=== PATIENT | male | born 1950 | race Caucasian/White ===

== ENCOUNTER 2022-12-16 19:25 | Inpatient (IN) ==
[2022-12-16] MEDS ORDERED: MoRPHine SULFATE 4 MG/ML 1 ML CARP\\VIAL IV PRN (19:39)
[2022-12-16] MEDS ORDERED: ONDANSETRON INJ 2 MG/ML 2 ML VIAL IV STA (19:39)
[2022-12-16] MEDS ORDERED: SODIUM CHLORIDE 0.9% 250 ML IV ONE (19:39)
--- NOTE | 2022-12-16 19:39 | ED Triage Note ---
Date of Service December 16, 2022 History of Present Illness This patient was briefly evaluated while in triage. An abbreviated physical exam was performed. This patient is a 72-year-old Male who presents to the ED for evaluation of abdominal pain rated 8/10 around umbilicus. Started this morning. No n/v. No f ever. Physical Exam Limited Triage Exam: VITALS: Vitals are noted on the nurse's note and reviewed by myself. Vital signs stable. GENERAL: Well-developed, well-nourished, white male, who is in no acute distress and resting comfortably. Patient is cooperative with the examination. HEART: Regular rate and rhythm without murmurs gallops or rubs. LUNGS: Clear to auscultation bilaterally without wheezes, rales or rhonchi. No retractions or accessory muscle use. NEURO: Patient was alert and oriented to person place and time. CN II through XII grossly intact. Initial orders for labs and / or imaging were placed and patient was placed in the waiting area until a bed is available. Please see further documentation for the full ED course. MDM / Impression Impression Impression: Umbilical hernia, incarcerated, Partial obstruction of small intestine
--- NOTE | 2022-12-16 20:38 | Emergency Department Note ---
History of Present Illness General Chief complaint: Abdominal Pain Stated complaint: ABDOMINAL PAIN Time Seen by Provider: 12/16/22 20:20 History of Present Illness Maximum Pain Intensity: 8 72-year-old male presents emergency department an onset of abdominal pain that started this morning after he had a bowel movement. Patient has a history of an umbilical hernia. He states that there is pain around the umbilicus and that his hernia is sticking out more. Patient denies any nausea vomiting diarrhea. Patient's had appendectomy before and inguinal hernia repair. There are no othe r mitigating or alleviating factors. Home Medications Medication Instructions Recorded Confirmed Type allopurinol 300 mg tablet 300 mg PO DAILY 12/16/22 12/16/22 History amiodarone 200 mg tablet 200 mg PO QAM 12/16/22 12/16/22 History amoxicillin 500 mg capsule 2,000 mg PO DIRECTED PRN 1 HR 12/16/22 12/16/22 History PRIOR TO DENTAL APPT. aspirin 81 mg tablet,delayed 81 mg PO DAILY 12/16/22 12/16/22 History release atorvastatin 40 mg tablet 40 mg PO DAILY 12/16/22 12/16/22 History cholecalciferol (vitamin D3) 50 50 mcg PO DAILY 12/16/22 12/16/22 History mcg (2,000 unit) capsule (Vitamin D3) furosemide 20 mg tablet 20 mg PO DAILY 12/16/22 12/16/22 History lisinopril 2.5 mg tablet 2.5 mg PO QAM 12/16/22 12/16/22 History loratadine 10 mg tablet (Claritin) 10 mg PO DAILY 12/16/22 12/16/22 History metoprolol tartrate 25 mg tablet 12.5 mg PO BID 12/16/22 12/16/22 History terazosin 1 mg capsule 2 mg PO HS 12/16/22 12/16/22 History warfarin 5 mg tablet See Rx Instructions .Route .COMPLEX 12/16/22 12/16/22 History Allergies Allergy/AdvReac Type Severity Reaction Status Date / Time nut - unspecified Allergy Intermediate SORES IN Verified 12/16/22 21:33 MOUTH Past Med/Surg History Medical History Aortic dissection CRF (chronic renal failure) Surgical History Heart valve replaced Social History Smoking Status: Never smoker Feels Safe at Home: Yes Immunizations: Past surgical history includes inguinal hernia repair, multiple thoracic surgeries, appendectomy Review of Systems A total of 10 systems reviewed and were otherwise negative Gastrointestinal: + abdominal pain Physical Exam Vital Signs Vital Signs - 24 hr 12/16/22 19:38 12/16/22 20:22 12/16/22 20:21 Temperature 36.6 C Temperature Source Temporal Artery Scan Pulse Rate 60 61 Pulse Rate [Finger] 58 L Pulse Rhythm Regular Pulse Strength Normal Respiratory Rate 22 16 Respiratory Effort / Characteristics Non-Labored Spontaneous Non-Labored Respiratory Depth Normal Normal Respiratory Pattern Regular Blood Pressure 103/54 L Blood Pressure [Left Arm] 126/58 L Blood Pressure Mean 70 Blood Pressure Mean [Left Arm] 80 Blood Pressure Position Sitting Pulse Oximetry 90 99 Oxygen Delivery Method Room Air Room Air Sepsis Recent Fever Within 48 Hours No Sepsis New/Unexplained Change in Mental Status N/A Sepsis Action Taken by Nursing No Action Required GENERAL: Patient is awake alert in no acute distress patient is resting comfortably and showing no signs of anxiety EYES: The conjunctivae are clear. The pupils are round and reactive. EARS, NOSE, MOUTH AND THROAT: The nose is without any evidence of any deformity. Mucous membranes are moist. Tongue is midline. NECK: The neck is nontender and supple. RESPIRATORY: Normal respiratory effort is noted there is no evidence of wheezing rhonchi or rales CARDIOVASCULAR: Regular rate and rhythm noted there no murmurs rubs or gallops normal S1 normal S2. GASTROINTESTINAL: The abdomen is soft. Abdomen is tender at the umbilicus with a mass present that is nonreducible PELVIS: The Pelvis is stable. No tenderness to palpation is noted. BACK: No midline tenderness or or step-off noted range of motion in flexion extension as well as rotation no signs of muscle spasm noted MUSCULOSKELETAL/EXTREMITIES: There is no evidence of gross deformity full range of motion is noted in the hips and shoulders. SKIN: There is no obvious evidence of any rash. There are no petechiae, pallor or cyanosis noted. NEUROLOGIC: Patient is awake alert and oriented x3 strength is symmetric Course Reevaluation(s) Reevaluation #1: Patient was complaining of umbilical abdominal pain. Patient was given IV fentanyl. Time: 22:28 Consultations Consultation #1: Case was discussed with Mumtaz the physician laboratory assistant for surgery for consultation Time: :28 Consultation #2: Spoke with [facility] for admission Time: 22:30 Administered Medications Discontinued Medications Fentanyl Citrate (Fentanyl Citrate Pf 100 Mcg/2 Ml Vial) 50 mcg IV NOW STA Stop: 12/16/22 20:53 Last Admin: 12/16/22 21:19 Dose: 50 mcg Documented By: FRANCK Sodium Chloride (Nss) 250 mls @ 999 mls/hr IV .Q16M ONE Stop: 12/16/22 19:54 Last Infusion: 12/16/22 20:50 Dose: 0 mls/hr Documented By: Admin: 12/16/22 20:31 Dose: 999 mls/hr Documented By: FRANCK Morphine Sulfate (Morphine Sulfate 4 Mg/Ml 1 Ml Carp\Vial) 4 mg IV Q30M PRN PRN Reason: Pain Stop: 12/30/22 19:38 Last Admin: 12/16/22 20:31 Dose: 4 mg Documented By: FRANCK Ondansetron HCl (Ondansetron Inj 2 Mg/Ml 2 Ml Vial) 4 mg IV NOW STA Stop: 12/16/22 19:40 Last Admin: 12/16/22 23:18 Dose: Not Given Documented By: FRANCK Medical Decision Making Medical Records Attestation: I reviewed the patient's medical records. Home Medications Current Medication List: was personally reviewed by Laboratory Data Attestation: I reviewed the patient's lab results. Lab work interpreted by me elevated creatinine 12/16/22 20:12 12/16/22 20:12 Lab Results 12/16/22 12/16/22 12/16/22 Range/Units 20:12 20:12 20:12 WBC 7.62 (4.8-10.8) K/ul RBC 3.66 L (4.70-6.10) M/uL Hgb 11.0 L (14.0-18.0) g/dl POC Hgb (14.0-18.0) g/dl Hct 32.9 L (42.0-52.0) % POC Hct (42-52) % MCV 89.9 (80.0-100.0) fL MCH 30.1 (25.0-34.0) pg MCHC 33.4 (32.0-36.0) g/dL RDW Std Deviation 64.8 H (36.4-46.3) fL RDW Coeff of Penelope 19.9 H (11.5-14.5) % Plt Count 122 L (130-400) K/uL Immature Gran % (Auto) 1.3 % Neut % (Auto) 73.8 % Lymph % (Auto) 12.3 % [place] % (Auto) 10.6 % Eos % (Auto) 1.7 % Baso % (Auto) 0.3 % Neut # (Auto) 5.62 (1.40-6.50) K/uL Lymph # (Auto) 0.94 L (1.2-3.4) K/uL [place] # (Auto) 0.81 H (0.11-0.59) K/uL Eos # (Auto) 0.13 (0-0.50) K/uL Baso # (Auto) 0.02 (0-0.2) K/uL Immature Gran # (Auto) 0.10 (0.01-0.20) K/uL Anisocytosis Present Ovalocytes 1+ PT 18.1 H (9.0-12.0) Seconds INR 1.7 H (0.9-1.1) APTT 32.8 H (21.0-31.0) Seconds PTT Ratio 1.2 POC Sodium (135-144) mmol/L Sodium 142 (136-145) mmol/L POC Potassium (3.3-5.0) mmol/L Potassium 4.1 (3.5-5.1) mmol/L POC Chloride (101-112) mmol/L Chloride 107 (98-107) mmol/L Carbon Dioxide 25 (21-32) mmol/L POC Total CO2 (24-31) mmol/L Anion Gap 10 (3-11) POC Anion Gap (16-25) mmol/L POC BUN (7-18) mg/dl BUN 81 H (6-23) mg/dl Creatinine 2.33 H (0.6-1.4) mg/dl POC Creatinine (0.6-1.3) mg/dl Est Cr Clr Drug Dosing 33.8 ml/min Est GFR ( Amer) 31.2 ml/min Est GFR (Non-Af Amer) 26.9 ml/min BUN/Creatinine Ratio 34.8 H (10-20) Glucose 90 (70-99(Fasting)) mg/dl POC Glucose (other) (70-99) mg/dl Lactate (0.4-2.0) mmol/L Calcium 8.5 L (8.6-10.3) mg/dl POC Ioniz Calcium Codey (1.12-1.32) mmol/l Magnesium 2.2 (1.7-2.4) mg/dl Total Bilirubin 1.9 H (0.2-1.0) mg/dl AST 36 (13-39) U/L ALT 33 (7-52) U/L Alkaline Phosphatase 110 H (34-104) U/L Troponin I High Sens 21.3 H (0-20) pg/ml Total Protein 6.3 (6.0-8.3) gm/dl Albumin 3.7 (3.4-5.0) gm/dl Globulin 2.6 (2.5-4.0) gm/dl Albumin/Globulin Ratio 1.4 (0.9-2) Lipase 14 (11-82) U/L Urine Color Urine Appearance (Clear) Urine pH (4.5-7.5) Ur Specific [place] (1.000-1.030) Urine Protein (Negative) Urine Glucose (UA) (Negative) Urine Ketones (Negative) Urine Blood (Negative) Urine Nitrite (Negative) Urine Bilirubin (Negative) Urine Urobilinogen (Negative) Ur Leukocyte Esterase (Negative) SARS-CoV-2, RNA, NAAT (NEGATIVE) 12/16/22 12/16/22 12/16/22 Range/Units 20:12 20:12 20:37 WBC (4.8-10.8) K/ul RBC (4.70-6.10) M/uL Hgb (14.0-18.0) g/dl POC Hgb 12.2 L (14.0-18.0) g/dl Hct (42.0-52.0) % POC Hct 36 L (42-52) % MCV (80.0-100.0) fL MCH (25.0-34.0) pg MCHC (32.0-36.0) g/dL RDW Std Deviation (36.4-46.3) fL RDW Coeff of Penelope (11.5-14.5) % Plt Count (130-400) K/uL Immature Gran % (Auto) % Neut % (Auto) % Lymph % (Auto) % [place] % (Auto) % Eos % (Auto) % Baso % (Auto) % Neut # (Auto) (1.40-6.50) K/uL Lymph # (Auto) (1.2-3.4) K/uL [place] # (Auto) (0.11-0.59) K/uL Eos # (Auto) (0-0.50) K/uL Baso # (Auto) (0-0.2) K/uL Immature Gran # (Auto) (0.01-0.20) K/uL Anisocytosis Ovalocytes PT (9.0-12.0) Seconds INR (0.9-1.1) APTT (21.0-31.0) Seconds PTT Ratio POC Sodium 141 (135-144) mmol/L Sodium (136-145) mmol/L POC Potassium 4.0 (3.3-5.0) mmol/L Potassium (3.5-5.1) mmol/L POC Chloride 106 (101-112) mmol/L Chloride (98-107) mmol/L Carbon Dioxide (21-32) mmol/L POC Total CO2 22 L (24-31) mmol/L Anion Gap (3-11) POC Anion Gap 18.0 (16-25) mmol/L POC BUN 71 H (7-18) mg/dl BUN (6-23) mg/dl Creatinine (0.6-1.4) mg/dl POC Creatinine 2.6 H (0.6-1.3) mg/dl Est Cr Clr Drug Dosing ml/min Est GFR ( Amer) ml/min Est GFR (Non-Af Amer) ml/min BUN/Creatinine Ratio (10-20) Glucose (70-99(Fasting)) mg/dl POC Glucose (other) 88 (70-99) mg/dl Lactate (0.4-2.0) mmol/L Calcium (8.6-10.3) mg/dl POC Ioniz Calcium Codey 1.09 L (1.12-1.32) mmol/l Magnesium (1.7-2.4) mg/dl Total Bilirubin (0.2-1.0) mg/dl AST (13-39) U/L ALT (7-52) U/L Alkaline Phosphatase (34-104) U/L Troponin I High Sens (0-20) pg/ml Total Protein (6.0-8.3) gm/dl Albumin (3.4-5.0) gm/dl Globulin (2.5-4.0) gm/dl Albumin/Globulin Ratio (0.9-2) Lipase (11-82) U/L Urine Color Yellow Urine Appearance Clear (Clear) Urine pH 5.5 (4.5-7.5) Ur Specific [place] 1.012 (1.000-1.030) Urine Protein Negative (Negative) Urine Glucose (UA) Negative (Negative) Urine Ketones Negative (Negative) Urine Blood Negative (Negative) Urine Nitrite Negative (Negative) Urine Bilirubin Negative (Negative) Urine Urobilinogen Negative (Negative) Ur Leukocyte Esterase Negative (Negative) SARS-CoV-2, RNA, NAAT NEGATIVE (NEGATIVE) 12/16/22 Range/Units 23:22 WBC (4.8-10.8) K/ul RBC (4.70-6.10) M/uL Hgb (14.0-18.0) g/dl POC Hgb (14.0-18.0) g/dl Hct (42.0-52.0) % POC Hct (42-52) % MCV (80.0-100.0) fL MCH (25.0-34.0) pg MCHC (32.0-36.0) g/dL RDW Std Deviation (36.4-46.3) fL RDW Coeff of Penelope (11.5-14.5) % Plt Count (130-400) K/uL Immature Gran % (Auto) % Neut % (Auto) % Lymph % (Auto) % [place] % (Auto) % Eos % (Auto) % Baso % (Auto) % Neut # (Auto) (1.40-6.50) K/uL Lymph # (Auto) (1.2-3.4) K/uL [place] # (Auto) (0.11-0.59) K/uL Eos # (Auto) (0-0.50) K/uL Baso # (Auto) (0-0.2) K/uL Immature Gran # (Auto) (0.01-0.20) K/uL Anisocytosis Ovalocytes PT (9.0-12.0) Seconds INR (0.9-1.1) APTT (21.0-31.0) Seconds PTT Ratio POC Sodium (135-144) mmol/L Sodium (136-145) mmol/L POC Potassium (3.3-5.0) mmol/L Potassium (3.5-5.1) mmol/L POC Chloride (101-112) mmol/L Chloride (98-107) mmol/L Carbon Dioxide (21-32) mmol/L POC Total CO2 (24-31) mmol/L Anion Gap (3-11) POC Anion Gap (16-25) mmol/L POC BUN (7-18) mg/dl BUN (6-23) mg/dl Creatinine (0.6-1.4) mg/dl POC Creatinine (0.6-1.3) mg/dl Est Cr Clr Drug Dosing ml/min Est GFR ( Amer) ml/min Est GFR (Non-Af Amer) ml/min BUN/Creatinine Ratio (10-20) Glucose (70-99(Fasting)) mg/dl POC Glucose (other) (70-99) mg/dl Lactate 0.9 (0.4-2.0) mmol/L Calcium (8.6-10.3) mg/dl POC Ioniz Calcium Codey (1.12-1.32) mmol/l Magnesium (1.7-2.4) mg/dl Total Bilirubin (0.2-1.0) mg/dl AST (13-39) U/L ALT (7-52) U/L Alkaline Phosphatase (34-104) U/L Troponin I High Sens (0-20) pg/ml Total Protein (6.0-8.3) gm/dl Albumin (3.4-5.0) gm/dl Globulin (2.5-4.0) gm/dl Albumin/Globulin Ratio (0.9-2) Lipase (11-82) U/L Urine Color Urine Appearance (Clear) Urine pH (4.5-7.5) Ur Specific [place] (1.000-1.030) Urine Protein (Negative) Urine Glucose (UA) (Negative) Urine Ketones (Negative) Urine Blood (Negative) Urine Nitrite (Negative) Urine Bilirubin (Negative) Urine Urobilinogen (Negative) Ur Leukocyte Esterase (Negative) SARS-CoV-2, RNA, NAAT (NEGATIVE) Imaging Data Attestation: I personally reviewed and interpreted this imaging study as follows: My Impression: CT abdomen pelvis questionable bowel obstruction as interpreted by me Chest x-ray interpreted by me cardiomegaly, pleural effusion Radiologist's Impression: Abdomen/Pelvis CT 12/16/22 20:44 Exam(s): CT ABDOMEN + PELVIS Without Contrast EXAM: CT Abdomen and Pelvis Without Intravenous Contrast CLINICAL HISTORY: Reason for exam: Abd pain. TECHNIQUE: Axial computed tomography images of the abdomen and pelvis without intravenous contrast. CTDI is 27.34 mGy and DLP is 1388.62 mGy-cm. Automated exposure control was utilized for the study. A dose lowering technique was utilized adhering to the principles of ALARA. COMPARISON: No relevant prior studies available. FINDINGS: Lung bases: Unremarkable. No mass. No consolidation. Pleural space: Small RIGHT pleural effusion. Heart: Cardiomegaly. Prosthetic aortic valve. ABDOMEN: Liver: Mild hepatic cirrhotic morphology. Mild perihepatic and perisplenic ascites. Gallbladder and bile ducts: Unremarkable. No calcified stones. No ductal dilation. Pancreas: Unremarkable. No ductal dilation. Spleen: Unremarkable. No splenomegaly. Adrenals: Unremarkable. No mass. Kidneys and ureters: Unremarkable. No hydronephrosis or nephrolithiasis. Stomach and bowel: Ventral abdominal wall hernia, which contains a loop of small bowel. Mildly prominent small bowel entering this hernia measuring up to 2.6 cm, concerning for partial bowel obstruction. Diverticulosis, without acute diverticulitis. No free air. PELVIS: Appendix: No findings to suggest acute appendicitis. Bladder: Unremarkable. No stones. Reproductive: Unremarkable as visualized. ABDOMEN and PELVIS: Intraperitoneal space: See above. Bones/joints: Sternotomy wires. Degenerative changes of the spine. LEFT hip arthroplasty. No acute fracture. No dislocation. Soft tissues: See above. Vasculature: Atherosclerotic changes of the aorta. No abdominal aortic aneurysm. Lymph nodes: Unremarkable. No enlarged lymph nodes. IMPRESSION: 1. Ventral abdominal wall hernia, which contains a loop of small bowel. Mildly prominent small bowel entering this hernia measuring up to 2.6 cm, concerning for partial bowel obstruction. 2. No hydronephrosis or nephrolithiasis. 3. Small RIGHT pleural effusion. 4. Mild hepatic cirrhotic morphology. Mild perihepatic and perisplenic ascites. 5. Diverticulosis, without acute diverticulitis. No free air. Electronically signed by: Gerhard Forman MD 12/16/22 22:10 PM ECG Data Attestation: I personally reviewed and interpreted this ECG as follows: Additional Comments: Interpreted by me wide-complex rate of 59 left axis deviation right bundle branch block poor R wave progression the precordium no obvious ST segment elevation or depression MDM Narrative Medical decision making differential diagnosis includes bowel obstruction, incarcerated umbilical hernia, strangulated umbilical hernia, metabolic derangement, dehydration, electrolyte abnormality, colitis, diverticulitis Plan is to check labs, CT, give IV pain medicine Labs were protocoled by the triage physician laboratory assistant prior to my arrival to the patient External medical records were reviewed by me Independent history was provided to me by the patient's at bedside Impression & Plan Umbilical hernia, incarcerated, Partial obstruction of small intestine Discharge Plan Visit Data Chief Complaint: Abdominal Pain Stated Complaint: ABDOMINAL PAIN ED Provider: Shaquille Fernandez Discharge Problem: Umbilical hernia, incarcerated, Partial obstruction of small intestine Patient Disposition: Admitted As Inpatient Forms Stand Alone Forms: My [facility] Prescriptions Prescriptions: No Action amoxicillin 500 mg Capsule 2,000 mg PO DIRECTED PRN (Reason: 1 HR PRIOR TO DENTAL APPT.) atorvastatin 40 mg tablet 40 mg PO DAILY amiodarone 200 mg tablet 200 mg PO QAM terazosin 1 mg Capsule 2 mg PO HS aspirin 81 mg Tablet,Delayed Release (Dr/Ec) 81 mg PO DAILY warfarin 5 mg Tablet See Rx Instructions .ROUTE .COMPLEX Rx Instructions: TAKES 2.5 MG ON TUES, THURS, & SAT., THEN 5 MG ON SUN, MON, WED, & FRI. allopurinol 300 mg Tablet 300 mg PO DAILY furosemide 20 mg tablet 20 mg PO DAILY lisinopril 2.5 mg tablet 2.5 mg PO QAM loratadine [Claritin] 10 mg Tablet 10 mg PO DAILY metoprolol tartrate 25 mg tablet 12.5 mg PO BID cholecalciferol (vitamin D3) [Vitamin D3] 50 mcg (2,000 unit) Capsule 50 mcg PO DAILY Referrals Referrals: Veronica Coe MD [Primary Care Provider] -
[2022-12-16 20:46] LABS: Appearance Urine Clear (Clear); Bilirubin Urine Negative (Negative); Blood Urine Negative (Negative); Color Urine Yellow; Glucose Urine UA Negative (Negative); Ketones Urine Negative (Negative); Leukocyte Esterase Urine Negative (Negative); Nitrite Urine Negative (Negative); Protein Urine Negative (Negative); Specific Gravity Urine 1.012 (1.000-1.030); Urobilinogen Urine Negative (Negative); pH Urine 5.5 (4.5-7.5)
[2022-12-16 20:51] LABS: iSTAT Creatinine 2.6 mg/dl (0.6-1.3); iSTAT Hemoglobin 12.2 g/dl (14.0-18.0); iSTAT Ionized Calcium 1.09 mmol/l (1.12-1.32)
[2022-12-16] MEDS ORDERED: fentaNYL citrate PF 100 MCG/2 ML VIAL IV STA (20:52)
[2022-12-16 21:02] LABS: Albumin Globulin Ratio 1.4 (0.9-2); Albumin Level 3.7 gm/dl (3.4-5.0); BUN Creatinine Ratio 34.8 (10-20); Bilirubin,Total 1.9 mg/dl (0.2-1.0); Calcium 8.5 mg/dl (8.6-10.3); Creatinine Clr Calc Pharmacy 33.8 ml/min; Est GFR (African American) 31.2 ml/min; Est GFR (Non-African American) 26.9 ml/min; Globulin 2.6 gm/dl (2.5-4.0); Potassium 4.1 mmol/L (3.5-5.1); Total Protein 6.3 gm/dl (6.0-8.3)
[2022-12-16 21:09] LABS: Troponin I High Sensitivity 21.3 pg/ml (0-20)
[2022-12-16 21:12] LABS: INR 1.7 (0.9-1.1); Partial Thromboplastin Ratio 1.2; Partial Thromboplastin Time 32.8 Seconds (21.0-31.0); Prothrombin Time 18.1 Seconds (9.0-12.0)
[2022-12-16 22:10] LABS: Hematocrit (blood only) 32.9 % (42.0-52.0); Mean Corpuscular Hemoglobin 30.1 pg (25.0-34.0); Mean Corpuscular Hgb Conc 33.4 g/dL (32.0-36.0); Mean Corpuscular Volume 89.9 fL (80.0-100.0); Platelet Count 122 K/uL (130-400); RDW Coefficient of Variation 19.9 % (11.5-14.5); RDW Standard Deviation 64.8 fL (36.4-46.3); Red Blood Count 3.66 M/uL (4.70-6.10); White Blood Count 7.62 K/ul (4.8-10.8)
--- NOTE | 2022-12-16 22:11 | CT Scan Report ---
Exam(s): CT ABDOMEN + PELVIS Without Contrast EXAM: CT Abdomen and Pelvis Without Intravenous Contrast CLINICAL HISTORY: Reason for exam: Abd pain. TECHNIQUE: Axial computed tomography images of the abdomen and pelvis without intravenous contrast. CTDI is 27.34 mGy and DLP is 1388.62 mGy-cm. Automated exposure control was utilized for the study. A dose lowering technique was utilized adhering to the principles of ALARA. COMPARISON: No relevant prior studies available. FINDINGS: Lung bases: Unremarkable. No mass. No consolidation. Pleural space: Small RIGHT pleural effusion. Heart: Cardiomegaly. Prosthetic aortic valve. ABDOMEN: Liver: Mild hepatic cirrhotic morphology. Mild perihepatic and perisplenic ascites. Gallbladder and bile ducts: Unremarkable. No calcified stones. No ductal dilation. Pancreas: Unremarkable. No ductal dilation. Spleen: Unremarkable. No splenomegaly. Adrenals: Unremarkable. No mass. Kidneys and ureters: Unremarkable. No hydronephrosis or nephrolithiasis. Stomach and bowel: Ventral abdominal wall hernia, which contains a loop of small bowel. Mildly prominent small bowel entering this hernia measuring up to 2.6 cm, concerning for partial bowel obstruction. Diverticulosis, without acute diverticulitis. No free air. PELVIS: Appendix: No findings to suggest acute appendicitis. Bladder: Unremarkable. No stones. Reproductive: Unremarkable as visualized. ABDOMEN and PELVIS: Intraperitoneal space: See above. Bones/joints: Sternotomy wires. Degenerative changes of the spine. LEFT hip arthroplasty. No acute fracture. No dislocation. Soft tissues: See above. Vasculature: Atherosclerotic changes of the aorta. No abdominal aortic aneurysm. Lymph nodes: Unremarkable. No enlarged lymph nodes. IMPRESSION: 1. Ventral abdominal wall hernia, which contains a loop of small bowel. Mildly prominent small bowel entering this hernia measuring up to 2.6 cm, concerning for partial bowel obstruction. 2. No hydronephrosis or nephrolithiasis. 3. Small RIGHT pleural effusion. 4. Mild hepatic cirrhotic morphology. Mild perihepatic and perisplenic ascites. 5. Diverticulosis, without acute diverticulitis. No free air. Electronically signed by: Gerhard Forman MD 12/16/22 22:10 PM
[2022-12-16 22:29] LABS: Anisocytosis Present; Basophils # (auto) 0.02 K/uL (0-0.2); Basophils % (auto) 0.3 %; Eosinophils # (auto) 0.13 K/uL (0-0.50); Eosinophils % (auto) 1.7 %; Immature Granulocytes % (auto) 1.3 %; Lymphocytes # (auto) 0.94 K/uL (1.2-3.4); Lymphocytes % (auto) 12.3 %; Monocytes # (auto) 0.81 K/uL (0.11-0.59); Monocytes % (auto) 10.6 %; Neutrophils # (auto) 5.62 K/uL (1.40-6.50); Neutrophils % (auto) 73.8 %; Ovalocytes 1+
--- NOTE | 2022-12-16 23:18 | Surgery Consultation ---
Date of Consultation December 16, 2022 Assessment & Plan (1) Umbilical hernia, incarcerated: (2) Partial obstruction of small intestine: I discussed the case with the treating emergency room physician and patient is being admitted on the hospitalist service due to the patient's underlying medical comorbidities. We recommend proceeding as follows: Provide analgesics Provide antiemetics Implement n.p.o. status. As the patient has not had any nausea or vomiting and only demonstrates a partial obstruction on CT scan I do not feel an NG tube required at this time Provide IV fluid for hydration but do so cautiously due to the patient's underlying history of CHF Follow serial labs Patient will likely require repair of his umbilical hernia at some point, however the patient does not appear to be an extremis as he is not writhing around in bed and pain and is not inconsolable. He is noted to have a normal white blood cell count, normal blood pressure, and he is not tachycardic or febrile. In addition, the patient is noted to have a lactic acid level of 0.9 which is within the normal range. It would be preferable to have the patient medically optimized prior to undergoing any surgical intervention. Concerning medical optimization we recommend the following: Hold the patient's Coumadin. He does note that his most recent dose was on 12/16/2022 which was today. The patient will require bridging for anticoagulation as he has a mechanical heart valve. It would be preferable to utilize a heparin drip as this will provide the easiest route for temporary cessation of anticoagulation in the perioperative period. Hold the patient's aspirin if clinically feasible. The patient's congestive heart failure does not appear to be well compensated. (He admits to worsening dyspnea on exertion, orthopnea, and has significant lower extremity edema) He has also had a thoracentesis earlier this month---12 days ago. It appears as though some of his pleural fluid has already reaccumulated and it may be beneficial to have a thoracentesis prior to undergoing any surgical intervention for his hernia. I have ordered a BNP to further assess the patient's congestive heart failure Would be preferable have the patient's congestive heart failure better optimized prior to undergoing surgical intervention. I discussed the above plan concerning future surgery as well as optimization of patient's underlying medical conditions with the hospitalist service Additional recommendations to be forthcoming based on his clinical course as unfolds and recommendations from any consultants that will assist with optimization of the patient's CHF. If the patient develops a worsening clinical course concerning his hernia please notify surgical service immediately and appropriate actions will be undertaken History of Present Illness Reason for Consultation: Abdominal pain History of Present Illness This is a 72-year-old male who presented to the emergency department secondary to abdominal pain. Patient says that he was in his usual state of health without any abdominal pain this morning. The patient said that he had a normal bowel movement but then shortly thereafter he developed some abdominal pain near his umbilicus. He said the pain does not radiate. He does not note any palliative factors other than medicines administered in the emergency departmen t. He notes that the pain is worse with palpation of the area as well as with sitting up. With his current presentation he has not had any nausea or vomiting. He denies any fevers, shakes, or chills. Since his bowel movement earlier this morning he has not had any additional bowel movements and is not passing any flatus. The patient notes that as far as oral intake today he is only had some water in his regular regimen of medications but has not had any solid food. Patient does report that he has had multiple abdominal surgerieshe has had a left inguinal herniorrhaphy, appendectomy, robotic prostatectomy. It is also noteworthy to mention that the patient carries a significant cardiovascular history. 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 Since that time and into adulthood the patient has had an aortic dissection which required replacement of his a sending aortic. He subsequently had an additional heart surgery where he had replacement's of his aortic valve with a [employer] mechanical aortic valve. 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 Secondary to patient's mechanical heart valve he does take Coumadin and he did take his dose today. Patient notes that he has a history of congestive heart failure. He did have a thoracentesis on December 04 of this year for 1700 cc of pleural fluid. He notes that he did have some relief of his CHF symptoms but these seem to be getting worse over the past several days. He does admit to dyspnea on exertion that appears to be getting somewhat worse. He notes he has to sleep in a recliner secondary to orthopnea. The patient feels as though he is gaining weight but cannot specify how much as he does not weigh himself daily he also notes lower extremity edema that appears to be getting worse. He denies any chest pain. Upon further discussion of patient's cardiovascular history his was able to tell me that his most recent echocardiogram was in 2021 within the [facility] system and at this time he was noted to have an ejection fraction of 52%. Since arrival to the hospital the patient has had labs and imaging which independent reviewed. A CBC revealed white blood cell count was within the normal range. His platelet count was 122,000. Hemoglobin and hematocrit were 11.0 and 32.9. Coagulation studies revealed an INR of 1.7. Chemistry profile showed sodium and potassium are both within the normal range. Patient's BUN and creatinine were 81 and 2.3. (Review of patient's records show that he did have a creatinine in our system in September of this year which was 1.9) a urinalysis was not indicative of infection. A chest x-ray showed the patient had bilateral pleural effusions with the right being greater than left and increased pulmonary vascular congestion. A CT scan of the abdomen pelvis was performed this did not demonstrate any intraperitoneal free air. Patient was noted to have a ventral abdominal wall hernia which contained a loop of small bowel. There is concern the patient had a partial small bowel obstruction on this study. On this study the patient was also noted to have a pleural effusion on the right side. A COVID test was performed and was noted to be negative. At the time of my interview the patient was resting comfortably in bed. He was not in any distress at the time of my exam. Allergies Allergy/AdvReac Type Severity Reaction Status Date / Time nut - unspecified Allergy Intermediate SORES IN Verified 12/16/22 21:33 MOUTH Home Medications Medication Instructions Recorded Confirmed Type allopurinol 300 mg tablet 300 mg PO DAILY 12/16/22 12/16/22 History amiodarone 200 mg tablet 200 mg PO QAM 12/16/22 12/16/22 History amoxicillin 500 mg capsule 2,000 mg PO DIRECTED PRN 1 HR 12/16/22 12/16/22 History PRIOR TO DENTAL APPT. aspirin 81 mg tablet,delayed 81 mg PO DAILY 12/16/22 12/16/22 History release atorvastatin 40 mg tablet 40 mg PO DAILY 12/16/22 12/16/22 History cholecalciferol (vitamin D3) 50 50 mcg PO DAILY 12/16/22 12/16/22 History mcg (2,000 unit) capsule (Vitamin D3) furosemide 20 mg tablet 20 mg PO DAILY 12/16/22 12/16/22 History lisinopril 2.5 mg tablet 2.5 mg PO QAM 12/16/22 12/16/22 History loratadine 10 mg tablet (Claritin) 10 mg PO DAILY 12/16/22 12/16/22 History metoprolol tartrate 25 mg tablet 12.5 mg PO BID 12/16/22 12/16/22 History terazosin 1 mg capsule 2 mg PO HS 12/16/22 12/16/22 History warfarin 5 mg tablet See Rx Instructions .Route .COMPLEX 12/16/22 12/16/22 History Patient History Medical History (Updated 12/17/22 @ 09:13 by BENEDICTO Reyes) Aortic dissection CRF (chronic renal failure) Surgical History (Updated 12/17/22 @ 09:04 by BENEDICTO Reyes) Heart valve replaced Social History Smoking Status: Never smoker Smoking End Date: 2 yrs ago; Do You Dip or Chew Tobacco: No; Tobacco Cessation Education Requested by Patient: No Hx Alcohol Use: No Hx Substance Use: No Preferred Language: Uzbek Communication Ability: Effective Barmaid Required: No Beliefs That Will Affect Care: None Current Living Situation: Spouse Other Information That Helps Us Care for You: No Feels Safe at Home: Yes Safety Concerns: Feels Safe At This Time Assistive Devices: Cane, Glasses and Walker Review of Systems Constitutional: no fever Eyes: + corrective lenses Ear, Nose, Mouth, Throat: no ear pain and no hearing loss Respiratory: + dyspnea on exertion Cardiovascular: + dyspnea on exertion, + orthopnea and + edema; no chest pain Gastrointestinal: as per Subjective / HPI Genitourinary: no dysuria Musculoskeletal: no back pain Integumentary: no rash Neurologic: no localized weakness Physical Exam Constitutional: WD/WN, vitals as above Eyes: Wears glasses ENMT: Ears: no hearing impairment and no external ear abnormality Mouth: no oropharynx abnormality Neck: trachea midline Respiratory: Patient is not using accessory muscles to aid in respiration. Patient was noted to have decreased breath sounds at the bases with the right being greater than the left. No wheezing noted. Cardiovascular: Rate/Rhythm: regular rate and regular rhythm Vessels: dorsalis pedis pulses present and radial pulses present 3-4+ lower extremity edema noted bilaterally Gastrointestinal (Abdomen): Abdomen is rotund and is soft and nonrigid. Bowel sounds are present. The patient did have pain with palpation over his umbilicus. A mass/hernia could be felt in the periumbilical region which was nonreducible. This area was painful to palpation but he did not have any rebound tenderness or guarding. There is no erythema overlying the hernia Musculoskeletal: No calf tenderness. Skin: no rashes Neurologic: moves all extremities Psychiatric: A+Ox3, euthymic affect Results & Data Vital Signs (Past 12 Hours) Vital Signs Temp Pulse Pulse Resp BP BP Pulse Ox 12/16/22 20:21 61 12/16/22 20:22 58 L 16 126/58 L 99 12/16/22 19:38 36.6 C 60 22 103/54 L 90 O2 Del Method 12/16/22 20:21 12/16/22 20:22 Room Air 12/16/22 19:38 Room Air PG Care Time/CCT Total # of Minutes Spent Total Time Spent with Patient: Total time spent is greater than 50% in coordination of care (as documented) at patient's floor/unit and/or counseling patient: Coding Level of Care Code 49699 INT INP/OBS CARE 3/75MIN Diagnoses Umbilical hernia, incarcerated K42.0 Partial obstruction of small intestine K56.600
[2022-12-16 23:29] LABS: Magnesium 2.2 mg/dl (1.7-2.4)
[2022-12-17] MEDS ORDERED: FUROSEMIDE 40 MG/4 ML VIAL IV STA (00:08)
[2022-12-17] MEDS ORDERED: ALBUMIN 25% 25 GM/100 ML VIAL IV ONE ×2 (00:08→08:00)
--- NOTE | 2022-12-17 02:13 | History & Physical Report ---
Date of Service December 17, 2022 Assessment & Plan (1) CHF (congestive heart failure): Plan: Subacute symptoms History diastolic dysfunction Partial SBO PAF/mechanical AVR on Coumadin, INR subtherapeutic valvular heart disease (mild MR/moderate TR) hx congenital heart disease (chronic stenosis/ASD status post surgery) hypertension, BP on the lower side hyperlipidemia, on statin Rx thoracic aortic dissection status post surgery CRI, creatinine close to baseline Acute on chronic anemia, slight decrease from baseline hemoglobin, FOBT done at the ER negative prostate cancer status post surgery Incidental finding of cirrhosis on CT, new diagnosis past alcohol abuse PCU Lasix dosed for renal function Strict I/Os,, daily weights, CHF education, fluid restriction Update TTE, Cardiology consult Re: Decompensated heart failure May benefit from Nephrology consultation given kidney dysfunction. General surgery consult Re: Partial SBO (Patient already seen by provider at the ER.) N.p.o., bowel rest, NGT insertion if with emesis Hold Coumadin for now given potential need for intervention, IV heparin interim Follow H&H, transfuse PRBC if hemoglobin less than 8 and or for symptomatic anemia with history of PVD Outpatient GI consult for cirrhosis work-up DVT prophylaxis. IV heparin DNR as per discussion with patient Patient requesting updates from providers. Sindi Desriee Yoni, contact #[phone]. Text document was generated using [employer] voice recognition software. It may contain grammatical or spelling errors. Kindly contact undersigned for clarification of any documentation item in question. History of Present Illness Chief Complaint: Abdominal pain Primary Care Provider: Veronica Coe MD History obtained from patient and records. Medical history significant for chronic diastolic heart failure (EF 50 to 55%, TTE 2021), PAF/mechanical AVR on Coumadin, valvular heart disease mild MR/moderate TR), congenital heart disease (pulmonic stenosis/ASD status post surgery), hypertension, hyperlipidemia, thoracic aortic dissection status post surgery, CRI (baseline creatinine 2s), chronic anemia (baseline hemoglobin 12), prostate cancer status post surgery, mood disorder, past alcohol abuse. Patient with worsening shortness of breath symptoms especially on exertion over the last few months. Chronic cough symptoms productive of clear sputum. Outpatient chest x-ray 6 weeks ago showed moderate right pleural effusion. Minimal improvement despite IR guided right thoracentesis at [facility] with drainage of 1 750 mL of clear venessa fluid 3 weeks ago. Patient noted periumbilical pain after bowel movement yesterday morning. Dark stools which he attributed to blueberry consumption. No chest pain. Usual shortness of breath. Patient brought to ER by for evaluation. 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 aspirin 81 mg tablet,delayed 81 mg PO DAILY 12/16/22 12/16/22 History release atorvastatin 40 mg tablet 40 mg PO DAILY 12/16/22 12/16/22 History cholecalciferol (vitamin D3) 50 50 mcg PO DAILY 12/16/22 12/16/22 History mcg (2,000 unit) capsule (Vitamin D3) furosemide 20 mg tablet 20 mg PO DAILY 12/16/22 12/16/22 History lisinopril 2.5 mg tablet 2.5 mg PO QAM 12/16/22 12/16/22 History loratadine 10 mg tablet (Claritin) 10 mg PO DAILY 12/16/22 12/16/22 History metoprolol tartrate 25 mg tablet 12.5 mg PO BID 12/16/22 12/16/22 History terazosin 1 mg capsule 2 mg PO HS 12/16/22 12/16/22 History warfarin 5 mg tablet See Rx Instructions .Route .COMPLEX 12/16/22 12/16/22 History Past Med/Surg History Medical History (Updated 12/17/22 @ 10:11 by Zaida Spears RN) Abdominal aortic aneurysm Repaired Actinic keratosis Aortic dissection Arthritis right hip, right wrist CHF (congestive heart failure) CRF (chronic renal failure) stage 3 Dyslipidemia Gout History of atrial fibrillation HTN (hypertension) Osteoarthritis right hip RBBB Restless leg syndrome Surgical History (Updated 12/17/22 @ 10:07 by Zaida Spears RN) Heart valve replaced History of appendectomy History of hip replacement left hip History of prostatectomy History of wisdom tooth extraction Social History Smoking Status: Never smoker Smoking End Date: 2 yrs ago; Do You Dip or Chew Tobacco: No; Tobacco Cessation Education Requested by Patient: No Hx Alcohol Use: No Hx Substance Use: No Preferred Language: Romanian Communication Ability: Effective Casting Sorter Required: No Beliefs That Will Affect Care: None Current Living Situation: Spouse Other Information That Helps Us Care for You: No Feels Safe at Home: Yes Safety Concerns: Feels Safe At This Time Assistive Devices: Cane, Glasses and Walker Review of Systems Review of Systems: As per HPI, all other systems reviewed and negative Physical Exam Physical Exam: GENERAL: uncomfortable, obese, tremulous, no respiratory distress SKIN: Pallor, warm HEENT: Pale palpebral conjunctivae, no ptosis, dry buccal mucosa NECK : Supple, short neck, no tenderness CHEST : Decreased breath sounds, no tenderness HEART :RRR, mechanical murmur ABDOMEN: distention, central abdominal tenderness RECTAL : Intact sphincter, dark brown stool (FOBT negative) EXTREMITIES : Bilateral LE swelling, no LE tenderness, no other conspicuous deformities noted NEUROLOGIC : Coherent, no facial asymmetry, tremulous, gait and stance not assessed Results & Data Results & Data Vital Signs (Past 12 Hours) Vital Signs Temp Pulse Pulse Resp BP BP Pulse Ox 12/17/22 02:00 103 H 19 95 12/17/22 02:00 139/65 12/17/22 01:30 110 H 22 93 12/17/22 01:30 128/68 12/17/22 01:00 78 22 94 12/17/22 01:00 141/66 H 12/17/22 00:31 79 19 92 12/17/22 00:31 115/81 12/17/22 00:22 67 12/17/22 00:30 77 23 92 12/17/22 00:00 65 21 94 12/17/22 00:00 123/60 12/16/22 23:30 66 24 95 12/16/22 23:30 127/58 L 12/16/22 23:00 65 21 95 12/16/22 23:00 126/61 12/16/22 22:30 64 24 93 12/16/22 22:30 116/54 L 12/16/22 22:00 60 20 97 12/16/22 22:00 109/55 L 12/16/22 21:30 59 L 16 95 12/16/22 21:30 115/53 L 12/16/22 21:00 61 24 97 12/16/22 21:00 119/56 L 12/16/22 20:30 57 L 23 94 12/16/22 20:30 118/54 L 12/16/22 20:21 61 22 12/16/22 20:21 61 12/16/22 20:22 58 L 16 126/58 L 99 12/16/22 19:38 36.6 C 60 22 103/54 L 90 O2 Del Method O2 Flow Rate 12/17/22 02:00 12/17/22 02:00 12/17/22 01:30 12/17/22 01:30 12/17/22 01:00 12/17/22 01:00 12/17/22 00:31 12/17/22 00:31 12/17/22 00:22 12/17/22 00:30 Nasal Cannula 2 12/17/22 00:00 12/17/22 00:00 12/16/22 23:30 12/16/22 23:30 12/16/22 23:00 12/16/22 23:00 12/16/22 22:30 12/16/22 22:30 12/16/22 22:00 12/16/22 22:00 12/16/22 21:30 12/16/22 21:30 12/16/22 21:00 12/16/22 21:00 12/16/22 20:30 12/16/22 20:30 12/16/22 20:21 12/16/22 20:21 12/16/22 20:22 Room Air 12/16/22 19:38 Room Air Laboratory Results Laboratory Results WBC 7.62 K/ul (4.8-10.8) 12/16/22 20:12 RBC 3.66 M/uL (4.70-6.10) L 12/16/22 20:12 Hgb 11.0 g/dl (14.0-18.0) L 12/16/22 20:12 POC Hgb 12.2 g/dl (14.0-18.0) L 12/16/22 20:37 Hct 32.9 % (42.0-52.0) L 12/16/22 20:12 POC Hct 36 % (42-52) L 12/16/22 20:37 MCV 89.9 fL (80.0-100.0) 12/16/22 20:12 MCH 30.1 pg (25.0-34.0) 12/16/22 20:12 MCHC 33.4 g/dL (32.0-36.0) 12/16/22 20:12 RDW Std Deviation 64.8 fL (36.4-46.3) H 12/16/22 20:12 RDW Coeff of Penelope 19.9 % (11.5-14.5) H 12/16/22 20:12 Plt Count 122 K/uL (130-400) L 12/16/22 20:12 Immature Gran % (Auto) 1.3 % 12/16/22 20:12 Neut % (Auto) 73.8 % 12/16/22 20:12 Lymph % (Auto) 12.3 % 12/16/22 20:12 [place]et % (Auto) 10.6 % 12/16/22 20:12 Eos % (Auto) 1.7 % 12/16/22 20:12 Baso % (Auto) 0.3 % 12/16/22 20:12 Neut # (Auto) 5.62 K/uL (1.40-6.50) 12/16/22 20:12 Lymph # (Auto) 0.94 K/uL (1.2-3.4) L 12/16/22 20:12 [place]et # (Auto) 0.81 K/uL (0.11-0.59) H 12/16/22 20:12 Eos # (Auto) 0.13 K/uL (0-0.50) 12/16/22 20:12 Baso # (Auto) 0.02 K/uL (0-0.2) 12/16/22 20:12 Immature Gran # (Auto) 0.10 K/uL (0.01-0.20) 12/16/22 20:12 Anisocytosis Present 12/16/22 20:12 Ovalocytes 1+ 12/16/22 20:12 PT 18.1 Seconds (9.0-12.0) H 12/16/22 20:12 INR 1.7 (0.9-1.1) H 12/16/22 20:12 APTT 32.8 Seconds (21.0-31.0) H 12/16/22 20:12 PTT Ratio 1.2 12/16/22 20:12 POC Sodium 141 mmol/L (135-144) 12/16/22 20:37 Sodium 142 mmol/L (136-145) 12/16/22 20:12 POC Potassium 4.0 mmol/L (3.3-5.0) 12/16/22 20:37 Potassium 4.1 mmol/L (3.5-5.1) 12/16/22 20:12 POC Chloride 106 mmol/L (101-112) 12/16/22 20:37 Chloride 107 mmol/L (98-107) 12/16/22 20:12 Carbon Dioxide 25 mmol/L (21-32) 12/16/22 20:12 POC Total CO2 22 mmol/L (24-31) L 12/16/22 20:37 Anion Gap 10 (3-11) 12/16/22 20:12 POC Anion Gap 18.0 mmol/L (16-25) 12/16/22 20:37 POC BUN 71 mg/dl (7-18) H 12/16/22 20:37 BUN 81 mg/dl (6-23) H 12/16/22 20:12 Creatinine 2.33 mg/dl (0.6-1.4) H 12/16/22 20:12 POC Creatinine 2.6 mg/dl (0.6-1.3) H 12/16/22 20:37 Est Cr Clr Drug Dosing 33.8 ml/min 12/16/22 20:12 Est GFR ( Amer) 31.2 ml/min 12/16/22 20:12 Est GFR (Non-Af Amer) 26.9 ml/min 12/16/22 20:12 BUN/Creatinine Ratio 34.8 (10-20) H 12/16/22 20:12 Glucose 90 mg/dl (70-99(Fasting)) 12/16/22 20:12 POC Glucose (other) 88 mg/dl (70-99) 12/16/22 20:37 Lactate 0.9 mmol/L (0.4-2.0) 12/16/22 23:22 Calcium 8.5 mg/dl (8.6-10.3) L 12/16/22 20:12 POC Ioniz Calcium Codey 1.09 mmol/l (1.12-1.32) L 12/16/22 20:37 Magnesium 2.2 mg/dl (1.7-2.4) 12/16/22 20:12 Total Bilirubin 1.9 mg/dl (0.2-1.0) H 12/16/22 20:12 AST 36 U/L (13-39) 12/16/22 20:12 ALT 33 U/L (7-52) 12/16/22 20:12 Alkaline Phosphatase 110 U/L (34-104) H 12/16/22 20:12 Troponin I High Sens 21.3 pg/ml (0-20) H 12/16/22 20:12 B-Natriuretic Peptide 704 pg/ml (0-100) H 12/16/22 23:22 Total Protein 6.3 gm/dl (6.0-8.3) 12/16/22 20:12 Albumin 3.7 gm/dl (3.4-5.0) 12/16/22 20:12 Globulin 2.6 gm/dl (2.5-4.0) 12/16/22 20:12 Albumin/Globulin Ratio 1.4 (0.9-2) 12/16/22 20:12 Lipase 14 U/L (11-82) 12/16/22 20:12 TSH 4.479 uIu/ml (0.300-4.500) 12/16/22 20:13 Urine Color Yellow 12/16/22 20:12 Urine Appearance Clear (Clear) 12/16/22 20:12 Urine pH 5.5 (4.5-7.5) 12/16/22 20:12 Ur Specific [place] 1.012 (1.000-1.030) 12/16/22 20:12 Urine Protein Negative (Negative) 12/16/22 20:12 Urine Glucose (UA) Negative (Negative) 12/16/22 20:12 Urine Ketones Negative (Negative) 12/16/22 20:12 Urine Blood Negative (Negative) 12/16/22 20:12 Urine Nitrite Negative (Negative) 12/16/22 20:12 Urine Bilirubin Negative (Negative) 12/16/22 20:12 Urine Urobilinogen Negative (Negative) 12/16/22 20:12 Ur Leukocyte Esterase Negative (Negative) 12/16/22 20:12 SARS-CoV-2, RNA, NAAT NEGATIVE (NEGATIVE) 12/16/22 20:12 Impressions Abdomen/Pelvis CT 12/16/22 20:44 Exam(s): CT ABDOMEN + PELVIS Without Contrast EXAM: CT Abdomen and Pelvis Without Intravenous Contrast CLINICAL HISTORY: Reason for exam: Abd pain. TECHNIQUE: Axial computed tomography images of the abdomen and pelvis without intravenous contrast. CTDI is 27.34 mGy and DLP is 1388.62 mGy-cm. Automated exposure control was utilized for the study. A dose lowering technique was utilized adhering to the principles of ALARA. COMPARISON: No relevant prior studies available. FINDINGS: Lung bases: Unremarkable. No mass. No consolidation. Pleural space: Small RIGHT pleural effusion. Heart: Cardiomegaly. Prosthetic aortic valve. ABDOMEN: Liver: Mild hepatic cirrhotic morphology. Mild perihepatic and perisplenic ascites. Gallbladder and bile ducts: Unremarkable. No calcified stones. No ductal dilation. Pancreas: Unremarkable. No ductal dilation. Spleen: Unremarkable. No splenomegaly. Adrenals: Unremarkable. No mass. Kidneys and ureters: Unremarkable. No hydronephrosis or nephrolithiasis. Stomach and bowel: Ventral abdominal wall hernia, which contains a loop of small bowel. Mildly prominent small bowel entering this hernia measuring up to 2.6 cm, concerning for partial bowel obstruction. Diverticulosis, without acute diverticulitis. No free air. PELVIS: Appendix: No findings to suggest acute appendicitis. Bladder: Unremarkable. No stones. Reproductive: Unremarkable as visualized. ABDOMEN and PELVIS: Intraperitoneal space: See above. Bones/joints: Sternotomy wires. Degenerative changes of the spine. LEFT hip arthroplasty. No acute fracture. No dislocation. Soft tissues: See above. Vasculature: Atherosclerotic changes of the aorta. No abdominal aortic aneurysm. Lymph nodes: Unremarkable. No enlarged lymph nodes. IMPRESSION: 1. Ventral abdominal wall hernia, which contains a loop of small bowel. Mildly prominent small bowel entering this hernia measuring up to 2.6 cm, concerning for partial bowel obstruction. 2. No hydronephrosis or nephrolithiasis. 3. Small RIGHT pleural effusion. 4. Mild hepatic cirrhotic morphology. Mild perihepatic and perisplenic ascites. 5. Diverticulosis, without acute diverticulitis. No free air. Electronically signed by: Gerhard Forman MD 12/16/22 22:10 PM Diagnostic Findings Chest x-ray as per my interpretation congestion, cardiomegaly EKG as per my interpretation : Rate 55, wide QRS rhythm, LAD, LAFB, RBBB, inferior infarct
[2022-12-17] MEDS ORDERED: METOPROLOL TARTRATE 25 MG TAB PO STA (02:16)
[2022-12-17] MEDS ORDERED: Heparin IV Adult Wt-Based Low-Dose *NO* Bolus Protocol IV SCH (02:16)
[2022-12-17] MEDS ORDERED: ACETAMINOPHEN 325 MG TAB PO PRN (02:16)
[2022-12-17] MEDS ORDERED: ACETAMINOPHEN 1,000 MG/100 ML VIAL IV PRN (02:16)
[2022-12-17] MEDS ORDERED: traMADol HCL 50 MG TABLET PO PRN (02:16)
[2022-12-17] MEDS ORDERED: PROMETHAZINE HCL 6.25 MG in SODIUM CHLORIDE 0.9% 50 ML IV PRN (02:19)
[2022-12-17] MEDS ORDERED: LORazepam 2 MG/1 ML VIAL IV PRN (02:19)
[2022-12-17] MEDS ORDERED: ACETAMINOPHEN 1,000 MG/100 ML VIAL IV STA (02:20)
[2022-12-17] MEDS ORDERED: HYDROmorphone INJ 0.5 MG/0.5 ML SYR IV PRN (03:02)
[2022-12-17] MEDS ORDERED: HEPARIN SODIUM/DEXTROSE 25,000 UNITS/500 ML BAG IV SCH (03:30)
[2022-12-17] MEDS ORDERED: PROMETHAZINE HCL 12.5 MG in SODIUM CHLORIDE 0.9% 50 ML IV PRN (04:40)
--- NOTE | 2022-12-17 05:25 | Communication Note ---
Date of Service: December 17, 2022 Patient was revisited at bedside at approximate 5:00 AM. Since this provider's most recent visit patient has had an episode of emesis of green bilious mate cisco. The nurse attending to the patient notified the medical service at approximately 4:30 PM. An NG tube was ordered by the medical service and was placed by nursing staff. In addition the patient is noted to have episodes of fever with a maximum temperature of 38.5. Upon visiting the patient he continues to note pain in his periumbilical region. He does not offer any other additional complaints other than the pain and the previously noted nausea. Patient's most recent vital signs were at approximately 4:30 AM which revealed a blood pressure of 105/51 and a pulse of 80. His respirations are 22 and nonlabored. His temperature at this time is 38.0. Pulse ox is 93% on 3 L. On physical exam the patient's abdomen is rotund. Patient still has tenderness to palpation in the periumbilical region. A mass/hernia is still able to be palpated and is quite tender to palpation. No overlying skin changes are noted. Due to the above noted changes which were not present at the time of my initial exam, we will proceed as follows: Continue NG tube Continue n.p.o. status We will repeat a lactic acid level (of note the patient's initial lactic acid level was nonelevated at 0.9 at time of admission) We will check a.m. labs at this time We will check a KUB I discussed the above with my attending physician, Dr. Solis. We will await the results of the above labs/x-ray with further recommendations to follow based on these results. Addendum: KUB was performed that did not show any free intraperitoneal air. Patient does have an NG tube in place that appears to terminate in the stomach. CBC reveals white blood cell count is now elevated at 14.8. Hemoglobin and hematocrit are 10.2 and 12.2 and platelet count is 108,000. Lactic acid level remains normal at 1.1.Coagulation studies this morning reveal INR is 1.8. Chemistry profiles morning show sodium and potassium remain within normal range. BUN and creatinine are 83 and 2.5.
[2022-12-17] MEDS: ERTAPENEM SODIUM 1,000 MG in SYRINGE 0 ML IV SCH (05:51)
[2022-12-17 06:06] LABS: Basophils # (auto) 0.03 K/uL (0-0.2); Basophils % (auto) 0.2 %; Eosinophils # (auto) 0.01 K/uL (0-0.50); Eosinophils % (auto) 0.1 %; Hematocrit (blood only) 30.3 % (42.0-52.0); Hemoglobin 10.2 g/dl (14.0-18.0); Immature Granulocytes # (auto) 0.08 K/uL (0.01-0.20); Immature Granulocytes % (auto) 0.5 %; Lymphocytes # (auto) 0.36 K/uL (1.2-3.4); Lymphocytes % (auto) 2.4 %; Mean Corpuscular Hgb Conc 33.7 g/dL (32.0-36.0); Mean Corpuscular Volume 89.1 fL (80.0-100.0); Mean Platelet Volume 12.2 fL (9.4-12.4); Monocytes # (auto) 1.28 K/uL (0.11-0.59); Monocytes % (auto) 8.6 %; Neutrophils # (auto) 13.12 K/uL (1.40-6.50); Neutrophils % (auto) 88.2 %; Platelet Count 108 K/uL (130-400); RDW Coefficient of Variation 19.7 % (11.5-14.5); RDW Standard Deviation 63.8 fL (36.4-46.3); White Blood Count 14.88 K/ul (4.8-10.8)
[2022-12-17 06:17] LABS: BUN Creatinine Ratio 32.7 (10-20); Calcium 8.3 mg/dl (8.6-10.3); Creatinine Clr Calc Pharmacy 30.2 ml/min; Est GFR (African American) 28.1 ml/min; Est GFR (Non-African American) 24.3 ml/min; Potassium 3.6 mmol/L (3.5-5.1)
[2022-12-17 06:24] LABS: INR 1.8 (0.9-1.1); Prothrombin Time 19.4 Seconds (9.0-12.0)
--- NOTE | 2022-12-17 06:44 | XRay Report ---
KUB HISTORY: ng tube placement COMPARISON: KUB 12/17/2022. FINDINGS: Nasogastric tube terminates in the stomach. Small bilateral pleural effusions and right bas ilar densities persist. The heart remains enlarged. There are poststernotomy changes and a cardiac va lve prosthesis again noted. Mildly dilated gas-filled loops of small bowel are again seen within the upper abdomen. This is concerning for a small bowel obstruction. No renal calculi. No ureteral calcu li. No pneumoperitoneum or pneumatosis. IMPRESSION: 1. Nasogastric tube terminates in the stomach. 2. Mildly dilated gas-filled loops of small bowel are seen within the upper abdomen concerning for a small bowel obstruction. ACT 112: Negative or not required by law. Electronically signed by: Neftaly Urrutia M.D. 12/17/2022 6:43 AM
--- NOTE | 2022-12-17 06:46 | XRay Report ---
KUB HISTORY: NGT placement COMPARISON: Abdomen and pelvis CT 12/16/2022. FINDINGS: Nasogastric tube is difficult to visualize. The tip appears to be located at the gastric ca rdia. This should be advanced by approximately 5 to 10 cm. Small bilateral pleural effusions and righ t basilar densities persist. There are poststernotomy changes and a cardiac valve prosthesis. No john al calculi. No ureteral calculi. No pneumoperitoneum or pneumatosis. IMPRESSION: Nasogastric tube is difficult to visualize. The tip appears to be located at the posterior cardia/pro ximal stomach. This should be advanced by proximal approximately 5 to 10 cm with repeat KUB. ACT 112: Negative or not required by law. Electronically signed by: Neftaly Urrutia M.D. 12/17/2022 6:44 AM
--- NOTE | 2022-12-17 07:12 | XRay Report ---
XR chest 1V portable HISTORY: Shortness of breath. renal failure COMPARISON: Chest 04/28/2014. FINDINGS: No pneumothorax. There are low lung volumes. The heart is enlarged. Bibasilar linear densit ies favor subsegmental atelectasis. A pneumonia could also have a similar appearance. Small right ple ural effusion. There is mild interstitial pulmonary edema. There are poststernotomy changes and an ao rtic valve prosthesis. There are old, healed bilateral rib fractures. Surgical clips noted within the right infraclavicular region IMPRESSION: 1. Mild pulmonary edema, cardiomegaly, and a small right pleural effusion. 2. Bibasilar densities are nonspecific but favor atelectasis. A pneumonia could also have a similar a ppearance. ACT 112: Negative or not required by law. Electronically signed by: Neftaly Urrutia M.D. 12/17/2022 7:10 AM
[2022-12-17] MEDS ORDERED: FUROSEMIDE 40 MG/4 ML VIAL IV ONE (08:00)
--- NOTE | 2022-12-17 08:13 | Cardiology Consultation ---
Date of Consultation December 17, 2022 Assessment & Plan (1) Umbilical hernia, incarcerated: (2) S/P AVR (aortic valve replacement): (3) Congenital heart disease: (4) CRF (chronic renal failure): (5) Preop cardiovascular exam: Plan IMRESSION: Medically complex 72 year old male with hx of congenital heart disease s/p pulmonic repair as well as severe s/p mechanical AVR and ascending aortic repair. Echo this admission stable with findings associated with prior heart/valvular disease. Patient currently compensated, but acutely ill. Hypotensive on presentation, chronic finding. PLAN: Patient classified as high risk for emergent surgery for his incarcerated umbilical hernia given underlying cardiac comorbidities- however given severity of hernia okay to proceed. Will plan on reversing Coumadin with vit K per primary service. Bridge with heparin post-op when stable. Recommend ICU care post-op. Patient will require volume status management post op. Renal function decline with current scr 2.5- patient follows with nephrology as an outpatient. Monitor closely. Case discussed with Dr. Terry, will follow. Supervising Physician Co-Signing Physician Notes Patient was seen and personally examined. As above patient cardiac and medically complex. Cardiac history as outlined notable for prior childhood surgeries with repair of ASD and pulmonary stenosis. More recent aortic valve replacement and aortic root repair with mechanical aortic valve prosthesis. Chronically compensated congestive heart failure/moderate only severe renal insufficiency, chronic right pleural effusion Patient presents now critically ill with incarcerated umbilical hernia, possible sepsis As above patient at elevated risk for surgery but with emergent need Would proceed as planned. Patient will likely require volume support for pressure and renal function Recommend ICU postoperatively Call with question we will follow History of Present Illness Reason for Consultation: CHF Requesting Physician: Gissel marcum Attending Physician: Zenon Brand MD History of Present Illness 72-year-old male who initially presented to the [facility] emergency department due to abdominal pain found to have an incarcerated umbilical hernia. He is planning on having surgery this morning. Patient carries a complex cardiac history including a history of acute aortic dissection in 11/2009 as well as severe aortic stenosis and aortic regurgitation status post mechanical AVR and conduit repair of ascending aorta in November 2013. Also has a notable history for paroxysmal atrial fibrillation on amiodarone. Patient is currently anticoagulated with Coumadin. In October patient was seen by his PCP and nephrology with worsening shortness of breath. Diuretics were titrated per recommendations of nephrology. Chest x-ray revealed pleural effusions not resolved by diuresis. Underwent thoracentesis on 11/27. Shortness of breath initially improved, however, has gradually worsened again. Upon entrance into the room patient resting in bed. Feels "so-so". Main concern is pain in his abdomen. Notes nausea. No fever or chills. No chest pain, but having dyspnea with movement. Does not weight daily. Notes ongoing lower extremity edema for several months. Mild orthopnea, uses 2 pillows chronically. No PND. No palpitations. Echo 12/17: Low normal LVEF of 50 to 55%. Moderate concentric LVH. Septal motion consistent with conduction abnormality. Left and right atrium dilated. RV moderately dilated with moderately reduced systolic function. [place] bileaflet aortic mechanical prosthesis with normal gradients. Trace MR, no mitral stenosis. Mild to moderate TR no pulmonary hypertension. Tele: SR with IVCD 60-90s Past medical history: Severe aortic stenosis, status post mechanical aortic valve replacement with a conduit repair of ascending aorta, 12/30/[address] Ha Postop course complicated by severe sternal wound infection. Hx of acute aortic dissection s/p repair 11/2009 Pt had TATA post 2010 dissection >> no acute dialysis but had severe renal failure after procedure. S/p multiple pediatric open heart surgeries w/ valve repair for congenital pulmonary stenosis s/p repair 1957 and ASD repair 1964 Paroxysmal atrial fibrillation, on amiodarone and anticoagulated with Coumadin Hypertension Hyperlipidemia CKD History of tobacco use Allergies Allergy/AdvReac Type Severity Reaction Status Date / Time nut - unspecified Allergy Intermediate SORES IN Verified 12/16/22 21:33 MOUTH Home Medications Medication Instructions Recorded Confirmed Type allopurinol 300 mg tablet 300 mg PO DAILY 12/16/22 12/16/22 History amiodarone 200 mg tablet 200 mg PO QAM 12/16/22 12/16/22 History amoxicillin 500 mg capsule 2,000 mg PO DIRECTED PRN 1 HR 12/16/22 12/16/22 History PRIOR TO DENTAL APPT. aspirin 81 mg tablet,delayed 81 mg PO DAILY 12/16/22 12/16/22 History release atorvastatin 40 mg tablet 40 mg PO DAILY 12/16/22 12/16/22 History cholecalciferol (vitamin D3) 50 50 mcg PO DAILY 12/16/22 12/16/22 History mcg (2,000 unit) capsule (Vitamin D3) furosemide 20 mg tablet 20 mg PO DAILY 12/16/22 12/16/22 History lisinopril 2.5 mg tablet 2.5 mg PO QAM 12/16/22 12/16/22 History loratadine 10 mg tablet (Claritin) 10 mg PO DAILY 12/16/22 12/16/22 History metoprolol tartrate 25 mg tablet 12.5 mg PO BID 12/16/22 12/16/22 History terazosin 1 mg capsule 2 mg PO HS 12/16/22 12/16/22 History warfarin 5 mg tablet See Rx Instructions .Route .COMPLEX 12/16/22 12/16/22 History Patient History Medical History Abdominal aortic aneurysm Repaired Actinic keratosis Aortic dissection Arthritis right hip, right wrist CHF (congestive heart failure) CRF (chronic renal failure) stage 3 Dyslipidemia Gout History of atrial fibrillation HTN (hypertension) Osteoarthritis right hip RBBB Restless leg syndrome Surgical History Heart valve replaced History of appendectomy History of hip replacement left hip History of prostatectomy History of wisdom tooth extraction Social History Smoking Status: Never smoker Smoking End Date: 2 yrs ago; Do You Dip or Chew Tobacco: No; Tobacco Cessation Education Requested by Patient: No Hx Alcohol Use: No Hx Substance Use: No Preferred Language: Welsh Communication Ability: Effective Tent Worker Required: No Beliefs That Will Affect Care: None Current Living Situation: Spouse Other Information That Helps Us Care for You: No Feels Safe at Home: Yes Safety Concerns: Feels Safe At This Time Assistive Devices: Cane, Glasses and Walker Review of Systems Review of Systems: All systems reviewed & are unremarkable except as noted in HPI & below Physical Exam Constitutional: + ill appearing; no acute distress Neck: normal visual inspection and trachea midline Respiratory: + cough; no respiratory distress and no labored breathing Auscultation: + rales; no rhonchi and no wheezes Cardiovascular: Rate/Rhythm: regular rate and regular rhythm Heart Sounds: normal S1 and normal S2 (Wood mechanical valve closure ) Extremities: + edema (+4 BLLE pitting edema to thighs) Skin: no rashes, warm and dry Psychiatric: A+Ox3, euthymic affect Results & Data Vital Signs (Past 12 Hours) Vital Signs Temp Pulse Pulse Resp BP BP BP 12/17/22 07:28 37.1 C 60 18 84/37 L 12/17/22 05:58 37.5 C 12/17/22 03:14 88 12/17/22 04:35 12/17/22 04:29 38 C H 12/17/22 03:30 37.6 C H 110 H 24 123/63 12/17/22 03:54 38.5 C H 80 22 105/51 L 12/17/22 02:00 103 H 19 12/17/22 02:00 139/65 12/17/22 01:30 110 H 22 12/17/22 01:30 128/68 12/17/22 01:00 78 22 12/17/22 01:00 141/66 H 12/17/22 00:31 79 19 12/17/22 00:31 115/81 12/17/22 00:22 67 12/17/22 00:30 77 23 12/17/22 00:00 65 21 12/17/22 00:00 123/60 12/16/22 23:30 66 24 12/16/22 23:30 127/58 L 12/16/22 23:00 65 21 12/16/22 23:00 126/61 12/16/22 22:30 64 24 12/16/22 22:30 116/54 L 12/16/22 22:00 60 20 12/16/22 22:00 109/55 L 12/16/22 21:30 59 L 16 12/16/22 21:30 115/53 L 12/16/22 21:00 61 24 12/16/22 21:00 119/56 L 12/16/22 20:30 57 L 23 12/16/22 20:30 118/54 L 12/16/22 20:21 61 22 12/16/22 20:21 61 12/16/22 20:22 58 L 16 126/58 L Pulse Ox O2 Del Method O2 Flow Rate 12/17/22 07:28 97 Nasal Cannula 3 12/17/22 05:58 12/17/22 03:14 12/17/22 04:35 Nasal Cannula 3 12/17/22 04:29 12/17/22 03:30 92 Nasal Cannula 2 12/17/22 03:54 93 Nasal Cannula 3 12/17/22 02:00 95 12/17/22 02:00 12/17/22 01:30 93 12/17/22 01:30 12/17/22 01:00 94 12/17/22 01:00 12/17/22 00:31 92 12/17/22 00:31 12/17/22 00:22 12/17/22 00:30 92 Nasal Cannula 2 12/17/22 00:00 94 12/17/22 00:00 12/16/22 23:30 95 12/16/22 23:30 12/16/22 23:00 95 12/16/22 23:00 12/16/22 22:30 93 12/16/22 22:30 12/16/22 22:00 97 12/16/22 22:00 12/16/22 21:30 95 12/16/22 21:30 12/16/22 21:00 97 12/16/22 21:00 12/16/22 20:30 94 12/16/22 20:30 12/16/22 20:21 12/16/22 20:21 12/16/22 20:22 99 Room Air Laboratory Results Cardiac Enzymes 12/16/22 12/16/22 12/17/22 Range/Units 20:12 23:22 05:23 AST 36 (13-39) U/L Troponin I High Sens 21.3 H 62.0 H* D (0-20) pg/ml B-Natriuretic Peptide 704 H (0-100) pg/ml Coagulation 12/16/22 12/16/22 12/17/22 Range/Units 20:12 23:22 05:23 PT 18.1 H 19.4 H (9.0-12.0) Seconds APTT 32.8 H (21.0-31.0) Seconds B-Natriuretic Peptide 704 H (0-100) pg/ml CBC 12/16/22 12/17/22 Range/Units 20:12 05:23 WBC 7.62 14.88 H (4.8-10.8) K/ul RBC 3.66 L 3.40 L (4.70-6.10) M/uL Hgb 11.0 L 10.2 L (14.0-18.0) g/dl Hct 32.9 L 30.3 L (42.0-52.0) % Plt Count 122 L 108 L (130-400) K/uL Neut # (Auto) 5.62 13.12 H (1.40-6.50) K/uL Lymph # (Auto) 0.94 L 0.36 L (1.2-3.4) K/uL Keith # (Auto) 0.81 H 1.28 H (0.11-0.59) K/uL Eos # (Auto) 0.13 0.01 (0-0.50) K/uL Baso # (Auto) 0.02 0.03 (0-0.2) K/uL Comprehensive Metabolic Panel 12/16/22 12/17/22 Range/Units 20:12 05:23 Sodium 142 142 (136-145) mmol/L Potassium 4.1 3.6 (3.5-5.1) mmol/L Chloride 107 109 H (98-107) mmol/L Carbon Dioxide 25 22 (21-32) mmol/L BUN 81 H 83 H (6-23) mg/dl Creatinine 2.33 H 2.54 H (0.6-1.4) mg/dl Glucose 90 88 (70-99(Fasting)) mg/dl Calcium 8.5 L 8.3 L (8.6-10.3) mg/dl AST 36 (13-39) U/L ALT 33 (7-52) U/L Alkaline Phosphatase 110 H (34-104) U/L Total Protein 6.3 (6.0-8.3) gm/dl Albumin 3.7 (3.4-5.0) gm/dl Intake and Output 12/16/22 12/17/22 12/17/22 22:59 06:59 14:59 Intake Total 250 / 500.25 250.25 / 500.25 96.333 / 96.333 Output Total 825 / 825 Balance 250 / -324.75 -574.75 / -324.75 96.333 / 96.333 Intake: IV 250 / 500.25 250.25 / 500.25 96.333 / 96.333 Acetaminophen 1,000 mg In 100 100 / 100 ml @ 400 mls/hr IV NOW STA Rx#: [id number] Albumin 25% 25 gm In 100 ml @ 100 / 100 50 mls/hr IV ONE ONE Rx#: [id number] Heparin Sodium/Dextrose 25,000 96.333 / 96.333 units In 500 ml @ 1,000 UNITS/ HR 20 mls/hr IV .Q24H KAJAL Rx#: [id number] Promethazine HCl 6.25 mg In 50.25 / 50.25 Sodium Chloride 0.9% 50 ml @ 201 mls/hr IV Q6H PRN Rx#: [id number] Sodium Chloride 0.9% 250 ml @ 250 / 250 999 mls/hr IV .Q16M ONE Rx#: [id number] Output: Urine Amount (Catheter) 775 / 775 External 775 / 775 Gastric Drainage 50 / 50 Left Nare Nasogastric 50 / 50 Other: Other Intake Source NPO # Emeses 1 Weight 102.2 kg 100.2 kg Weight Measurement Method Chair Scale Built in [facility] (4) CRF (chronic renal failure) Chronic kidney disease stage: unspecified stage Qualified Code(s): N18.9 - Chronic kidney disease, unspecified
[2022-12-17] MEDS ORDERED: SODIUM CHLORIDE 0.9% 1000ML 250 ML IV ONE (08:41)
[2022-12-17] MEDS ORDERED: METOPROLOL TARTRATE 25 MG TAB PO SCH (09:00)
[2022-12-17] MEDS ORDERED: LORATADINE 10 MG TAB PO SCH (09:00)
[2022-12-17] MEDS ORDERED: ATORVASTATIN 40 MG TAB PO SCH (09:00)
[2022-12-17] MEDS ORDERED: PHYTONADIONE 5 MG in DEXTROSE 5% 50 ML IV ONE (09:00)
[2022-12-17] MEDS ORDERED: PROTHROMBIN COMP CONC- KCENTRA 1,500 UNITS in SYRINGE 0 ML IV SCH (09:15)
--- NOTE | 2022-12-17 09:22 | Surgery Progress Note ---
Date of Service December 17, 2022 Assessment & Plan (1) Umbilical hernia, incarcerated: Plan: I am slightly concerned. He is mildly hypotensive and is grossly tender. Also his white blood cell count has increased. I do believe it is more urgent and should be repaired sooner than later. We will discuss with medicine regarding reversing his warfarin. We will plan OR for laparoscopic reduction of the incarcerated hernia with repair with mesh. He is at considerable risk considering his comorbidities but I do not believe we have a lot of options at this point in time as it is too painful to reduce manually. We discussed bleeding infection injury to another organ DVT PE CO CVA etc. I have answered all of his questions and he agrees. We will plan for laparoscopic repair of incarcerated ventral hernia later this morning. Admission and Anticipated Discharge Date Admission Date: December 17, 2022 Subjective Patient seen. Continues to have abdominal pain near his umbilicus. It has improved with pain medication. Physical Exam Physical Exam: Alert. Reasonably comfortable Abdomen is soft. There is an obvious hernia near his umbilicus that is exquisitely tender. There is a small amount of erythema and slightly warm to touch Results & Data Vital Signs (Past 12 Hours) Vital Signs Temp Pulse Pulse Resp BP BP BP 12/17/22 09:05 36.8 C 63 16 88/37 L 12/17/22 08:57 90/41 L 12/17/22 08:40 80/42 L 12/17/22 07:28 37.1 C 60 18 84/37 L 12/17/22 05:58 37.5 C 12/17/22 03:14 88 12/17/22 04:35 12/17/22 04:29 38 C H 12/17/22 03:30 37.6 C H 110 H 24 123/63 12/17/22 03:54 38.5 C H 80 22 105/51 L 12/17/22 02:00 103 H 19 12/17/22 02:00 139/65 12/17/22 01:30 110 H 22 12/17/22 01:30 128/68 12/17/22 01:00 78 22 12/17/22 01:00 141/66 H 12/17/22 00:31 79 19 12/17/22 00:31 115/81 12/17/22 00:22 67 12/17/22 00:30 77 23 12/17/22 00:00 65 21 12/17/22 00:00 123/60 12/16/22 23:30 66 24 12/16/22 23:30 127/58 L 12/16/22 23:00 65 21 12/16/22 23:00 126/61 12/16/22 22:30 64 24 12/16/22 22:30 116/54 L 12/16/22 22:00 60 20 12/16/22 22:00 109/55 L 12/16/22 21:30 59 L 16 12/16/22 21:30 115/53 L Pulse Ox O2 Del Method O2 Flow Rate 12/17/22 09:05 96 Nasal Cannula 3 12/17/22 08:57 12/17/22 08:40 12/17/22 07:28 97 Nasal Cannula 3 12/17/22 05:58 12/17/22 03:14 12/17/22 04:35 Nasal Cannula 3 12/17/22 04:29 12/17/22 03:30 92 Nasal Cannula 2 12/17/22 03:54 93 Nasal Cannula 3 12/17/22 02:00 95 12/17/22 02:00 12/17/22 01:30 93 12/17/22 01:30 12/17/22 01:00 94 12/17/22 01:00 12/17/22 00:31 92 12/17/22 00:31 12/17/22 00:22 12/17/22 00:30 92 Nasal Cannula 2 12/17/22 00:00 94 12/17/22 00:00 12/16/22 23:30 95 12/16/22 23:30 12/16/22 23:00 95 12/16/22 23:00 12/16/22 22:30 93 12/16/22 22:30 12/16/22 22:00 97 12/16/22 22:00 12/16/22 21:30 95 12/16/22 21:30 PG Care Time/CCT Total # of Minutes Spent Total Time Spent with Patient: Total time spent is greater than 50% in coordination of care (as documented) at patient's floor/unit and/or counseling patient: Coding Level of Care Code 43136 SUB INP/OBS CARE 2/35MIN Diagnoses Umbilical hernia, incarcerated K42.0
--- NOTE | 2022-12-17 10:42 | Anesthesiology Consultation ---
Date of Service December 17, 2022 Assessment & Plan (1) Encounter for pre-operative examination: History Surgery Operation Date: 12/17/22 07:50 Proposed Procedures p Laparoscopic Abdominal Hernia Repair - Juan Solis DO Height/Weight Height: 5 ft 8 in Weight: 100.2 kg Allergies Allergy/AdvReac Type Severity Reaction Status Date / Time nut - unspecified Allergy Intermediate SORES IN Verified 12/16/22 21:33 MOUTH Medications Home Medications Medication Instructions Recorded Confirmed Last Taken allopurinol 300 mg tablet 300 mg PO DAILY 12/16/22 12/16/22 12/16/22 amiodarone 200 mg tablet 200 mg PO QAM 12/16/22 12/16/22 12/16/22 amoxicillin 500 mg capsule 2,000 mg PO DIRECTED PRN 1 HR 12/16/22 12/16/22 Unknown PRIOR TO DENTAL APPT. aspirin 81 mg tablet,delayed 81 mg PO DAILY 12/16/22 12/16/22 12/16/22 release atorvastatin 40 mg tablet 40 mg PO DAILY 12/16/22 12/16/22 12/16/22 cholecalciferol (vitamin D3) 50 50 mcg PO DAILY 12/16/22 12/16/22 12/16/22 mcg (2,000 unit) capsule (Vitamin D3) furosemide 20 mg tablet 20 mg PO DAILY 12/16/22 12/16/22 12/16/22 lisinopril 2.5 mg tablet 2.5 mg PO QAM 12/16/22 12/16/22 12/16/22 loratadine 10 mg tablet (Claritin) 10 mg PO DAILY 12/16/22 12/16/22 12/16/22 metoprolol tartrate 25 mg tablet 12.5 mg PO BID 12/16/22 12/16/22 12/16/22 terazosin 1 mg capsule 2 mg PO HS 12/16/22 12/16/22 12/16/22 warfarin 5 mg tablet See Rx Instructions .Route .COMPLEX 12/16/22 12/16/22 12/16/22 Active Medications Generic Name Dose Route Start Last Admin Trade Name Freq PRN Reason Stop Dose Admin Hydromorphone HCl 0.25 mg 12/17/22 03:02 12/17/22 05:52 Hydromorphone Inj 0.5 Mg/0.5 Ml Syr IV 12/31/22 03:01 0.25 mg Q6H PRN Administration Pain Heparin Sodium/Dextrose 25,000 units in 500 mls @ 0 mls/hr 12/17/22 03:30 12/17/22 08:53 Heparin Sodium/Dextrose IV 01/16/23 03:29 0 units/hr .Q0M KAJAL 0 mls/hr Titration Protocol 0 UNITS/HR Ertapenem 1,000 mg/ Syringe 10 mls @ 2 mls/min 12/17/22 05:30 12/17/22 05:51 IV 12/27/22 05:14 2 mls/min Q24H KAJAL Administration NPO Date Last Intake of Fluids: 12/17/22 Time Last Intake of Fluids: 03:00 Date Last Intake of Solids: 12/15/22 Past Medical History Medical History Abdominal aortic aneurysm Repaired Actinic keratosis Aortic dissection Arthritis right hip, right wrist CHF (congestive heart failure) CRF (chronic renal failure) stage 3 Dyslipidemia Gout History of atrial fibrillation HTN (hypertension) Osteoarthritis right hip RBBB Restless leg syndrome Past Surgical History Surgical History Heart valve replaced History of appendectomy History of hip replacement left hip History of prostatectomy History of wisdom tooth extraction Social History Smoking Status: Never smoker tobacco type: smokeless tobacco Do You Dip or Chew Tobacco: No Smoking End Date: 2 yrs ago Hx Alcohol Use: No Hx Substance Use: No Physical Exam Vital Signs Last Vital Signs Temp 37.0 C 12/17/22 09:51 Pulse 66 12/17/22 09:51 Resp 20 12/17/22 09:51 BP 88/41 L 12/17/22 09:51 Pulse Ox 95 12/17/22 09:51 O2 Del Method Nasal Cannula 12/17/22 09:51 O2 Flow Rate 3 12/17/22 09:51 Testing Laboratory Results 12/17/22 05:23 12/17/22 05:23 PT 19.4 Seconds (9.0-12.0) H 12/17/22 05:23 INR 1.8 (0.9-1.1) H 12/17/22 05:23 APTT 32.8 Seconds (21.0-31.0) H 12/16/22 20:12 Urine Color Yellow 12/16/22 20:12 Urine Appearance Clear (Clear) 12/16/22 20:12 Urine pH 5.5 (4.5-7.5) 12/16/22 20:12 Ur Specific Hosmer 1.012 (1.000-1.030) 12/16/22 20:12 Urine Protein Negative (Negative) 12/16/22 20:12 Urine Glucose (UA) Negative (Negative) 12/16/22 20:12 Urine Ketones Negative (Negative) 12/16/22 20:12 Urine Nitrite Negative (Negative) 12/16/22 20:12 Ur Leukocyte Esterase Negative (Negative) 12/16/22 20:12 Electrocardiogram Date: 12/16/22 Wide QRS rhythm Left axis deviation Right bundle branch block Inferior infarct , age undetermined Anterolateral infarct , age undetermined Abnormal ECG When compared with ECG of 22-OCT-2021 15:12, Wide QRS rhythm has replaced Sinus rhythm Chest X-Ray Date: 12/16/22 IMPRESSION: 1. Mild pulmonary edema, cardiomegaly, and a small right pleural effusion. 2. Bibasilar densities are nonspecific but favor atelectasis. A pneumonia could also have a similar appearance.
[2022-12-17 11:08] LABS: Partial Thromboplastin Ratio 1.4; Partial Thromboplastin Time 38.3 Seconds (21.0-31.0)
[2022-12-17] MEDS ORDERED: BUPIVACAINE/EPINEPHRINE 0.5% MPF 1:200,000 30 ML VIAL ONE (11:42)
[2022-12-17] MEDS ORDERED: fentaNYL citrate PF 100 MCG/2 ML VIAL ONE ×3 (11:45→14:40)
[2022-12-17] MEDS ORDERED: ROCURONIUM BROMIDE 10 MG/ML 5 ML VIAL IV ONE (11:45)
[2022-12-17] MEDS ORDERED: MIDAZOLAM HCL 1 MG/ML 2ML VIAL ONE (12:11)
[2022-12-17] MEDS ORDERED: KETAMINE 50 MG/5 ML SYRINGE ONE (12:11)
--- NOTE | 2022-12-17 12:11 | Hospitalist Progress Note ---
Date of Service December 17, 2022 Assessment & Plan (1) CHF (congestive heart failure): Plan: 1.) Sepsis, not POA Sepsis, POA Clinical Indicators: Presented with abd pain, found to have an incarcerated umbilical hernia/PSBO. Initial WBC 7.62, rising to 14.88. Initially afebrile but temp up to 38.5, tachycardic with HR 103-110, becoming hypotensive 88/41 Treatment: tele monitoring, surgical consult, O2 support, IV ertapenem, blood cultures, going to OR Risk Factor(s): incarcerated umbilical hernia/partial SBO 2.) Acute on chronic diastolic CHF The medical record reflects the following clinical evidence: Clinical Indicators: CXR with mild pulmonary edema and small R pleural effusion. BNP 704, dyspneic with movement, ongoing LE edema, rales noted Treatment: cardiology consult for decompensated heart failure, tele monitoring, IV lasix, I/O, daily wts, TTE, Risk Factor(s): age, chronic diastolic chf, CKD stage III, 3.) Acute kidney failure PCU Lasix dosed for renal function Strict I/Os,, daily weights, CHF education, fluid restriction Update TTE, Cardiology consult Re: Decompensated heart failure May benefit from Nephrology consultation given kidney dysfunction. General surgery consult Re: Partial SBO (Patient already seen by provider at the ER.) N.p.o., bowel rest, NGT insertion if with emesis Hold Coumadin for now given potential need for intervention, IV heparin interim Follow H&H, transfuse PRBC if hemoglobin less than 8 and or for symptomatic anemia with history of PVD Outpatient GI consult for cirrhosis work-up DVT prophylaxis. IV heparin DNR as per discussion with patient Patient requesting updates from providers. Desiree Yoni, contact #[phone]. Text document was generated using [employer] voice recognition software. It may contain grammatical or spelling errors. Kindly contact undersigned for clarification of any documentation item in question. (2) Umbilical hernia, incarcerated: Plan: INCARCERATED UMBILICAL HERNIA Contacted by general surgery service Plan to take to the OR at around 10 AM Discussed with cardiology service and Dr. Garcia INR 1.8, on Coumadin for mechanical aortic valve We will give vitamin K 5 mg IV, and Kcentra Postoperatively will need to be bridged with heparin drip Recommend transfer to ICU after surgery given multiple medical issues including below ACUTE ON CHRONIC DIASTOLIC CHF Patient's blood pressure systolic 80s-from narcotics? IV NSS 250 cc bolus given in light of emergent surgery Cardiology service consulted for further management POSSIBLE SEPSIS Secondary to incarcerated hernia? Possible pneumonia? Lactic acid 1.1 Follow-up blood cultures Continue ertapenem ACUTE KIDNEY INJURY Baseline creatinine 1.9 Currently 2.5 Kidneys and ureter are unremarkable CT abdomen and pelvis Possibly secondary to sepsis Management of sepsis per above Cardiology on board for diuretic management INCIDENTAL FINDING OF CIRRHOSIS ON CT, NEW DIAGNOSIS Will need outpatient GI follow-up Other chronic medical problems: hypertension hyperlipidemia, on statin Rx thoracic aortic dissection status post surgery chronic anemia prostate cancer status post surgery Disposition Pending clinical course plan of care discussed with patient in detail all questions answered He is understanding, agreeable, comfortable with the plan of care Admission and Anticipated Discharge Date Admission Date: December 17, 2022 Subjective Follow-up for incarcerated hernia, etc. Seen resting in bed, sitting up, not in distress, comfortable On 2 L of oxygen via nasal cannula, NG tube also in place States he is still having discomfort over the hernia site No active nausea or vomiting Has some mild shortness of breath, but no chest pain Has been having productive cough at home, some chills No other new symptom Review of Systems Review of Systems: all noted and negative except for above Physical Exam Physical Exam: General- oriented x 3, not in distress, speaks in sentences with no effort or accessory muscle use Head- atraumatic Eyes- PERRL, EOMI, anicteric ENT- oropharynx clear NG tube in place Neck- supple, no JVD, no adenopathy, no thyromegaly; carotids +2/2, no bruits appreciated Lungs-positive faint crackles at the bases No wheezing Heart- normal rate, regular rhythm; no murmur, no gallop, no rub appreciated Abdomen- normal bowel sounds, nondistended, soft, positive mild tenderness, Extremities-mild lower extremity edema, no calf tenderness; peripheral pulses intact Neuro- alert, oriented x 3; CN 2-12 grossly intact; no gross focal neurologic deficits Skin- warm & dry Results & Data Results & Data Vital Signs (Past 12 Hours) Vital Signs Temp Pulse Pulse Resp BP BP BP 12/17/22 09:51 37.0 C 66 20 88/41 L 12/17/22 07:35 60 12/17/22 07:35 12/17/22 09:20 36.8 C 61 18 84/40 L 12/17/22 09:05 36.8 C 63 16 88/37 L 12/17/22 08:57 90/41 L 12/17/22 08:40 80/42 L 12/17/22 07:28 37.1 C 60 18 84/37 L 12/17/22 05:58 37.5 C 12/17/22 03:14 88 12/17/22 04:35 12/17/22 04:29 38 C H 12/17/22 03:30 37.6 C H 110 H 24 123/63 12/17/22 03:54 38.5 C H 80 22 105/51 L 12/17/22 02:00 103 H 19 12/17/22 02:00 139/65 12/17/22 01:30 110 H 22 12/17/22 01:30 128/68 12/17/22 01:00 78 22 12/17/22 01:00 141/66 H 12/17/22 00:31 79 19 12/17/22 00:31 115/81 12/17/22 00:22 67 12/17/22 00:30 77 23 Pulse Ox O2 Del Method O2 Flow Rate 12/17/22 09:51 95 Nasal Cannula 3 12/17/22 07:35 12/17/22 07:35 Nasal Cannula 3 12/17/22 09:20 95 Nasal Cannula 3 12/17/22 09:05 96 Nasal Cannula 3 12/17/22 08:57 12/17/22 08:40 12/17/22 07:28 97 Nasal Cannula 3 12/17/22 05:58 12/17/22 03:14 12/17/22 04:35 Nasal Cannula 3 12/17/22 04:29 12/17/22 03:30 92 Nasal Cannula 2 12/17/22 03:54 93 Nasal Cannula 3 12/17/22 02:00 95 12/17/22 02:00 12/17/22 01:30 93 12/17/22 01:30 12/17/22 01:00 94 12/17/22 01:00 12/17/22 00:31 92 12/17/22 00:31 12/17/22 00:22 12/17/22 00:30 92 Nasal Cannula 2 all noted and reviewed including below
[2022-12-17] MEDS ORDERED: VASOPRESSIN 20 UNIT/ML VIAL ONE (12:29)
[2022-12-17] MEDS ORDERED: SODIUM CHLORIDE 0.9% PF INJ 10 ML VIAL ONE (12:30)
[2022-12-17] MEDS ORDERED: ePHEDrine sulfate 50 MG/ML SYR ONE (12:44)
[2022-12-17] MEDS ORDERED: LIDOCAINE 2% 2 ML VIAL/AMP(20MG/ML) INFIL ONE (12:44)
[2022-12-17] MEDS ORDERED: PHENYLEPHRINE HCL 10 MG/ML VIAL ONE (12:44)
[2022-12-17] MEDS ORDERED: PROPOFOL IV EMULSION 10 MG/ML 20 ML VIAL IV ONE (12:44)
[2022-12-17] MEDS ORDERED: ePHEDrine sulfate 50 MG/ML AMP ONE (12:44)
--- NOTE | 2022-12-17 12:44 | Procedure Note ---
Procedure Note Date of Service December 17, 2022 Note called to the OR to assist with catheter placement before umbilical hernia repair. Prior prostatectomy Nursing had attempted a 16 and 12 [place] catheter prior to my arrival Initially probed with 1 of these catheters and felt resistance to the bladder neck. I did attempt an 18 [place] coud catheter but I could feel resistance again at the bladder neck. I suspect he has a bladder neck contracture. In turn, I passed a 5 [place] open-ended catheter into the bladder and placed a wire. I then dilated from 16 [place] to 20 [place] utilizing S-curve Klaudia style dilators. I then placed a 16 [place] turtle mountain tip catheter over the wire with return of clear urine. He was stable and without complicationsokay to move forward with the remaining surgical procedure. Coding
[2022-12-17] MEDS ORDERED: SUCCINYLCHOLINE CHLORIDE 20 MG/ML 10 ML VIAL IV ONE (12:45)
[2022-12-17] MEDS: AMIODARONE 200 MG TAB PO SCH (13:48)
[2022-12-17] MEDS: allopurinoL 300 MG TAB PO SCH (13:48)
[2022-12-17] MEDS: ASPIRIN 81 MG ECTAB PO SCH (13:49)
[2022-12-17] MEDS ORDERED: ONDANSETRON INJ 2 MG/ML 2 ML VIAL ONE (13:53)
[2022-12-17] MEDS ORDERED: SUGAMMADEX SODIUM 200 MG/2 ML VIAL IV ONE (13:58)
--- NOTE | 2022-12-17 13:58 | Hospitalist Progress Note ---
Date of Service December 17, 2022 Assessment & Plan (1) Umbilical hernia, incarcerated: Plan: INCARCERATED UMBILICAL HERNIA Contacted by general surgery service Plan to take to the OR at around 10 AM Discussed with cardiology service and Dr. Garcia INR 1.8, on Coumadin for mechanical aortic valve We will give vitamin K 5 mg IV, and Kcentra Postoperatively will need to be bridged with heparin drip Recommend transfer to ICU after surgery given multiple medical issues including below ACUTE ON CHRONIC DIASTOLIC CHF Patient's blood pressure systolic 80s-from narcotics? IV NSS 250 cc bolus given in light of emergent surgery Cardiology service consulted for further management POSSIBLE SEPSIS not POA Secondary to incarcerated hernia? Possible pneumonia? Lactic acid 1.1 Follow-up blood cultures Continue ertapenem ACUTE KIDNEY INJURY Baseline creatinine 1.9 Currently 2.5 Kidneys and ureter are unremarkable CT abdomen and pelvis Possibly secondary to sepsis Management of sepsis per above Cardiology on board for diuretic management INCIDENTAL FINDING OF CIRRHOSIS ON CT, NEW DIAGNOSIS Will need outpatient GI follow-up Other chronic medical problems: hypertension hyperlipidemia, on statin Rx thoracic aortic dissection status post surgery chronic anemia prostate cancer status post surgery Disposition Pending clinical course plan of care discussed with patient in detail all questions answered He is understanding, agreeable, comfortable with the plan of care Admission and Anticipated Discharge Date Admission Date: December 17, 2022 Subjective Follow-up for incarcerated hernia, etc. Seen resting in bed, sitting up, not in distress, comfortable On 2 L of oxygen via nasal cannula, NG tube also in place States he is still having discomfort over the hernia site No active nausea or vomiting Has some mild shortness of breath, but no chest pain Has been having productive cough at home, some chills No other new symptom Review of Systems Review of Systems: all noted and negative except for above Physical Exam Physical Exam: General- oriented x 3, not in distress, speaks in sentences with no effort or accessory muscle use Head- atraumatic Eyes- PERRL, EOMI, anicteric ENT- oropharynx clear NG tube in place Neck- supple, no JVD, no adenopathy, no thyromegaly; carotids +2/2, no bruits appreciated Lungs-positive faint crackles at the bases No wheezing Heart- normal rate, regular rhythm; no murmur, no gallop, no rub appreciated Abdomen- normal bowel sounds, nondistended, soft, positive mild tenderness, Extremities-mild lower extremity edema, no calf tenderness; peripheral pulses intact Neuro- alert, oriented x 3; CN 2-12 grossly intact; no gross focal neurologic deficits Skin- warm & dry Results & Data Results & Data Vital Signs (Past 12 Hours) Vital Signs Temp Pulse Pulse Resp BP BP BP 12/17/22 09:51 37.0 C 66 20 88/41 L 12/17/22 07:35 60 12/17/22 07:35 12/17/22 09:20 36.8 C 61 18 84/40 L 12/17/22 09:05 36.8 C 63 16 88/37 L 12/17/22 08:57 90/41 L 12/17/22 08:40 80/42 L 12/17/22 07:28 37.1 C 60 18 84/37 L 12/17/22 05:58 37.5 C 12/17/22 03:14 88 12/17/22 04:35 12/17/22 04:29 38 C H 12/17/22 03:30 37.6 C H 110 H 24 123/63 12/17/22 03:54 38.5 C H 80 22 105/51 L 12/17/22 02:00 103 H 19 12/17/22 02:00 139/65 Pulse Ox O2 Del Method O2 Flow Rate 12/17/22 09:51 95 Nasal Cannula 3 12/17/22 07:35 12/17/22 07:35 Nasal Cannula 3 12/17/22 09:20 95 Nasal Cannula 3 12/17/22 09:05 96 Nasal Cannula 3 12/17/22 08:57 12/17/22 08:40 12/17/22 07:28 97 Nasal Cannula 3 12/17/22 05:58 12/17/22 03:14 12/17/22 04:35 Nasal Cannula 3 12/17/22 04:29 12/17/22 03:30 92 Nasal Cannula 2 12/17/22 03:54 93 Nasal Cannula 3 12/17/22 02:00 95 12/17/22 02:00
--- NOTE | 2022-12-17 14:28 | Operative Report ---
PG Post Operative Report Pre & Post Diagnosis Operation Date: 12/17/22 07:50 Pre-Op Diagnosis: Incarcerated Abdominal Hernia Post-Op Diagnosis: Incarcerated Abdominal Hernia;small bowel ischemia I identified the patient and participated in the time-out.: Yes Procedure Operation Date: 12/17/22 07:50 Actual Procedures p Laparoscopy converted to open partial small bowel resection, repair of ventral hernia(Not Applicable) - Juan Solis DO Surgeon Juan Solis DO Doll Surgeon salud Lim Estimated Blood Loss 50 Findings Consistent with Post-Op Diagnosis Specimens portion of small bowel Description of Procedure After informed consent was obtained the patient was taken to the operating room and placed in supine position. After successful intubation a nasogastric tube was placed by anesthesia. Nursing had difficulty placing a Maldonado catheter and therefore Dr. Hernandez from urology was gracious enough to come into the room. Please see his report on dilating and placing a catheter for us. Once this was performed the abdomen was shaved and sterilely prepped and draped in usual fashion. I began with a left upper quadrant incision with an 11 blade scalpel. This was carried down through the soft tissue using cautery. Anterior fascia was opened using cautery and 2 number 0 Vicryl stay sutures were placed. Blunt finger penetration was used to enter the peritoneum. A 12 mm Cobb trocar was placed and the abdomen was insufflated to 15 mmHg. The laparoscope was inserted and the abdomen examined 360 degrees. There was a periumbilical ventral hernia measuring approximately 3 cm. There was small bowel incarcerated within it. A left mid abdominal 5 mm trocar and a left lower quadrant 5 mm trocar were placed under direct vision. Using traction from inside the abdomen as well as pressure from outside the abdomen we were able to reduce the small bowel revealing the hernia. About a 4 inch segment of small bowel did appear to be ischemic. It was unclear to me if it was infarcted. We watched for several minutes and I was still not convinced that it was going to re-perfuse. I therefore converted to an open procedure. I made a curvilinear infraumbilical incision with a 15 blade scalpel and carried this down through the soft tissue using cautery. I excised the hernia sac in 360 degrees. I slightly extended the hernia defect so that I could deliver the small bowel externally. I was concerned that a small portion of the bowel may be infarcted. With his comorbidities I did not want to risk definitive infarction down the road. I therefore transected small bowel using a ELIZABETH brown cartridge stapler distal as well as proximal to the ischemic region. A harmonic scalpel was used to take down the mesentery. A 60 mm brown cartridge stapler was used to create a [id number] small bowel anastomosis. The common enterotomy was also closed using a brown cartridge stapler. Once this was accomplished there were several punctate regions near the anastomosis that also appeared ischemic and I was unhappy with it. I therefore redid the anastomosis. I transected small bowel distal to the anastomosis using staplers and again using the harmonic scalpel to take down the mesentery. I recreated the [id number]-[id number] anastomosis using 2 firings of a ELIZABETH 60 mm brown cartridge. The common enterotomy was then closed hand sewn technique using 3-0 Monocryl for serosal/ mucosal layers and 3-0 silk in Lembert fashion for serosal layer. 3-0 silk was also used to place a crotch stitch. 2-0 Vicryl was used to close the mesenteric defect. This anastomosis was patent and viable with no evidence of ischemia. It was reduced back into the abdominal cavity. The fascia/hernia defect was closed using #1 Ethibond in simple erupted fashion. I did not want to risk mesh infection and therefore did not use mesh. The wound was thoroughly irrigated. The umbilical stalk was reapproximated using an 0 Vicryl. Skin was closed over 1/4 inch [place] using skin ingrid. We then reinsufflated the abdomen I evaluated the abdomen 360 degrees. The anastomosis looked good with no ischemia and there was no Intra-Op abdominal bleeding. The trocars were all removed and the abdomen desufflated. The fascia of the camera port was closed using 0 Vicryl in [id number] fashion. The trocar sites w ere closed using skin ingrid. Silver dressing gauze and tape were used as dressings. The patient was awakened extubated and transferred to the intensive care unit in guarded condition. My physician scheduling assistant was present for the entire case was instrumental in running the camera providing exposure assisting with the anastomosis hernia repair and wound closure. I attest to the content of the Intraoperative Record and any orders documented therein. Any exceptions are noted below.
--- NOTE | 2022-12-17 15:11 | Electrocardiogram Report ---
Test Reason : Blood Pressure : / mmHG Vent. Rate : 059 BPM Atrial Rate : 000 BPM P-R Int : 000 ms QRS Dur : 132 ms QT Int : 572 ms P-R-T Axes : 000 -63 085 degrees QTc Int : 566 ms Idioventricular rhythm Left axis deviation Right bundle branch block Inferior infarct , age undetermined Anterolateral infarct , age undetermined Abnormal ECG When compared with ECG of 22-OCT-2021 15:12, Sinus rhythm no longer present Confirmed by Antony Jacobs ([id number]) on 12/17/2022 3:10:31 PM Referred By: REFERRED SELF Confirmed By:Antony Jacobs
--- NOTE | 2022-12-17 15:16 | Anesthesiology Progress Note ---
Date of Service December 17, 2022 Anesthesia Post Procedure Vital Signs Vital Signs: Temp Pulse Pulse Pulse Resp BP BP 12/17/22 15:00 63 21 12/17/22 14:50 61 20 12/17/22 14:40 63 24 12/17/22 14:30 61 25 H 12/17/22 14:21 36.5 C 62 20 12/17/22 09:51 37.0 C 66 20 88/41 L 12/17/22 07:35 60 12/17/22 07:35 12/17/22 09:20 36.8 C 61 18 84/40 L 12/17/22 09:05 36.8 C 63 16 88/37 L 12/17/22 08:57 90/41 L 12/17/22 08:40 80/42 L 12/17/22 07:28 37.1 C 60 18 12/17/22 05:58 37.5 C 12/17/22 03:14 88 12/17/22 04:35 12/17/22 04:29 38 C H 12/17/22 03:30 37.6 C H 110 H 24 12/17/22 03:54 38.5 C H 80 22 12/17/22 02:00 103 H 19 12/17/22 02:00 139/65 12/17/22 01:30 110 H 22 12/17/22 01:30 128/68 12/17/22 01:00 78 22 12/17/22 01:00 141/66 H 12/17/22 00:31 79 19 12/17/22 00:31 115/81 12/17/22 00:22 67 12/17/22 00:30 77 23 12/17/22 00:00 65 21 12/17/22 00:00 123/60 12/16/22 23:30 66 24 12/16/22 23:30 127/58 L 12/16/22 23:00 65 21 12/16/22 23:00 126/61 12/16/22 22:30 64 24 12/16/22 22:30 116/54 L 12/16/22 22:00 60 20 12/16/22 22:00 109/55 L 12/16/22 21:30 59 L 16 12/16/22 21:30 115/53 L 07/17/23 21:00 61 24 12/16/22 21:00 119/56 L 12/16/22 20:30 57 L 23 12/16/22 20:30 118/54 L 12/16/22 20:21 61 22 12/16/22 20:21 61 12/16/22 20:22 58 L 16 126/58 L 12/16/22 19:38 36.6 C 60 22 103/54 L BP BP Pulse Ox O2 Del Method O2 Flow Rate 12/17/22 15:00 92/40 L 104/46 L 95 Oxymask 7 12/17/22 14:50 95/40 L 97/48 L 95 Oxymask 7 12/17/22 14:40 102/43 L 110/53 L 96 Oxymask 9 12/17/22 14:30 111/62 94 Oxymask 9 12/17/22 14:21 121/57 L 94 Oxymask 9 12/17/22 09:51 95 Nasal Cannula 3 12/17/22 07:35 12/17/22 07:35 Nasal Cannula 3 12/17/22 09:20 95 Nasal Cannula 3 12/17/22 09:05 96 Nasal Cannula 3 12/17/22 08:57 12/17/22 08:40 12/17/22 07:28 84/37 L 97 Nasal Cannula 3 12/17/22 05:58 12/17/22 03:14 12/17/22 04:35 Nasal Cannula 3 12/17/22 04:29 12/17/22 03:30 123/63 92 Nasal Cannula 2 12/17/22 03:54 105/51 L 93 Nasal Cannula 3 12/17/22 02:00 95 12/17/22 02:00 12/17/22 01:30 93 12/17/22 01:30 12/17/22 01:00 94 12/17/22 01:00 12/17/22 00:31 92 12/17/22 00:31 12/17/22 00:22 12/17/22 00:30 92 Nasal Cannula 2 12/17/22 00:00 94 12/17/22 00:00 12/16/22 23:30 95 12/16/22 23:30 12/16/22 23:00 95 12/16/22 23:00 12/16/22 22:30 93 12/16/22 22:30 12/16/22 22:00 97 12/16/22 22:00 12/16/22 21:30 95 12/16/22 21:30 12/16/22 21:00 97 12/16/22 21:00 12/16/22 20:30 94 12/16/22 20:30 12/16/22 20:21 12/16/22 20:21 12/16/22 20:22 99 Room Air 12/16/22 19:38 90 Room Air Pain Intensity Medial Abdomen: Pain Intensity: 4 Transfer of Care Handoff Completed per policy Notes Mental Status: alert / awake / arousable and participated in evaluation Patient Amnestic to Procedure: Yes Nausea / Vomiting: adequately controlled Pain: adequately controlled Airway Patency, RR, SpO2: stable & adequate BP & HR: stable & adequate Hydration State: stable & adequate Anesthetic Complications: no major complications apparent and Pt Satisfied with anesthetic care Notes: The patient is doing well in recovery. He is awake and appropriate. All vital signs are stable. I gave a full report to Dr. Little who will be taking care of the patient once he is transferred to the ICU.
[2022-12-17] MEDS ORDERED: fentaNYL citrate PF 100 MCG/2 ML VIAL IV ONE (15:22)
[2022-12-17] MEDS ORDERED: MoRPHine SULFATE 4 MG/ML 1 ML CARP\\VIAL IV PRN (15:45)
[2022-12-17] MEDS ORDERED: MoRPHine SULFATE 2 MG/ML CARP IV PRN (15:45)
[2022-12-17] MEDS ORDERED: STAT IV Infusion **Titration per Protocol STA (16:02)
--- NOTE | 2022-12-17 16:17 | Critical Care Consultation ---
Date of Consultation December 17, 2022 Assessment & Plan (1) Acute on chronic renal failure: (2) CHF (congestive heart failure): (3) Partial obstruction of small intestine: (4) Anemia: Plan Impression: 72-year-old male with multiple medical comorbidities including chronic kidney disease, potential cirrhosis, valvular heart disease, diastolic heart failure, now with ischemic bowel status postresection. His anticoagulation has been reversed but kidney function appears to be deter iorating and the patient has low blood pressure. He is reverse his DNR for the time being but is not interested in aggressive resuscitation. Recommendations: 1. Neurologic: We will continue to follow with the patient's neurological status. Pain control per primary service. Would be judicious using narcotics given his low blood pressure and kidney function. 2. Cardiovascular: Hypotension. Preoperative echocardiogram reviewed with diastolic dysfunction and RV dilatation. Gradients across the valve appeared normal. He appears volume overloaded with lower extremity edema and pulmonary vascular congestion on chest x-ray so we will avoid additional crystalloid at this point in time. We will try vasopressors to maintain systolic blood pressure around 100 and follow kidney function closely. Hopefully we can get by with his 18-gauge peripheral IV but if he requires escalating pressor doses, will likely need central access placed. This was discussed with the patient and with his . We will recheck lactate. We will also check random cortisol. Cardiology following patient at this point in time. Did have significant increase in his troponin prior to surgery. On amiodarone but this is p.o. so we will hold off on p.o. medications for now 3. Pulmonary: Chest x-ray demonstrates pulmonary edema with recurrence of the pleural effusion. Continue supplemental oxygen. Repeat chest x-ray in a.m.. 4. GI: Status post partial resection of small bowel. Continue NG tube. Management per general surgery. IV PPI. N.p.o. for now. Cirrhotic changes identified on imaging potentially consistent with patient's prior history of alcohol abuse. He does not appear decompensated currently and would continue to follow closely. 5. Renal: Acute on chronic renal insufficiency. Low threshold for involvement of nephrology in the patient's case. He appears volume overloaded but is also hypotensive so we will hold off on diuretics or additional fluids at this point in time. Acid-base status appears acceptable and electrolytes are acceptable. His BUN is significantly elevated. If he progresses to dialysis, unclear whether he would want this intervention. Given the difficulty in placing the patient's Maldonado catheter, will keep it in place for now. 6. Heme-onc: The patient's anticoagulation has been reversed for his heart valve. Discussed with surgery. We will observe him overnight and plan on restarting heparin in the a.m. without a bolus. He can transition to Coumadin once he is stable. He does demonstrate anemia of unclear etiology. We will follow for now. No indication for transfusion. The patient's platelet counts are decreasing potentially consistent with sepsis versus a consumptive process. No indication for transfusion currently but will need to follow closely. 7. Endocrine: Glycemic control per protocol. Check random cortisol. 8. ID: Patient has been initiated on broad-spectrum antibiotics prior to surgery (day #1 ertapenem). These will be continued. Duration and choice of antibiotics will be deferred to the general surgery service. Patient is critically ill at this point time. A total of 57 minutes of critical care time was spent in evaluation management coordination of care for this patient. Patient's overall prognosis is guarded at this point in time. He is expressed a desire to not pursue aggressive interventions including CPR or mechanical ventilation if needed. These were reversed for the surgical procedure. Hopefully he will respond appropriately to the above interventions but certainly he is at risk for clinical decline. History of Present Illness Attending Physician: Zenon Brand MD History of Present Illness Asked by general surgeons to assist in evaluation management this patient postoperatively after resection of incarcerated small bowel with ischemic component. History is obtained from discussion with the patient's at bedside as well as review the electronic medical record and discussion with the anesthesia team. Patient is a 72-year-old male with a complicated past medical history. He has a history of congenital heart disease status postrepair of pulmonic stenosis and ASD. He is also undergone aortic valve replacement and currently has a [facility] [employer] aortic valve and is chronically anticoagulated on Coumadin. He has a history of diastolic heart failure as well as chronic kidney disease and a prior history of alcohol abuse. The patient initially presented to the emergency room complaining of shortness of breath. He had undergone IR guided thoracentesis with [facility] in the past. He had some periumbilical pain and was admitted to the hospital. He is followed by the surgical service and recommended NG tube placement. Initial lactate was unremarkable. Repeat evaluation by the surgeon today showed that the patient's exam was worrisome. White count was increasing and the patient developed softer blood pressure. He was taken to the OR today for exploratory laparotomy with excision of ischemic bowel. According to the anesthesia services he required intermittent pushes of ephedrine during the case. An arterial line was placed. He was extubated and initially was doing okay but given the complicated cardiac history was felt appropriate to monitor in the ICU. On arrival to the ICU the patient has low blood pressure in the 80/20 range. His is present at the bedside who is a nurse. She reports that his blood pressures run routinely low in the 100/60 range. He is followed through [facility] cardiology. He is appropriately tender in his abdomen but not having any chest pain or palpitations. He is sleepy from the anesthesia but appears to be mentating clearly and following commands. He is making some urine but his creatinine had been increasing. He had been chronically anticoagulated but was reversed with Kcentra and vitamin K. His INR is currently normal. There was some difficulty placing his Maldonado catheter in the OR and urology was required to assist. Allergies Allergy/AdvReac Type Severity Reaction Status Date / Time nut - unspecified Allergy Intermediate SORES IN Verified 12/16/22 21:33 MOUTH Home Medications Medication Instructions Recorded Confirmed Type allopurinol 300 mg tablet 300 mg PO DAILY 12/16/22 12/16/22 History amiodarone 200 mg tablet 200 mg PO QAM 12/16/22 12/16/22 History amoxicillin 500 mg capsule 2,000 mg PO DIRECTED PRN 1 HR 12/16/22 12/16/22 History PRIOR TO DENTAL APPT. aspirin 81 mg tablet,delayed 81 mg PO DAILY 12/16/22 12/16/22 History release atorvastatin 40 mg tablet 40 mg PO DAILY 12/16/22 12/16/22 History cholecalciferol (vitamin D3) 50 50 mcg PO DAILY 12/16/22 12/16/22 History mcg (2,000 unit) capsule (Vitamin D3) furosemide 20 mg tablet 20 mg PO DAILY 12/16/22 12/16/22 History lisinopril 2.5 mg tablet 2.5 mg PO QAM 12/16/22 12/16/22 History loratadine 10 mg tablet (Claritin) 10 mg PO DAILY 12/16/22 12/16/22 History metoprolol tartrate 25 mg tablet 12.5 mg PO BID 12/16/22 12/16/22 History terazosin 1 mg capsule 2 mg PO HS 12/16/22 12/16/22 History warfarin 5 mg tablet See Rx Instructions .Route .COMPLEX 12/16/22 12/16/22 History Patient History Medical History (Updated 12/17/22 @ 16:11 by Gabriel Little MD) Abdominal aortic aneurysm Repaired Actinic keratosis Aortic dissection Arthritis right hip, right wrist CHF (congestive heart failure) CRF (chronic renal failure) stage 3 Dyslipidemia Gout History of atrial fibrillation HTN (hypertension) Osteoarthritis right hip RBBB Restless leg syndrome Surgical History (Updated 12/17/22 @ 14:48 by Yoli Barnes RN) Heart valve replaced History of appendectomy History of colon resection (12/17/22) Laparoscopy converted to open partial small bowel resection, repair of ventral hernia(Not Applicable) - Juan Solis, History of hip replacement left hip History of prostatectomy History of wisdom tooth extraction Social History Smoking Status: Never smoker Smoking End Date: 2 yrs ago; Do You Dip or Chew Tobacco: No; Tobacco Cessation Education Requested by Patient: No Hx Alcohol Use: No Hx Substance Use: No Preferred Language: Panamanian Communication Ability: Effective Pharmacy Director Required: No Beliefs That Will Affect Care: None Current Living Situation: Spouse Other Information That Helps Us Care for You: No Feels Safe at Home: Yes Safety Concerns: Feels Safe At This Time Assistive Devices: Cane, Glasses and Walker Review of Systems Review of Systems: Please refer to the hospitalist notes. Review of systems limited at this point in time for me as the patient is emerging from general anesthesia and somewhat somnolent. Physical Exam Constitutional: Sleepy but arousable Neck: trachea midline, no thyromegaly Respiratory: normal respiratory effort, lungs clear to auscultation Cardiovascular: Rate/Rhythm: regular rate and regular rhythm Heart Sounds: normal S1, normal S2, + click and + murmur Extremities: + edema Gastrointestinal (Abdomen): Inspection/Auscultation: abdomen normal to inspection Diminished bowel sounds. Incision clean dry and intact Musculoskeletal: Extremities: extremities normal to inspection Skin: no rashes, warm and dry Neurologic: Nonfocal exam Lymphatic: no cervical lymphadenopathy Results & Data Results & Data Vital Signs (Past 12 Hours) Vital Signs Temp Pulse Pulse Pulse Resp BP BP 12/17/22 15:00 63 21 92/40 L 12/17/22 14:50 61 20 95/40 L 12/17/22 14:40 63 24 102/43 L 12/17/22 14:30 61 25 H 12/17/22 14:21 36.5 C 62 20 12/17/22 09:51 37.0 C 66 20 88/41 L 12/17/22 07:35 60 12/17/22 07:35 12/17/22 09:20 36.8 C 61 18 84/40 L 12/17/22 09:05 36.8 C 63 16 88/37 L 12/17/22 08:57 90/41 L 12/17/22 08:40 80/42 L 12/17/22 07:28 37.1 C 60 18 12/17/22 05:58 37.5 C 12/17/22 04:35 12/17/22 04:29 38 C H BP Pulse Ox O2 Del Method O2 Flow Rate 12/17/22 15:00 104/46 L 95 Oxymask 7 12/17/22 14:50 97/48 L 95 Oxymask 7 12/17/22 14:40 110/53 L 96 Oxymask 9 12/17/22 14:30 111/62 94 Oxymask 9 12/17/22 14:21 121/57 L 94 Oxymask 9 12/17/22 09:51 95 Nasal Cannula 3 12/17/22 07:35 12/17/22 07:35 Nasal Cannula 3 12/17/22 09:20 95 Nasal Cannula 3 12/17/22 09:05 96 Nasal Cannula 3 12/17/22 08:57 12/17/22 08:40 12/17/22 07:28 84/37 L 97 Nasal Cannula 3 12/17/22 05:58 12/17/22 04:35 Nasal Cannula 3 12/17/22 04:29 Critical Care Results & Data Vital Signs (Past 12 Hours) Vital Signs Temp Pulse Pulse Pulse Resp BP BP 12/17/22 15:00 63 21 92/40 L 12/17/22 14:50 61 20 95/40 L 12/17/22 14:40 63 24 102/43 L 12/17/22 14:30 61 25 H 12/17/22 14:21 36.5 C 62 20 12/17/22 09:51 37.0 C 66 20 88/41 L 12/17/22 07:35 60 12/17/22 07:35 12/17/22 09:20 36.8 C 61 18 84/40 L 12/17/22 09:05 36.8 C 63 16 88/37 L 12/17/22 08:57 90/41 L 12/17/22 08:40 80/42 L 12/17/22 07:28 37.1 C 60 18 12/17/22 05:58 37.5 C 12/17/22 04:35 12/17/22 04:29 38 C H BP Pulse Ox O2 Del Method O2 Flow Rate 12/17/22 15:00 104/46 L 95 Oxymask 7 12/17/22 14:50 97/48 L 95 Oxymask 7 12/17/22 14:40 110/53 L 96 Oxymask 9 12/17/22 14:30 111/62 94 Oxymask 9 12/17/22 14:21 121/57 L 94 Oxymask 9 12/17/22 09:51 95 Nasal Cannula 3 12/17/22 07:35 12/17/22 07:35 Nasal Cannula 3 12/17/22 09:20 95 Nasal Cannula 3 12/17/22 09:05 96 Nasal Cannula 3 12/17/22 08:57 12/17/22 08:40 12/17/22 07:28 84/37 L 97 Nasal Cannula 3 12/17/22 05:58 12/17/22 04:35 Nasal Cannula 3 12/17/22 04:29 Lab & Micro Results (Past 24 Hours) RBC 3.40 M/uL (4.70-6.10) L 12/17/22 WBC 14.88 K/ul (4.8-10.8) H 12/17/22 Hgb 10.2 g/dl (14.0-18.0) L 12/17/22 Hct 30.3 % (42.0-52.0) L 12/17/22 MCV 89.1 fL (80.0-100.0) 12/17/22 MCH 30.0 pg (25.0-34.0) 12/17/22 MCHC 33.7 g/dL (32.0-36.0) 12/17/22 RDW Standard Deviation 63.8 fL (36.4-46.3) H 12/17/22 RDW Coefficient of Variation 19.7 % (11.5-14.5) H 12/17/22 Plt Count 108 K/uL (130-400) L 12/17/22 MPV 12.2 fL (9.4-12.4) 12/17/22 Neutrophils (%) (Auto) 88.2 % 12/17/22 Lymphocytes (%) (Auto) 2.4 % 12/17/22 Monocytes # (Auto) 1.28 K/uL (0.11-0.59) H 12/17/22 Eosinophils # (Auto) 0.01 K/uL (0-0.50) 12/17/22 Immature Granulocyte % (Auto) 0.5 % 12/17/22 Neutrophils # (Auto) 13.12 K/uL (1.40-6.50) H 12/17/22 Lymphocytes # (Auto) 0.36 K/uL (1.2-3.4) L 12/17/22 Monocytes # (Auto) 1.28 K/uL (0.11-0.59) H 12/17/22 Eosinophils # (Auto) 0.01 K/uL (0-0.50) 12/17/22 Basophils # (Auto) 0.03 K/uL (0-0.2) 12/17/22 Immature Granulocyte # (Auto) 0.08 K/uL (0.01-0.20) 3 Anisocytosis Present 12/16/22 Ovalocytes 1+ 12/16/22 Na 142 mmol/L (136-145) 12/17/22 K 3.6 mmol/L (3.5-5.1) 12/17/22 Cl 109 mmol/L (98-107) H 12/17/22 CO2 22 mmol/L (21-32) 12/17/22 Anion Gap 11 (3-11) 12/17/22 BUN 83 mg/dl (6-23) H 12/17/22 Creatinine 2.54 mg/dl (0.6-1.4) H 12/17/22 Estimated GFR ( Amer) 28.1 ml/min 12/17/22 Estimated GFR (Non-Af Amer) 24.3 ml/min 12/17/22 BUN/Creatinine Ratio 32.7 (10-20) H 12/17/22 Glu 88 mg/dl (70-99(Fasting)) 12/17/22 Ca 8.3 mg/dl (8.6-10.3) L 12/17/22 Total Bilirubin 1.9 mg/dl (0.2-1.0) H 12/16/22 AST 36 U/L (13-39) 12/16/22 ALT 33 U/L (7-52) 12/16/22 Alkaline Phosphatase 110 U/L (34-104) H 12/16/22 TP 6.3 gm/dl (6.0-8.3) 12/16/22 Albumin 3.7 gm/dl (3.4-5.0) 12/16/22 Globulin 2.6 gm/dl (2.5-4.0) 12/16/22 Albumin/Globulin Ratio 1.4 (0.9-2) 12/16/22 Mg 2.2 mg/dl (1.7-2.4) 12/16/22 20:12 Calcium Level 8.3 mg/dl (8.6-10.3) L 12/17/22 05:23 Prothromb Time International Ratio 1.8 (0.9-1.1) H 12/17/22 05 :23 Diagnostic Findings (Past 24 Hours) Abdomen/Pelvis CT 12/16/22 20:44 Exam(s): CT ABDOMEN + PELVIS Without Contrast EXAM: CT Abdomen and Pelvis Without Intravenous Contrast CLINICAL HISTORY: Reason for exam: Abd pain. TECHNIQUE: Axial computed tomography images of the abdomen and pelvis without intravenous contrast. CTDI is 27.34 mGy and DLP is 1388.62 mGy-cm. Automated exposure control was utilized for the study. A dose lowering technique was utilized adhering to the principles of ALARA. COMPARISON: No relevant prior studies available. FINDINGS: Lung bases: Unremarkable. No mass. No consolidation. Pleural space: Small RIGHT pleural effusion. Heart: Cardiomegaly. Prosthetic aortic valve. ABDOMEN: Liver: Mild hepatic cirrhotic morphology. Mild perihepatic and perisplenic ascites. Gallbladder and bile ducts: Unremarkable. No calcified stones. No ductal dilation. Pancreas: Unremarkable. No ductal dilation. Spleen: Unremarkable. No splenomegaly. Adrenals: Unremarkable. No mass. Kidneys and ureters: Unremarkable. No hydronephrosis or nephrolithiasis. Stomach and bowel: Ventral abdominal wall hernia, which contains a loop of small bowel. Mildly prominent small bowel entering this hernia measuring up to 2.6 cm, concerning for partial bowel obstruction. Diverticulosis, without acute diverticulitis. No free air. PELVIS: Appendix: No findings to suggest acute appendicitis. Bladder: Unremarkable. No stones. Reproductive: Unremarkable as visualized. ABDOMEN and PELVIS: Intraperitoneal space: See above. Bones/joints: Sternotomy wires. Degenerative changes of the spine. LEFT hip arthroplasty. No acute fracture. No dislocation. Soft tissues: See above. Vasculature: Atherosclerotic changes of the aorta. No abdominal aortic aneurysm. Lymph nodes: Unremarkable. No enlarged lymph nodes. IMPRESSION: 1. Ventral abdominal wall hernia, which contains a loop of small bowel. Mildly prominent small bowel entering this hernia measuring up to 2.6 cm, concerning for partial bowel obstruction. 2. No hydronephrosis or nephrolithiasis. 3. Small RIGHT pleural effusion. 4. Mild hepatic cirrhotic morphology. Mild perihepatic and perisplenic ascites. 5. Diverticulosis, without acute diverticulitis. No free air. Electronically signed by: Gerhard Forman MD 12/16/22 22:10 PM Chest X-Ray 12/16/22 22:33 XR chest 1V portable HISTORY: Shortness of breath. renal failure COMPARISON: Chest 04/28/2014. FINDINGS: No pneumothorax. There are low lung volumes. The heart is enlarged. Bibasilar linear densities favor subsegmental atelectasis. A pneumonia could also have a similar appearance. Small right pleural effusion. There is mild interstitial pulmonary edema. There are poststernotomy changes and an aortic valve prosthesis. There are old, healed bilateral rib fractures. Surgical clips noted within the right infraclavicular region IMPRESSION: 1. Mild pulmonary edema, cardiomegaly, and a small right pleural effusion. 2. Bibasilar densities are nonspecific but favor atelectasis. A pneumonia could also have a similar appearance. ACT 112: Negative or not required by law. Electronically signed by: Neftaly Urrutia M.D. 12/17/2022 7:10 AM KUB X-Ray 12/17/22 05:12 KUB HISTORY: NGT placement COMPARISON: Abdomen and pelvis CT 12/16/2022. FINDINGS: Nasogastric tube is difficult to visualize. The tip appears to be located at the gastric cardia. This should be advanced by approximately 5 to 10 cm. Small bilateral pleural effusions and right basilar densities persist. There are poststernotomy changes and a cardiac valve prosthesis. No renal calculi. No ureteral calculi. No pneumoperitoneum or pneumatosis. IMPRESSION: Nasogastric tube is difficult to visualize. The tip appears to be located at the posterior cardia/proximal stomach. This should be advanced by proximal approximately 5 to 10 cm with repeat KUB. ACT 112: Negative or not required by law. Electronically signed by: Neftaly Urrutia M.D. 12/17/2022 6:44 AM KUB X-Ray 12/17/22 05:49 KUB HISTORY: ng tube placement COMPARISON: KUB 12/17/2022. FINDINGS: Nasogastric tube terminates in the stomach. Small bilateral pleural effusions and right basilar densities persist. The heart remains enlarged. There are poststernotomy changes and a cardiac valve prosthesis again noted. Mildly dilated gas-filled loops of small bowel are again seen within the upper abdomen. This is concerning for a small bowel obstruction. No renal calculi. No ureteral calculi. No pneumoperitoneum or pneumatosis. IMPRESSION: 1. Nasogastric tube terminates in the stomach. 2. Mildly dilated gas-filled loops of small bowel are seen within the upper abdomen concerning for a small bowel obstruction. ACT 112: Negative or not required by law. Electronically signed by: Neftaly Urrutia M.D. 12/17/2022 6:43 AM I & O Totals 24 Hours 12/16/22 12/17/22 12/18/22 06:59 06:59 06:59 Intake Total 500.25 / 500.25 1296.833 / 1296.833 Output Total 825 / 825 103 / 103 Balance -324.75 / -324.75 1193.833 / 1193.833 Cumulative 12/16/22 19:25 thru 12/17/22 15:57 Intake Total 1797.083 Output Total 928 Balance 869.083 RT Ventilator Mngmt (Last Documented) Ventilator Ordered Settings Respiratory Rate 21 12/17/22 15:00 Ventilator - PT Measurements Respiratory Rate 21 Coding Level of Care Code 14415 CRITICAL CARE 1ST 30-74M Diagnoses Acute on chronic renal failure N17.9; N18.9 CHF (congestive heart failure) I50.9 Partial obstruction of small intestine K56.600 Anemia D64.9
[2022-12-17] MEDS: ACETAMINOPHEN 1,000 MG/100 ML VIAL IV SCH ×2 (16:28→23:15)
[2022-12-17 16:45] LABS: Hematocrit (blood only) 30.9 % (42.0-52.0); Mean Corpuscular Hemoglobin 29.5 pg (25.0-34.0); Mean Corpuscular Hgb Conc 32.4 g/dL (32.0-36.0); Mean Corpuscular Volume 91.2 fL (80.0-100.0); Mean Platelet Volume 11.5 fL (9.4-12.4); Platelet Count 106 K/uL (130-400); RDW Standard Deviation 66.3 fL (36.4-46.3); Red Blood Count 3.39 M/uL (4.70-6.10)
[2022-12-17] MEDS: NOREPINEPHRINE/D5W 4 MG/250 ML PLCT IV SCH ×2 (16:45→23:15)
[2022-12-17 17:08] LABS: Basophils # (auto) 0.02 K/uL (0-0.2); Basophils % (auto) 0.2 %; Immature Granulocytes # (auto) 0.04 K/uL (0.01-0.20); Immature Granulocytes % (auto) 0.4 %; Lymphocytes # (auto) 0.43 K/uL (1.2-3.4); Lymphocytes % (auto) 4.4 %; Monocytes # (auto) 0.61 K/uL (0.11-0.59); Monocytes % (auto) 6.3 %; Neutrophils % (auto) 88.7 %
[2022-12-17] MEDS: TERAZOSIN HCL 1 MG CAP PO SCH (18:50)
[2022-12-17] MEDS: HYDROCORTISONE SOD 50 MG in SYRINGE 0 ML IV SCH (19:58)
[2022-12-17 21:00] LABS: Albumin Globulin Ratio 1.4 (0.9-2); Albumin Level 3.3 gm/dl (3.4-5.0); BUN Creatinine Ratio 28.4 (10-20); Bilirubin,Total 2.6 mg/dl (0.2-1.0); Calcium 7.9 mg/dl (8.6-10.3); Creatinine Clr Calc Pharmacy 24.5 ml/min; Est GFR (African American) 21.8 ml/min; Est GFR (Non-African American) 18.8 ml/min; Globulin 2.3 gm/dl (2.5-4.0); Potassium 4.2 mmol/L (3.5-5.1); Total Protein 5.6 gm/dl (6.0-8.3)
[2022-12-17 21:08] LABS: Troponin I High Sensitivity 96.3 pg/ml (0-20)
[2022-12-18] MEDS: HYDROCORTISONE SOD 50 MG in SYRINGE 0 ML IV SCH ×3 (04:32→19:57)
[2022-12-18] MEDS: ERTAPENEM SODIUM 1,000 MG in SYRINGE 0 ML IV SCH (04:32)
[2022-12-18] MEDS: NOREPINEPHRINE/D5W 4 MG/250 ML PLCT IV SCH (06:23)
[2022-12-18 07:02] LABS: Hematocrit (blood only) 31.9 % (42.0-52.0); Hemoglobin 10.5 g/dl (14.0-18.0); Mean Corpuscular Hemoglobin 29.9 pg (25.0-34.0); Mean Corpuscular Hgb Conc 32.9 g/dL (32.0-36.0); Mean Corpuscular Volume 90.9 fL (80.0-100.0); Mean Platelet Volume 11.4 fL (9.4-12.4); Platelet Count 110 K/uL (130-400); RDW Coefficient of Variation 20.3 % (11.5-14.5); Red Blood Count 3.51 M/uL (4.70-6.10)
--- NOTE | 2022-12-18 07:18 | Cardiology Progress Note ---
Date of Service December 18, 2022 Assessment & Plan (1) Umbilical hernia, incarcerated: (2) S/P AVR (aortic valve replacement): (3) Congenital heart disease: (4) CRF (chronic renal failure): (5) Preop cardiovascular exam: Plan IMPRESSION: Medically complex 72 year old male with hx of congenital heart disease s/p pulmonic valve and ASD repair as well as severe s/p mechanical AVR and ascending aortic repair. Found to have an incarcerated umbilical hernia status post open partial small bowel resection and repair of ventral hernia, 12/17/[address] Solis Echo this admission stable with findings associated with prior heart/valvular disease. Hypotensive on presentation, chronic finding. PLAN: Requiring ongoing pressor support to maintain blood pressures. Agree with restarting of heparin due to mechanical AVR. Heart rates controlled in the 60-70s on tele. No PAF seen. Continue amiodarone as ordered. Recommend ongoing supportive measures. Use of IV diuretics limited due to hypotension and renal dysfunction. Case discussed with Dr. Terry, will follow. Admission and Anticipated Discharge Date Admission Date: December 17, 2022 Supervising Physician Co-Signing Physician Notes Patient seen and examined in afternoon, chart and telemetry reviewed. Awake answering questions, reading newspaper without focal complaint. Now off pressors with blood pressure greater than [address], pain control Exam: Heart rate 70 blood pressure 110/50 normal mechanical valve sounds Lungs diminished breath sounds at the bases right greater than left Abdomen distended, quiet Impression: 72-year-old with very complex cardiac history who underwent emergent surgery for incarcerated umbilical hernia requiring small bowel resection. Currently with improving hemodynamics though renal function lagging No acute cardiac or respiratory distress Anticoagulation resumed for mechanical valve prosthesis with IV heparin until warfarin able to be restarted Ultimately would resume amiodarone and metoprolol when able to take p.o. We will continue to follow Subjective Medically complex 72-year-old male with history of congenital heart disease status post repair of ASD and pulmonary stenosis as well as severe aortic stenosis status post mechanical AVR and ascending aortic repair. Patient presented to [facility] emergency department critically ill with incarcerated umbilical hernia and possible sepsis. Coumadin was reversed with Kcentra and vitamin K. He underwent laparoscopic open small bowel resection and repair of ventral hernia with Dr. Solis, yesterday, 12/18/2022. Patient was transferred to ICU post surgery blood pressures were hypotensive. Fluids were avoided due to volume status and patient was placed on pressor support with Levophed. Heparin was restarted. Echo 12/17: Low normal LVEF of 50 to 55%. Moderate concentric LVH. Septal motion consistent with conduction abnormality. Left and right atrium dilated. RV moderately dilated with moderately reduced systolic function. [place] bileaflet aortic mechanical prosthesis with normal gradients. Trace MR, no mitral stenosis. Mild to moderate TR no pulmonary hypertension. Lab work: WBC of 12.6, hemoglobin of 10.5, platelet of 110-overall stable. BMP with ongoing renal dysfunction, scr 3.25 this am. High-sensitivity troponins peaked at 110. (21.3>>62.0>>110.3>>96.3) Upon entrance into the room patient resting in bed. Notes ongoing dyspnea with minimal exertion- rolling from side to side in bed as well as some mild ort hopnea. Requiring supplemental O2 therapy. No chest pain or palpitations. Noting some abdominal discomfort. Ongoing lower extremity edema. Review of Systems Review of Systems: All systems reviewed & are unremarkable except as noted in HPI & below Physical Exam Constitutional: + ill appearing; no acute distress Neck: normal visual inspection and trachea midline Respiratory: + cough; no respiratory distress and no labored breathing Auscultation: + diminished lung sounds and + rales; no rhonchi and no wheezes Cardiovascular: Rate/Rhythm: regular rate and regular rhythm Heart Sounds: normal S1 and normal S2 ([place] mechanical valve closure ) Extremities: + edema (+3-4 BLLE pitting edema to knees) Gastrointestinal (Abdomen): Inspection/Auscultation: abdomen not distended Percussion/Palpation: + abdomen tender Skin: no rashes, warm and dry Neurologic: PERRL, EOMI, accommodation nl, no face palsy, no dysarthria Psychiatric: A+Ox3, euthymic affect Results & Data Vital Signs (Past 12 Hours) Vital Signs Temp Pulse Resp BP Pulse Ox O2 Del Method O2 Flow Rate 12/18/22 06:00 73 23 97 12/18/22 06:00 110/56 L 12/18/22 05:30 70 25 H 95 12/18/22 05:00 98 H 28 H 12/18/22 05:00 111/52 L 12/18/22 04:30 98 H 22 96 12/18/22 04:00 96 H 23 96 12/18/22 04:00 104/48 L 12/18/22 03:30 69 33 H 96 12/18/22 03:00 67 22 12/18/22 03:00 95/37 L 12/18/22 02:30 74 27 H 97 12/18/22 02:00 71 24 95 12/18/22 02:00 102/50 L 12/18/22 01:30 70 24 95 12/18/22 01:00 70 23 95 12/18/22 01:00 104/48 L 12/18/22 00:30 71 24 95 12/18/22 00:00 71 27 H 96 12/18/22 00:00 114/46 L 12/18/22 00:00 70 12/17/22 23:30 71 21 97 12/17/22 23:00 68 23 96 12/17/22 23:00 104/48 L 12/17/22 22:30 68 20 96 12/17/22 22:00 69 23 95 12/17/22 22:00 99/42 L 12/17/22 21:30 68 24 96 12/17/22 21:00 66 23 95 Nasal Cannula 3 12/17/22 21:00 103/45 L 12/17/22 20:30 67 22 98 12/17/22 20:50 Nasal Cannula 3 12/17/22 20:01 68 27 H 94 12/17/22 20:01 101/73 12/17/22 20:00 67 22 96 12/17/22 19:45 106/51 L 12/17/22 19:45 67 22 94 12/17/22 19:30 66 18 95 12/17/22 19:30 96/43 L 12/17/22 19:29 100/42 L 12/17/22 19:29 66 13 94 12/17/22 19:15 95/39 L 12/17/22 19:15 66 7 L 94 12/17/22 20:05 36.8 C Laboratory Results Cardiac Enzymes 12/17/22 12/17/22 12/18/22 Range/Units 09:38 19:56 06:49 AST 71 H 98 H (13-39) U/L Troponin I High Sens 110.3 H* D 96.3 H* D (0-20) pg/ml Coagulation 12/17/22 Range/Units 09:38 APTT 38.3 H (21.0-31.0) Seconds CBC 12/17/22 12/18/22 Range/Units 16:33 06:49 WBC 9.70 12.60 H (4.8-10.8) K/ul RBC 3.39 L 3.51 L (4.70-6.10) M/uL Hgb 10.0 L 10.5 L (14.0-18.0) g/dl Hct 30.9 L 31.9 L (42.0-52.0) % Plt Count 106 L 110 L (130-400) K/uL Neut # (Auto) 8.60 H 11.01 H (1.40-6.50) K/uL Lymph # (Auto) 0.43 L 0.39 L (1.2-3.4) K/uL Gordon # (Auto) 0.61 H 1.10 H (0.11-0.59) K/uL Eos # (Auto) 0.00 0.00 (0-0.50) K/uL Baso # (Auto) 0.02 0.03 (0-0.2) K/uL Comprehensive Metabolic Panel 12/17/22 12/18/22 Range/Units 19:56 06:49 Sodium 142 141 (136-145) mmol/L Potassium 4.2 4.5 (3.5-5.1) mmol/L Chloride 109 H 108 H (98-107) mmol/L Carbon Dioxide 22 23 (21-32) mmol/L BUN 89 H 90 H (6-23) mg/dl Creatinine 3.13 H D 3.25 H (0.6-1.4) mg/dl Glucose 118 H 149 H (70-99(Fasting)) mg/dl Calcium 7.9 L 8.1 L (8.6-10.3) mg/dl AST 71 H 98 H (13-39) U/L ALT 58 H 89 H (7-52) U/L Alkaline Phosphatase 75 67 (34-104) U/L Total Protein 5.6 L 5.8 L (6.0-8.3) gm/dl Albumin 3.3 L 3.2 L (3.4-5.0) gm/dl Intake and Output 12/17/22 12/18/22 12/18/22 22:59 06:59 14:59 Intake Total 265.002 / 1921.301 459.466 / 1921.301 124.753 / 124.753 Output Total 141 / 483 290 / 483 Balance 124.002 / 1438.301 169.466 / 1438.301 124.753 / 124.753 Intake: IV 165.002 / 1021.301 459.466 / 1021.301 124.753 / 124.753 Acetaminophen 1,000 mg In 100 100 / 200 100 / 200 100 / 100 ml @ 400 mls/hr IV Q8H [facility] Rx#: [id number] Norepinephrine/D5w 4 mg In 250 65.002 / 424.468 359.466 / 424.468 24.753 / 24.753 ml @ 0.07 MCG/KG/MIN 26.303 mls /hr IV .Q9H31M [facility] Rx#:[id number] IV Perioperative 100 / 900 Oral 0 / 0 Output: Urine Amount (Catheter) 140 / 416 275 / 416 Maldonado/Indwelling 140 / 416 275 / 416 Gastric Drainage 15 / 15 Left Nare Nasogastric 15 / 15 Drain Output 1 / 2 Abdomen Kee #1 Other: Weight 102.5 kg Weight Measurement Method Built in [facility] (4) CRF (chronic renal failure) Chronic kidney disease stage: unspecified stage Qualified Code(s): N18.9 - Chronic kidney disease, unspecified
[2022-12-18 07:19] LABS: Albumin Globulin Ratio 1.2 (0.9-2); Albumin Level 3.2 gm/dl (3.4-5.0); BUN Creatinine Ratio 27.7 (10-20); Bilirubin,Total 2.2 mg/dl (0.2-1.0); Calcium 8.1 mg/dl (8.6-10.3); Creatinine Clr Calc Pharmacy 23.8 ml/min; Est GFR (African American) 20.9 ml/min; Globulin 2.6 gm/dl (2.5-4.0); Magnesium 1.9 mg/dl (1.7-2.4); Phosphorus 5.6 mg/dl (2.5-4.9); Potassium 4.5 mmol/L (3.5-5.1); Total Protein 5.8 gm/dl (6.0-8.3)
[2022-12-18] MEDS: ACETAMINOPHEN 1,000 MG/100 ML VIAL IV SCH ×2 (07:44→15:11)
[2022-12-18 07:50] LABS: Basophils # (auto) 0.03 K/uL (0-0.2); Basophils % (auto) 0.2 %; Echinocytes 1+; Immature Granulocytes # (auto) 0.07 K/uL (0.01-0.20); Immature Granulocytes % (auto) 0.6 %; Lymphocytes # (auto) 0.39 K/uL (1.2-3.4); Lymphocytes % (auto) 3.1 %; Monocytes % (auto) 8.7 %; Neutrophils # (auto) 11.01 K/uL (1.40-6.50); Neutrophils % (auto) 87.4 %; Polychromasia 1+; Tear Drop Cells 1+
--- NOTE | 2022-12-18 08:10 | Critical Care Progress Note ---
Date of Service December 18, 2022 Assessment & Plan (1) Acute on chronic renal failure: (2) CHF (congestive heart failure): (3) Partial obstruction of small intestine: (4) Anemia: Plan Impression: 72-year-old male with multiple medical comorbidities including chronic kidney disease, potential cirrhosis, valvular heart disease, diastolic heart failure, now with ischemic bowel status postresection. His anticoagulation has been reversed but kidney function appears to be deteriorating and the patient has low blood pressure. He is reverse his DNR for the time being but is not interested in aggressive resuscitation. 24-hour events: Patient underwent resection of ischemic area of small bowel due to incarcerated hernia. He has been maintained on a low-dose of vasopressor agents overnight. He is more awake and alert today. His urine output remains appropriate however he has had an increase in serum creatinine and BUN is markedly elevated as well. He was started on stress dose steroids for relative adrenal insufficiency. Recommendations: 1. Neurologic: Pain control appears adequate currently. He is awake alert and conversant. 2. Cardiovascular: Multifactorial hypotension. Still requiring low-dose n orepinephrine. Preoperative echocardiogram reviewed with diastolic dysfunction and RV dilatation. Gradients across the valve appeared normal. He appears volume overloaded with lower extremity edema and pulmonary vascular congestion on chest x-ray so we will avoid additional crystalloid at this point in time. Continue p.o. amiodarone. We will try and have PICC service to place a line for long-term access. Cannot add Florinef given inability to take p.o. or midodrine due to ileus currently. Restart heparin without a bolus given his [place]ardo's valve. Additional recommendations per cardiology 3. Pulmonary: Chest x-ray demonstrates pulmonary edema with recurrence of the pleural effusion. Continue supplemental oxygen. Will need diuresis at some point but hemodynamics preclude diuretics currently. Would not pursue thoracentesis currently. 4. GI: Status post partial resection of small bowel. Continue NG tube. Management per general surgery. IV PPI. N.p.o. for now. Cirrhotic changes identified on imaging potentially consistent with patient's prior history of alcohol abuse. He does not appear decompensated currently and would continue to follow closely. 5. Renal: Acute on chronic renal insufficiency. Serum creatinine slightly worse today and BUN remains elevated. Nephrology consultation. Otherwise electrolytes and acid-base status appear to be acceptable. The patient is hypervolemic. Given the difficulty in placing the patient's Maldonado catheter, will keep it in place for now. 6. Heme-onc: Restarting heparin without a bolus. He does demonstrate anemia of unclear etiology. We will follow for now. No indication for transfusion. The patient's platelet counts are decreasing potentially consistent with sepsis versus a consumptive process. No indication for transfusion currently but will need to follow closely. 7. Endocrine: Glycemic control per protocol. Random cortisol low and the patient was initiated on replacement hydrocortisone. Ideally would place on Florinef as well however n.p.o. status precludes use of this medication. Plan on weaning steroids once hemodynamics resolved. 8. ID: Patient has been initiated on broad-spectrum antibiotics prior to surgery (day #2/5 ertapenem). Discussed with surgery. Anticipate 5-day course due to potential bacterial translocation with ischemic bowel. Disposition: Keep in ICU for now Patient is critically ill at this point time. A total of 45 minutes of critical care time was spent in evaluation management coordination of care for this patient. Patient's overall prognosis is guarded at this point in time. He is expressed a desire to not pursue aggressive interventions including CPR or mechanical ventilation if needed. Confirmed DNR/DNI status with the patient at bedside. Admission and Anticipated Discharge Date Admission Date: December 17, 2022 Subjective Patient seen and examined. EMR reviewed. Patient continues to experience some mild tenderness in his abdomen. He is not passing any gas. He denies any nausea. No chest pain or palpitations. His b reathing is okay. He remains on a low-dose of pressors Review of Systems Review of Systems: All systems reviewed & are unremarkable except as noted in Subjective Physical Exam Neck: trachea midline, no thyromegaly Respiratory: normal respiratory effort, lungs clear to auscultation Cardiovascular: Rate/Rhythm: regular rate and regular rhythm Heart Sounds: normal S1, normal S2, + click and + murmur Extremities: + edema Gastrointestinal (Abdomen): Inspection/Auscultation: abdomen normal to inspection Musculoskeletal: Extremities: extremities normal to inspection Skin: no rashes, warm and dry Lymphatic: no cervical lymphadenopathy Results & Data Results & Data Vital Signs (Past 12 Hours) Vital Signs Pulse Resp BP Pulse Ox O2 Del Method O2 Flow Rate 12/18/22 07:00 69 23 110/50 L 12/18/22 06:00 73 23 97 12/18/22 06:00 110/56 L 12/18/22 05:30 70 25 H 95 12/18/22 05:00 98 H 28 H 12/18/22 05:00 111/52 L 12/18/22 04:30 98 H 22 96 12/18/22 04:00 96 H 23 96 12/18/22 04:00 104/48 L 12/18/22 03:30 69 33 H 96 12/18/22 03:00 67 22 12/18/22 03:00 95/37 L 12/18/22 02:30 74 27 H 97 12/18/22 02:00 71 24 95 12/18/22 02:00 102/50 L 12/18/22 01:30 70 24 95 12/18/22 01:00 70 23 95 12/18/22 01:00 104/48 L 12/18/22 00:30 71 24 95 12/18/22 00:00 71 27 H 96 12/18/22 00:00 114/46 L 12/18/22 00:00 70 12/17/22 23:30 71 21 97 12/17/22 23:00 68 23 96 12/17/22 23:00 104/48 L 12/17/22 22:30 68 20 96 12/17/22 22:00 69 23 95 12/17/22 22:00 99/42 L 12/17/22 21:30 68 24 96 12/17/22 21:00 66 23 95 Nasal Cannula 3 12/17/22 21:00 103/45 L 12/17/22 20:30 67 22 98 12/17/22 20:50 Nasal Cannula 3 Critical Care Results & Data Vital Signs (Past 12 Hours) Vital Signs Pulse Resp BP Pulse Ox O2 Del Method O2 Flow Rate 12/18/22 07:00 69 23 110/50 L 12/18/22 06:00 73 23 97 12/18/22 06:00 110/56 L 12/18/22 05:30 70 25 H 95 12/18/22 05:00 98 H 28 H 12/18/22 05:00 111/52 L 12/18/22 04:30 98 H 22 96 12/18/22 04:00 96 H 23 96 12/18/22 04:00 104/48 L 12/18/22 03:30 69 33 H 96 12/18/22 03:00 67 22 12/18/22 03:00 95/37 L 12/18/22 02:30 74 27 H 97 12/18/22 02:00 71 24 95 12/18/22 02:00 102/50 L 12/18/22 01:30 70 24 95 12/18/22 01:00 70 23 95 12/18/22 01:00 104/48 L 12/18/22 00:30 71 24 95 12/18/22 00:00 71 27 H 96 12/18/22 00:00 114/46 L 12/18/22 00:00 70 12/17/22 23:30 71 21 97 12/17/22 23:00 68 23 96 12/17/22 23:00 104/48 L 12/17/22 22:30 68 20 96 12/17/22 22:00 69 23 95 12/17/22 22:00 99/42 L 12/17/22 21:30 68 24 96 12/17/22 21:00 66 23 95 Nasal Cannula 3 12/17/22 21:00 103/45 L 12/17/22 20:30 67 22 98 12/17/22 20:50 Nasal Cannula 3 Lab & Micro Results (Past 24 Hours) RBC 3.51 M/uL (4.70-6.10) L 12/18/22 WBC 12.60 K/ul (4.8-10.8) H 12/18/22 Hgb 10.5 g/dl (14.0-18.0) L 12/18/22 Hct 31.9 % (42.0-52.0) L 12/18/22 MCV 90.9 fL (80.0-100.0) 12/18/22 MCH 29.9 pg (25.0-34.0) 12/18/22 MCHC 32.9 g/dL (32.0-36.0) 12/18/22 RDW Standard Deviation 67.0 fL (36.4-46.3) H 12/18/22 RDW Coefficient of Variation 20.3 % (11.5-14.5) H 12/18/22 Plt Count 110 K/uL (130-400) L 12/18/22 MPV 11.4 fL (9.4-12.4) 12/18/22 Neutrophils (%) (Auto) 87.4 % 12/18/22 Lymphocytes (%) (Auto) 3.1 % 12/18/22 Monocytes # (Auto) 1.10 K/uL (0.11-0.59) H 12/18/22 Eosinophils # (Auto) 0.00 K/uL (0-0.50) 12/18/22 Immature Granulocyte % (Auto) 0.6 % 12/18/22 Neutrophils # (Auto) 11.01 K/uL (1.40-6.50) H 12/18/22 Lymphocytes # (Auto) 0.39 K/uL (1.2-3.4) L 12/18/22 Monocytes # (Auto) 1.10 K/uL (0.11-0.59) H 12/18/22 Eosinophils # (Auto) 0.00 K/uL (0-0.50) 12/18/22 Basophils # (Auto) 0.03 K/uL (0-0.2) 12/18/22 Immature Granulocyte # (Auto) 0.07 K/uL (0.01-0.20) 3 Polychromasia 1+ 12/18/22 Echinocytes 1+ 12/18/22 Tear Drop Cells 1+ 12/18/22 Na 141 mmol/L (136-145) 12/18/22 K 4.5 mmol/L (3.5-5.1) 12/18/22 Cl 108 mmol/L (98-107) H 12/18/22 CO2 23 mmol/L (21-32) 12/18/22 Anion Gap 10 (3-11) 12/18/22 BUN 90 mg/dl (6-23) H 12/18/22 Creatinine 3.25 mg/dl (0.6-1.4) H 12/18/22 Estimated GFR ( Amer) 20.9 ml/min 12/18/22 Estimated GFR (Non-Af Amer) 18.0 ml/min 12/18/22 BUN/Creatinine Ratio 27.7 (10-20) H 12/18/22 Glu 149 mg/dl (70-99(Fasting)) H 12/18/22 Ca 8.1 mg/dl (8.6-10.3) L 12/18/22 Phosphorus Level 5.6 mg/dl (2.5-4.9) H 12/18/22 Total Bilirubin 2.2 mg/dl (0.2-1.0) H 12/18/22 AST 98 U/L (13-39) H 12/18/22 ALT 89 U/L (7-52) H 12/18/22 Alkaline Phosphatase 67 U/L (34-104) 12/18/22 TP 5.8 gm/dl (6.0-8.3) L 12/18/22 Albumin 3.2 gm/dl (3.4-5.0) L 12/18/22 Globulin 2.6 gm/dl (2.5-4.0) 12/18/22 Albumin/Globulin Ratio 1.2 (0.9-2) 12/18/22 Mg 1.9 mg/dl (1.7-2.4) 12/18/22 06:49 Calcium Level 8.1 mg/dl (8.6-10.3) L 12/18/22 06:49 Microbiology 12/17/22 05:33 Aerobic Blood Culture - Preliminary Blood No growth in Aerobic bottle after 24 hours. Anaerobic Blood Culture - Preliminary No growth in Anaerobic bottle after 24 hours. 12/17/22 05:23 Aerobic Blood Culture - Preliminary Blood No growth in Aerobic bottle after 24 hours. Anaerobic Blood Culture - Preliminary No growth in Anaerobic bottle after 24 hours. I & O Totals 24 Hours 12/17/22 12/18/22 12/19/22 06:59 06:59 06:59 Intake Total 500.25 / 500.25 1921.301 / 1921.301 124.753 / 124.753 Output Total 825 / 825 483 / 483 Balance -324.75 / -324.75 1438.301 / 1438.301 124.753 / 124.753 Cumulative 12/16/22 19:25 thru 12/18/22 08:02 Intake Total 2546.304 Output Total 1308 Balance 1238.304 RT Ventilator Mngmt (Last Documented) Ventilator Ordered Settings Respiratory Rate 23 12/18/22 07:00 Ventilator - PT Measurements Respiratory Rate 23 Coding Level of Care Code 69065 CRITICAL CARE 1ST 30-74M Diagnoses Acute on chronic renal failure N17.9; N18.9 CHF (congestive heart failure) I50.9 Partial obstruction of small intestine K56.600 Anemia D64.9
[2022-12-18] MEDS: AMIODARONE 200 MG TAB PO SCH (08:19)
[2022-12-18] MEDS: allopurinoL 300 MG TAB PO SCH (08:19)
--- NOTE | 2022-12-18 08:29 | Surgery Progress Note ---
Date of Service December 18, 2022 Assessment & Plan (1) History of colon resection: Plan: Postoperative day #1 Doing better than I would have expected Very high risk for ileus keep NG tube for now and keep n.p.o. Okay to restart heparin Discussed his care with Dr. Little Admission and Anticipated Discharge Date Admission Date: December 17, 2022 Subjective Patient seen. Doing better than I would have expected. Pain is manageable. Minimal out of his NG tube. He is on a small amount of Cade-Synephrine but his pressures are good. He has good urine output. His H/H has not dropped. Physical Exam Physical Exam: Alert and oriented no acute distress Abdomen with expected tenderness. Dressings clean and dry Results & Data Vital Signs (Past 12 Hours) Vital Signs Pulse Resp BP Pulse Ox O2 Del Method O2 Flow Rate 12/18/22 07:00 69 23 110/50 L 12/18/22 06:00 73 23 97 12/18/22 06:00 110/56 L 12/18/22 05:30 70 25 H 95 12/18/22 05:00 98 H 28 H 12/18/22 05:00 111/52 L 12/18/22 04:30 98 H 22 96 12/18/22 04:00 96 H 23 96 12/18/22 04:00 104/48 L 12/18/22 03:30 69 33 H 96 12/18/22 03:00 67 22 12/18/22 03:00 95/37 L 12/18/22 02:30 74 27 H 97 12/18/22 02:00 71 24 95 12/18/22 02:00 102/50 L 12/18/22 01:30 70 24 95 12/18/22 01:00 70 23 95 12/18/22 01:00 104/48 L 12/18/22 00:30 71 24 95 12/18/22 00:00 71 27 H 96 12/18/22 00:00 114/46 L 12/18/22 00:00 70 12/17/22 23:30 71 21 97 12/17/22 23:00 68 23 96 12/17/22 23:00 104/48 L 12/17/22 22:30 68 20 96 12/17/22 22:00 69 23 95 12/17/22 22:00 99/42 L 12/17/22 21:30 68 24 96 12/17/22 21:00 66 23 95 Nasal Cannula 3 12/17/22 21:00 103/45 L 12/17/22 20:30 67 22 98 12/17/22 20:50 Nasal Cannula 3 PG Care Time/CCT Total # of Minutes Spent Total Time Spent with Patient: Total time spent is greater than 50% in coordination of care (as documented) at patient's floor/unit and/or counseling patient: Coding Level of Care Code 84584 Post Operative Follow-Up Diagnoses History of colon resection Z90.49
[2022-12-18] MEDS ORDERED: STAT IV STA (08:34)
[2022-12-18] MEDS ORDERED: Heparin IV Adult Wt-Based Standard *NO* Bolus Protocol IV STA (08:35)
[2022-12-18] MEDS ORDERED: CALCIUM GLUCONATE 10% 2,000 MG in DEXTROSE 5% 50 ML IV ONE (08:45)
[2022-12-18] MEDS: HEPARIN SODIUM/DEXTROSE 25,000 UNITS/500 ML BAG IV SCH (09:04)
--- NOTE | 2022-12-18 10:46 | XRay Report ---
SINGLE VIEW CHEST CLINICAL HISTORY: Pleural effusion. FINDINGS: An AP, portable, upright chest radiograph is compared to study dated 12/16/2022 and correlat ed with chest CT dated 12/12/2009. The examination is degraded by portable technique and patient rotat ion. An enteric tube is in placed. This projects below the diaphragm over the stomach. The patient i s status post midline sternotomy and cardiac valve surgery. Heart is enlarged noting atherosclerotic calcification of the thoracic aorta. There is pulmonary vascular congestion and evidence of interstit ial edema. There are layering pleural effusions with bibasilar consolidation, right larger than left. No pneumothorax is seen. The skeletal structures are osteopenic. There are chronic/healed bilateral rib fractures. Surgical clips project over the right upper chest. IMPRESSION: 1. An enteric tube is new from previous. 2. Cardiomegaly with evidence of congestive failure and pulmonary edema. This has worsened as compare d to 12/16/2022. 3. Right larger than left pleural effusions with dependent consolidation. ACT 112: Negative or not required by law. Electronically signed by: Jacobo Muniz M.D. 12/18/2022 10:45 AM
--- NOTE | 2022-12-18 10:56 | Nephrology Consultation ---
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 baseline creatinine 1.8; already w/ TATA on arrival w/ presenting creatinine 2.3 and worsened to peak at 3.3 this am. new dx of early liver cirrhosis. admission UA bland. mild hyperchloremia noted but chemistries overall acceptable. -favor ischemic ATN -may continue to worsen before it improves but no indication to discuss dialysis at this time (code status noted) (2) Volume overload: w/ lower extremity edema, pulmonary vascular congestion and edema, hypoxia, recurrent pleural effusions; hx of diastolic HF on low dose lasix as OP (20 mg daily per H&P). 1.6L + on the admission to date. no meds to concentrate currently; he remains NPO -continue strict I/O >asked RN to contact me 1600 >> if still off of pressors depending on VS and other clinical trends may consider low dose lasix History of Present Illness Reason for Consultation: TATA on CKD Requesting Physician: Dr Little Attending Physician: Franco Ward MD History of Present Illness 72 y/o M whom I'm asked to see for TATA on nonproteinuric CKD3B after being admitted here yesterday for incarcerated umbilical hernia s/p emergent/open partial small bowel resection and hernia repair yesterday afternoon. PMH multiple pediatric open heart surgeries w/ valve repair for congenital pulmonary stenosis s/p repair 1957 and ASD repair 1964.Pt with hx ofacute aortic dissection s/p repair 2009, also h/o aortic stenosis and rgg s/p mechanical aortic valve 2013 w/ postop course complicated by severe sternal wound infection, a fib on coumadin/amiodarone, HTN, HL, gout and OA, prostate CA s/p surgery.Also w/ past EtOH abuse. Had 11/24/17 L hip replacement. CKD from past NSAID abuse, cardiorenal syndrome, HTN. Hx of labile renal function w/ CKD 4 nearing CKD 5 spring 2021 then recovery/improvement w/o clear cause and some worsening again spring 2022. at baseline his pulmonary functional status is poor and worsened recently. at August 2022 clinic visit w/ me he c/o chronic/worsening cough, worsening exertional dyspnea (newly more out of breath walking 25 yards flat; has to rest w/ one flight of steps) >> CXR w/ moderate R pleural effusion which proved refractory to diuretics. he had a 1.8 L thoracentesis 11/27 w/ benign cytology and negative fluid culture (no other studies done). he is to establish w/ [facility] in early January. Baseline creatinine 1.8 for past year. He was 2.5 however on 11/06 as OP after diuretic intensification. He presented w/ creatinine 2.3, which bumped to 3.1 postoperatively and 3.3 today. He made 420 mL urine yesterday, 200 so far by midday today. 800 mL UOP on day of admission. NGT output since surgery is minimal. He is in ICU on levophed , though it had been off for about 90 minutes when I saw him this afternoon. On day 2 of 5 planned days ertapenem and also on stress dosed steroids. Cardiology, gen surg, critical care all following. Urology had to be called for difficult marlow placement (pt w/ hx of ODEN). He tells me his breathing is ok; not terribly short or uncomfortable. c/o sore throat and discomfort w/ NG. not passing gas yet. no abd pain. had significant edema BLE to hips prior to admission per adn pt >> no c/o worsening edema. no f/c/rash. Allergies Allergy/AdvReac Type Severity Reaction Status Date / Time nut - unspecified Allergy Intermediate SORES IN Verified 12/16/22 21:33 MOUTH Home Medications Medication Instructions Recorded Confirmed Type allopurinol 300 mg tablet 300 mg PO DAILY 12/16/22 12/16/22 History amiodarone 200 mg tablet 200 mg PO QAM 12/16/22 12/16/22 History amoxicillin 500 mg capsule 2,000 mg PO DIRECTED PRN 1 HR 12/16/22 12/16/22 History PRIOR TO DENTAL APPT. aspirin 81 mg tablet,delayed 81 mg PO DAILY 12/16/22 12/16/22 History release atorvastatin 40 mg tablet 40 mg PO DAILY 12/16/22 12/16/22 History cholecalciferol (vitamin D3) 50 50 mcg PO DAILY 12/16/22 12/16/22 History mcg (2,000 unit) capsule (Vitamin D3) furosemide 20 mg tablet 20 mg PO DAILY 12/16/22 12/16/22 History lisinopril 2.5 mg tablet 2.5 mg PO QAM 12/16/22 12/16/22 History loratadine 10 mg tablet (Claritin) 10 mg PO DAILY 12/16/22 12/16/22 History metoprolol tartrate 25 mg tablet 12.5 mg PO BID 12/16/22 12/16/22 History terazosin 1 mg capsule 2 mg PO HS 12/16/22 12/16/22 History warfarin 5 mg tablet See Rx Instructions .Route .COMPLEX 12/16/22 12/16/22 History Patient History Medical History (Updated 12/18/22 @ 14:08 by Alice Muñoz MD, PhD) Abdominal aortic aneurysm Repaired Actinic keratosis Aortic dissection Arthritis right hip, right wrist CHF (congestive heart failure) CRF (chronic renal failure) stage 3 Dyslipidemia Gout History of atrial fibrillation HTN (hypertension) Osteoarthritis right hip Pleural effusion s/p 1.8 L 11/27/2022 thoracentesis RBBB Restless leg syndrome Surgical History (Updated 12/18/22 @ 08:28 by Juan Solis DO) Heart valve replaced History of appendectomy History of colon resection (12/17/22) Laparoscopy converted to open partial small bowel resection, repair of ventr al hernia(Not Applicable) - Juan Solis DO History of hip replacement left hip History of prostatectomy History of wisdom tooth extraction Social History Smoking Status: Never smoker Smoking End Date: 2 yrs ago; Do You Dip or Chew Tobacco: No; Tobacco Cessation Education Requested by Patient: No Hx Alcohol Use: No Hx Substance Use: No Preferred Language: Romansh Communication Ability: Effective Instructor Looping Required: No Beliefs That Will Affect Care: None Current Living Situation: Spouse Other Information That Helps Us Care for You: No Feels Safe at Home: Yes Safety Concerns: Feels Safe At This Time Assistive Devices: Cane and Walker Review of Systems Review of Systems: All systems reviewed & are unremarkable except as noted in HPI & below Physical Exam Constitutional: well developed and well nourished Eyes: EOM intact bilaterally ENMT: Ears: no external ear abnormality Nose: no external nose abnormality Mouth: + dry oral mucous membranes Neck: no nuchal rigidity Respiratory: normal respiratory effort Auscultation: + diminished lung sounds Cardiovascular: Rate/Rhythm: regular rate and regular rhythm Heart Sounds: + click Extremities: + edema (3+ BL pedal; trace dependent) Gastrointestinal (Abdomen): Inspection/Auscultation: + abdomen distended and + hypoactive bowel sounds Percussion/Palpation: + abdomen tender and abdomen soft Musculoskeletal: Extremities: strength 5/5 throughout Skin: no rashes, warm and dry Neurologic: lopez, fluent speech, no tremor Psychiatric: Orientation: alert and oriented x 3 Genitourinary: marlow w/ ample clear urine Results & Data Vital Signs (Past 12 Hours) Vital Signs Temp Pulse Resp BP Pulse Ox O2 Del Method O2 Flow Rate 12/18/22 10:00 71 24 12/18/22 09:00 70 20 104/46 L 12/18/22 08:15 110/48 L 12/18/22 08:00 69 24 93 12/18/22 10:06 Nasal Cannula 3 12/18/22 08:00 37.1 C 12/18/22 07:00 69 23 110/50 L 12/18/22 06:00 73 23 97 12/18/22 06:00 110/56 L 12/18/22 05:30 70 25 H 95 12/18/22 05:00 98 H 28 H 12/18/22 05:00 111/52 L 12/18/22 04:30 98 H 22 96 12/18/22 04:00 96 H 23 96 12/18/22 04:00 104/48 L 12/18/22 03:30 69 33 H 96 12/18/22 03:00 67 22 12/18/22 03:00 95/37 L 12/18/22 02:30 74 27 H 97 12/18/22 02:00 71 24 95 12/18/22 02:00 102/50 L 12/18/22 01:30 70 24 95 12/18/22 01:00 70 23 95 12/18/22 01:00 104/48 L 12/18/22 00:30 71 24 95 12/18/22 00:00 71 27 H 96 12/18/22 00:00 114/46 L 12/18/22 00:00 70 12/17/22 23:30 71 21 97 12/17/22 23:00 68 23 96 12/17/22 23:00 104/48 L Laboratory Results 12/18/22 06:49 12/18/22 06:49 admission UA reviewed Diagnostic Findings CT a/p non con 1. Ventral abdominal wall hernia, which contains a loop of small bowel. Mildly prominent small bowel entering this hernia measuring up to 2.6 cm, concerning for partial bowel obstruction. 2. No hydronephrosis or nephrolithiasis. 3. Small RIGHT pleural effusion. 4. Mild hepatic cirrhotic morphology. Mild perihepatic and perisplenic ascites. 5. Diverticulosis, without acute diverticulitis. No free air. cxr FINDINGS: A nasogastric tube terminates in the stomach. 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 The heart remains enlarged. There are poststernotomy changes and a cardiac valve prosthesis. No pneumothorax. Bilateral pleural effusions and pulmonary edema persist. Right greater than left airspace opacities are also unchanged. IMPRESSION: 1. Satisfactory support line placement. 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 2. Cardiomegaly, bilateral pleural effusions, pulmonary edema, and bibasilar airspace opacities persist.
--- NOTE | 2022-12-18 11:31 | XRay Report ---
XR chest 1V portable HISTORY: Check PICC line placement COMPARISON: Chest 12/18/2022. Chest CTA 12/12/2009. FINDINGS: A nasogastric tube terminates in the stomach. 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 The heart remains enlarged. There are poststernotomy lucas nges and a cardiac valve prosthesis. No pneumothorax. Bilateral pleural effusions and pulmonary edema persist. Right greater than left airspace opacities are also unchanged. IMPRESSION: 1. Satisfactory support line placement. The left PICC terminates distally in the left side of the pat ient's known duplicated SVC. 2. Cardiomegaly, bilateral pleural effusions, pulmonary edema, and bibasilar airspace opacities persi st. ACT 112: Negative or not required by law. Electronically signed by: Neftaly Urrutia M.D. 12/18/2022 11:29 AM
[2022-12-18] MEDS: PANTOprazole 40 MG in SYRINGE 0 ML IV SCH (13:05)
--- NOTE | 2022-12-18 13:34 | XRay Report ---
XR chest 1V portable CLINICAL HISTORY: Check PICC line placement after PICC repositioned COMPARISON STUDY: Chest CT December 12, 2009. Chest radiograph performed earlier today. FINDINGS: The left PICC is within the known left SVC with tip likely within the coronary sinus. There is no pneumothorax. Moderate right and small left pleural effusions with bibasilar opacities are aga in noted as well as pulmonary edema. Cardiomegaly, median sternotomy wires and prosthetic aortic valv e are noted. Tip of nasogastric tube is at least within the proximal stomach. IMPRESSION: 1. Left PICC within the known left SVC with tip likely within the coronary sinus. 2. Pulmonary edema with moderate right and small left pleural effusions with associated bibasilar opa cities. ACT 112: Negative or not required by law. Electronically signed by: Patel Daniel M.D. 12/18/2022 1:32 PM
--- NOTE | 2022-12-18 14:25 | XRay Report ---
XR chest 1V portable CLINICAL HISTORY: Final PICC adjustment COMPARISON STUDY: Chest radiograph December 18, 2022 at 12:55 PM. FINDINGS: The tip of the nasogastric tube is within the body of the stomach. Left PICC is in place. T he tip projects over the distal left SVC. Bilateral pleural effusions, right larger than left and ass ociated bibasilar opacities are again noted. There is pulmonary edema. Median sternotomy wires and pr osthetic aortic valve are present. IMPRESSION: 1. Satisfactory support line placement. Left PICC tip is within the distal left SVC. 2. Bilateral pleural effusions and associated bibasilar opacities. Persistent pulmonary edema. ACT 112: Negative or not required by law. Electronically signed by: Patel Daniel M.D. 12/18/2022 2:23 PM
[2022-12-18 15:55] LABS: Partial Thromboplastin Ratio 2.4
[2022-12-18 16:05] LABS: Partial Thromboplastin Time 68.6 Seconds (21.0-31.0)
--- NOTE | 2022-12-18 16:25 | Hospitalist Progress Note ---
Date of Service December 18, 2022 Assessment & Plan (1) Umbilical hernia, incarcerated: Plan: INCARCERATED UMBILICAL HERNIA Status post Laparoscopy converted to open partial small bowel resection, repair of ventral hernia on 12/17 NG tube placed due to high risks of ileus Restarted on heparin drip ACUTE ON CHRONIC DIASTOLIC CHF Mechanical valve on warfarin status post vitamin K Chest x-ray personally reviewed; consistent with pulmonary edema Unable to provide diuretics due to low blood pressure Discussed with cardiology; started on heparin drip To be started on warfarin when able to take oral Septic shock Secondary to incarcerated hernia Continue vasopressor support as needed Continue on ertapenem On hydrocortisone ACUTE KIDNEY INJURY on CKD Creatinine increased to 3.25 Urine output of 720 mL Continue hemodynamic support Nephrology on board INCIDENTAL FINDING OF CIRRHOSIS ON CT, NEW DIAGNOSIS Will need outpatient GI follow-up Other chronic medical problems: hypertension hyperlipidemia, on statin Rx thoracic aortic dissection status post surgery chronic anemia prostate cancer status post surgery Disposition ICU. PT OT when able Discussed with and daughter at bedside. Time spent evaluating patient, direct bedside care, chart review, placing orders, interpretation of diagnostic studies, discussion with consultants, patient, and family members, as well as other required patient management activities is 60 minutes Please note the above document was generated using voice recognition software. It may contain grammatical, syntax or spelling errors. Any formal questions or concerns about the content, text or information contained within the body of this dictation should be directly addressed to the provider for clarification Admission and Anticipated Discharge Date Admission Date: December 17, 2022 Subjective Patient seen and examined at bedside. He is alert oriented to time place and person. Reports shortness of breath. NG tube in place. He is off norepinephrine. Review of Systems Review of Systems: All systems reviewed & are unremarkable except as noted in Subjective Physical Exam Physical Exam: Constitutional: Alert, oriented x3. NG tube in place. Respiratory: Bilateral crackles present. Cardiovascular: RRR, mechanical valve sound present Chest: normal inspection of chest Abdomen: Dressing clean dry and intact. Musculoskeletal: no cyanosis or clubbing, extremities motor strength 5/5 Skin: no rashes, warm and dry normal turgor Neurologic: PERRL, EOMI, accommodation nl, no face palsy, no dysarthria CN's II- XI intact bilaterally and moves all extremities Psychiatric: A+Ox3, euthymic affect Results & Data Results & Data Vital Signs (Past 12 Hours) Vital Signs Temp Pulse Resp BP Pulse Ox O2 Del Method O2 Flow Rate 12/18/22 15:00 72 21 121/50 L 95 Nasal Cannula 12/18/22 14:00 70 24 110/44 L 96 Nasal Cannula 3 12/18/22 13:00 72 19 107/48 L 94 Nasal Cannula 3 12/18/22 12:00 36.9 C 12/18/22 12:15 106/50 L 12/18/22 12:00 107/46 L 12/18/22 11:45 71 28 H 120/45 L 97 12/18/22 11:33 73 25 H 101/43 L 94 12/18/22 11:00 73 23 95 Nasal Cannula 3 12/18/22 10:00 71 24 12/18/22 09:00 70 20 104/46 L 12/18/22 08:15 110/48 L 12/18/22 08:00 69 24 93 12/18/22 10:06 Nasal Cannula 3 12/18/22 08:00 37.1 C 12/18/22 07:00 69 23 110/50 L 12/18/22 06:00 73 23 97 12/18/22 06:00 110/56 L 12/18/22 05:30 70 25 H 95 12/18/22 05:00 98 H 28 H 12/18/22 05:00 111/52 L 12/18/22 04:30 98 H 22 96 Laboratory Results Laboratory Results WBC 12.60 K/ul (4.8-10.8) H 12/18/22 06:49 RBC 3.51 M/uL (4.70-6.10) L 12/18/22 06:49 Hgb 10.5 g/dl (14.0-18.0) L 12/18/22 06:49 POC Hgb 12.2 g/dl (14.0-18.0) L 12/16/22 20:37 Hct 31.9 % (42.0-52.0) L 12/18/22 06:49 POC Hct 36 % (42-52) L 12/16/22 20:37 MCV 90.9 fL (80.0-100.0) 12/18/22 06:49 MCH 29.9 pg (25.0-34.0) 12/18/22 06:49 MCHC 32.9 g/dL (32.0-36.0) 12/18/22 06:49 RDW Std Deviation 67.0 fL (36.4-46.3) H 12/18/22 06:49 RDW Coeff of Penelope 20.3 % (11.5-14.5) H 12/18/22 06:49 Plt Count 110 K/uL (130-400) L 12/18/22 06:49 MPV 11.4 fL (9.4-12.4) 12/18/22 06:49 Immature Gran % (Auto) 0.6 % 12/18/22 06:49 Neut % (Auto) 87.4 % 12/18/22 06:49 Lymph % (Auto) 3.1 % 12/18/22 06:49 Sanders % (Auto) 8.7 % 12/18/22 06:49 Eos % (Auto) 0.0 % 12/18/22 06:49 Baso % (Auto) 0.2 % 12/18/22 06:49 Neut # (Auto) 11.01 K/uL (1.40-6.50) H 12/18/22 06:49 Lymph # (Auto) 0.39 K/uL (1.2-3.4) L 12/18/22 06:49 Sanders # (Auto) 1.10 K/uL (0.11-0.59) H 12/18/22 06:49 Eos # (Auto) 0.00 K/uL (0-0.50) 12/18/22 06:49 Baso # (Auto) 0.03 K/uL (0-0.2) 12/18/22 06:49 Immature Gran # (Auto) 0.07 K/uL (0.01-0.20) 12/18/22 06:49 Polychromasia 1+ 12/18/22 06:49 Anisocytosis Present 12/16/22 20:12 Tear Drop Cells 1+ 12/18/22 06:49 Ovalocytes 1+ 12/16/22 20:12 Echinocytes 1+ 12/18/22 06:49 PT 19.4 Seconds (9.0-12.0) H 12/17/22 05:23 INR 1.8 (0.9-1.1) H 12/17/22 05:23 APTT 68.6 Seconds (21.0-31.0) H* 12/18/22 14:54 PTT Ratio 2.4 12/18/22 14:54 POC Sodium 141 mmol/L (135-144) 12/16/22 20:37 Sodium 141 mmol/L (136-145) 12/18/22 06:49 POC Potassium 4.0 mmol/L (3.3-5.0) 12/16/22 20:37 Potassium 4.5 mmol/L (3.5-5.1) 12/18/22 06:49 POC Chloride 106 mmol/L (101-112) 12/16/22 20:37 Chloride 108 mmol/L (98-107) H 12/18/22 06:49 Carbon Dioxide 23 mmol/L (21-32) 12/18/22 06:49 POC Total CO2 22 mmol/L (24-31) L 12/16/22 20:37 Anion Gap 10 (3-11) 12/18/22 06:49 POC Anion Gap 18.0 mmol/L (16-25) 12/16/22 20:37 POC BUN 71 mg/dl (7-18) H 12/16/22 20:37 BUN 90 mg/dl (6-23) H 12/18/22 06:49 Creatinine 3.25 mg/dl (0.6-1.4) H 12/18/22 06:49 POC Creatinine 2.6 mg/dl (0.6-1.3) H 12/16/22 20:37 Est Cr Clr Drug Dosing 23.8 ml/min 12/18/22 06:49 Est GFR ( Amer) 20.9 ml/min 12/18/22 06:49 Est GFR (Non-Af Amer) 18.0 ml/min 12/18/22 06:49 BUN/Creatinine Ratio 27.7 (10-20) H 12/18/22 06:49 Glucose 149 mg/dl (70-99(Fasting)) H 12/18/22 06:49 POC Glucose (other) 88 mg/dl (70-99) 12/16/22 20:37 Lactate 1.5 mmol/L (0.4-2.0) 12/17/22 16:33 Calcium 8.1 mg/dl (8.6-10.3) L 12/18/22 06:49 POC Ioniz Calcium Codey 1.09 mmol/l (1.12-1.32) L 12/16/22 20:37 Phosphorus 5.6 mg/dl (2.5-4.9) H 12/18/22 06:49 Magnesium 1.9 mg/dl (1.7-2.4) 12/18/22 06:49 Total Bilirubin 2.2 mg/dl (0.2-1.0) H 12/18/22 06:49 AST 98 U/L (13-39) H 12/18/22 06:49 ALT 89 U/L (7-52) H 12/18/22 06:49 Alkaline Phosphatase 67 U/L (34-104) 12/18/22 06:49 Troponin I High Sens 96.3 pg/ml (0-20) H* D 12/17/22 19:56 B-Natriuretic Peptide 704 pg/ml (0-100) H 12/16/22 23:22 Total Protein 5.8 gm/dl (6.0-8.3) L 12/18/22 06:49 Albumin 3.2 gm/dl (3.4-5.0) L 12/18/22 06:49 Globulin 2.6 gm/dl (2.5-4.0) 12/18/22 06:49 Albumin/Globulin Ratio 1.2 (0.9-2) 12/18/22 06:49 Lipase 14 U/L (11-82) 12/16/22 20:12 Procalcitonin 0.42 ng/ml (0-0.5) 12/16/22 20:13 TSH 4.479 uIu/ml (0.300-4.500) 12/16/22 20:13 Random Cortisol 23.34 mcg/dl 12/17/22 16:33 Urine Color Yellow 12/16/22 20:12 Urine Appearance Clear (Clear) 12/16/22 20:12 Urine pH 5.5 (4.5-7.5) 12/16/22 20:12 Ur Specific Blackstone 1.012 (1.000-1.030) 12/16/22 20:12 Urine Protein Negative (Negative) 12/16/22 20:12 Urine Glucose (UA) Negative (Negative) 12/16/22 20:12 Urine Ketones Negative (Negative) 12/16/22 20:12 Urine Blood Negative (Negative) 12/16/22 20:12 Urine Nitrite Negative (Negative) 12/16/22 20:12 Urine Bilirubin Negative (Negative) 12/16/22 20:12 Urine Urobilinogen Negative (Negative) 12/16/22 20:12 Ur Leukocyte Esterase Negative (Negative) 12/16/22 20:12 Nasal Screen MRSA (PCR) Negative (Negative) 12/17/22 16:40 SARS-CoV-2, RNA, NAAT NEGATIVE (NEGATIVE) 12/16/22 20:12 Blood Type O Positive 12/17/22 10:50 Antibody Screen NEGATIVE 12/17/22 10:50 Impressions Abdomen/Pelvis CT 12/16/22 20:44 Exam(s): CT ABDOMEN + PELVIS Without Contrast EXAM: CT Abdomen and Pelvis Without Intravenous Contrast CLINICAL HISTORY: Reason for exam: Abd pain. TECHNIQUE: Axial computed tomography images of the abdomen and pelvis without intravenous contrast. CTDI is 27.34 mGy and DLP is 1388.62 mGy-cm. Automated exposure control was utilized for the study. A dose lowering technique was utilized adhering to the principles of ALARA. COMPARISON: No relevant prior studies available. FINDINGS: Lung bases: Unremarkable. No mass. No consolidation. Pleural space: Small RIGHT pleural effusion. Heart: Cardiomegaly. Prosthetic aortic valve. ABDOMEN: Liver: Mild hepatic cirrhotic morphology. Mild perihepatic and perisplenic ascites. Gallbladder and bile ducts: Unremarkable. No calcified stones. No ductal dilation. Pancreas: Unremarkable. No ductal dilation. Spleen: Unremarkable. No splenomegaly. Adrenals: Unremarkable. No mass. Kidneys and ureters: Unremarkable. No hydronephrosis or nephrolithiasis. Stomach and bowel: Ventral abdominal wall hernia, which contains a loop of small bowel. Mildly prominent small bowel entering this hernia measuring up to 2.6 cm, concerning for partial bowel obstruction. Diverticulosis, without acute diverticulitis. No free air. PELVIS: Appendix: No findings to suggest acute appendicitis. Bladder: Unremarkable. No stones. Reproductive: Unremarkable as visualized. ABDOMEN and PELVIS: Intraperitoneal space: See above. Bones/joints: Sternotomy wires. Degenerative changes of the spine. LEFT hip arthroplasty. No acute fracture. No dislocation. Soft tissues: See above. Vasculature: Atherosclerotic changes of the aorta. No abdominal aortic aneurysm. Lymph nodes: Unremarkable. No enlarged lymph nodes. IMPRESSION: 1. Ventral abdominal wall hernia, which contains a loop of small bowel. Mildly prominent small bowel entering this hernia measuring up to 2.6 cm, concerning for partial bowel obstruction. 2. No hydronephrosis or nephrolithiasis. 3. Small RIGHT pleural effusion. 4. Mild hepatic cirrhotic morphology. Mild perihepatic and perisplenic ascites. 5. Diverticulosis, without acute diverticulitis. No free air. Electronically signed by: Gerhard Forman MD 12/16/22 22:10 PM KUB X-Ray 12/17/22 05:49 KUB HISTORY: ng tube placement COMPARISON: KUB 12/17/2022. FINDINGS: Nasogastric tube terminates in the stomach. Small bilateral pleural effusions and right basilar densities persist. The heart remains enlarged. There are poststernotomy changes and a cardiac valve prosthesis again noted. Mildly dilated gas-filled loops of small bowel are again seen within the upper abdomen. This is concerning for a small bowel obstruction. No renal calculi. No ureteral calculi. No pneumoperitoneum or pneumatosis. IMPRESSION: 1. Nasogastric tube terminates in the stomach. 2. Mildly dilated gas-filled loops of small bowel are seen within the upper abdomen concerning for a small bowel obstruction. ACT 112: Negative or not required by law. Electronically signed by: Neftaly Urrutia M.D. 12/17/2022 6:43 AM Chest X-Ray 12/18/22 13:51 XR chest 1V portable CLINICAL HISTORY: Final PICC adjustment COMPARISON STUDY: Chest radiograph December 18, 2022 at 12:55 PM. FINDINGS: The tip of the nasogastric tube is within the body of the stomach. Left PICC is in place. The tip projects over the distal left SVC. Bilateral pleural effusions, right larger than left and associated bibasilar opacities are again noted. There is pulmonary edema. Median sternotomy wires and prosthetic aortic valve are present. IMPRESSION: 1. Satisfactory support line placement. Left PICC tip is within the distal left SVC. 2. Bilateral pleural effusions and associated bibasilar opacities. Persistent pulmonary edema. ACT 112: Negative or not required by law. Electronically signed by: Patel Daniel M.D. 12/18/2022 2:23 PM
[2022-12-18 23:38] LABS: Partial Thromboplastin Ratio 2.6
[2022-12-18 23:47] LABS: Partial Thromboplastin Time 73.9 Seconds (21.0-31.0)
[2022-12-19] MEDS: ACETAMINOPHEN 1,000 MG/100 ML VIAL IV SCH ×2 (00:19→08:04)
[2022-12-19] MEDS: HEPARIN SODIUM/DEXTROSE 25,000 UNITS/500 ML BAG IV SCH ×2 (02:57→23:26)
[2022-12-19] MEDS: HYDROCORTISONE SOD 50 MG in SYRINGE 0 ML IV SCH (04:18)
[2022-12-19] MEDS: ERTAPENEM SODIUM 500 MG in SYRINGE 0 ML IV SCH (04:31)
[2022-12-19 06:21] LABS: Hematocrit (blood only) 28.6 % (42.0-52.0); Hemoglobin 9.4 g/dl (14.0-18.0); Immature Granulocytes # (auto) 0.12 K/uL (0.01-0.20); Immature Granulocytes % (auto) 1.3 %; Lymphocytes # (auto) 0.43 K/uL (1.2-3.4); Lymphocytes % (auto) 4.5 %; Mean Corpuscular Hemoglobin 29.7 pg (25.0-34.0); Mean Corpuscular Hgb Conc 32.9 g/dL (32.0-36.0); Mean Corpuscular Volume 90.2 fL (80.0-100.0); Mean Platelet Volume 12.7 fL (9.4-12.4); Monocytes # (auto) 0.85 K/uL (0.11-0.59); Monocytes % (auto) 8.9 %; Neutrophils % (auto) 85.3 %; Platelet Count 112 K/uL (130-400); RDW Standard Deviation 66.4 fL (36.4-46.3); Red Blood Count 3.17 M/uL (4.70-6.10)
[2022-12-19 07:03] LABS: Partial Thromboplastin Ratio 2.2
[2022-12-19 07:09] LABS: Albumin Globulin Ratio 1.2 (0.9-2); Albumin Level 2.8 gm/dl (3.4-5.0); BUN Creatinine Ratio 34.8 (10-20); Bilirubin,Total 1.2 mg/dl (0.2-1.0); Calcium 8.4 mg/dl (8.6-10.3); Creatinine Clr Calc Pharmacy 27.5 ml/min; Est GFR (African American) 24.8 ml/min; Est GFR (Non-African American) 21.4 ml/min; Globulin 2.4 gm/dl (2.5-4.0); Magnesium 2.2 mg/dl (1.7-2.4); Phosphorus 5.2 mg/dl (2.5-4.9); Potassium 4.1 mmol/L (3.5-5.1); Total Protein 5.2 gm/dl (6.0-8.3)
--- NOTE | 2022-12-19 07:19 | Surgery Progress Note ---
Date of Service December 19, 2022 Assessment & Plan (1) History of colon resection: Plan: He continues to do better than I would have expected. I am going to remove his NG tube since its not putting much out if you deduct the ice intake. I will let him have some ice chips and sips today. We will be good to get him out of bed today as well. Off norepinephrine and pressures look good Can probably be transferred out of the ICU soon Admission and Anticipated Discharge Date Admission Date: December 17, 2022 Subjective Patient seen. Feeling well and looks good. He states he continues to feel better every day. He denies any nausea. Minimal pain. No flatus or bowel movement yet Physical Exam Physical Exam: Alert no acute distress His abdomen is soft with expected incisional tenderness. The incisions look great. NG tube with small amount of diluted bile. He has been taking ice chips as well Results & Data Vital Signs (Past 12 Hours) Vital Signs Temp Pulse Resp BP Pulse Ox O2 Del Method O2 Flow Rate 12/19/22 06:00 68 23 93 12/19/22 06:00 116/55 L 12/19/22 05:30 108/50 L 12/19/22 05:30 68 17 94 12/19/22 05:00 67 17 92 12/19/22 05:00 103/48 L 12/19/22 04:30 67 18 94 12/19/22 04:30 96/44 L 12/19/22 04:00 69 17 95 12/19/22 04:00 103/45 L 12/19/22 03:30 98/48 L 12/19/22 03:30 68 18 95 12/19/22 03:00 70 25 H 91 12/19/22 03:00 116/55 L 12/19/22 02:30 102/46 L 12/19/22 02:30 67 20 94 12/19/22 02:02 106/47 L 12/19/22 02:02 69 23 93 12/19/22 02:00 69 18 95 12/19/22 01:30 89/42 L 12/19/22 01:30 67 17 94 12/19/22 01:00 67 19 94 12/19/22 01:00 97/44 L 12/19/22 00:30 69 22 92 12/19/22 00:30 98/42 L 12/19/22 00:00 70 20 92 12/19/22 00:00 109/48 L 12/19/22 04:23 36.7 C 12/18/22 23:30 102/48 L 12/18/22 23:30 70 22 96 12/18/22 23:08 98 H 21 94 12/18/22 23:08 93/65 L 12/18/22 23:00 112 H 20 94 12/18/22 23:00 88/51 L 12/18/22 22:30 69 21 93 12/18/22 22:30 105/46 L 12/18/22 22:00 71 20 90 12/18/22 22:00 102/51 L 12/18/22 23:39 95 H 12/18/22 21:30 71 22 89 L 12/18/22 21:30 105/47 L 12/18/22 21:00 70 21 95 12/18/22 21:00 107/49 L 12/18/22 20:30 96/45 L 12/18/22 20:30 69 31 H 94 12/18/22 20:00 68 21 97 12/18/22 20:00 98/51 L 12/18/22 19:30 103/46 L 12/18/22 19:30 68 21 95 12/18/22 20:00 37.1 C 12/18/22 20:00 Nasal Cannula 2 PG Care Time/CCT Total # of Minutes Spent Total Time Spent with Patient: Total time spent is greater than 50% in coordination of care (as documented) at patient's floor/unit and/or counseling patient: Coding Level of Care Code 37874 Post Operative Follow-Up Diagnoses History of colon resection Z90.49
--- NOTE | 2022-12-19 07:24 | Cardiology Progress Note ---
Date of Service December 19, 2022 Assessment & Plan (1) Umbilical hernia, incarcerated: (2) S/P AVR (aortic valve replacement): (3) Congenital heart disease: (4) CRF (chronic renal failure): Plan IMPRESSION: Medically complex 72 year old male with hx of congenital heart disease s/p pulmonic valve and ASD repair as well as severe s/p mechanical AVR and ascending aortic repair. Found to have an incarcerated umbilical hernia status post open partial small bowel resection and repair of ventral hernia, 12/17/[address] Solis Echo this admission stable with findings associated with prior heart/valvular disease. Hypotensive on presentation, chronic finding. No longer requiring pressor support. NG tube removed PLAN: On IV heparin due to mechanical AVR. Transition to Coumadin when able to take PO. Heart rates controlled in the 60-70s on tele. No PAF seen. Restart amiodarone and metoprolol when able to take PO. Recommend ongoing supportive measures. Use of IV diuretics limited due to hypotension and renal dysfunction. Appreciate nephrology recommendations. Case discussed with Dr. Terry, will follow. Admission and Anticipated Discharge Date Admission Date: December 17, 2022 Supervising Physician Co-Signing Physician Notes Patient seen and examined, chart, medications and telemetry reviewed. Full assessment as above Patient off pressors and remaining hemodynamically stable. Renal function improved slightly with urinary output present. Still quiet abdomen but NG able to be removed Anticoagulated with IV heparin Transient tachycardia last night but no sustained atrial arrhythmias. Plan continue supportive care resume oral amiodarone and metoprolol when able to take p.o. If further tachyarrhythmias develop would use IV metoprolol until oral medications able to be resumed. Subjective Medically complex 72-year-old male with history of congenital heart disease status post repair of ASD and pulmonary stenosis as well as severe aortic stenosis status post mechanical AVR and ascending aortic repair. Patient presented to [facility] emergency department critically ill with incarcerated umbilical hernia and possible sepsis. Coumadin was reversed with Kcentra and vitamin K. He underwent laparoscopic open small bowel resection and repair of ventral hernia with Dr. Solis, yesterday, 12/18/2022. Patient was transferred to ICU post surgery blood pressures were hypotensive. Fluids were avoided due to volume status and patient was placed on pressor support with Levophed. Heparin was restarted. Echo 12/17: Low normal LVEF of 50 to 55%. Moderate concentric LVH. Septal motion consistent with conduction abnormality. Left and right atrium dilated. RV moderately dilated with moderately reduced systolic function. [place] bileaflet aortic mechanical prosthesis with normal gradients. Trace MR, no mitral stenosis. Mild to moderate TR no pulmonary hypertension. 12/19: Upon entrance into the room patient sitting up out of bed in the chair. No CV complaints. Denies chest pain, notes mild DUMONT. No palpitations or lightheadedness. Notes mild abdominal discomfort. NG tube removed- tolerating ice chips. TELE: NSR 70s Review of Systems Review of Systems: All systems reviewed & are unremarkable except as noted in HPI & below Physical Exam Constitutional: + ill appearing; no acute distress Neck: normal visual inspection and trachea midline Respiratory: no respiratory distress, no labored breathing and no cough Auscultation: + diminished lung sounds; no rales, no rhonchi and no wheezes Cardiovascular: Rate/Rhythm: regular rate and regular rhythm Heart Sounds: normal S1 and normal S2 ([place] mechanical valve closure ) Extremities: + edema (+3 BLLE pitting edema to knees) Gastrointestinal (Abdomen): Inspection/Auscultation: abdomen not distended Percussion/Palpation: + abdomen tender Skin: no rashes, warm and dry Neurologic: PERRL, EOMI, accommodation nl, no face palsy, no dysarthria Psychiatric: A+Ox3, euthymic affect Results & Data Vital Signs (Past 12 Hours) Vital Signs Temp Pulse Resp BP Pulse Ox O2 Del Method O2 Flow Rate 12/19/22 06:00 68 23 93 12/19/22 06:00 116/55 L 12/19/22 05:30 108/50 L 12/19/22 05:30 68 17 94 12/19/22 05:00 67 17 92 12/19/22 05:00 103/48 L 12/19/22 04:30 67 18 94 12/19/22 04:30 96/44 L 12/19/22 04:00 69 17 95 12/19/22 04:00 103/45 L 12/19/22 03:30 98/48 L 12/19/22 03:30 68 18 95 12/19/22 03:00 70 25 H 91 12/19/22 03:00 116/55 L 12/19/22 02:30 102/46 L 12/19/22 02:30 67 20 94 12/19/22 02:02 106/47 L 12/19/22 02:02 69 23 93 12/19/22 02:00 69 18 95 12/19/22 01:30 89/42 L 12/19/22 01:30 67 17 94 12/19/22 01:00 67 19 94 12/19/22 01:00 97/44 L 12/19/22 00:30 69 22 92 12/19/22 00:30 98/42 L 12/19/22 00:00 70 20 92 12/19/22 00:00 109/48 L 12/19/22 04:23 36.7 C 12/18/22 23:30 102/48 L 12/18/22 23:30 70 22 96 12/18/22 23:08 98 H 21 94 12/18/22 23:08 93/65 L 12/18/22 23:00 112 H 20 94 12/18/22 23:00 88/51 L 12/18/22 22:30 69 21 93 12/18/22 22:30 105/46 L 12/18/22 22:00 71 20 90 12/18/22 22:00 102/51 L 12/18/22 23:39 95 H 12/18/22 21:30 71 22 89 L 12/18/22 21:30 105/47 L 12/18/22 21:00 70 21 95 12/18/22 21:00 107/49 L 12/18/22 20:30 96/45 L 12/18/22 20:30 69 31 H 94 12/18/22 20:00 68 21 97 12/18/22 20:00 98/51 L 12/18/22 19:30 103/46 L 12/18/22 19:30 68 21 95 12/18/22 20:00 37.1 C 12/18/22 20:00 Nasal Cannula 2 Laboratory Results Cardiac Enzymes 12/19/22 Range/Units 06:07 AST 56 H (13-39) U/L Coagulation 12/18/22 12/18/22 12/19/22 Range/Units 14:54 22:25 06:07 APTT 68.6 H* 73.9 H* 62.0 H* (21.0-31.0) Seconds CBC 07/20/23 Range/Units 06:07 WBC 9.50 (4.8-10.8) K/ul RBC 3.17 L (4.70-6.10) M/uL Hgb 9.4 L (14.0-18.0) g/dl Hct 28.6 L (42.0-52.0) % Plt Count 112 L (130-400) K/uL Neut # (Auto) 8.10 H (1.40-6.50) K/uL Lymph # (Auto) 0.43 L (1.2-3.4) K/uL [place] # (Auto) 0.85 H (0.11-0.59) K/uL Eos # (Auto) 0.00 (0-0.50) K/uL Baso # (Auto) 0.00 (0-0.2) K/uL Comprehensive Metabolic Panel 12/19/22 Range/Units 06:07 Sodium 142 (136-145) mmol/L Potassium 4.1 (3.5-5.1) mmol/L Chloride 109 H (98-107) mmol/L Carbon Dioxide 25 (21-32) mmol/L BUN 98 H (6-23) mg/dl Creatinine 2.82 H D (0.6-1.4) mg/dl Glucose 110 H (70-99(Fasting)) mg/dl Calcium 8.4 L (8.6-10.3) mg/dl AST 56 H (13-39) U/L ALT 81 H (7-52) U/L Alkaline Phosphatase 54 (34-104) U/L Total Protein 5.2 L (6.0-8.3) gm/dl Albumin 2.8 L (3.4-5.0) gm/dl Intake and Output 12/18/22 12/19/22 12/19/22 22:59 06:59 14:59 Intake Total 562.087 / 1523.667 305.900 / 1523.667 Output Total 350 / 1350 710 / 1350 Balance 212.087 / 173.667 -404.100 / 173.667 Intake: IV 562.087 / 1523.667 305.900 / 1523.667 Acetaminophen 1,000 mg In 100 100 / 300 100 / 300 ml @ 400 mls/hr IV Q8H KAJAL Rx#: [id number] Heparin Sodium/Dextrose 25,000 294.1 / 500.000 205.900 / 500.000 units In 500 ml @ 1,300 UNITS/ HR 26 mls/hr IV .[id number] KAJAL Rx #:[id number] Norepinephrine/D5w 4 mg In 250 167.987 / 250.000 ml @ 0 MCG/KG/MIN IV .Q0M KAJAL Rx#:[id number] Output: Urine Amount (Catheter) 350 / 1050 410 / 1050 [place]/Indwelling 350 / 1050 410 / 1050 Gastric Drainage 300 / 300 Left Nare Nasogastric 300 / 300 (4) CRF (chronic renal failure) Chronic kidney disease stage: unspecified stage Qualified Code(s): N18.9 - Chronic kidney disease, unspecified
--- NOTE | 2022-12-19 07:35 | Nephrology Progress Note ---
Date of Service December 19, 2022 Assessment & Plan (1) Acute on chronic renal failure: Plan: improving nonoliguric stage 1 TATA on nonproteinuric CKD 3B w/ labile baseline function. baseline creatinine 1.8; already w/ TATA on arrival w/ presenting creatinine 2.3 and worsened to peak at 3.3 on 12/18. new dx of early liver cirrhosis. admission UA bland. mild persistent hyperchloremia noted but chemistries overall remain acceptable. he is autodiuresing and is 600 mL negative past 24 hrs; overall 600 mL positive on the admission to date. -favor late ischemic ATN -no indication to discuss dialysis at this time (code status noted) -continue daily bmp, supportive care (2) Volume overload: Plan: w/ lower extremity edema, pulmonary vascular congestion and edema, hypoxia, recurrent pleural effusions; hx of diastolic HF on low dose lasix as OP (20 mg daily per H&P). 0.6L + on the admission to date, which is fairly impressive considering it's the first 48 hours after presenting and he's been through surgery, being covered w/ broad spectrum antibiotics. no meds to concentrate currently; he remains NPO -continue strict I/O >consider low dose lasix like 10 mg IV PRN only at this time > hope to resume next 24-48 hrs depending on clinical status -bed to chair -keep marlow for now Admission and Anticipated Discharge Date Admission Date: December 17, 2022 Subjective NGT out now; some productive cough but not sob; pain at surg incision w/ PE adn care manevers else ok Review of Systems Review of Systems: All systems reviewed & are unremarkable except as noted in Subjective Physical Exam Constitutional: well developed, well nourished, + frail appearing and cooperative; no acute distress Eyes: EOM intact bilaterally ENMT: Ears: no external ear abnormality Nose: no external nose abnormality Mouth: + dry oral mucous membranes Neck: no nuchal rigidity Respiratory: normal respiratory effort Auscultation: + diminished lung sounds Cardiovascular: Rate/Rhythm: regular rate and regular rhythm Heart Sounds: + click Extremities: + edema (3+ BL pedal; trace dependent) Gastrointestinal (Abdomen): Inspection/Auscultation: + abdomen distended and + hypoactive bowel sounds Percussion/Palpation: + abdomen tender and abdomen soft Musculoskeletal: Extremities: strength 5/5 throughout Skin: no rashes, warm and dry surgical dressings CDI Neurologic: lopez, fluent speech, generalized weakness, no tremor Psychiatric: Orientation: alert and oriented x 3 Results & Data Vital Signs (Past 12 Hours) Vital Signs Temp Pulse Resp BP Pulse Ox O2 Del Method O2 Flow Rate 12/19/22 06:00 68 23 93 12/19/22 06:00 116/55 L 12/19/22 05:30 108/50 L 12/19/22 05:30 68 17 94 12/19/22 05:00 67 17 92 12/19/22 05:00 103/48 L 12/19/22 04:30 67 18 94 12/19/22 04:30 96/44 L 12/19/22 04:00 69 17 95 12/19/22 04:00 103/45 L 12/19/22 03:30 98/48 L 12/19/22 03:30 68 18 95 12/19/22 03:00 70 25 H 91 12/19/22 03:00 116/55 L 12/19/22 02:30 102/46 L 12/19/22 02:30 67 20 94 12/19/22 02:02 106/47 L 12/19/22 02:02 69 23 93 12/19/22 02:00 69 18 95 12/19/22 01:30 89/42 L 12/19/22 01:30 67 17 94 12/19/22 01:00 67 19 94 12/19/22 01:00 97/44 L 12/19/22 00:30 69 22 92 12/19/22 00:30 98/42 L 12/19/22 00:00 70 20 92 12/19/22 00:00 109/48 L 12/19/22 04:23 36.7 C 12/18/22 23:30 102/48 L 12/18/22 23:30 70 22 96 12/18/22 23:08 98 H 21 94 12/18/22 23:08 93/65 L 12/18/22 23:00 112 H 20 94 12/18/22 23:00 88/51 L 12/18/22 22:30 69 21 93 12/18/22 22:30 105/46 L 12/18/22 22:00 71 20 90 12/18/22 22:00 102/51 L 12/18/22 23:39 95 H 12/18/22 21:30 71 22 89 L 12/18/22 21:30 105/47 L 12/18/22 21:00 70 21 95 12/18/22 21:00 107/49 L 12/18/22 20:30 96/45 L 12/18/22 20:30 69 31 H 94 12/18/22 20:00 68 21 97 12/18/22 20:00 98/51 L 12/18/22 20:00 37.1 C 12/18/22 20:00 Nasal Cannula 2 Laboratory Results 12/19/22 06:07 12/19/22 06:07
--- NOTE | 2022-12-19 07:38 | Critical Care Progress Note ---
Date of Service December 19, 2022 Assessment & Plan (1) Acute on chronic renal failure: (2) CHF (congestive heart failure): (3) Partial obstruction of small intestine: (4) Anemia: Plan Impression: 72-year-old male with multiple medical comorbidities including chronic kidney disease, potential cirrhosis, valvular heart disease, diastolic heart failure, now with ischemic bowel status postresection. His anticoagulation has been reversed but kidney function appears to be deteriorating and the patient has low blood pressure. He is reverse his DNR for the time being but is not interested in aggressive resuscitation. 24-hour events: Patient has been weaned off of norepinephrine since noon yesterday. His urine output is picking up slightly. His pain is well controlled. He has been hemodynamically stable Recommendations: 1. Neurologic: Pain control appears adequate currently. He is awake alert and conversant. No current issues 2. Cardiovascular: Hypotension resolved. Preoperative echocardiogram reviewed with diastolic dysfunction and RV dilatation. Gradients across the valve appeared normal. Patient continues to manifest fluid overload with bilateral pleural effusions and lower extremity edema. Diuresis when felt to be feasible by nephrology.. Continue p.o. amiodarone. PICC line now in place. Continue heparin given his [facility] valve. We will need to restart Coumadin and bridge with heparin until INR greater than 2. Will defer initiation to surgery. Additional recommendations per cardiology 3. Pulmonary: Chest x-ray demonstrates pulmonary edema with recurrence of the pleural effusion. Continue supplemental oxygen. Incentive spirometry. Out of bed to chair as tolerated. 4. GI: Status post partial resection of small bowel. NG tube out. Management per general surgery. IV PPI. Diet per surgery. Cirrhotic changes identified on imaging potentially consistent with patient's prior history of alcohol abuse. He does not appear decompensated currently and would continue to follow closely. 5. Renal: Acute on chronic renal insufficiency. Discussed with nephrology this morning. Encouraged that his serum creatinine, acid-base status, and electrolytes are stable to improved. He continues to exhibit volume overload and would benefit from diuresis when felt to be achievable by nephrology. Patient had a difficult Maldonado catheter placement in the OR requiring urology. Would keep in place for now. Given the difficulty in placing the patient's Maldonado catheter, will keep it in place for now. 6. Heme-onc: Continue heparin. See comments regarding Coumadin above. Anemia stable. No indication for transfusion. We will follow for now. No indication for transfusion. Platelet counts holding. 7. Endocrine: Glycemic control per protocol. Patient was initiated on stress dose steroids for relative adrenal insufficiency. Now that his blood pressures resolved. We will commence weaning of hydrocortisone with anticipated discontinuation within the next 3 to 5 days. 8. ID: Patient has been initiated on broad-spectrum antibiotics prior to surgery (day #3/5 ertapenem). Discussed with surgery. Anticipate 5-day course due to potential bacterial translocation with ischemic bowel. Cultures negative to date. Disposition: Given the patient's significant improvement with his hemodynamics, I think he can downgrade to the floor. Ultimate disposition will be deferred to the general surgery and medicine service. Patient discussed with bedside critical care nurse as well as on multidisciplinary rounds. His critical care issues appear resolved. We will sign off. Feel free to contact us with questions or concerns. Admission and Anticipated Discharge Date Admission Date: December 17, 2022 Subjective Patient seen and examined. EMR reviewed. Discussed with bedside critical care nurse as well as nephrology at the bedside. The patient is awake alert conversant. His abdominal pain is reasonably well controlled. His breathing is stable. He is occasionally coughing but expectorating minimal amount of phlegm. He has not had a bowel movement and does not report any flatus although bowel sounds are now present. He has not had any fevers chills night sweats or other constitutional symptoms overnight. Overall he feels improved Review of Systems Review of Systems: All systems reviewed & are unremarkable except as noted in Subjective Physical Exam Neck: trachea midline, no thyromegaly Respiratory: normal respiratory effort, lungs clear to auscultation Cardiovascular: Rate/Rhythm: regular rate and regular rhythm Heart Sounds: normal S1, normal S2, + click and + murmur Extremities: + edema Gastrointestinal (Abdomen): Obese. Dressings intact. He is minimally tender to palpation over his incision sites. Does not exhibit rebound or guarding. Bowel sounds are present. Musculoskeletal: Extremities: extremities normal to inspection Skin: no rashes, warm and dry Lymphatic: no cervical lymphadenopathy Results & Data Results & Data Vital Signs (Past 12 Hours) Vital Signs Temp Pulse Resp BP Pulse Ox O2 Del Method O2 Flow Rate 12/19/22 06:00 68 23 93 12/19/22 06:00 116/55 L 12/19/22 05:30 108/50 L 12/19/22 05:30 68 17 94 12/19/22 05:00 67 17 92 12/19/22 05:00 103/48 L 12/19/22 04:30 67 18 94 12/19/22 04:30 96/44 L 12/19/22 04:00 69 17 95 12/19/22 04:00 103/45 L 12/19/22 03:30 98/48 L 12/19/22 03:30 68 18 95 12/19/22 03:00 70 25 H 91 12/19/22 03:00 116/55 L 12/19/22 02:30 102/46 L 12/19/22 02:30 67 20 94 12/19/22 02:02 106/47 L 12/19/22 02:02 69 23 93 12/19/22 02:00 69 18 95 12/19/22 01:30 89/42 L 12/19/22 01:30 67 17 94 12/19/22 01:00 67 19 94 12/19/22 01:00 97/44 L 12/19/22 00:30 69 22 92 12/19/22 00:30 98/42 L 12/19/22 00:00 70 20 92 12/19/22 00:00 109/48 L 12/19/22 04:23 36.7 C 12/18/22 23:30 102/48 L 12/18/22 23:30 70 22 96 12/18/22 23:08 98 H 21 94 12/18/22 23:08 93/65 L 12/18/22 23:00 112 H 20 94 12/18/22 23:00 88/51 L 12/18/22 22:30 69 21 93 12/18/22 22:30 105/46 L 12/18/22 22:00 71 20 90 12/18/22 22:00 102/51 L 12/18/22 23:39 95 H 12/18/22 21:30 71 22 89 L 12/18/22 21:30 105/47 L 12/18/22 21:00 70 21 95 12/18/22 21:00 107/49 L 12/18/22 20:30 96/45 L 12/18/22 20:30 69 31 H 94 12/18/22 20:00 68 21 97 12/18/22 20:00 98/51 L 12/18/22 20:00 37.1 C 12/18/22 20:00 Nasal Cannula 2 Critical Care Results & Data Vital Signs (Past 12 Hours) Vital Signs Temp Pulse Resp BP Pulse Ox O2 Del Method O2 Flow Rate 12/19/22 06:00 68 23 93 12/19/22 06:00 116/55 L 12/19/22 05:30 108/50 L 12/19/22 05:30 68 17 94 12/19/22 05:00 67 17 92 12/19/22 05:00 103/48 L 12/19/22 04:30 67 18 94 12/19/22 04:30 96/44 L 12/19/22 04:00 69 17 95 12/19/22 04:00 103/45 L 12/19/22 03:30 98/48 L 12/19/22 03:30 68 18 95 12/19/22 03:00 70 25 H 91 12/19/22 03:00 116/55 L 12/19/22 02:30 102/46 L 12/19/22 02:30 67 20 94 12/19/22 02:02 106/47 L 12/19/22 02:02 69 23 93 12/19/22 02:00 69 18 95 12/19/22 01:30 89/42 L 12/19/22 01:30 67 17 94 12/19/22 01:00 67 19 94 12/19/22 01:00 97/44 L 12/19/22 00:30 69 22 92 12/19/22 00:30 98/42 L 12/19/22 00:00 70 20 92 12/19/22 00:00 109/48 L 12/19/22 04:23 36.7 C 12/18/22 23:30 102/48 L 12/18/22 23:30 70 22 96 12/18/22 23:08 98 H 21 94 12/18/22 23:08 93/65 L 12/18/22 23:00 112 H 20 94 12/18/22 23:00 88/51 L 12/18/22 22:30 69 21 93 12/18/22 22:30 105/46 L 12/18/22 22:00 71 20 90 12/18/22 22:00 102/51 L 12/18/22 23:39 95 H 12/18/22 21:30 71 22 89 L 12/18/22 21:30 105/47 L 12/18/22 21:00 70 21 95 12/18/22 21:00 107/49 L 12/18/22 20:30 96/45 L 12/18/22 20:30 69 31 H 94 12/18/22 20:00 68 21 97 12/18/22 20:00 98/51 L 12/18/22 20:00 37.1 C 12/18/22 20:00 Nasal Cannula 2 Lab & Micro Results (Past 24 Hours) RBC 3.17 M/uL (4.70-6.10) L 12/19/22 WBC 9.50 K/ul (4.8-10.8) 12/19/22 Hgb 9.4 g/dl (14.0-18.0) L 12/19/22 Hct 28.6 % (42.0-52.0) L 12/19/22 MCV 90.2 fL (80.0-100.0) 12/19/22 MCH 29.7 pg (25.0-34.0) 12/19/22 MCHC 32.9 g/dL (32.0-36.0) 12/19/22 RDW Standard Deviation 66.4 fL (36.4-46.3) H 12/19/22 RDW Coefficient of Variation 20.0 % (11.5-14.5) H 12/19/22 Plt Count 112 K/uL (130-400) L 12/19/22 MPV 12.7 fL (9.4-12.4) H 12/19/22 Neutrophils (%) (Auto) 85.3 % 12/19/22 Lymphocytes (%) (Auto) 4.5 % 12/19/22 Monocytes # (Auto) 0.85 K/uL (0.11-0.59) H 12/19/22 Eosinophils # (Auto) 0.00 K/uL (0-0.50) 12/19/22 Immature Granulocyte % (Auto) 1.3 % 12/19/22 Neutrophils # (Auto) 8.10 K/uL (1.40-6.50) H 12/19/22 Lymphocytes # (Auto) 0.43 K/uL (1.2-3.4) L 12/19/22 Monocytes # (Auto) 0.85 K/uL (0.11-0.59) H 12/19/22 Eosinophils # (Auto) 0.00 K/uL (0-0.50) 12/19/22 Basophils # (Auto) 0.00 K/uL (0-0.2) 12/19/22 Immature Granulocyte # (Auto) 0.12 K/uL (0.01-0.20) 3 Na 142 mmol/L (136-145) 12/19/22 K 4.1 mmol/L (3.5-5.1) 12/19/22 Cl 109 mmol/L (98-107) H 12/19/22 CO2 25 mmol/L (21-32) 12/19/22 Anion Gap 8 (3-11) 12/19/22 BUN 98 mg/dl (6-23) H 12/19/22 Creatinine 2.82 mg/dl (0.6-1.4) H 12/19/22 Estimated GFR ( Amer) 24.8 ml/min 12/19/22 Estimated GFR (Non-Af Amer) 21.4 ml/min 12/19/22 BUN/Creatinine Ratio 34.8 (10-20) H 12/19/22 Glu 110 mg/dl (70-99(Fasting)) H 12/19/22 Ca 8.4 mg/dl (8.6-10.3) L 12/19/22 Phosphorus Level 5.2 mg/dl (2.5-4.9) H 12/19/22 Total Bilirubin 1.2 mg/dl (0.2-1.0) H 12/19/22 AST 56 U/L (13-39) H 12/19/22 ALT 81 U/L (7-52) H 12/19/22 Alkaline Phosphatase 54 U/L (34-104) 12/19/22 TP 5.2 gm/dl (6.0-8.3) L 12/19/22 Albumin 2.8 gm/dl (3.4-5.0) L 12/19/22 Globulin 2.4 gm/dl (2.5-4.0) L 12/19/22 Albumin/Globulin Ratio 1.2 (0.9-2) 12/19/22 Mg 2.2 mg/dl (1.7-2.4) 12/19/22 06:07 Calcium Level 8.4 mg/dl (8.6-10.3) L 12/19/22 06:07 Microbiology 12/17/22 05:33 Aerobic Blood Culture - Preliminary Blood No growth in Aerobic bottle after 48 hours. Anaerobic Blood Culture - Preliminary No growth in Anaerobic bottle after 48 hours. 12/17/22 05:23 Aerobic Blood Culture - Preliminary Blood No growth in Aerobic bottle after 48 hours. Anaerobic Blood Culture - Preliminary No growth in Anaerobic bottle after 48 hours. Diagnostic Findings (Past 24 Hours) Chest X-Ray 12/18/22 07:00 SINGLE VIEW CHEST CLINICAL HISTORY: Pleural effusion. FINDINGS: An AP, portable, upright chest radiograph is compared to study dated 12/16/2022 and correlated with chest CT dated 12/12/2009. The examination is degraded by portable technique and patient rotation. An enteric tube is in placed. This projects below the diaphragm over the stomach. The patient is status post midline sternotomy and cardiac valve surgery. Heart is enlarged noting atherosclerotic calcification of the thoracic aorta. There is pulmonary vascular congestion and evidence of interstitial edema. There are layering pleural effusions with bibasilar consolidation, right larger than left. No pneumothorax is seen. The skeletal structures are osteopenic. There are chronic/healed bilateral rib fractures. Surgical clips project over the right upper chest. IMPRESSION: 1. An enteric tube is new from previous. 2. Cardiomegaly with evidence of congestive failure and pulmonary edema. This has worsened as compared to 12/16/2022. 3. Right larger than left pleural effusions with dependent consolidation. ACT 112: Negative or not required by law. Electronically signed by: Jacobo Muniz M.D. 12/18/2022 10:45 AM Chest X-Ray 12/18/22 10:57 XR chest 1V portable HISTORY: Check PICC line placement COMPARISON: Chest 12/18/2022. Chest CTA 12/12/2009. FINDINGS: A nasogastric tube terminates in the stomach. 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 The heart remains enlarged. There are poststernotomy changes and a cardiac valve pr osthesis. No pneumothorax. Bilateral pleural effusions and pulmonary edema persist. Right greater than left airspace opacities are also unchanged. IMPRESSION: 1. Satisfactory support line placement. 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 2. Cardiomegaly, bilateral pleural effusions, pulmonary edema, and bibasilar airspace opacities persist. ACT 112: Negative or not required by law. Electronically signed by: Neftaly Urrutia M.D. 12/18/2022 11:29 AM Chest X-Ray 12/18/22 12:46 XR chest 1V portable CLINICAL HISTORY: Check PICC line placement after PICC repositioned COMPARISON STUDY: Chest CT December 12, 2009. Chest radiograph performed earlier today. FINDINGS: The left PICC is within the known left SVC with tip likely within the coronary sinus. There is no pneumothorax. Moderate right and small left pleural effusions with bibasilar opacities are again noted as well as pulmonary edema. Cardiomegaly, median sternotomy wires and prosthetic aortic valve are noted. Tip of nasogastric tube is at least within the proximal stomach. IMPRESSION: 1. Left PICC within the known left SVC with tip likely within the coronary sinus. 2. Pulmonary edema with moderate right and small left pleural effusions with associated bibasilar opacities. ACT 112: Negative or not required by law. Electronically signed by: Patel Daniel M.D. 12/18/2022 1:32 PM Chest X-Ray 12/18/22 13:51 XR chest 1V portable CLINICAL HISTORY: Final PICC adjustment COMPARISON STUDY: Chest radiograph December 18, 2022 at 12:55 PM. FINDINGS: The tip of the nasogastric tube is within the body of the stomach. Left PICC is in place. The tip projects over the distal left SVC. Bilateral pleural effusions, right larger than left and associated bibasilar opacities are again noted. There is pulmonary edema. Median sternotomy wires and prosthetic aortic valve are present. IMPRESSION: 1. Satisfactory support line placement. Left PICC tip is within the distal left SVC. 2. Bilateral pleural effusions and associated bibasilar opacities. Persistent pulmonary edema. ACT 112: Negative or not required by law. Electronically signed by: Patel Daniel M.D. 12/18/2022 2:23 PM I & O Totals 24 Hours 07/12/19/22 12/20/22 06:59 06:59 06:59 Intake Total 1921.301 / 7625.610 1377.667 / 1523.667 Output Total 483 / 483 1350 / 1350 Balance 1438.301 / 1438.301 173.667 / 173.667 Cumulative 12/16/22 19:25 thru 12/19/22 05:51 Intake Total 3945.218 Output Total 2658 Balance 1287.218 RT Ventilator Mngmt (Last Documented) Ventilator Ordered Settings Respiratory Rate 23 12/19/22 06:00 Ventilator - PT Measurements Respiratory Rate 23 Coding Level of Care Code 52709 SUB INP/OBS CARE 3/50MIN Diagnoses Acute on chronic renal failure N17.9; N18.9 CHF (congestive heart failure) I50.9 Partial obstruction of small intestine K56.600 Anemia D64.9
[2022-12-19] MEDS: PANTOprazole 40 MG in SYRINGE 0 ML IV SCH (11:48)
--- NOTE | 2022-12-19 12:04 | Hospitalist Progress Note ---
Date of Service December 19, 2022 Assessment & Plan (1) Umbilical hernia, incarcerated: Plan: INCARCERATED UMBILICAL HERNIA Status post Laparoscopy converted to open partial small bowel resection, repair of ventral hernia on 12/17 Patient was transferred to ICU for closer monitoring after the surgery on the same day Initially on NG tube NGT was taken out today. Diet as per surgery On heparin drip ACUTE ON CHRONIC DIASTOLIC CHF Mechanical valve on warfarin status post vitamin K Chest x-ray personally reviewed; consistent with pulmonary edema Currently on heparin drip. Amiodarone and metoprolol to be resumed after patient is able to take oral meds. Septic shock Secondary to incarcerated hernia Off vasopressor support since 11/18 Continue on ertapenem 3/ Wean hydrocortisone in next 3 to 5 days. ACUTE KIDNEY INJURY on CKD Creatinine downtrending Urine output reassuring Continue hemodynamic support Nephrology on board INCIDENTAL FINDING OF CIRRHOSIS ON CT, NEW DIAGNOSIS Will need outpatient GI follow-up Other chronic medical problems: hypertension hyperlipidemia, on statin Rx thoracic aortic dissection status post surgery chronic anemia prostate cancer status post surgery Disposition Transfer to PCU today. PT OT eval Time spent evaluating patient, direct bedside care, chart review, placing orders, interpretation of diagnostic studies, discussion with consultants, patient, and family members, as well as other required patient management activities is 60 minutes Please note the above document was generated using voice recognition software. It may contain grammatical, syntax or spelling errors. Any formal questions or concerns about the content, text or information contained within the body of this dictation should be directly addressed to the provider for clarification Admission and Anticipated Discharge Date Admission Date: December 17, 2022 Subjective Patient seen and examined at bedside. He appears comfortable; not in distress. Urine output reassuring. Hemodynamically stable. Review of Systems Review of Systems: All systems reviewed & are unremarkable except as noted in Subjective Physical Exam Physical Exam: Constitutional: Alert, oriented x3. NG tube in place. Respiratory: Bilateral crackles present. Cardiovascular: RRR, mechanical valve sound present Chest: normal inspection of chest Abdomen: Dressing clean dry and intact. Musculoskeletal: no cyanosis or clubbing, extremities motor strength 5/5 Skin: no rashes, warm and dry normal turgor Neurologic: PERRL, EOMI, accommodation nl, no face palsy, no dysarthria CN's II- XI intact bilaterally and moves all extremities Psychiatric: A+Ox3, euthymic affect Results & Data Results & Data Vital Signs (Past 12 Hours) Vital Signs Temp Pulse Resp BP Pulse Ox O2 Del Method O2 Flow Rate 12/19/22 08:00 68 12/19/22 07:53 Nasal Cannula 2 12/19/22 06:00 68 23 93 12/19/22 06:00 116/55 L 12/19/22 05:30 108/50 L 12/19/22 05:30 68 17 94 12/19/22 05:00 67 17 92 12/19/22 05:00 103/48 L 12/19/22 04:30 67 18 94 12/19/22 04:30 96/44 L 12/19/22 04:00 69 17 95 12/19/22 04:00 103/45 L 12/19/22 03:30 98/48 L 12/19/22 03:30 68 18 95 12/19/22 03:00 70 25 H 91 12/19/22 03:00 116/55 L 12/19/22 02:30 102/46 L 12/19/22 02:30 67 20 94 12/19/22 02:02 106/47 L 12/19/22 02:02 69 23 93 12/19/22 02:00 69 18 95 12/19/22 01:30 89/42 L 12/19/22 01:30 67 17 94 12/19/22 01:00 67 19 94 12/19/22 01:00 97/44 L 12/19/22 00:30 69 22 92 12/19/22 00:30 98/42 L 12/19/22 04:23 36.7 C Laboratory Results Laboratory Results WBC 9.50 K/ul (4.8-10.8) 12/19/22 06:07 RBC 3.17 M/uL (4.70-6.10) L 12/19/22 06:07 Hgb 9.4 g/dl (14.0-18.0) L 12/19/22 06:07 POC Hgb 12.2 g/dl (14.0-18.0) L 12/16/22 20:37 Hct 28.6 % (42.0-52.0) L 12/19/22 06:07 POC Hct 36 % (42-52) L 12/16/22 20:37 MCV 90.2 fL (80.0-100.0) 12/19/22 06:07 MCH 29.7 pg (25.0-34.0) 12/19/22 06:07 MCHC 32.9 g/dL (32.0-36.0) 12/19/22 06:07 RDW Std Deviation 66.4 fL (36.4-46.3) H 12/19/22 06:07 RDW Coeff of [place] 20.0 % (11.5-14.5) H 12/19/22 06:07 Plt Count 112 K/uL (130-400) L 12/19/22 06:07 MPV 12.7 fL (9.4-12.4) H 12/19/22 06:07 Immature Gran % (Auto) 1.3 % 12/19/22 06:07 Neut % (Auto) 85.3 % 12/19/22 06:07 Lymph % (Auto) 4.5 % 12/19/22 06:07 [place] % (Auto) 8.9 % 12/19/22 06:07 Eos % (Auto) 0.0 % 12/19/22 06:07 Baso % (Auto) 0.0 % 12/19/22 06:07 Neut # (Auto) 8.10 K/uL (1.40-6.50) H 12/19/22 06:07 Lymph # (Auto) 0.43 K/uL (1.2-3.4) L 12/19/22 06:07 [place] # (Auto) 0.85 K/uL (0.11-0.59) H 12/19/22 06:07 Eos # (Auto) 0.00 K/uL (0-0.50) 12/19/22 06:07 Baso # (Auto) 0.00 K/uL (0-0.2) 12/19/22 06:07 Immature Gran # (Auto) 0.12 K/uL (0.01-0.20) 12/19/22 06:07 Polychromasia 1+ 12/18/22 06:49 Anisocytosis Present 12/16/22 20:12 Tear Drop Cells 1+ 12/18/22 06:49 Ovalocytes 1+ 12/16/22 20:12 Echinocytes 1+ 12/18/22 06:49 PT 19.4 Seconds (9.0-12.0) H 12/17/22 05:23 INR 1.8 (0.9-1.1) H 12/17/22 05:23 APTT 62.0 Seconds (21.0-31.0) H* 12/19/22 06:07 PTT Ratio 2.2 12/19/22 06:07 POC Sodium 141 mmol/L (135-144) 12/16/22 20:37 Sodium 142 mmol/L (136-145) 12/19/22 06:07 POC Potassium 4.0 mmol/L (3.3-5.0) 12/16/22 20:37 Potassium 4.1 mmol/L (3.5-5.1) 12/19/22 06:07 POC Chloride 106 mmol/L (101-112) 12/16/22 20:37 Chloride 109 mmol/L (98-107) H 12/19/22 06:07 Carbon Dioxide 25 mmol/L (21-32) 12/19/22 06:07 POC Total CO2 22 mmol/L (24-31) L 12/16/22 20:37 Anion Gap 8 (3-11) 12/19/22 06:07 POC Anion Gap 18.0 mmol/L (16-25) 12/16/22 20:37 POC BUN 71 mg/dl (7-18) H 12/16/22 20:37 BUN 98 mg/dl (6-23) H 12/19/22 06:07 Creatinine 2.82 mg/dl (0.6-1.4) H D 12/19/22 06:07 POC Creatinine 2.6 mg/dl (0.6-1.3) H 12/16/22 20:37 Est Cr Clr Drug Dosing 27.5 ml/min 12/19/22 06:07 Est GFR ( Amer) 24.8 ml/min 12/19/22 06:07 Est GFR (Non-Af Amer) 21.4 ml/min 12/19/22 06:07 BUN/Creatinine Ratio 34.8 (10-20) H 12/19/22 06:07 Glucose 110 mg/dl (70-99(Fasting)) H 12/19/22 06:07 POC Glucose (other) 88 mg/dl (70-99) 12/16/22 20:37 Lactate 1.5 mmol/L (0.4-2.0) 12/17/22 16:33 Calcium 8.4 mg/dl (8.6-10.3) L 12/19/22 06:07 POC Ioniz Calcium [place] 1.09 mmol/l (1.12-1.32) L 12/16/22 20:37 Phosphorus 5.2 mg/dl (2.5-4.9) H 12/19/22 06:07 Magnesium 2.2 mg/dl (1.7-2.4) 12/19/22 06:07 Total Bilirubin 1.2 mg/dl (0.2-1.0) H 12/19/22 06:07 AST 56 U/L (13-39) H 12/19/22 06:07 ALT 81 U/L (7-52) H 12/19/22 06:07 Alkaline Phosphatase 54 U/L (34-104) 12/19/22 06:07 Troponin I High Sens 96.3 pg/ml (0-20) H* D 12/17/22 19:56 B-Natriuretic Peptide 704 pg/ml (0-100) H 12/16/22 23:22 Total Protein 5.2 gm/dl (6.0-8.3) L 12/19/22 06:07 Albumin 2.8 gm/dl (3.4-5.0) L 12/19/22 06:07 Globulin 2.4 gm/dl (2.5-4.0) L 12/19/22 06:07 Albumin/Globulin Ratio 1.2 (0.9-2) 12/19/22 06:07 Lipase 14 U/L (11-82) 12/16/22 20:12 Procalcitonin 0.42 ng/ml (0-0.5) 12/16/22 20:13 TSH 4.479 uIu/ml (0.300-4.500) 12/16/22 20:13 Random Cortisol 23.34 mcg/dl 12/17/22 16:33 Urine Color Yellow 12/16/22 20:12 Urine Appearance Clear (Clear) 12/16/22 20:12 Urine pH 5.5 (4.5-7.5) 12/16/22 20:12 Ur Specific [place] 1.012 (1.000-1.030) 12/16/22 20:12 Urine Protein Negative (Negative) 12/16/22 20:12 Urine Glucose (UA) Negative (Negative) 12/16/22 20:12 Urine Ketones Negative (Negative) 12/16/22 20:12 Urine Blood Negative (Negative) 12/16/22 20:12 Urine Nitrite Negative (Negative) 12/16/22 20:12 Urine Bilirubin Negative (Negative) 12/16/22 20:12 Urine Urobilinogen Negative (Negative) 12/16/22 20:12 Ur Leukocyte Esterase Negative (Negative) 12/16/22 20:12 Nasal Screen MRSA (PCR) Negative (Negative) 12/17/22 16:40 SARS-CoV-2, RNA, NAAT NEGATIVE (NEGATIVE) 12/16/22 20:12 Blood Type O Positive 12/17/22 10:50 Antibody Screen NEGATIVE 12/17/22 10:50 Impressions Abdomen/Pelvis CT 12/16/22 20:44 Exam(s): CT ABDOMEN + PELVIS Without Contrast EXAM: CT Abdomen and Pelvis Without Intravenous Contrast CLINICAL HISTORY: Reason for exam: Abd pain. TECHNIQUE: Axial computed tomography images of the abdomen and pelvis without intravenous contrast. CTDI is 27.34 mGy and DLP is 1388.62 mGy-cm. Automated exposure control was utilized for the study. A dose lowering technique was utilized adhering to the principles of ALARA. COMPARISON: No relevant prior studies available. FINDINGS: Lung bases: Unremarkable. No mass. No consolidation. Pleural space: Small RIGHT pleural effusion. Heart: Cardiomegaly. Prosthetic aortic valve. ABDOMEN: Liver: Mild hepatic cirrhotic morphology. Mild perihepatic and perisplenic ascites. Gallbladder and bile ducts: Unremarkable. No calcified stones. No ductal dilation. Pancreas: Unremarkable. No ductal dilation. Spleen: Unremarkable. No splenomegaly. Adrenals: Unremarkable. No mass. Kidneys and ureters: Unremarkable. No hydronephrosis or nephrolithiasis. Stomach and bowel: Ventral abdominal wall hernia, which contains a loop of small bowel. Mildly prominent small bowel entering this hernia measuring up to 2.6 cm, concerning for partial bowel obstruction. Diverticulosis, without acute diverticulitis. No free air. PELVIS: Appendix: No findings to suggest acute appendicitis. Bladder: Unremarkable. No stones. Reproductive: Unremarkable as visualized. ABDOMEN and PELVIS: Intraperitoneal space: See above. Bones/joints: Sternotomy wires. Degenerative changes of the spine. LEFT hip arthroplasty. No acute fracture. No dislocation. Soft tissues: See above. Vasculature: Atherosclerotic changes of the aorta. No abdominal aortic aneurysm. Lymph nodes: Unremarkable. No enlarged lymph nodes. IMPRESSION: 1. Ventral abdominal wall hernia, which contains a loop of small bowel. Mildly prominent small bowel entering this hernia measuring up to 2.6 cm, concerning for partial bowel obstruction. 2. No hydronephrosis or nephrolithiasis. 3. Small RIGHT pleural effusion. 4. Mild hepatic cirrhotic morphology. Mild perihepatic and perisplenic ascites. 5. Diverticulosis, without acute diverticulitis. No free air. Electronically signed by: Gerhard Forman MD 12/16/22 22:10 PM KUB X-Ray 12/17/22 05:49 KUB HISTORY: ng tube placement COMPARISON: KUB 12/17/2022. FINDINGS: Nasogastric tube terminates in the stomach. Small bilateral pleural effusions and right basilar densities persist. The heart remains enlarged. There are poststernotomy changes and a cardiac valve prosthesis again noted. Mildly dilated gas-filled loops of small bowel are again seen within the upper abdomen. This is concerning for a small bowel obstruction. No renal calculi. No ureteral calculi. No pneumoperitoneum or pneumatosis. IMPRESSION: 1. Nasogastric tube terminates in the stomach. 2. Mildly dilated gas-filled loops of small bowel are seen within the upper abdomen concerning for a small bowel obstruction. ACT 112: Negative or not required by law. Electronically signed by: Neftaly Urrutia M.D. 12/17/2022 6:43 AM Chest X-Ray 12/18/22 13:51 XR chest 1V portable CLINICAL HISTORY: Final PICC adjustment COMPARISON STUDY: Chest radiograph December 18, 2022 at 12:55 PM. FINDINGS: The tip of the nasogastric tube is within the body of the stomach. Left PICC is in place. The tip projects over the distal left SVC. Bilateral pleural effusions, right larger than left and associated bibasilar opacities are again noted. There is pulmonary edema. Median sternotomy wires and prosthetic aortic valve are present. IMPRESSION: 1. Satisfactory support line placement. Left PICC tip is within the distal left SVC. 2. Bilateral pleural effusions and associated bibasilar opacities. Persistent pulmonary edema. ACT 112: Negative or not required by law. Electronically signed by: Patel Daniel M.D. 12/18/2022 2:23 PM
[2022-12-19] MEDS: HYDROCORTISONE SOD 25 MG in SYRINGE 0 ML IV SCH (20:43)
[2022-12-19] MEDS ORDERED: HYDROCORTISONE SOD 50 MG in SYRINGE 0 ML IV SCH (21:00)
[2022-12-20] MEDS: ERTAPENEM SODIUM 500 MG in SYRINGE 0 ML IV SCH (04:39)
[2022-12-20 05:02] LABS: Basophils # (auto) 0.01 K/uL (0-0.2); Basophils % (auto) 0.1 %; Eosinophils # (auto) 0.01 K/uL (0-0.50); Eosinophils % (auto) 0.1 %; Hematocrit (blood only) 28.4 % (42.0-52.0); Hemoglobin 9.3 g/dl (14.0-18.0); Immature Granulocytes # (auto) 0.08 K/uL (0.01-0.20); Immature Granulocytes % (auto) 0.9 %; Lymphocytes # (auto) 0.65 K/uL (1.2-3.4); Lymphocytes % (auto) 7.2 %; Mean Corpuscular Hemoglobin 29.6 pg (25.0-34.0); Mean Corpuscular Hgb Conc 32.7 g/dL (32.0-36.0); Mean Corpuscular Volume 90.4 fL (80.0-100.0); Mean Platelet Volume 12.9 fL (9.4-12.4); Monocytes # (auto) 0.95 K/uL (0.11-0.59); Monocytes % (auto) 10.5 %; Neutrophils # (auto) 7.39 K/uL (1.40-6.50); Neutrophils % (auto) 81.2 %; Platelet Count 124 K/uL (130-400); RDW Coefficient of Variation 20.1 % (11.5-14.5); RDW Standard Deviation 66.8 fL (36.4-46.3); Red Blood Count 3.14 M/uL (4.70-6.10); White Blood Count 9.09 K/ul (4.8-10.8)
[2022-12-20 05:07] LABS: Albumin Globulin Ratio 1.2 (0.9-2); Albumin Level 2.9 gm/dl (3.4-5.0); BUN Creatinine Ratio 39.8 (10-20); Bilirubin,Total 1.1 mg/dl (0.2-1.0); Calcium 8.4 mg/dl (8.6-10.3); Creatinine Clr Calc Pharmacy 32.8 ml/min; Est GFR (African American) 30.7 ml/min; Est GFR (Non-African American) 26.5 ml/min; Globulin 2.4 gm/dl (2.5-4.0); Magnesium 2.4 mg/dl (1.7-2.4); Phosphorus 4.6 mg/dl (2.5-4.9); Potassium 3.9 mmol/L (3.5-5.1); Total Protein 5.3 gm/dl (6.0-8.3)
[2022-12-20 05:28] LABS: Anisocytosis Present; Poikilocytosis Present; Polychromasia 1+
[2022-12-20 05:34] LABS: Partial Thromboplastin Ratio 1.9
[2022-12-20 05:54] LABS: Partial Thromboplastin Time 54.7 Seconds (21.0-31.0)
--- NOTE | 2022-12-20 07:11 | Cardiology Progress Note ---
Date of Service December 20, 2022 Assessment & Plan (1) Umbilical hernia, incarcerated: (2) S/P AVR (aortic valve replacement): (3) Congenital heart disease: (4) CRF (chronic renal failure): Plan IMPRESSION: Medically complex 72 year old male with hx of congenital heart disease s/p pulmonic valve and ASD repair as well as severe s/p mechanical AVR and ascending aortic repair. Found to have an incarcerated umbilical hernia status post open partial small bowel resection and repair of ventral hernia, 12/17/[address] Solis Echo this admission stable with findings associated with prior heart/valvular disease. Hypotensive on presentation, chronic finding. No longer requiring pressor support. NG tube removed 12/19. PLAN: On IV heparin due to mechanical AVR. Transition to Coumadin when able to take PO. Heart rates controlled in the 60-70s on tele. No PAF seen. Restart amiodarone and metoprolol when able to take PO. Recommend ongoing supportive measures. Low dose IV Lasix restarted- Appreciate nephrology recommendations. Case discussed with Dr. Terry, will follow. Admission and Anticipated Discharge Date Admission Date: December 17, 2022 Supervising Physician Co-Signing Physician Notes Patient seen and personally examined. Continues to demonstrate slow but steady improvement. Renal function improving and patient diuresing Plan as above was transition back to prehospital cardiac medications including amiodarone, or and metoprolol when able to take p.o. IV heparin Subjective Medically complex 72-year-old male with history of congenital heart disease status post repair of ASD and pulmonary stenosis as well as severe aortic stenosis status post mechanical AVR and ascending aortic repair. Patient presented to [facility] emergency department critically ill with incarcerated umbilical hernia and possible sepsis. Coumadin was reversed with Kcentra and vitamin K. He underwent laparoscopic open small bowel resection and repair of ventral hernia with Dr. Solis, yesterday, 12/18/2022. Patient was transferred to ICU post surgery blood pressures were hypotensive. Fluids were avoided due to volume status and patient was placed on pressor support with Levophed. Heparin was restarted. Echo 12/17: Low normal LVEF of 50 to 55%. Moderate concentric LVH. Septal motion consistent with conduction abnormality. Left and right atrium dilated. RV moderately dilated with moderately reduced systolic function. [place] bileaflet aortic mechanical prosthesis with normal gradients. Trace MR, no mitral stenosis. Mild to moderate TR no pulmonary hypertension. 12/19: Clinically improving. NG tube removed- tolerating ice chips. Improving renal function. TELE: NSR 70s 12/20: Upon entrance into the room patient sitting up in bed. No CV complaints. Feels subjectively improved from yesterday. Starting to pass gas. +bowel sounds. Denies chest pain, notes mild DUMONT. No palpitations or lightheadedness. Plans to transition to clear liquids today. Improvement in renal function. Scr 3.25>>2.36 Tele: NSR 60-70s Review of Systems Review of Systems: All systems reviewed & are unremarkable except as noted in HPI & below Physical Exam Constitutional: no acute distress Neck: normal visual inspection and trachea midline Respiratory: no respiratory distress, no labored breathing and no cough Auscultation: + diminished lung sounds; no rales, no rhonchi and no wheezes Cardiovascular: Rate/Rhythm: regular rate and regular rhythm Heart Sounds: normal S1 and normal S2 ([place] mechanical valve closure ) Extremities: + edema (+2 BLLE pitting edema to knees) Gastrointestinal (Abdomen): Inspection/Auscultation: + hypoactive bowel sounds; abdomen not distended Percussion/Palpation: abdomen soft; abdomen nontender Skin: no rashes, warm and dry Neurologic: PERRL, EOMI, accommodation nl, no face palsy, no dysarthria Psychiatric: A+Ox3, euthymic affect Results & Data Vital Signs (Past 12 Hours) Vital Signs Temp Pulse Resp BP Pulse Ox O2 Del Method O2 Flow Rate 12/20/22 06:00 64 21 97 12/20/22 06:00 104/53 L 12/20/22 05:30 65 20 97 12/20/22 05:30 110/56 L 12/20/22 05:00 66 24 99 12/20/22 05:00 108/55 L 12/20/22 04:30 65 20 90 12/20/22 04:30 103/50 L 12/20/22 04:00 63 19 97 12/20/22 04:00 102/53 L 12/20/22 03:30 96/46 L 12/20/22 03:30 61 17 95 12/20/22 03:00 64 18 97 12/20/22 03:00 102/49 L 12/20/22 02:30 103/51 L 12/20/22 02:30 62 19 97 12/20/22 02:00 62 19 97 12/20/22 02:00 105/52 L 12/20/22 01:30 62 19 96 12/20/22 01:30 99/51 L 12/20/22 01:00 63 20 97 12/20/22 01:00 105/46 L 12/20/22 00:30 62 20 97 12/20/22 00:30 109/53 L 12/19/22 20:00 37.0 C 12/20/22 00:00 63 20 96 12/20/22 00:00 97/52 L 12/19/22 23:30 64 20 96 12/19/22 23:30 111/55 L 12/19/22 23:00 62 19 96 12/19/22 23:00 103/51 L 12/19/22 22:30 116/56 L 12/19/22 22:30 63 19 97 12/19/22 22:00 63 19 98 12/19/22 22:00 107/48 L 12/19/22 21:30 59 L 18 98 12/19/22 21:30 100/49 L 12/19/22 21:00 61 21 97 12/19/22 21:00 101/47 L 12/19/22 20:31 68 23 98 12/19/22 20:31 92/62 L 12/19/22 20:00 62 22 99 12/19/22 20:00 113/55 L 12/19/22 19:30 62 17 97 12/19/22 19:30 101/46 L 12/20/22 00:18 37.0 C 12/20/22 00:00 62 12/19/22 20:00 Nasal Cannula 2 (4) CRF (chronic renal failure) Chronic kidney disease stage: unspecified stage Qualified Code(s): N18.9 - Chronic kidney disease, unspecified
--- NOTE | 2022-12-20 08:19 | Nephrology Progress Note ---
Date of Service December 20, 2022 Assessment & Plan (1) Acute on chronic renal failure: Plan: improving nonoliguric stage 1 TATA on nonproteinuric CKD 3B w/ labile baseline function. baseline creatinine 1.8; already w/ TATA on arrival w/ presenting creatinine 2.3 and worsened to peak at 3.3 on 12/18. new dx of early liver cirrhosis. admission UA bland. mild persistent hyperchloremia noted but chemistries overall remain acceptable. he is autodiuresing and is 700 mL negative past 24 hrs; overall 150 mL negative on the admission to date. -favor late ischemic ATN -no indication to discuss dialysis at this time (code status noted) -continue daily bmp, supportive care (2) Volume overload: Plan: w/ lower extremity edema, pulmonary vascular congestion and edema, hypoxia, recurrent pleural effusions; hx of diastolic HF on low dose lasix as OP (20 mg daily per H&P). 150 mL on the admission to date, which is fairly impressive considering it's the first 72 hours after presenting and he's been through surgery, being covered w/ broad spectrum antibiotics. no meds to concentrate currently; he remains NPO -continue strict I/O >wrote for low dose lasix 10 mg bid17 hold for SBP <100 -bed to chair -daily bmp Admission and Anticipated Discharge Date Admission Date: December 17, 2022 Subjective no interval clinical events. off of on RA weaning trial at eval. expected soreness at surgical site; passing gas now. not hungry/thirst. no sob particularly. 700 negative on the day yesrterday w/ 1.5L UOP Review of Systems Review of Systems: All systems reviewed & are unremarkable except as noted in Subjective Physical Exam Constitutional: well developed, well nourished, + frail appearing and cooperative; no acute distress Eyes: EOM intact bilaterally ENMT: Ears: no external ear abnormality Nose: no external nose abnormality Mouth: + dry oral mucous membranes Neck: no nuchal rigidity Respiratory: normal respiratory effort Auscultation: + diminished lung sounds and + crackles (posterior bain BL lower) Cardiovascular: Rate/Rhythm: regular rate and regular rhythm Heart Sounds: + click Extremities: + edema (3+ BL pedal; 1+ dependent) Gastrointestinal (Abdomen): Inspection/Auscultation: + abdomen distended and + hypoactive bowel sounds Percussion/Palpation: + abdomen tender and abdomen soft Musculoskeletal: Extremities: strength 5/5 throughout Skin: no rashes, warm and dry Psychiatric: Orientation: alert and oriented x 3 Results & Data Vital Signs (Past 12 Hours) Vital Signs Temp Pulse Resp BP Pulse Ox O2 Del Method O2 Flow Rate 12/20/22 08:00 64 12/20/22 07:49 Nasal Cannula 2 12/20/22 06:00 64 21 97 12/20/22 06:00 104/53 L 12/20/22 05:30 65 20 97 12/20/22 05:30 110/56 L 12/20/22 05:00 66 24 99 12/20/22 05:00 108/55 L 12/20/22 04:30 65 20 90 12/20/22 04:30 103/50 L 12/20/22 04:00 63 19 97 12/20/22 04:00 102/53 L 12/20/22 03:30 96/46 L 12/20/22 03:30 61 17 95 12/20/22 03:00 64 18 97 12/20/22 03:00 102/49 L 12/20/22 02:30 103/51 L 12/20/22 02:30 62 19 97 12/20/22 02:00 62 19 97 12/20/22 02:00 105/52 L 12/20/22 01:30 62 19 96 12/20/22 01:30 99/51 L 12/20/22 01:00 63 20 97 12/20/22 01:00 105/46 L 12/20/22 00:30 62 20 97 12/20/22 00:30 109/53 L 12/20/22 00:00 63 20 96 12/20/22 00:00 97/52 L 12/19/22 23:30 64 20 96 12/19/22 23:30 111/55 L 12/19/22 23:00 62 19 96 12/19/22 23:00 103/51 L 12/19/22 22:30 116/56 L 12/19/22 22:30 63 19 97 12/19/22 22:00 63 19 98 12/19/22 22:00 107/48 L 12/19/22 21:30 59 L 18 98 12/19/22 21:30 100/49 L 12/19/22 21:00 61 21 97 12/19/22 21:00 101/47 L 12/19/22 20:31 68 23 98 12/19/22 20:31 92/62 L 12/20/22 00:18 37.0 C 12/20/22 00:00 62 Laboratory Results 12/20/22 04:22 12/20/22 04:22
[2022-12-20] MEDS: FUROSEMIDE INJ 20 MG/2 ML VIAL IV SCH ×2 (08:30→17:41)
[2022-12-20] MEDS: HYDROCORTISONE SOD 25 MG in SYRINGE 0 ML IV SCH ×2 (08:31→20:44)
--- NOTE | 2022-12-20 08:56 | Surgery Progress Note ---
Date of Service December 20, 2022 Assessment & Plan (1) History of colon resection: Plan: Doing great We will let him have clear liquid tray today We can slowly advance his diet over the weekend if he does well We will consult physical therapy to help get him up and moving [facility] surgeons covering for the weekend Admission and Anticipated Discharge Date Admission Date: December 17, 2022 Subjective Patient seen. Feeling well. There was an emesis documented in his chart but both he and his nurse from yesterday deny that. He has no nausea and tolerated sips of clears without issue. No bowel movement yet but he is passing lots of gas. Physical Exam Physical Exam: Alert and oriented no acute distress His abdomen is soft with expected tenderness. Wound looks good Results & Data Vital Signs (Past 12 Hours) Vital Signs Temp Pulse Resp BP Pulse Ox O2 Del Method O2 Flow Rate 12/20/22 08:00 64 12/20/22 07:49 Nasal Cannula 2 12/20/22 06:00 64 21 97 12/20/22 06:00 104/53 L 12/20/22 05:30 65 20 97 12/20/22 05:30 110/56 L 12/20/22 05:00 66 24 99 12/20/22 05:00 108/55 L 12/20/22 04:30 65 20 90 12/20/22 04:30 103/50 L 12/20/22 04:00 63 19 97 12/20/22 04:00 102/53 L 12/20/22 03:30 96/46 L 12/20/22 03:30 61 17 95 12/20/22 03:00 64 18 97 12/20/22 03:00 102/49 L 12/20/22 02:30 103/51 L 12/20/22 02:30 62 19 97 12/20/22 02:00 62 19 97 12/20/22 02:00 105/52 L 12/20/22 01:30 62 19 96 12/20/22 01:30 99/51 L 12/20/22 01:00 63 20 97 12/20/22 01:00 105/46 L 12/20/22 00:30 62 20 97 12/20/22 00:30 109/53 L 12/20/22 00:00 63 20 96 12/20/22 00:00 97/52 L 12/19/22 23:30 64 20 96 12/19/22 23:30 111/55 L 12/19/22 23:00 62 19 96 12/19/22 23:00 103/51 L 12/19/22 22:30 116/56 L 12/19/22 22:30 63 19 97 12/19/22 22:00 63 19 98 12/19/22 22:00 107/48 L 12/19/22 21:30 59 L 18 98 12/19/22 21:30 100/49 L 12/19/22 21:00 61 21 97 12/19/22 21:00 101/47 L 12/20/22 00:18 37.0 C 12/20/22 00:00 62 PG Care Time/CCT Total # of Minutes Spent Total Time Spent with Patient: Total time spent is greater than 50% in coordination of care (as documented) at patient's floor/unit and/or counseling patient: Coding Level of Care Code 46496 Post Operative Follow-Up Diagnoses History of colon resection Z90.49
[2022-12-20] MEDS: PANTOprazole 40 MG in SYRINGE 0 ML IV SCH (10:46)
[2022-12-20] MEDS ORDERED: WARFARIN SOD 5 MG TAB PO SCH (12:15)
--- NOTE | 2022-12-20 12:34 | Hospitalist Progress Note ---
Date of Service December 20, 2022 Assessment & Plan (1) Umbilical hernia, incarcerated: Plan: INCARCERATED UMBILICAL HERNIA Status post Laparoscopy converted to open partial small bowel resection, repair of ventral hernia on 12/17 Patient was transferred to ICU for closer monitoring after the surgery on the same day Initially on NG tube NGT was taken out. On clear liquid diet. Diet as per surgery On heparin drip. Resume oral meds including Coumadin. ACUTE ON CHRONIC DIASTOLIC CHF Mechanical valve on warfarin status post vitamin K Chest x-ray personally reviewed; consistent with pulmonary edema Currently on heparin drip. Amiodarone resumed. Coumadin resumed. Cardiology on board Septic shock Secondary to incarcerated hernia Off vasopressor support since 11/18 Continue on ertapenem / Wean hydrocortisone in next 3 to 5 days. ACUTE KIDNEY INJURY on CKD Creatinine downtrending; at baseline Urine output reassuring Continue hemodynamic support Nephrology on board; started on IV Lasix 10 mg twice daily. INCIDENTAL FINDING OF CIRRHOSIS ON CT, NEW DIAGNOSIS Will need outpatient GI follow-up Other chronic medical problems: hypertension hyperlipidemia, on statin Rx thoracic aortic dissection status post surgery chronic anemia prostate cancer status post surgery Disposition PT OT evaluation completed; recommend rehab Time spent evaluating patient, direct bedside care, chart review, placing orders, interpretation of diagnostic studies, discussion with consultants, patient, and family members, as well as other required patient management activities is 60 minutes Please note the above document was generated using voice recognition software. It may contain grammatical, syntax or spelling errors. Any formal questions or concerns about the content, text or information contained within the body of this dictation should be directly addressed to the provider for clarification Admission and Anticipated Discharge Date Admission Date: December 17, 2022 Subjective Patient seen and examined at bedside. He is sitting up on the side of the bed on the chair comfortably. On clear liquid diet. Review of Systems Review of Systems: All systems reviewed & are unremarkable except as noted in Subjective Physical Exam Physical Exam: Constitutional: Alert, oriented x3. Respiratory: Bilateral crackles present; improved. Cardiovascular: RRR, mechanical valve sound present Chest: normal inspection of chest Abdomen: Dressing clean dry and intact. Musculoskeletal: no cyanosis or clubbing, extremities motor strength 5/5 Skin: no rashes, warm and dry normal turgor Neurologic: PERRL, EOMI, accommodation nl, no face palsy, no dysarthria CN's II- XI intact bilaterally and moves all extremities Psychiatric: A+Ox3, euthymic affect Results & Data Results & Data Vital Signs (Past 12 Hours) Vital Signs Pulse Resp BP Pulse Ox O2 Del Method O2 Flow Rate 12/20/22 12:25 97/45 L 12/20/22 12:24 62 20 97 12/20/22 12:00 65 24 97 12/20/22 11:31 111/50 L 12/20/22 11:31 65 24 99 12/20/22 11:00 63 25 H 97 12/20/22 11:00 93/60 L 12/20/22 10:37 101/47 L 12/20/22 10:37 73 23 95 12/20/22 10:30 64 20 99 12/20/22 10:30 103/47 L 12/20/22 10:21 111/47 L 12/20/22 10:21 65 22 98 12/20/22 10:14 70 25 H 12/20/22 10:12 63 22 97 12/20/22 10:12 101/48 L 12/20/22 10:00 66 24 96 12/20/22 10:00 99/46 L 12/20/22 09:31 66 23 91 12/20/22 09:31 101/51 L 12/20/22 09:04 67 22 97 12/20/22 09:04 108/54 L 12/20/22 09:02 67 22 12/20/22 08:30 65 18 98 12/20/22 08:30 113/53 L 12/20/22 08:00 65 22 97 12/20/22 08:00 110/52 L 12/20/22 07:30 65 23 96 12/20/22 07:30 103/50 L 12/20/22 07:00 64 21 98 12/20/22 07:00 112/53 L 12/20/22 06:30 104/51 L 12/20/22 06:30 64 20 98 12/20/22 08:00 64 12/20/22 07:49 Nasal Cannula 2 12/20/22 06:00 64 21 97 12/20/22 06:00 104/53 L 12/20/22 05:30 65 20 97 12/20/22 05:30 110/56 L 12/20/22 05:00 66 24 99 12/20/22 05:00 108/55 L 12/20/22 04:30 65 20 90 12/20/22 04:30 103/50 L 12/20/22 04:00 63 19 97 12/20/22 04:00 102/53 L 12/20/22 03:30 96/46 L 12/20/22 03:30 61 17 95 12/20/22 03:00 64 18 97 12/20/22 03:00 102/49 L 12/20/22 02:30 103/51 L 12/20/22 02:30 62 19 97 12/20/22 02:00 62 19 97 12/20/22 02:00 105/52 L 12/20/22 01:30 62 19 96 12/20/22 01:30 99/51 L 12/20/22 01:00 63 20 97 12/20/22 01:00 105/46 L Laboratory Results Laboratory Results WBC 9.09 K/ul (4.8-10.8) 12/20/22 04:22 RBC 3.14 M/uL (4.70-6.10) L 12/20/22 04:22 Hgb 9.3 g/dl (14.0-18.0) L 12/20/22 04:22 POC Hgb 12.2 g/dl (14.0-18.0) L 12/16/22 20:37 Hct 28.4 % (42.0-52.0) L 12/20/22 04:22 POC Hct 36 % (42-52) L 12/16/22 20:37 MCV 90.4 fL (80.0-100.0) 12/20/22 04:22 MCH 29.6 pg (25.0-34.0) 12/20/22 04:22 MCHC 32.7 g/dL (32.0-36.0) 12/20/22 04:22 RDW Std Deviation 66.8 fL (36.4-46.3) H 12/20/22 04:22 RDW Coeff of Penelope 20.1 % (11.5-14.5) H 12/20/22 04:22 Plt Count 124 K/uL (130-400) L 12/20/22 04:22 MPV 12.9 fL (9.4-12.4) H 12/20/22 04:22 Immature Gran % (Auto) 0.9 % 12/20/22 04:22 Neut % (Auto) 81.2 % 12/20/22 04:22 Lymph % (Auto) 7.2 % 12/20/22 04:22 [place] % (Auto) 10.5 % 12/20/22 04:22 Eos % (Auto) 0.1 % 12/20/22 04:22 Baso % (Auto) 0.1 % 12/20/22 04:22 Neut # (Auto) 7.39 K/uL (1.40-6.50) H 12/20/22 04:22 Lymph # (Auto) 0.65 K/uL (1.2-3.4) L 12/20/22 04:22 [place] # (Auto) 0.95 K/uL (0.11-0.59) H 12/20/22 04:22 Eos # (Auto) 0.01 K/uL (0-0.50) 12/20/22 04:22 Baso # (Auto) 0.01 K/uL (0-0.2) 12/20/22 04:22 Immature Gran # (Auto) 0.08 K/uL (0.01-0.20) 12/20/22 04:22 Polychromasia 1+ 12/20/22 04:22 Poikilocytosis Present 12/20/22 04:22 Anisocytosis Present 12/20/22 04:22 Tear Drop Cells 1+ 12/18/22 06:49 Ovalocytes 1+ 12/16/22 20:12 Echinocytes 1+ 12/18/22 06:49 PT 19.4 Seconds (9.0-12.0) H 12/17/22 05:23 INR 1.8 (0.9-1.1) H 12/17/22 05:23 APTT 54.7 Seconds (21.0-31.0) H* 12/20/22 04:22 PTT Ratio 1.9 12/20/22 04:22 POC Sodium 141 mmol/L (135-144) 12/16/22 20:37 Sodium 141 mmol/L (136-145) 12/20/22 04:22 POC Potassium 4.0 mmol/L (3.3-5.0) 12/16/22 20:37 Potassium 3.9 mmol/L (3.5-5.1) 12/20/22 04:22 POC Chloride 106 mmol/L (101-112) 12/16/22 20:37 Chloride 109 mmol/L (98-107) H 12/20/22 04:22 Carbon Dioxide 25 mmol/L (21-32) 12/20/22 04:22 POC Total CO2 22 mmol/L (24-31) L 12/16/22 20:37 Anion Gap 7 (3-11) 12/20/22 04:22 POC Anion Gap 18.0 mmol/L (16-25) 12/16/22 20:37 POC BUN 71 mg/dl (7-18) H 12/16/22 20:37 BUN 94 mg/dl (6-23) H 12/20/22 04:22 Creatinine 2.36 mg/dl (0.6-1.4) H D 12/20/22 04:22 POC Creatinine 2.6 mg/dl (0.6-1.3) H 12/16/22 20:37 Est Cr Clr Drug Dosing 32.8 ml/min 12/20/22 04:22 Est GFR ( Amer) 30.7 ml/min 12/20/22 04:22 Est GFR (Non-Af Amer) 26.5 ml/min 12/20/22 04:22 BUN/Creatinine Ratio 39.8 (10-20) H 12/20/22 04:22 Glucose 116 mg/dl (70-99(Fasting)) H 12/20/22 04:22 POC Glucose (other) 88 mg/dl (70-99) 12/16/22 20:37 Lactate 1.5 mmol/L (0.4-2.0) 12/17/22 16:33 Calcium 8.4 mg/dl (8.6-10.3) L 12/20/22 04:22 POC Ioniz Calcium Codey 1.09 mmol/l (1.12-1.32) L 12/16/22 20:37 Phosphorus 4.6 mg/dl (2.5-4.9) 12/20/22 04:22 Magnesium 2.4 mg/dl (1.7-2.4) 12/20/22 04:22 Total Bilirubin 1.1 mg/dl (0.2-1.0) H 12/20/22 04:22 AST 33 U/L (13-39) 12/20/22 04:22 ALT 61 U/L (7-52) H 12/20/22 04:22 Alkaline Phosphatase 61 U/L (34-104) 12/20/22 04:22 Troponin I High Sens 96.3 pg/ml (0-20) H* D 12/17/22 19:56 B-Natriuretic Peptide 704 pg/ml (0-100) H 12/16/22 23:22 Total Protein 5.3 gm/dl (6.0-8.3) L 12/20/22 04:22 Albumin 2.9 gm/dl (3.4-5.0) L 12/20/22 04:22 Globulin 2.4 gm/dl (2.5-4.0) L 12/20/22 04:22 Albumin/Globulin Ratio 1.2 (0.9-2) 12/20/22 04:22 Lipase 14 U/L (11-82) 12/16/22 20:12 Procalcitonin 0.42 ng/ml (0-0.5) 12/16/22 20:13 TSH 4.479 uIu/ml (0.300-4.500) 12/16/22 20:13 Random Cortisol 23.34 mcg/dl 12/17/22 16:33 Urine Color Yellow 12/16/22 20:12 Urine Appearance Clear (Clear) 12/16/22 20:12 Urine pH 5.5 (4.5-7.5) 12/16/22 20:12 Ur Specific [place] 1.012 (1.000-1.030) 12/16/22 20:12 Urine Protein Negative (Negative) 12/16/22 20:12 Urine Glucose (UA) Negative (Negative) 12/16/22 20:12 Urine Ketones Negative (Negative) 12/16/22 20:12 Urine Blood Negative (Negative) 12/16/22 20:12 Urine Nitrite Negative (Negative) 12/16/22 20:12 Urine Bilirubin Negative (Negative) 12/16/22 20:12 Urine Urobilinogen Negative (Negative) 12/16/22 20:12 Ur Leukocyte Esterase Negative (Negative) 12/16/22 20:12 Nasal Screen MRSA (PCR) Negative (Negative) 12/17/22 16:40 SARS-CoV-2, RNA, NAAT NEGATIVE (NEGATIVE) 12/16/22 20:12 Blood Type O Positive 12/17/22 10:50 Antibody Screen NEGATIVE 12/17/22 10:50 Impressions Abdomen/Pelvis CT 12/16/22 20:44 Exam(s): CT ABDOMEN + PELVIS Without Contrast EXAM: CT Abdomen and Pelvis Without Intravenous Contrast CLINICAL HISTORY: Reason for exam: Abd pain. TECHNIQUE: Axial computed tomography images of the abdomen and pelvis without intravenous contrast. CTDI is 27.34 mGy and DLP is 1388.62 mGy-cm. Automated exposure control was utilized for the study. A dose lowering technique was utilized adhering to the principles of ALARA. COMPARISON: No relevant prior studies available. FINDINGS: Lung bases: Unremarkable. No mass. No consolidation. Pleural space: Small RIGHT pleural effusion. Heart: Cardiomegaly. Prosthetic aortic valve. ABDOMEN: Liver: Mild hepatic cirrhotic morphology. Mild perihepatic and perisplenic ascites. Gallbladder and bile ducts: Unremarkable. No calcified stones. No ductal dilation. Pancreas: Unremarkable. No ductal dilation. Spleen: Unremarkable. No splenomegaly. Adrenals: Unremarkable. No mass. Kidneys and ureters: Unremarkable. No hydronephrosis or nephrolithiasis. Stomach and bowel: Ventral abdominal wall hernia, which contains a loop of small bowel. Mildly prominent small bowel entering this hernia measuring up to 2.6 cm, concerning for partial bowel obstruction. Diverticulosis, without acute diverticulitis. No free air. PELVIS: Appendix: No findings to suggest acute appendicitis. Bladder: Unremarkable. No stones. Reproductive: Unremarkable as visualized. ABDOMEN and PELVIS: Intraperitoneal space: See above. Bones/joints: Sternotomy wires. Degenerative changes of the spine. LEFT hip arthroplasty. No acute fracture. No dislocation. Soft tissues: See above. Vasculature: Atherosclerotic changes of the aorta. No abdominal aortic aneurysm. Lymph nodes: Unremarkable. No enlarged lymph nodes. IMPRESSION: 1. Ventral abdominal wall hernia, which contains a loop of small bowel. Mildly prominent small bowel entering this hernia measuring up to 2.6 cm, concerning for partial bowel obstruction. 2. No hydronephrosis or nephrolithiasis. 3. Small RIGHT pleural effusion. 4. Mild hepatic cirrhotic morphology. Mild perihepatic and perisplenic ascites. 5. Diverticulosis, without acute diverticulitis. No free air. Electronically signed by: Gerhard Forman MD 12/16/22 22:10 PM KUB X-Ray 12/17/22 05:49 KUB HISTORY: ng tube placement COMPARISON: KUB 12/17/2022. FINDINGS: Nasogastric tube terminates in the stomach. Small bilateral pleural effusions and right basilar densities persist. The heart remains enlarged. There are poststernotomy changes and a cardiac valve prosthesis again noted. Mildly dilated gas-filled loops of small bowel are again seen within the upper abdomen. This is concerning for a small bowel obstruction. No renal calculi. No ureteral calculi. No pneumoperitoneum or pneumatosis. IMPRESSION: 1. Nasogastric tube terminates in the stomach. 2. Mildly dilated gas-filled loops of small bowel are seen within the upper abdomen concerning for a small bowel obstruction. ACT 112: Negative or not required by law. Electronically signed by: Neftaly Urrutia M.D. 12/17/2022 6:43 AM Chest X-Ray 12/18/22 13:51 XR chest 1V portable CLINICAL HISTORY: Final PICC adjustment COMPARISON STUDY: Chest radiograph December 18, 2022 at 12:55 PM. FINDINGS: The tip of the nasogastric tube is within the body of the stomach. Left PICC is in place. The tip projects over the distal left SVC. Bilateral pleural effusions, right larger than left and associated bibasilar opacities are again noted. There is pulmonary edema. Median sternotomy wires and prosthetic aortic valve are present. IMPRESSION: 1. Satisfactory support line placement. Left PICC tip is within the distal left SVC. 2. Bilateral pleural effusions and associated bibasilar opacities. Persistent pulmonary edema. ACT 112: Negative or not required by law. Electronically signed by: Patel Daniel M.D. 12/18/2022 2:23 PM
[2022-12-20] MEDS: ATORVASTATIN 40 MG TAB PO SCH (12:56)
[2022-12-20] MEDS: WARFARIN SOD 5 MG TAB PO SCH (16:44)
[2022-12-20] MEDS: HEPARIN SODIUM/DEXTROSE 25,000 UNITS/500 ML BAG IV SCH (17:42)
[2022-12-20] MEDS ORDERED: FUROSEMIDE INJ 20 MG/2 ML VIAL IV ONE (18:15)
[2022-12-20] MEDS: TERAZOSIN HCL 1 MG CAP PO SCH (20:43)
[2022-12-21] MEDS ORDERED: ERTAPENEM SODIUM 1,000 MG in SYRINGE 0 ML IV ONE (05:00)
[2022-12-21 05:06] LABS: Eosinophils # (auto) 0.02 K/uL (0-0.50); Eosinophils % (auto) 0.3 %; Hematocrit (blood only) 27.6 % (42.0-52.0); Hemoglobin 9.2 g/dl (14.0-18.0); Immature Granulocytes # (auto) 0.08 K/uL (0.01-0.20); Immature Granulocytes % (auto) 1.3 %; Lymphocytes # (auto) 0.76 K/uL (1.2-3.4); Lymphocytes % (auto) 12.1 %; Mean Corpuscular Hemoglobin 30.4 pg (25.0-34.0); Mean Corpuscular Hgb Conc 33.3 g/dL (32.0-36.0); Mean Corpuscular Volume 91.1 fL (80.0-100.0); Mean Platelet Volume 12.1 fL (9.4-12.4); Monocytes # (auto) 0.82 K/uL (0.11-0.59); Monocytes % (auto) 13.1 %; Neutrophils # (auto) 4.59 K/uL (1.40-6.50); Neutrophils % (auto) 73.2 %; Platelet Count 113 K/uL (130-400); RDW Coefficient of Variation 19.7 % (11.5-14.5); RDW Standard Deviation 65.7 fL (36.4-46.3); Red Blood Count 3.03 M/uL (4.70-6.10); White Blood Count 6.27 K/ul (4.8-10.8)
[2022-12-21 05:21] LABS: Albumin Globulin Ratio 1.2 (0.9-2); Albumin Level 2.8 gm/dl (3.4-5.0); BUN Creatinine Ratio 46.8 (10-20); Bilirubin,Total 1.2 mg/dl (0.2-1.0); Calcium 8.2 mg/dl (8.6-10.3); Creatinine Clr Calc Pharmacy 41.1 ml/min; Est GFR (African American) 39.9 ml/min; Est GFR (Non-African American) 34.5 ml/min; Globulin 2.3 gm/dl (2.5-4.0); Magnesium 2.3 mg/dl (1.7-2.4); Phosphorus 3.8 mg/dl (2.5-4.9); Potassium 3.8 mmol/L (3.5-5.1); Total Protein 5.1 gm/dl (6.0-8.3)
[2022-12-21 05:49] LABS: INR 1.5 (0.9-1.1); Prothrombin Time 15.6 Seconds (9.0-12.0)
[2022-12-21 05:58] LABS: Partial Thromboplastin Time 55.5 Seconds (21.0-31.0)
--- NOTE | 2022-12-21 06:42 | Surgery Progress Note ---
Date of Service December 21, 2022 Assessment & Plan (1) History of colon resection: Plan Doing well. Slowly advance diet. Will be transferred out of the ICU today. Continue PT/OT Admission and Anticipated Discharge Date Admission Date: December 17, 2022 Subjective Doing well. Minimal pain. No nausea or vomiting. Physical Exam Physical Exam: AFVSS NAD, A&O x3 Abdomen soft, minimal tenderness, incision looks good Results & Data Vital Signs (Past 12 Hours) Vital Signs Temp Pulse Pulse Resp BP Pulse Ox O2 Del Method 12/21/22 04:47 36.7 C 58 L 21 98/45 L 98 Nasal Cannula 12/21/22 01:49 60 12/20/22 22:03 36.7 C 61 20 101/49 L 97 Nasal Cannula 12/20/22 19:35 Nasal Cannula 12/20/22 19:29 37.0 C 64 21 106/75 99 Nasal Cannula O2 Flow Rate 12/21/22 04:47 2 12/21/22 01:49 12/20/22 22:03 2 12/20/22 19:35 2 12/20/22 19:29 2
[2022-12-21] MEDS: AMIODARONE 200 MG TAB PO SCH (08:53)
[2022-12-21] MEDS: allopurinoL 300 MG TAB PO SCH (08:53)
[2022-12-21] MEDS: FUROSEMIDE INJ 20 MG/2 ML VIAL IV SCH ×2 (08:53→16:04)
[2022-12-21] MEDS: ATORVASTATIN 40 MG TAB PO SCH (08:53)
[2022-12-21] MEDS: HYDROCORTISONE SOD 25 MG in SYRINGE 0 ML IV SCH (08:54)
--- NOTE | 2022-12-21 10:23 | XRay Report ---
XR chest 1V portable CLINICAL HISTORY: Follow-up pulmonary edema. COMPARISON STUDY: Chest CT December 12, 2009. Chest radiograph December 18, 2022. FINDINGS: Left PICC projects over the distal left SVC. There are median sternotomy wires and a prosth etic cardiac valve. Cardiomegaly is unchanged. Bilateral pleural effusions, right larger than left, a re unchanged. Associated right basilar opacity is again noted. Pulmonary edema has slightly improved. No pneumothorax. IMPRESSION: 1. Slight improvement in pulmonary edema. 2. No significant change in bilateral pleural effusions, right larger than left, with associated righ t lung opacities. ACT 112: Negative or not required by law. Electronically signed by: Patel Daniel M.D. 12/21/2022 10:22 AM
--- NOTE | 2022-12-21 12:04 | Hospitalist Progress Note ---
Date of Service December 21, 2022 Assessment & Plan (1) Umbilical hernia, incarcerated: Plan: INCARCERATED UMBILICAL HERNIA Status post Laparoscopy converted to open partial small bowel resection, repair of ventral hernia on 12/17 Patient was transferred to ICU for closer monitoring after the surgery on the same day Initially on NG tube; removed on 12/19. Diet advanced today to full liquid diet as per surgery recommendation Monitor for ileus. Continue PT OT Continue on Maldonado; plan to remove after patient is more mobile ACUTE ON CHRONIC DIASTOLIC CHF Mechanical valve on warfarin status post vitamin K Chest x-ray done on 12/21 reviewed; improvement in pulmonary edema. Bilateral pleural effusion persistent Currently on heparin drip. Amiodarone resumed. Coumadin resumed; PT/INR1.5. Will discontinue heparin once warfarin is therapeutic. Cardiology on board Continue diuresis as per nephrology. Septic shock Secondary to incarcerated hernia Off vasopressor support since 11/18 Last day of ertapenem today Status post hydrocortisone ACUTE KIDNEY INJURY on CKD Creatinine downtrending; at baseline Urine output reassuring Continue hemodynamic support Nephrology on board; started on IV Lasix 30 mg twice daily. INCIDENTAL FINDING OF CIRRHOSIS ON CT, NEW DIAGNOSIS Will need outpatient GI follow-up Other chronic medical problems: hypertension hyperlipidemia, on statin Rx thoracic aortic dissection status post surgery chronic anemia prostate cancer status post surgery Disposition PT OT evaluation completed; recommend rehab Time spent evaluating patient, direct bedside care, chart review, placing orders, interpretation of diagnostic studies, discussion with consultants, patient, and family members, as well as other required patient management activities is 60 minutes Please note the above document was generated using voice recognition software. It may contain grammatical, syntax or spelling errors. Any formal questions or concerns about the content, text or information contained within the body of this dictation should be directly addressed to the provider for clarification Admission and Anticipated Discharge Date Admission Date: December 17, 2022 Subjective Patient seen and examined at bedside. He is sitting up on the bed; not in distress. Denies any pain or discomfort. Tolerating clear liquid diet. Review of Systems Review of Systems: All systems reviewed & are unremarkable except as noted in Subjective Physical Exam Physical Exam: Constitutional: Alert, oriented x3. Respiratory: Bilateral crackles present; improved. Decreased breath sound at bases. Cardiovascular: RRR, mechanical valve sound present Chest: normal inspection of chest Abdomen: Dressing clean dry and intact. Musculoskeletal: no cyanosis or clubbing, extremities motor strength 5/5 Skin: no rashes, warm and dry normal turgor Neurologic: PERRL, EOMI, accommodation nl, no face palsy, no dysarthria CN's II- XI intact bilaterally and moves all extremities Psychiatric: A+Ox3, euthymic affect Results & Data Results & Data Vital Signs (Past 12 Hours) Vital Signs Temp Pulse Pulse Resp BP Pulse Ox O2 Del Method 12/21/22 11:09 36.6 C 59 L 18 102/55 L 99 Nasal Cannula 12/21/22 08:00 58 L 12/21/22 07:34 36.7 C 57 L 18 110/53 L 97 Nasal Cannula 12/21/22 07:41 Nasal Cannula 12/21/22 04:47 36.7 C 58 L 21 98/45 L 98 Nasal Cannula 12/21/22 01:49 60 O2 Flow Rate 12/21/22 11:09 2 12/21/22 08:00 12/21/22 07:34 2 12/21/22 07:41 2 12/21/22 04:47 2 12/21/22 01:49 Laboratory Results Laboratory Results WBC 6.27 K/ul (4.8-10.8) 12/21/22 04:47 RBC 3.03 M/uL (4.70-6.10) L 12/21/22 04:47 Hgb 9.2 g/dl (14.0-18.0) L 12/21/22 04:47 POC Hgb 12.2 g/dl (14.0-18.0) L 12/16/22 20:37 Hct 27.6 % (42.0-52.0) L 12/21/22 04:47 POC Hct 36 % (42-52) L 12/16/22 20:37 MCV 91.1 fL (80.0-100.0) 12/21/22 04:47 MCH 30.4 pg (25.0-34.0) 12/21/22 04:47 MCHC 33.3 g/dL (32.0-36.0) 12/21/22 04:47 RDW Std Deviation 65.7 fL (36.4-46.3) H 12/21/22 04:47 RDW Coeff of Penelope 19.7 % (11.5-14.5) H 12/21/22 04:47 Plt Count 113 K/uL (130-400) L 12/21/22 04:47 MPV 12.1 fL (9.4-12.4) 12/21/22 04:47 Immature Gran % (Auto) 1.3 % 12/21/22 04:47 Neut % (Auto) 73.2 % 12/21/22 04:47 Lymph % (Auto) 12.1 % 12/21/22 04:47 Gibson % (Auto) 13.1 % 12/21/22 04:47 Eos % (Auto) 0.3 % 12/21/22 04:47 Baso % (Auto) 0.0 % 12/21/22 04:47 Neut # (Auto) 4.59 K/uL (1.40-6.50) 12/21/22 04:47 Lymph # (Auto) 0.76 K/uL (1.2-3.4) L 12/21/22 04:47 Gibson # (Auto) 0.82 K/uL (0.11-0.59) H 12/21/22 04:47 Eos # (Auto) 0.02 K/uL (0-0.50) 12/21/22 04:47 Baso # (Auto) 0.00 K/uL (0-0.2) 12/21/22 04:47 Immature Gran # (Auto) 0.08 K/uL (0.01-0.20) 12/21/22 04:47 Polychromasia 1+ 12/20/22 04:22 Poikilocytosis Present 12/20/22 04:22 Anisocytosis Present 12/20/22 04:22 Tear Drop Cells 1+ 12/18/22 06:49 Ovalocytes 1+ 12/16/22 20:12 Echinocytes 1+ 12/18/22 06:49 PT 15.6 Seconds (9.0-12.0) H 12/21/22 04:47 INR 1.5 (0.9-1.1) H 12/21/22 04:47 APTT 55.5 Seconds (21.0-31.0) H* 12/21/22 04:47 PTT Ratio 2.0 12/21/22 04:47 POC Sodium 141 mmol/L (135-144) 12/16/22 20:37 Sodium 141 mmol/L (136-145) 12/21/22 04:47 POC Potassium 4.0 mmol/L (3.3-5.0) 12/16/22 20:37 Potassium 3.8 mmol/L (3.5-5.1) 12/21/22 04:47 POC Chloride 106 mmol/L (101-112) 12/16/22 20:37 Chloride 108 mmol/L (98-107) H 12/21/22 04:47 Carbon Dioxide 28 mmol/L (21-32) 12/21/22 04:47 POC Total CO2 22 mmol/L (24-31) L 12/16/22 20:37 Anion Gap 5 (3-11) 12/21/22 04:47 POC Anion Gap 18.0 mmol/L (16-25) 12/16/22 20:37 POC BUN 71 mg/dl (7-18) H 12/16/22 20:37 BUN 89 mg/dl (6-23) H 12/21/22 04:47 Creatinine 1.90 mg/dl (0.6-1.4) H D 12/21/22 04:47 POC Creatinine 2.6 mg/dl (0.6-1.3) H 12/16/22 20:37 Est Cr Clr Drug Dosing 41.1 ml/min 12/21/22 04:47 Est GFR ( Amer) 39.9 ml/min 12/21/22 04:47 Est GFR (Non-Af Amer) 34.5 ml/min 12/21/22 04:47 BUN/Creatinine Ratio 46.8 (10-20) H 12/21/22 04:47 Glucose 124 mg/dl (70-99(Fasting)) H 12/21/22 04:47 POC Glucose (other) 88 mg/dl (70-99) 12/16/22 20:37 Lactate 1.5 mmol/L (0.4-2.0) 12/17/22 16:33 Calcium 8.2 mg/dl (8.6-10.3) L 12/21/22 04:47 POC Ioniz Calcium Codey 1.09 mmol/l (1.12-1.32) L 12/16/22 20:37 Phosphorus 3.8 mg/dl (2.5-4.9) 12/21/22 04:47 Magnesium 2.3 mg/dl (1.7-2.4) 12/21/22 04:47 Total Bilirubin 1.2 mg/dl (0.2-1.0) H 12/21/22 04:47 AST 24 U/L (13-39) 12/21/22 04:47 ALT 46 U/L (7-52) 12/21/22 04:47 Alkaline Phosphatase 76 U/L (34-104) 12/21/22 04:47 Troponin I High Sens 96.3 pg/ml (0-20) H* D 12/17/22 19:56 B-Natriuretic Peptide 704 pg/ml (0-100) H 12/16/22 23:22 Total Protein 5.1 gm/dl (6.0-8.3) L 12/21/22 04:47 Albumin 2.8 gm/dl (3.4-5.0) L 12/21/22 04:47 Globulin 2.3 gm/dl (2.5-4.0) L 12/21/22 04:47 Albumin/Globulin Ratio 1.2 (0.9-2) 12/21/22 04:47 Lipase 14 U/L (11-82) 12/16/22 20:12 Procalcitonin 0.42 ng/ml (0-0.5) 12/16/22 20:13 TSH 4.479 uIu/ml (0.300-4.500) 12/16/22 20:13 Random Cortisol 23.34 mcg/dl 12/17/22 16:33 Urine Color Yellow 12/16/22 20:12 Urine Appearance Clear (Clear) 12/16/22 20:12 Urine pH 5.5 (4.5-7.5) 12/16/22 20:12 Ur Specific [place] 1.012 (1.000-1.030) 12/16/22 20:12 Urine Protein Negative (Negative) 12/16/22 20:12 Urine Glucose (UA) Negative (Negative) 12/16/22 20:12 Urine Ketones Negative (Negative) 12/16/22 20:12 Urine Blood Negative (Negative) 12/16/22 20:12 Urine Nitrite Negative (Negative) 12/16/22 20:12 Urine Bilirubin Negative (Negative) 12/16/22 20:12 Urine Urobilinogen Negative (Negative) 12/16/22 20:12 Ur Leukocyte Esterase Negative (Negative) 12/16/22 20:12 Nasal Screen MRSA (PCR) Negative (Negative) 12/17/22 16:40 SARS-CoV-2, RNA, NAAT NEGATIVE (NEGATIVE) 12/16/22 20:12 Blood Type O Positive 12/17/22 10:50 Antibody Screen NEGATIVE 12/17/22 10:50 Impressions Abdomen/Pelvis CT 12/16/22 20:44 Exam(s): CT ABDOMEN + PELVIS Without Contrast EXAM: CT Abdomen and Pelvis Without Intravenous Contrast CLINICAL HISTORY: Reason for exam: Abd pain. TECHNIQUE: Axial computed tomography images of the abdomen and pelvis without intravenous contrast. CTDI is 27.34 mGy and DLP is 1388.62 mGy-cm. Automated exposure control was utilized for the study. A dose lowering technique was utilized adhering to the principles of ALARA. COMPARISON: No relevant prior studies available. FINDINGS: Lung bases: Unremarkable. No mass. No consolidation. Pleural space: Small RIGHT pleural effusion. Heart: Cardiomegaly. Prosthetic aortic valve. ABDOMEN: Liver: Mild hepatic cirrhotic morphology. Mild perihepatic and perisplenic ascites. Gallbladder and bile ducts: Unremarkable. No calcified stones. No ductal dilation. Pancreas: Unremarkable. No ductal dilation. Spleen: Unremarkable. No splenomegaly. Adrenals: Unremarkable. No mass. Kidneys and ureters: Unremarkable. No hydronephrosis or nephrolithiasis. Stomach and bowel: Ventral abdominal wall hernia, which contains a loop of small bowel. Mildly prominent small bowel entering this hernia measuring up to 2.6 cm, concerning for partial bowel obstruction. Diverticulosis, without acute diverticulitis. No free air. PELVIS: Appendix: No findings to suggest acute appendicitis. Bladder: Unremarkable. No stones. Reproductive: Unremarkable as visualized. ABDOMEN and PELVIS: Intraperitoneal space: See above. Bones/joints: Sternotomy wires. Degenerative changes of the spine. LEFT hip arthroplasty. No acute fracture. No dislocation. Soft tissues: See above. Vasculature: Atherosclerotic changes of the aorta. No abdominal aortic aneurysm. Lymph nodes: Unremarkable. No enlarged lymph nodes. IMPRESSION: 1. Ventral abdominal wall hernia, which contains a loop of small bowel. Mildly prominent small bowel entering this hernia measuring up to 2.6 cm, concerning for partial bowel obstruction. 2. No hydronephrosis or nephrolithiasis. 3. Small RIGHT pleural effusion. 4. Mild hepatic cirrhotic morphology. Mild perihepatic and perisplenic ascites. 5. Diverticulosis, without acute diverticulitis. No free air. Electronically signed by: Gerhard Forman MD 12/16/22 22:10 PM KUB X-Ray 12/17/22 05:49 KUB HISTORY: ng tube placement COMPARISON: KUB 12/17/2022. FINDINGS: Nasogastric tube terminates in the stomach. Small bilateral pleural effusions and right basilar densities persist. The heart remains enlarged. There are poststernotomy changes and a cardiac valve prosthesis again noted. Mildly dilated gas-filled loops of small bowel are again seen within the upper abdomen. This is concerning for a small bowel obstruction. No renal calculi. No ureteral calculi. No pneumoperitoneum or pneumatosis. IMPRESSION: 1. Nasogastric tube terminates in the stomach. 2. Mildly dilated gas-filled loops of small bowel are seen within the upper abdomen concerning for a small bowel obstruction. ACT 112: Negative or not required by law. Electronically signed by: Neftaly Urrutia M.D. 12/17/2022 6:43 AM Chest X-Ray 12/21/22 09:16 XR chest 1V portable CLINICAL HISTORY: Follow-up pulmonary edema. COMPARISON STUDY: Chest CT December 12, 2009. Chest radiograph December 18, 2022. FINDINGS: Left PICC projects over the distal left SVC. There are median sternotomy wires and a prosthetic cardiac valve. Cardiomegaly is unchanged. Bilateral pleural effusions, right larger than left, are unchanged. Associated right basilar opacity is again noted. Pulmonary edema has slightly improved. No pneumothorax. IMPRESSION: 1. Slight improvement in pulmonary edema. 2. No significant change in bilateral pleural effusions, right larger than left, with associated right lung opacities. ACT 112: Negative or not required by law. Electronically signed by: Patel Daniel M.D. 12/21/2022 10:22 AM
[2022-12-21] MEDS: PANTOprazole 40 MG in SYRINGE 0 ML IV SCH (12:10)
[2022-12-21] MEDS: HEPARIN SODIUM/DEXTROSE 25,000 UNITS/500 ML BAG IV SCH (12:11)
--- NOTE | 2022-12-21 13:39 | Cardiology Progress Note ---
Date of Service December 21, 2022 Assessment & Plan (1) Umbilical hernia, incarcerated: (2) S/P AVR (aortic valve replacement): (3) Congenital heart disease: (4) CRF (chronic renal failure): Plan IMPRESSION: Medically complex 72 year old male with hx of congenital heart disease s/p pulmonic valve and ASD repair as well as severe s/p mechanical AVR and ascending aortic repair. Found to have an incarcerated umbilical hernia status post open partial small bowel resection and repair of ventral hernia, 12/17/[address] Solis Echo this admission stable with findings associated with prior heart/valvular disease. Hypotensive on presentation, chronic finding. No longer requiring pressor support. NG tube removed 12/19. PLAN: Tolerating clear liquid diet. He is back on his oral medications including amiodarone, warfarin, atorvastatin. Diuresing well with furosemide 30 mg IV twice daily. Hemoglobin stable. Creatinine trending down. Continue heparin bridge, INR 1.5 today. If blood pressure remains stable, will resume metoprolol 12/22/2022. Admission and Anticipated Discharge Date Admission Date: December 17, 2022 Subjective Patient seen in cardiology follow-up. Spouse is at the bedside. Telemetry reveals sinus rhythm with IVCD in the 60s, occasional accelerated idioventricular rhythm with rate up to 105 bpm. Heparin infusing without complication. Physical Exam Constitutional: + ill appearing; no acute distress Neck: normal visual inspection and trachea midline Respiratory: no respiratory distress, no labored breathing and no cough Auscultation: + diminished lung sounds; no rales, no rhonchi and no wheezes Cardiovascular: Rate/Rhythm: regular rate and regular rhythm Heart Sounds: normal S1 and normal S2 (Wilbarger mechanical valve closure ) Extremities: + edema (Trace to 1+ bilateral lower extremity edema) Gastrointestinal (Abdomen): Inspection/Auscultation: + hypoactive bowel sounds; abdomen not distended Percussion/Palpation: abdomen soft; abdomen nontender Skin: no rashes, warm and dry Neurologic: PERRL, EOMI, accommodation nl, no face palsy, no dysarthria Psychiatric: A+Ox3, euthymic affect Results & Data Vital Signs (Past 12 Hours) Vital Signs Temp Pulse Pulse Resp BP Pulse Ox O2 Del Method 12/21/22 11:09 36.6 C 59 L 18 102/55 L 99 Nasal Cannula 12/21/22 08:00 58 L 12/21/22 07:34 36.7 C 57 L 18 110/53 L 97 Nasal Cannula 12/21/22 07:41 Nasal Cannula 12/21/22 04:47 36.7 C 58 L 21 98/45 L 98 Nasal Cannula 12/21/22 01:49 60 O2 Flow Rate 12/21/22 11:09 2 12/21/22 08:00 12/21/22 07:34 2 12/21/22 07:41 2 12/21/22 04:47 2 12/21/22 01:49 Laboratory Results Cardiac Enzymes 12/21/22 Range/Units 04:47 AST 24 (13-39) U/L Coagulation INR: 1.5 12/21/22 Range/Units 04:47 PT 15.6 H (9.0-12.0) Seconds APTT 55.5 H* (21.0-31.0) Seconds CBC 12/21/22 Range/Units 04:47 WBC 6.27 (4.8-10.8) K/ul RBC 3.03 L (4.70-6.10) M/uL Hgb 9.2 L (14.0-18.0) g/dl Hct 27.6 L (42.0-52.0) % Plt Count 113 L (130-400) K/uL Neut # (Auto) 4.59 (1.40-6.50) K/uL Lymph # (Auto) 0.76 L (1.2-3.4) K/uL [place]lier # (Auto) 0.82 H (0.11-0.59) K/uL Eos # (Auto) 0.02 (0-0.50) K/uL Baso # (Auto) 0.00 (0-0.2) K/uL Comprehensive Metabolic Panel 12/21/22 Range/Units 04:47 Sodium 141 (136-145) mmol/L Potassium 3.8 (3.5-5.1) mmol/L Chloride 108 H (98-107) mmol/L Carbon Dioxide 28 (21-32) mmol/L BUN 89 H (6-23) mg/dl Creatinine 1.90 H D (0.6-1.4) mg/dl Glucose 124 H (70-99(Fasting)) mg/dl Calcium 8.2 L (8.6-10.3) mg/dl AST 24 (13-39) U/L ALT 46 (7-52) U/L Alkaline Phosphatase 76 (34-104) U/L Total Protein 5.1 L (6.0-8.3) gm/dl Albumin 2.8 L (3.4-5.0) gm/dl Intake and Output 12/20/22 12/21/22 12/21/22 22:59 06:59 14:59 Intake Total 611.134 / 1258.301 447.2 / 447.2 Output Total 950 / 2385 535 / 2385 Balance -338.866 / -1126.699 -535 / -1126.699 447.2 / 447.2 Intake: IV 311.134 / 508.301 447.2 / 447.2 Heparin Sodium/Dextrose 25,000 311.134 / 508.301 447.2 / 447.2 units In 500 ml @ 1,300 UNITS/ HR 26 mls/hr IV .[id number] [facility] Rx #:[id number] Oral 300 / 750 Output: Urine Amount (Catheter) 950 / 2385 535 / 2385 Maldonado/Indwelling 950 / 2385 535 / 2385 Other: Weight 104.3 kg 101.3 kg Weight Measurement Method Built in [facility] Built in [facility] (4) CRF (chronic renal failure) Chronic kidney disease stage: unspecified stage Qualified Code(s): N18.9 - Chronic kidney disease, unspecified
--- NOTE | 2022-12-21 15:27 | Nephrology Progress Note ---
Date of Service December 21, 2022 Assessment & Plan Admission and Anticipated Discharge Date Admission Date: December 17, 2022 Subjective Assessment & Plan (1) Acute on chronic renal failure: Plan: improving nonoliguric stage 1 TATA on nonproteinuric CKD 3B w/ labile baseline function. baseline creatinine 1.8; already w/ TATA on arrival w/ presenting creatinine 2.3 and worsened to peak at 3.3 on 12/18. new dx of early liver cirrhosis. admission UA bland. mild persistent hyperchloremia noted but chemistries overall remain acceptable. he is autodiuresing and is 700 mL negative past 24 hrs; overall 150 mL negative on the admission to date. Etiology is ischemic ATN -no indication to discuss dialysis at this time (2) Volume overload: Plan: With lower extremity edema, pulmonary vascular congestion and edema, hypoxia, recurrent pleural effusions, hx of diastolic HF on low dose lasix as OP (20 mg daily per H&P). -continue strict I/O urine Output did go up nicely to 2300 + yesterday and creat is dropping so definite renal recovery Continue Current lasix. Subjective no interval clinical events. on 2liter. Big Increase in urine. Review of Systems Review of Systems: All systems reviewed & are unremarkable except as noted in Subjective Physical Exam Constitutional: well developed, well nourished, + frail appearing and cooperative; no acute distress Eyes: EOM intact bilaterally ENMT: Ears: no external ear abnormality Nose: no external nose abnormality Mouth: + dry oral mucous membranes Neck: no nuchal rigidity Respiratory: normal respiratory effort Auscultation: + diminished lung sounds and + crackles (posterior bain BL lower) Cardiovascular: Rate/Rhythm: regular rate and regular rhythm Heart Sounds: + click Extremities: + edema (3+ BL pedal; 1+ dependent) Gastrointestinal (Abdomen): Inspection/Auscultation: + abdomen distended and + hypoactive bowel sounds Percussion/Palpation: + abdomen tender and abdomen soft Musculoskeletal: Extremities: strength 5/5 throughout Skin: no rashes, warm and dry Psychiatric: Orientation: alert and oriented x 3 Results & Data Vital Signs (Past 12 Hours) Vital Signs Temp Pulse Pulse Resp BP Pulse Ox O2 Del Method 12/21/22 11:09 36.6 C 59 L 18 102/55 L 99 Nasal Cannula 12/21/22 08:00 58 L 12/21/22 07:34 36.7 C 57 L 18 110/53 L 97 Nasal Cannula 12/21/22 07:41 Nasal Cannula 12/21/22 04:47 36.7 C 58 L 21 98/45 L 98 Nasal Cannula O2 Flow Rate 12/21/22 11:09 2 12/21/22 08:00 12/21/22 07:34 2 12/21/22 07:41 2 12/21/22 04:47 2
[2022-12-21] MEDS ORDERED: WARFARIN SOD 2.5 MG TAB PO SCH (16:00)
[2022-12-21] MEDS: TERAZOSIN HCL 1 MG CAP PO SCH (20:30)
[2022-12-22 07:20] LABS: Basophils # (auto) 0.02 K/uL (0-0.2); Basophils % (auto) 0.4 %; Eosinophils # (auto) 0.09 K/uL (0-0.50); Eosinophils % (auto) 1.6 %; Hematocrit (blood only) 28.4 % (42.0-52.0); Hemoglobin 9.5 g/dl (14.0-18.0); Immature Granulocytes % (auto) 1.8 %; Lymphocytes # (auto) 0.96 K/uL (1.2-3.4); Lymphocytes % (auto) 17.5 %; Mean Corpuscular Hemoglobin 29.3 pg (25.0-34.0); Mean Corpuscular Hgb Conc 33.5 g/dL (32.0-36.0); Mean Corpuscular Volume 87.7 fL (80.0-100.0); Mean Platelet Volume 12.2 fL (9.4-12.4); Monocytes % (auto) 16.4 %; Neutrophils # (auto) 3.43 K/uL (1.40-6.50); Neutrophils % (auto) 62.3 %; Platelet Count 120 K/uL (130-400); RDW Coefficient of Variation 19.7 % (11.5-14.5); RDW Standard Deviation 63.6 fL (36.4-46.3); Red Blood Count 3.24 M/uL (4.70-6.10)
[2022-12-22 07:40] LABS: Albumin Globulin Ratio 1.2 (0.9-2); Albumin Level 2.8 gm/dl (3.4-5.0); BUN Creatinine Ratio 48.8 (10-20); Bilirubin,Total 1.2 mg/dl (0.2-1.0); Calcium 8.3 mg/dl (8.6-10.3); Creatinine Clr Calc Pharmacy 46.2 ml/min; Est GFR (Non-African American) 40.6 ml/min; Globulin 2.3 gm/dl (2.5-4.0); Magnesium 2.1 mg/dl (1.7-2.4); Potassium 3.7 mmol/L (3.5-5.1); Total Protein 5.1 gm/dl (6.0-8.3)
[2022-12-22 08:10] LABS: INR 1.8 (0.9-1.1); Partial Thromboplastin Ratio 2.4; Prothrombin Time 18.6 Seconds (9.0-12.0)
[2022-12-22 08:54] LABS: Partial Thromboplastin Time 68.3 Seconds (21.0-31.0)
[2022-12-22] MEDS: HEPARIN SODIUM/DEXTROSE 25,000 UNITS/500 ML BAG IV SCH (08:57)
[2022-12-22] MEDS: allopurinoL 300 MG TAB PO SCH (09:02)
[2022-12-22] MEDS: AMIODARONE 200 MG TAB PO SCH (09:02)
[2022-12-22] MEDS: ATORVASTATIN 40 MG TAB PO SCH (09:02)
[2022-12-22] MEDS: FUROSEMIDE INJ 20 MG/2 ML VIAL IV SCH ×2 (09:03→14:33)
--- NOTE | 2022-12-22 11:22 | Surgery Progress Note ---
Date of Service December 22, 2022 Assessment & Plan (1) History of colon resection: Plan Doing well. Slowly advance diet. Continue PT/OT Admission and Anticipated Discharge Date Admission Date: December 17, 2022 Subjective Doing well. No nausea or vomiting. Tolerating diet. No fevers or chills. Very weak and deconditioned. Physical Exam Physical Exam: AFVSS NAD, A&O x3 Abdomen soft, minimal tenderness, incision looks good Results & Data Vital Signs (Past 12 Hours) Vital Signs Temp Pulse Pulse Pulse Resp BP Pulse Ox 12/22/22 07:28 36.3 C L 68 18 106/54 L 91 12/22/22 03:43 36.6 C 69 18 113/62 91 12/21/22 23:44 36.5 C 63 18 102/43 L 91 12/21/22 23:39 67 O2 Del Method 12/22/22 07:28 Room Air 12/22/22 03:43 Room Air 12/21/22 23:44 Room Air 12/21/22 23:39
[2022-12-22] MEDS: PANTOprazole 40 MG in SYRINGE 0 ML IV SCH (12:31)
--- NOTE | 2022-12-22 13:05 | Hospitalist Progress Note ---
Date of Service December 22, 2022 Assessment & Plan (1) Umbilical hernia, incarcerated: Plan: INCARCERATED UMBILICAL HERNIA Status post Laparoscopy converted to open partial small bowel resection, repair of ventral hernia on 12/17 Patient was transferred to ICU for closer monitoring after the surgery on the same day Initially on NG tube; removed on 12/19. At first bowel movement on 12/21 Discussed with surgery; diet advanced today to soft diet as per surgery. Monitor for ileus. Continue PT OT Remove Maldonado; trial of void. ACUTE ON CHRONIC DIASTOLIC CHF Mechanical valve on warfarin status post vitamin K Chest x-ray done on 12/21 reviewed; improvement in pulmonary edema. Bilateral pleural effusion persistent Currently on heparin drip. Amiodarone resumed. Coumadin resumed; PT/INR1. 8 Will discontinue heparin once warfarin is therapeutic. Cardiology on board Continue diuresis as per nephrology. Septic shock Secondary to incarcerated hernia Off vasopressor support since 11/18 Status post 5 days of ertapenem. Status post hydrocortisone ACUTE KIDNEY INJURY on CKD Creatinine downtrending; at baseline Urine output reassuring Continue hemodynamic support Nephrology on board; started on IV Lasix 30 mg twice daily. INCIDENTAL FINDING OF CIRRHOSIS ON CT, NEW DIAGNOSIS Will need outpatient GI follow-up Other chronic medical problems: hypertension hyperlipidemia, on statin Rx thoracic aortic dissection status post surgery chronic anemia prostate cancer status post surgery Disposition PT OT evaluation completed; recommend rehab. Case management on board. Time spent evaluating patient, direct bedside care, chart review, placing orders, interpretation of diagnostic studies, discussion with consultants, patient, and family members, as well as other required patient management activities is 60 minutes Please note the above document was generated using voice recognition software. It may contain grammatical, syntax or spelling errors. Any formal questions or concerns about the content, text or information contained within the body of this dictation should be directly addressed to the provider for clarification Admission and Anticipated Discharge Date Admission Date: December 17, 2022 Subjective Patient seen and examined at bedside. He is sitting up on the side of the bed on a chair comfortably. Reports having a bowel movement last evening. No complaint of abdominal pain. Review of Systems Review of Systems: All systems reviewed & are unremarkable except as noted in Subjective Physical Exam Physical Exam: Constitutional: Alert, oriented x3. Respiratory: Bilateral basilar crackles improving. Cardiovascular: RRR, mechanical valve sound present Chest: normal inspection of chest Abdomen: Dressing clean dry and intact. Musculoskeletal: no cyanosis or clubbing, extremities motor strength 5/5 Skin: no rashes, warm and dry normal turgor Neurologic: PERRL, EOMI, accommodation nl, no face palsy, no dysarthria CN's II- XI intact bilaterally and moves all extremities Psychiatric: A+Ox3, euthymic affect Results & Data Results & Data Vital Signs (Past 12 Hours) Vital Signs Temp Pulse Pulse Resp BP Pulse Ox O2 Del Method 12/22/22 11:33 36.5 C 68 18 106/52 L 96 Room Air 12/22/22 07:28 36.3 C L 68 18 106/54 L 91 Room Air 12/22/22 03:43 36.6 C 69 18 113/62 91 Room Air Laboratory Results Laboratory Results WBC 5.50 K/ul (4.8-10.8) 12/22/22 06:41 RBC 3.24 M/uL (4.70-6.10) L 12/22/22 06:41 Hgb 9.5 g/dl (14.0-18.0) L 12/22/22 06:41 POC Hgb 12.2 g/dl (14.0-18.0) L 12/16/22 20:37 Hct 28.4 % (42.0-52.0) L 12/22/22 06:41 POC Hct 36 % (42-52) L 12/16/22 20:37 MCV 87.7 fL (80.0-100.0) 12/22/22 06:41 MCH 29.3 pg (25.0-34.0) 12/22/22 06:41 MCHC 33.5 g/dL (32.0-36.0) 12/22/22 06:41 RDW Std Deviation 63.6 fL (36.4-46.3) H 12/22/22 06:41 RDW Coeff of Penelope 19.7 % (11.5-14.5) H 12/22/22 06:41 Plt Count 120 K/uL (130-400) L 12/22/22 06:41 MPV 12.2 fL (9.4-12.4) 12/22/22 06:41 Immature Gran % (Auto) 1.8 % 12/22/22 06:41 Neut % (Auto) 62.3 % 12/22/22 06:41 Lymph % (Auto) 17.5 % 12/22/22 06:41 [place] % (Auto) 16.4 % 12/22/22 06:41 Eos % (Auto) 1.6 % 12/22/22 06:41 Baso % (Auto) 0.4 % 12/22/22 06:41 Neut # (Auto) 3.43 K/uL (1.40-6.50) 12/22/22 06:41 Lymph # (Auto) 0.96 K/uL (1.2-3.4) L 12/22/22 06:41 [place] # (Auto) 0.90 K/uL (0.11-0.59) H 12/22/22 06:41 Eos # (Auto) 0.09 K/uL (0-0.50) 12/22/22 06:41 Baso # (Auto) 0.02 K/uL (0-0.2) 12/22/22 06:41 Immature Gran # (Auto) 0.10 K/uL (0.01-0.20) 12/22/22 06:41 Polychromasia 1+ 12/20/22 04:22 Poikilocytosis Present 12/20/22 04:22 Anisocytosis Present 12/20/22 04:22 Tear Drop Cells 1+ 12/18/22 06:49 Ovalocytes 1+ 12/16/22 20:12 Echinocytes 1+ 12/18/22 06:49 PT 18.6 Seconds (9.0-12.0) H 12/22/22 06:41 INR 1.8 (0.9-1.1) H 12/22/22 06:41 APTT 68.3 Seconds (21.0-31.0) H* 12/22/22 06:41 PTT Ratio 2.4 12/22/22 06:41 POC Sodium 141 mmol/L (135-144) 12/16/22 20:37 Sodium 141 mmol/L (136-145) 12/22/22 06:41 POC Potassium 4.0 mmol/L (3.3-5.0) 12/16/22 20:37 Potassium 3.7 mmol/L (3.5-5.1) 12/22/22 06:41 POC Chloride 106 mmol/L (101-112) 12/16/22 20:37 Chloride 107 mmol/L (98-107) 12/22/22 06:41 Carbon Dioxide 29 mmol/L (21-32) 12/22/22 06:41 POC Total CO2 22 mmol/L (24-31) L 12/16/22 20:37 Anion Gap 5 (3-11) 12/22/22 06:41 POC Anion Gap 18.0 mmol/L (16-25) 12/16/22 20:37 POC BUN 71 mg/dl (7-18) H 12/16/22 20:37 BUN 81 mg/dl (6-23) H 12/22/22 06:41 Creatinine 1.66 mg/dl (0.6-1.4) H 12/22/22 06:41 POC Creatinine 2.6 mg/dl (0.6-1.3) H 12/16/22 20:37 Est Cr Clr Drug Dosing 46.2 ml/min 12/22/22 06:41 Est GFR ( Amer) 47.0 ml/min 12/22/22 06:41 Est GFR (Non-Af Amer) 40.6 ml/min 12/22/22 06:41 BUN/Creatinine Ratio 48.8 (10-20) H 12/22/22 06:41 Glucose 109 mg/dl (70-99(Fasting)) H 12/22/22 06:41 POC Glucose (other) 88 mg/dl (70-99) 12/16/22 20:37 Lactate 1.5 mmol/L (0.4-2.0) 12/17/22 16:33 Calcium 8.3 mg/dl (8.6-10.3) L 12/22/22 06:41 POC Ioniz Calcium Codey 1.09 mmol/l (1.12-1.32) L 12/16/22 20:37 Phosphorus 3.8 mg/dl (2.5-4.9) 12/21/22 04:47 Magnesium 2.1 mg/dl (1.7-2.4) 12/22/22 06:41 Total Bilirubin 1.2 mg/dl (0.2-1.0) H 12/22/22 06:41 AST 26 U/L (13-39) 12/22/22 06:41 ALT 37 U/L (7-52) 12/22/22 06:41 Alkaline Phosphatase 94 U/L (34-104) 12/22/22 06:41 Troponin I High Sens 96.3 pg/ml (0-20) H* D 12/17/22 19:56 B-Natriuretic Peptide 704 pg/ml (0-100) H 12/16/22 23:22 Total Protein 5.1 gm/dl (6.0-8.3) L 12/22/22 06:41 Albumin 2.8 gm/dl (3.4-5.0) L 12/22/22 06:41 Globulin 2.3 gm/dl (2.5-4.0) L 12/22/22 06:41 Albumin/Globulin Ratio 1.2 (0.9-2) 12/22/22 06:41 Lipase 14 U/L (11-82) 12/16/22 20:12 Procalcitonin 0.42 ng/ml (0-0.5) 12/16/22 20:13 TSH 4.479 uIu/ml (0.300-4.500) 12/16/22 20:13 Random Cortisol 23.34 mcg/dl 12/17/22 16:33 Urine Color Yellow 12/16/22 20:12 Urine Appearance Clear (Clear) 12/16/22 20:12 Urine pH 5.5 (4.5-7.5) 12/16/22 20:12 Ur Specific [place] 1.012 (1.000-1.030) 12/16/22 20:12 Urine Protein Negative (Negative) 12/16/22 20:12 Urine Glucose (UA) Negative (Negative) 12/16/22 20:12 Urine Ketones Negative (Negative) 12/16/22 20:12 Urine Blood Negative (Negative) 12/16/22 20:12 Urine Nitrite Negative (Negative) 12/16/22 20:12 Urine Bilirubin Negative (Negative) 12/16/22 20:12 Urine Urobilinogen Negative (Negative) 12/16/22 20:12 Ur Leukocyte Esterase Negative (Negative) 12/16/22 20:12 Nasal Screen MRSA (PCR) Negative (Negative) 12/17/22 16:40 SARS-CoV-2, RNA, NAAT NEGATIVE (NEGATIVE) 12/16/22 20:12 Blood Type O Positive 12/17/22 10:50 Antibody Screen NEGATIVE 12/17/22 10:50 Impressions Abdomen/Pelvis CT 12/16/22 20:44 Exam(s): CT ABDOMEN + PELVIS Without Contrast EXAM: CT Abdomen and Pelvis Without Intravenous Contrast CLINICAL HISTORY: Reason for exam: Abd pain. TECHNIQUE: Axial computed tomography images of the abdomen and pelvis without intravenous contrast. CTDI is 27.34 mGy and DLP is 1388.62 mGy-cm. Automated exposure control was utilized for the study. A dose lowering technique was utilized adhering to the principles of ALARA. COMPARISON: No relevant prior studies available. FINDINGS: Lung bases: Unremarkable. No mass. No consolidation. Pleural space: Small RIGHT pleural effusion. Heart: Cardiomegaly. Prosthetic aortic valve. ABDOMEN: Liver: Mild hepatic cirrhotic morphology. Mild perihepatic and perisplenic ascites. Gallbladder and bile ducts: Unremarkable. No calcified stones. No ductal dilation. Pancreas: Unremarkable. No ductal dilation. Spleen: Unremarkable. No splenomegaly. Adrenals: Unremarkable. No mass. Kidneys and ureters: Unremarkable. No hydronephrosis or nephrolithiasis. Stomach and bowel: Ventral abdominal wall hernia, which contains a loop of small bowel. Mildly prominent small bowel entering this hernia measuring up to 2.6 cm, concerning for partial bowel obstruction. Diverticulosis, without acute diverticulitis. No free air. PELVIS: Appendix: No findings to suggest acute appendicitis. Bladder: Unremarkable. No stones. Reproductive: Unremarkable as visualized. ABDOMEN and PELVIS: Intraperitoneal space: See above. Bones/joints: Sternotomy wires. Degenerative changes of the spine. LEFT hip arthroplasty. No acute fracture. No dislocation. Soft tissues: See above. Vasculature: Atherosclerotic changes of the aorta. No abdominal aortic aneurysm. Lymph nodes: Unremarkable. No enlarged lymph nodes. IMPRESSION: 1. Ventral abdominal wall hernia, which contains a loop of small bowel. Mildly prominent small bowel entering this hernia measuring up to 2.6 cm, concerning for partial bowel obstruction. 2. No hydronephrosis or nephrolithiasis. 3. Small RIGHT pleural effusion. 4. Mild hepatic cirrhotic morphology. Mild perihepatic and perisplenic ascites. 5. Diverticulosis, without acute diverticulitis. No free air. Electronically signed by: Gerhard Forman MD 12/16/22 22:10 PM KUB X-Ray 12/17/22 05:49 KUB HISTORY: ng tube placement COMPARISON: KUB 12/17/2022. FINDINGS: Nasogastric tube terminates in the stomach. Small bilateral pleural effusions and right basilar densities persist. The heart remains enlarged. There are poststernotomy changes and a cardiac valve prosthesis again noted. Mildly dilated gas-filled loops of small bowel are again seen within the upper abdomen. This is concerning for a small bowel obstruction. No renal calculi. No ureteral calculi. No pneumoperitoneum or pneumatosis. IMPRESSION: 1. Nasogastric tube terminates in the stomach. 2. Mildly dilated gas-filled loops of small bowel are seen within the upper abdomen concerning for a small bowel obstruction. ACT 112: Negative or not required by law. Electronically signed by: Neftaly Urrutia M.D. 12/17/2022 6:43 AM Chest X-Ray 12/21/22 09:16 XR chest 1V portable CLINICAL HISTORY: Follow-up pulmonary edema. COMPARISON STUDY: Chest CT December 12, 2009. Chest radiograph December 18, 2022. FINDINGS: Left PICC projects over the distal left SVC. There are median sternotomy wires and a prosthetic cardiac valve. Cardiomegaly is unchanged. Bilateral pleural effusions, right larger than left, are unchanged. Associated right basilar opacity is again noted. Pulmonary edema has slightly improved. No pneumothorax. IMPRESSION: 1. Slight improvement in pulmonary edema. 2. No significant change in bilateral pleural effusions, right larger than left, with associated right lung opacities. ACT 112: Negative or not required by law. Electronically signed by: Patel Daniel M.D. 12/21/2022 10:22 AM
[2022-12-22 16:12] LABS: Partial Thromboplastin Ratio 2.2
[2022-12-22] MEDS: WARFARIN SOD 5 MG TAB PO SCH (16:39)
[2022-12-22 17:05] LABS: Partial Thromboplastin Time 61.4 Seconds (21.0-31.0)
--- NOTE | 2022-12-22 18:28 | Cardiology Progress Note ---
Date of Service December 22, 2022 Assessment & Plan (1) Umbilical hernia, incarcerated: (2) S/P AVR (aortic valve replacement): (3) Congenital heart disease: (4) CRF (chronic renal failure): Plan IMPRESSION: Medically complex 72 year old male with hx of congenital heart disease s/p pulmonic valve and ASD repair as well as severe s/p mechanical AVR and ascending aortic repair. Found to have an incarcerated umbilical hernia status post open partial small bowel resection and repair of ventral hernia, 12/17/[address] Solis Echo this admission stable with findings associated with prior heart/valvular disease. Hypotensive on presentation, chronic finding. No longer requiring pressor support. NG tube removed 12/19. PLAN: Tolerating clear liquid diet. He is back on his oral medications including amiodarone, warfarin, atorvastatin. Diuresing well with furosemide 30 mg IV twice daily. Hemoglobin stable, 9.8 g/dL, INR 1.8 (goal outpatient INR 2.5-3.5 per outpatient anticoagulation clinic notes) Most recent cardiac surgery included an ascending aorta conduit with mechanical prosthesis and his coronaries were reimplanted in his to place in 2013. Creatinine trending down. Continue heparin bridge, home warfarin regimen of 5 mg alternating with 2.5 mg. Restart metoprolol tomorrow with holds. Admission and Anticipated Discharge Date Admission Date: December 17, 2022 Subjective Patient seen in cardiology follow-up. Overall notes feeling well. Telemetry reveals ongoing sinus rhythm in 60s. He states that his legs are weak and he is still unable to walk. An attempt was made to get him into the bedside chair but it did not go well today. Heparin is still infusing without complication. Physical Exam Constitutional: no acute distress Neck: normal visual inspection and trachea midline Respiratory: no respiratory distress, no labored breathing and no cough Auscultation: + diminished lung sounds; no rales, no rhonchi and no wheezes Cardiovascular: Rate/Rhythm: regular rate and regular rhythm Heart Sounds: normal S1 and normal S2 (Hunt mechanical valve closure ) Extremities: + edema (Trace to 1+ bilateral lower extremity edema) Gastrointestinal (Abdomen): Inspection/Auscultation: + hypoactive bowel sounds; abdomen not distended Percussion/Palpation: abdomen soft; abdomen nontender Skin: no rashes, warm and dry Neurologic: PERRL, EOMI, accommodation nl, no face palsy, no dysarthria Psychiatric: A+Ox3, euthymic affect Results & Data Vital Signs (Past 12 Hours) Vital Signs Temp Pulse Pulse Resp BP Pulse Ox O2 Del Method 12/22/22 14:00 68 12/22/22 15:40 36.8 C 67 18 114/54 L 91 Room Air 12/22/22 08:00 69 12/22/22 11:33 36.5 C 68 18 106/52 L 96 Room Air 12/22/22 07:28 36.3 C L 68 18 106/54 L 91 Room Air (4) CRF (chronic renal failure) Chronic kidney disease stage: unspecified stage Qualified Code(s): N18.9 - Chronic kidney disease, unspecified
[2022-12-22] MEDS: TERAZOSIN HCL 1 MG CAP PO SCH (20:40)
[2022-12-23] MEDS: HEPARIN SODIUM/DEXTROSE 25,000 UNITS/500 ML BAG IV SCH (05:05)
[2022-12-23 06:29] LABS: Basophils # (auto) 0.02 K/uL (0-0.2); Basophils % (auto) 0.3 %; Eosinophils % (auto) 1.5 %; Hematocrit (blood only) 27.8 % (42.0-52.0); Hemoglobin 9.4 g/dl (14.0-18.0); Immature Granulocytes # (auto) 0.29 K/uL (0.01-0.20); Immature Granulocytes % (auto) 4.3 %; Lymphocytes # (auto) 1.01 K/uL (1.2-3.4); Lymphocytes % (auto) 14.9 %; Mean Corpuscular Hemoglobin 29.4 pg (25.0-34.0); Mean Corpuscular Hgb Conc 33.8 g/dL (32.0-36.0); Mean Corpuscular Volume 86.9 fL (80.0-100.0); Mean Platelet Volume 11.7 fL (9.4-12.4); Monocytes # (auto) 0.78 K/uL (0.11-0.59); Monocytes % (auto) 11.5 %; Neutrophils # (auto) 4.59 K/uL (1.40-6.50); Neutrophils % (auto) 67.5 %; Platelet Count 121 K/uL (130-400); RDW Coefficient of Variation 19.3 % (11.5-14.5); White Blood Count 6.79 K/ul (4.8-10.8)
[2022-12-23 06:47] LABS: BUN Creatinine Ratio 43.2 (10-20); Calcium 7.9 mg/dl (8.6-10.3); Creatinine Clr Calc Pharmacy 47.3 ml/min; Est GFR (African American) 48.4 ml/min; Est GFR (Non-African American) 41.8 ml/min; Potassium 3.6 mmol/L (3.5-5.1)
[2022-12-23 07:08] LABS: INR 1.8 (0.9-1.1); Partial Thromboplastin Ratio 2.4; Prothrombin Time 18.9 Seconds (9.0-12.0)
[2022-12-23 07:26] LABS: Partial Thromboplastin Time 67.9 Seconds (21.0-31.0)
[2022-12-23] MEDS ORDERED: ACETAMINOPHEN 325 MG TAB PO PRN (08:37)
[2022-12-23] MEDS: AMIODARONE 200 MG TAB PO SCH (08:53)
[2022-12-23] MEDS: allopurinoL 300 MG TAB PO SCH (08:53)
[2022-12-23] MEDS: ATORVASTATIN 40 MG TAB PO SCH (08:54)
[2022-12-23] MEDS: FUROSEMIDE INJ 20 MG/2 ML VIAL IV SCH ×2 (08:55→14:34)
[2022-12-23] MEDS: METOPROLOL TARTRATE 25 MG TAB PO SCH ×2 (08:55→21:05)
--- NOTE | 2022-12-23 09:13 | Surgery Progress Note ---
Date of Service December 23, 2022 Assessment & Plan (1) History of colon resection: Plan Doing okay all things considered I do believe he will need some more aggressive physical therapy. I have asked the nurse to give him some Tylenol for the left lower quadrant discomfort. This may be some constipation though I do not want to give him laxatives yet considering he just had a bowel resection. Encourage increase oral fluid intake this combined with physical therapy/getting out of bed should help Admission and Anticipated Discharge Date Admission Date: December 17, 2022 Subjective Patient seen. He is doing okay from his surgery. He has most concerned with the weakness in his legs he thought he would bounce back quicker than he has. He is only had 1 bowel movement since surgery but he is eating. He has no nausea. He has a little bit of left lower quadrant discomfort this morning for the first time. Physical Exam Physical Exam: Alert. No acute distress His incision looks good. Abdomen is appropriately tender. Results & Data Vital Signs (Past 12 Hours) Vital Signs Temp Pulse Pulse Pulse Resp BP Pulse Ox 12/23/22 08:00 68 12/23/22 07:29 36.8 C 66 18 111/56 L 91 12/23/22 02:37 37 C 63 18 106/49 L 93 12/22/22 23:18 64 12/22/22 23:08 36.6 C 65 18 104/48 L 92 O2 Del Method 12/23/22 08:00 12/23/22 07:29 Room Air 12/23/22 02:37 Room Air 12/22/22 23:18 12/22/22 23:08 Room Air PG Care Time/CCT Total # of Minutes Spent Total Time Spent with Patient: Total time spent is greater than 50% in coordination of care (as documented) at patient's floor/unit and/or counseling patient: Coding Level of Care Code 90287 Post Operative Follow-Up Diagnoses History of colon resection Z90.49
--- NOTE | 2022-12-23 09:32 | Cardiology Progress Note ---
Date of Service December 23, 2022 Assessment & Plan (1) Umbilical hernia, incarcerated: (2) S/P AVR (aortic valve replacement): (3) Congenital heart disease: (4) CRF (chronic renal failure): Plan IMPRESSION: Medically complex 72 year old male with hx of congenital heart disease s/p pulmonic valve and ASD repair as well as severe s/p mechanical AVR and ascending aortic repair. Found to have an incarcerated umbilical hernia status post open partial small bowel resection and repair of ventral hernia, 12/17/[address] Solis Echo this admission stable with findings associated with prior heart/valvular disease. Hypotensive on presentation, chronic finding. No longer requiring pressor support. NG tube removed 12/19. PLAN: Tolerating clear liquid diet. He is back on his oral medications including amiodarone, warfarin, atorvastatin. Diuresing well with furosemide 30 mg IV twice daily. Hemoglobin stable, 9.4 g/dL, INR 1.8 (goal outpatient INR 2.5-3.5 per outpatient anticoagulation clinic notes) Most recent cardiac surgery included an ascending aorta conduit with mechanical prosthesis and his coronaries were reimplanted in his to place in 2013. Creatinine trending down. Continue heparin bridge, home warfarin regimen of 5 mg alternating with 2.5 mg. BP stable. Metoprolol resumed. ASA still on hold. Admission and Anticipated Discharge Date Admission Date: December 17, 2022 Subjective Patient seen in follow up Telemetry reveals SR in the 60s to 70s. He is out of bed in the chair. Mild abdominal pain for which he received Tylenol. Physical Exam Constitutional: + ill appearing; no acute distress Neck: normal visual inspection and trachea midline Respiratory: no respiratory distress, no labored breathing and no cough Auscultation: + diminished lung sounds; no rales, no rhonchi and no wheezes Cardiovascular: Rate/Rhythm: regular rate and regular rhythm Heart Sounds: normal S1 and normal S2 (Will mechanical valve closure ) Extremities: + edema (Trace to 1+ bilateral lower extremity edema) Gastrointestinal (Abdomen): Inspection/Auscultation: + hypoactive bowel sounds; abdomen not distended Percussion/Palpation: abdomen soft; abdomen nontender Skin: no rashes, warm and dry Neurologic: PERRL, EOMI, accommodation nl, no face palsy, no dysarthria Psychiatric: A+Ox3, euthymic affect Results & Data Vital Signs (Past 12 Hours) Vital Signs Temp Pulse Pulse Pulse Resp BP Pulse Ox 12/23/22 08:00 68 12/23/22 07:29 36.8 C 66 18 111/56 L 91 12/23/22 02:37 37 C 63 18 106/49 L 93 12/22/22 23:18 64 12/22/22 23:08 36.6 C 65 18 104/48 L 92 O2 Del Method 12/23/22 08:00 12/23/22 07:29 Room Air 12/23/22 02:37 Room Air 12/22/22 23:18 12/22/22 23:08 Room Air Laboratory Results Hbg 9.4 INR 1.8 (4) CRF (chronic renal failure) Chronic kidney disease stage: unspecified stage Qualified Code(s): N18.9 - Chronic kidney disease, unspecified
--- NOTE | 2022-12-23 11:24 | Nephrology Progress Note ---
Date of Service December 23, 2022 Assessment & Plan (1) Acute on chronic renal failure: Plan: Patient with nonoliguric stage 1 TATA due to ischemic ATN and nonproteinuric CKD 3B w/ labile baseline function. baseline creatinine 1.8; already w/ TATA on arrival w/ presenting creatinine 2.3 and worsened to peak at 3.3 on 12/18. new dx of early liver cirrhosis. admission UA bland. mild persistent hyperchloremia noted but chemistries overall remain acceptable. Creatinine down to 1.6 today. -Continue Lasix 30 mg twice daily -Daily BMP -Avoid contrast unless lifesaving (2) Volume overload: Plan: w/ lower extremity edema, pulmonary vascular congestion and edema, hypoxia, recurrent pleural effusions; hx of diastolic HF on low dose lasix as OP (20 mg daily per H&P). -continue strict I/O > Continue Lasix 30 mg IV twice daily as above -bed to chair -daily bmp Admission and Anticipated Discharge Date Admission Date: December 17, 2022 Subjective Seen in follow-up for TATA. He feels better today. Main complaint is abdominal pain incisional pain. No shortness of breath Review of Systems Review of Systems: All other systems were reviewed and negative except as noted in HPI Physical Exam Physical Exam: General exam: Appears comfortable, no acute distress HEENT: Pupils are equal and reactive to light Neck: No JVD, neck is supple trachea is midline Respiratory system: Clear breath sounds bilaterally. Gastrointestinal: Abdomen is soft, pain incisional tenderness CVS: Regular rate and rhythm. No murmurs, rubs or gallops Musculoskeletal: No joint or muscle tenderness Extremities: Non tender, 1+ edema, peripheral pulses are present Neuro: Oriented, no tremors, no focal neurological deficits Skin: No rashes Results & Data Vital Signs (Past 12 Hours) Vital Signs Temp Pulse Pulse Pulse Resp BP Pulse Ox 12/23/22 08:00 68 12/23/22 07:29 36.8 C 66 18 111/56 L 91 12/23/22 02:37 37 C 63 18 106/49 L 93 O2 Del Method 12/23/22 08:00 12/23/22 07:29 Room Air 12/23/22 02:37 Room Air Laboratory Results 12/23/22 05:50 12/23/22 05:50 WBC 6.79 RBC 3.20 L MCV 86.9 MCH 29.4 MCHC 33.8 RDW Std Deviation 61.0 H RDW Coeff of [place] 19.3 H Plt Count 121 L MPV 11.7
[2022-12-23] MEDS: PANTOprazole 40 MG in SYRINGE 0 ML IV SCH (11:32)
--- NOTE | 2022-12-23 12:42 | Hospitalist Progress Note ---
Date of Service December 23, 2022 Assessment & Plan (1) Umbilical hernia, incarcerated: Plan: INCARCERATED UMBILICAL HERNIA Status post Laparoscopy converted to open partial small bowel resection, repair of ventral hernia on 12/17 Patient was transferred to ICU for closer monitoring after the surgery on the same day Initially on NG tube; removed on 12/19. first bowel movement on 12/21 Discussed with surgery; tolerating diet. Monitor for ileus. Continue PT OT Successful trial of void on 12/22 ACUTE ON CHRONIC DIASTOLIC CHF Mechanical valve on warfarin status post vitamin K Bilateral pleural effusion Chest x-ray done on 12/21 reviewed; improvement in pulmonary edema. Bilateral pleural effusion persistent Currently on heparin drip. Amiodarone resumed. Coumadin resumed; PT/INR1. 8 Will discontinue heparin once warfarin is therapeutic. Cardiology on board Continue diuresis as per nephrology. Currently on IV Lasix 30 mg twice daily. will repeat chest x-ray to follow-up on pleural effusion. Septic shock Secondary to incarcerated hernia Off vasopressor support since 11/18 Status post 5 days of ertapenem. Status post hydrocortisone ACUTE KIDNEY INJURY on CKD Creatinine downtrending; at baseline Urine output reassuring Continue hemodynamic support Nephrology on board; started on IV Lasix 30 mg twice daily. INCIDENTAL FINDING OF CIRRHOSIS ON CT, NEW DIAGNOSIS Will need outpatient GI follow-up Other chronic medical problems: hypertension hyperlipidemia, on statin Rx thoracic aortic dissection status post surgery chronic anemia prostate cancer status post surgery Disposition PT OT evaluation completed; recommend rehab. Case management on board. Time spent evaluating patient, direct bedside care, chart review, placing orders, interpretation of diagnostic studies, discussion with consultants, patient, and family members, as well as other required patient management activities is 60 minutes Please note the above document was generated using voice recognition software. It may contain grammatical, syntax or spelling errors. Any formal questions or concerns about the content, text or information contained within the body of this dictation should be directly addressed to the provider for clarification Admission and Anticipated Discharge Date Admission Date: December 17, 2022 Subjective Patient seen and examined at bedside. He is sitting up on a chair at the side of the bed; not in any distress. Reports left lower quadrant abdominal pain. Tolerating normal diet Review of Systems Review of Systems: All systems reviewed & are unremarkable except as noted in Subjective Physical Exam Physical Exam: Constitutional: Alert, oriented x3. Respiratory: Bilateral basal decreased breath sound. Cardiovascular: RRR, mechanical valve sound present Chest: normal inspection of chest Abdomen: Dressing clean dry and intact. Musculoskeletal: no cyanosis or clubbing, extremities motor strength 5/5 Skin: no rashes, warm and dry normal turgor Neurologic: PERRL, EOMI, accommodation nl, no face palsy, no dysarthria CN's II- XI intact bilaterally and moves all extremities Psychiatric: A+Ox3, euthymic affect Results & Data Results & Data Vital Signs (Past 12 Hours) Vital Signs Temp Pulse Pulse Pulse Resp BP Pulse Ox 12/23/22 11:06 36.5 C 62 18 93/48 L 96 12/23/22 08:00 68 12/23/22 07:29 36.8 C 66 18 111/56 L 91 12/23/22 02:37 37 C 63 18 106/49 L 93 O2 Del Method 12/23/22 11:06 Room Air 12/23/22 08:00 12/23/22 07:29 Room Air 12/23/22 02:37 Room Air Laboratory Results Laboratory Results WBC 6.79 K/ul (4.8-10.8) 12/23/22 05:50 RBC 3.20 M/uL (4.70-6.10) L 12/23/22 05:50 Hgb 9.4 g/dl (14.0-18.0) L 12/23/22 05:50 POC Hgb 12.2 g/dl (14.0-18.0) L 12/16/22 20:37 Hct 27.8 % (42.0-52.0) L 12/23/22 05:50 POC Hct 36 % (42-52) L 12/16/22 20:37 MCV 86.9 fL (80.0-100.0) 12/23/22 05:50 MCH 29.4 pg (25.0-34.0) 12/23/22 05:50 MCHC 33.8 g/dL (32.0-36.0) 12/23/22 05:50 RDW Std Deviation 61.0 fL (36.4-46.3) H 12/23/22 05:50 RDW Coeff of Penelope 19.3 % (11.5-14.5) H 12/23/22 05:50 Plt Count 121 K/uL (130-400) L 12/23/22 05:50 MPV 11.7 fL (9.4-12.4) 12/23/22 05:50 Immature Gran % (Auto) 4.3 % 12/23/22 05:50 Neut % (Auto) 67.5 % 12/23/22 05:50 Lymph % (Auto) 14.9 % 12/23/22 05:50 [place] % (Auto) 11.5 % 12/23/22 05:50 Eos % (Auto) 1.5 % 12/23/22 05:50 Baso % (Auto) 0.3 % 12/23/22 05:50 Neut # (Auto) 4.59 K/uL (1.40-6.50) 12/23/22 05:50 Lymph # (Auto) 1.01 K/uL (1.2-3.4) L 12/23/22 05:50 [place] # (Auto) 0.78 K/uL (0.11-0.59) H 12/23/22 05:50 Eos # (Auto) 0.10 K/uL (0-0.50) 12/23/22 05:50 Baso # (Auto) 0.02 K/uL (0-0.2) 12/23/22 05:50 Immature Gran # (Auto) 0.29 K/uL (0.01-0.20) H 12/23/22 05:50 Polychromasia 1+ 12/20/22 04:22 Poikilocytosis Present 12/20/22 04:22 Anisocytosis Present 12/20/22 04:22 Tear Drop Cells 1+ 12/18/22 06:49 Ovalocytes 1+ 12/16/22 20:12 Echinocytes 1+ 12/18/22 06:49 PT 18.9 Seconds (9.0-12.0) H 12/23/22 05:50 INR 1.8 (0.9-1.1) H 12/23/22 05:50 APTT 67.9 Seconds (21.0-31.0) H* 12/23/22 05:50 PTT Ratio 2.4 12/23/22 05:50 POC Sodium 141 mmol/L (135-144) 12/16/22 20:37 Sodium 140 mmol/L (136-145) 12/23/22 05:50 POC Potassium 4.0 mmol/L (3.3-5.0) 12/16/22 20:37 Potassium 3.6 mmol/L (3.5-5.1) 12/23/22 05:50 POC Chloride 106 mmol/L (101-112) 12/16/22 20:37 Chloride 105 mmol/L (98-107) 12/23/22 05:50 Carbon Dioxide 29 mmol/L (21-32) 12/23/22 05:50 POC Total CO2 22 mmol/L (24-31) L 12/16/22 20:37 Anion Gap 6 (3-11) 12/23/22 05:50 POC Anion Gap 18.0 mmol/L (16-25) 12/16/22 20:37 POC BUN 71 mg/dl (7-18) H 12/16/22 20:37 BUN 70 mg/dl (6-23) H 12/23/22 05:50 Creatinine 1.62 mg/dl (0.6-1.4) H 12/23/22 05:50 POC Creatinine 2.6 mg/dl (0.6-1.3) H 12/16/22 20:37 Est Cr Clr Drug Dosing 47.3 ml/min 12/23/22 05:50 Est GFR ( Amer) 48.4 ml/min 12/23/22 05:50 Est GFR (Non-Af Amer) 41.8 ml/min 12/23/22 05:50 BUN/Creatinine Ratio 43.2 (10-20) H 12/23/22 05:50 Glucose 102 mg/dl (70-99(Fasting)) H 12/23/22 05:50 POC Glucose (other) 88 mg/dl (70-99) 12/16/22 20:37 Lactate 1.5 mmol/L (0.4-2.0) 12/17/22 16:33 Calcium 7.9 mg/dl (8.6-10.3) L 12/23/22 05:50 POC Ioniz Calcium Codey 1.09 mmol/l (1.12-1.32) L 12/16/22 20:37 Phosphorus 3.8 mg/dl (2.5-4.9) 12/21/22 04:47 Magnesium 2.1 mg/dl (1.7-2.4) 12/22/22 06:41 Total Bilirubin 1.2 mg/dl (0.2-1.0) H 12/22/22 06:41 AST 26 U/L (13-39) 12/22/22 06:41 ALT 37 U/L (7-52) 12/22/22 06:41 Alkaline Phosphatase 94 U/L (34-104) 12/22/22 06:41 Troponin I High Sens 96.3 pg/ml (0-20) H* D 12/17/22 19:56 B-Natriuretic Peptide 704 pg/ml (0-100) H 12/16/22 23:22 Total Protein 5.1 gm/dl (6.0-8.3) L 12/22/22 06:41 Albumin 2.8 gm/dl (3.4-5.0) L 12/22/22 06:41 Globulin 2.3 gm/dl (2.5-4.0) L 12/22/22 06:41 Albumin/Globulin Ratio 1.2 (0.9-2) 12/22/22 06:41 Lipase 14 U/L (11-82) 12/16/22 20:12 Procalcitonin 0.42 ng/ml (0-0.5) 12/16/22 20:13 TSH 4.479 uIu/ml (0.300-4.500) 12/16/22 20:13 Random Cortisol 23.34 mcg/dl 12/17/22 16:33 Urine Color Yellow 12/16/22 20:12 Urine Appearance Clear (Clear) 12/16/22 20:12 Urine pH 5.5 (4.5-7.5) 12/16/22 20:12 Ur Specific [place] 1.012 (1.000-1.030) 12/16/22 20:12 Urine Protein Negative (Negative) 12/16/22 20:12 Urine Glucose (UA) Negative (Negative) 12/16/22 20:12 Urine Ketones Negative (Negative) 12/16/22 20:12 Urine Blood Negative (Negative) 12/16/22 20:12 Urine Nitrite Negative (Negative) 12/16/22 20:12 Urine Bilirubin Negative (Negative) 12/16/22 20:12 Urine Urobilinogen Negative (Negative) 12/16/22 20:12 Ur Leukocyte Esterase Negative (Negative) 12/16/22 20:12 Nasal Screen MRSA (PCR) Negative (Negative) 12/17/22 16:40 SARS-CoV-2, RNA, NAAT NEGATIVE (NEGATIVE) 12/16/22 20:12 Blood Type O Positive 12/17/22 10:50 Antibody Screen NEGATIVE 12/17/22 10:50 Impressions Abdomen/Pelvis CT 12/16/22 20:44 Exam(s): CT ABDOMEN + PELVIS Without Contrast EXAM: CT Abdomen and Pelvis Without Intravenous Contrast CLINICAL HISTORY: Reason for exam: Abd pain. TECHNIQUE: Axial computed tomography images of the abdomen and pelvis without intravenous contrast. CTDI is 27.34 mGy and DLP is 1388.62 mGy-cm. Automated exposure control was utilized for the study. A dose lowering technique was utilized adhering to the principles of ALARA. COMPARISON: No relevant prior studies available. FINDINGS: Lung bases: Unremarkable. No mass. No consolidation. Pleural space: Small RIGHT pleural effusion. Heart: Cardiomegaly. Prosthetic aortic valve. ABDOMEN: Liver: Mild hepatic cirrhotic morphology. Mild perihepatic and perisplenic ascites. Gallbladder and bile ducts: Unremarkable. No calcified stones. No ductal dilation. Pancreas: Unremarkable. No ductal dilation. Spleen: Unremarkable. No splenomegaly. Adrenals: Unremarkable. No mass. Kidneys and ureters: Unremarkable. No hydronephrosis or nephrolithiasis. Stomach and bowel: Ventral abdominal wall hernia, which contains a loop of small bowel. Mildly prominent small bowel entering this hernia measuring up to 2.6 cm, concerning for partial bowel obstruction. Diverticulosis, without acute diverticulitis. No free air. PELVIS: Appendix: No findings to suggest acute appendicitis. Bladder: Unremarkable. No stones. Reproductive: Unremarkable as visualized. ABDOMEN and PELVIS: Intraperitoneal space: See above. Bones/joints: Sternotomy wires. Degenerative changes of the spine. LEFT hip arthroplasty. No acute fracture. No dislocation. Soft tissues: See above. Vasculature: Atherosclerotic changes of the aorta. No abdominal aortic aneurysm. Lymph nodes: Unremarkable. No enlarged lymph nodes. IMPRESSION: 1. Ventral abdominal wall hernia, which contains a loop of small bowel. Mildly prominent small bowel entering this hernia measuring up to 2.6 cm, concerning for partial bowel obstruction. 2. No hydronephrosis or nephrolithiasis. 3. Small RIGHT pleural effusion. 4. Mild hepatic cirrhotic morphology. Mild perihepatic and perisplenic ascites. 5. Diverticulosis, without acute diverticulitis. No free air. Electronically signed by: Gerhard Forman MD 12/16/22 22:10 PM KUB X-Ray 12/17/22 05:49 KUB HISTORY: ng tube placement COMPARISON: KUB 12/17/2022. FINDINGS: Nasogastric tube terminates in the stomach. Small bilateral pleural effusions and right basilar densities persist. The heart remains enlarged. There are poststernotomy changes and a cardiac valve prosthesis again noted. Mildly dilated gas-filled loops of small bowel are again seen within the upper abdomen. This is concerning for a small bowel obstruction. No renal calculi. No ureteral calculi. No pneumoperitoneum or pneumatosis. IMPRESSION: 1. Nasogastric tube terminates in the stomach. 2. Mildly dilated gas-filled loops of small bowel are seen within the upper abdomen concerning for a small bowel obstruction. ACT 112: Negative or not required by law. Electronically signed by: Neftaly Urrutia M.D. 12/17/2022 6:43 AM Chest X-Ray 12/21/22 09:16 XR chest 1V portable CLINICAL HISTORY: Follow-up pulmonary edema. COMPARISON STUDY: Chest CT December 12, 2009. Chest radiograph December 18, 2022. FINDINGS: Left PICC projects over the distal left SVC. There are median sternotomy wires and a prosthetic cardiac valve. Cardiomegaly is unchanged. Bilateral pleural effusions, right larger than left, are unchanged. Associated right basilar opacity is again noted. Pulmonary edema has slightly improved. No pneumothorax. IMPRESSION: 1. Slight improvement in pulmonary edema. 2. No significant change in bilateral pleural effusions, right larger than left, with associated right lung opacities. ACT 112: Negative or not required by law. Electronically signed by: Patel Daniel M.D. 12/21/2022 10:22 AM
--- NOTE | 2022-12-23 13:27 | XRay Report ---
XR chest 1V portable CLINICAL HISTORY: Follow up on pleural effusion COMPARISON STUDY: Chest radiograph December 21, 2022. FINDINGS: There is no pneumothorax. Small to moderate right pleural effusion with right basilar opaci ty has slightly increased. Cardiomegaly is again noted. There are median sternotomy wires and prosthe tic cardiac valve. There is no evidence for overt edema. There is a trace left pleural effusion. IMPRESSION: 1. Slight increase in a small to moderate right pleural effusion. Persistent right basilar opacity. 2. Cardiomegaly without evidence for pulmonary edema. ACT 112: Negative or not required by law. Electronically signed by: Patel Daniel M.D. 12/23/2022 1:26 PM
[2022-12-23] MEDS ORDERED: FUROSEMIDE 40 MG/4 ML VIAL IV SCH (14:00)
[2022-12-23 15:02] LABS: Partial Thromboplastin Time 55.8 Seconds (21.0-31.0)
[2022-12-23] MEDS: WARFARIN SOD 5 MG TAB PO SCH (16:13)
[2022-12-23] MEDS: TERAZOSIN HCL 1 MG CAP PO SCH (21:05)
[2022-12-24] MEDS: HEPARIN SODIUM/DEXTROSE 25,000 UNITS/500 ML BAG IV SCH (03:45)
[2022-12-24 06:15] LABS: BUN Creatinine Ratio 38.3 (10-20); Calcium 7.6 mg/dl (8.6-10.3); Creatinine Clr Calc Pharmacy 43.8 ml/min; Est GFR (African American) 44.1 ml/min; Est GFR (Non-African American) 38.1 ml/min; Potassium 3.6 mmol/L (3.5-5.1)
[2022-12-24 06:38] LABS: Basophils # (auto) 0.01 K/uL (0-0.2); Basophils % (auto) 0.1 %; Eosinophils # (auto) 0.18 K/uL (0-0.50); Eosinophils % (auto) 2.4 %; Hematocrit (blood only) 28.4 % (42.0-52.0); Hemoglobin 9.3 g/dl (14.0-18.0); Immature Granulocytes # (auto) 0.39 K/uL (0.01-0.20); Immature Granulocytes % (auto) 5.2 %; Lymphocytes # (auto) 1.23 K/uL (1.2-3.4); Lymphocytes % (auto) 16.5 %; Mean Corpuscular Hemoglobin 29.3 pg (25.0-34.0); Mean Corpuscular Hgb Conc 32.7 g/dL (32.0-36.0); Mean Corpuscular Volume 89.6 fL (80.0-100.0); Monocytes # (auto) 0.78 K/uL (0.11-0.59); Monocytes % (auto) 10.5 %; Neutrophils # (auto) 4.87 K/uL (1.40-6.50); Neutrophils % (auto) 65.3 %; Ovalocytes 1+; Platelet Count 123 K/uL (130-400); RDW Standard Deviation 62.4 fL (36.4-46.3); Red Blood Count 3.17 M/uL (4.70-6.10); Tear Drop Cells 1+; White Blood Count 7.46 K/ul (4.8-10.8)
[2022-12-24 06:49] LABS: Partial Thromboplastin Time 56.7 Seconds (21.0-31.0)
[2022-12-24 08:17] LABS: INR 1.9 (0.9-1.1); Prothrombin Time 19.5 Seconds (9.0-12.0)
--- NOTE | 2022-12-24 08:19 | Surgery Progress Note ---
Date of Service December 24, 2022 Assessment & Plan (1) History of colon resection: Plan: No issues from my standpoint. He is tolerating diet bowels are moving his wounds look good Discharge planning. I agree he will likely need rehab for a while I will be out of town for the next several days but my partners and physician assistants are available with any questions or concerns Admission and Anticipated Discharge Date Admission Date: December 17, 2022 Subjective Patient continues to do well he had several more bowel movements. He is eating. His left lower quadrant pain has resolved. Physical Exam Physical Exam: Alert. No acute distress His incision is clean dry intact with no sign of infection Expected incisional tenderness Results & Data Vital Signs (Past 12 Hours) Vital Signs Temp Pulse Pulse Resp BP Pulse Ox O2 Del Method 12/24/22 07:28 62 12/24/22 03:21 36.7 C 52 L 18 104/48 L 93 Room Air 12/24/22 01:48 59 L 12/23/22 22:52 36.6 C 61 18 102/52 L 92 Room Air 12/23/22 21:05 62 109/50 L PG Care Time/CCT Total # of Minutes Spent Total Time Spent with Patient: Total time spent is greater than 50% in coordination of care (as documented) at patient's floor/unit and/or counseling patient: Coding Level of Care Code 27578 Post Operative Follow-Up Diagnoses History of colon resection Z90.49
[2022-12-24] MEDS: METOPROLOL TARTRATE 25 MG TAB PO SCH ×2 (09:21→19:58)
[2022-12-24] MEDS: AMIODARONE 200 MG TAB PO SCH (09:21)
[2022-12-24] MEDS: allopurinoL 300 MG TAB PO SCH (09:21)
[2022-12-24] MEDS: ATORVASTATIN 40 MG TAB PO SCH (09:21)
[2022-12-24] MEDS: FUROSEMIDE INJ 20 MG/2 ML VIAL IV SCH ×2 (09:22→14:18)
--- NOTE | 2022-12-24 11:22 | Cardiology Progress Note ---
Date of Service December 24, 2022 Assessment & Plan (1) Umbilical hernia, incarcerated: (2) S/P AVR (aortic valve replacement): (3) Congenital heart disease: (4) CRF (chronic renal failure): Plan IMPRESSION: Medically complex 72 year old male with hx of congenital heart disease s/p pulmonic valve and ASD repair as well as severe s/p mechanical AVR and ascending aortic repair. Found to have an incarcerated umbilical hernia status post open partial small bowel resection and repair of ventral hernia, 12/17/[address] Solis Echo this admission stable with findings associated with prior heart/valvular disease. Hypotensive on presentation, chronic finding. No longer requiring pressor support. NG tube removed 12/19. PLAN: Hgb 9.3, INR 1.9 ,PTT 56 s, BUN 67, Creat 1.75 He is back on his oral medications including amiodarone, warfarin, atorvastatin. Diuresing well with furosemide 30 mg IV twice daily. Most recent cardiac surgery included an ascending aorta conduit with mechanical prosthesis and his coronaries were reimplanted in his to place in 2013. Creatinine trending down. Continue heparin bridge, Agree with plan of coumadin 5 mg today, goal INR 2.5 - 3.5 BP stable. Metoprolol resumed. ASA still on hold. Admission and Anticipated Discharge Date Admission Date: December 17, 2022 Subjective Pt seen in follow up. He is sitting in the bedside chair. No complaints. Physical Exam Constitutional: + ill appearing; no acute distress Neck: normal visual inspection and trachea midline Respiratory: no respiratory distress, no labored breathing and no cough Auscultation: + diminished lung sounds; no rales, no rhonchi and no wheezes Cardiovascular: Rate/Rhythm: regular rate and regular rhythm Heart Sounds: normal S1 and normal S2 (Martin mechanical valve closure ) Extremities: + edema (Trace to 1+ bilateral lower extremity edema) Gastrointestinal (Abdomen): Inspection/Auscultation: + hypoactive bowel sounds; abdomen not distended Percussion/Palpation: abdomen soft; abdomen nontender Skin: no rashes, warm and dry Neurologic: PERRL, EOMI, accommodation nl, no face palsy, no dysarthria Psychiatric: A+Ox3, euthymic affect Results & Data Vital Signs (Past 12 Hours) Vital Signs Temp Pulse Pulse Pulse Resp BP Pulse Ox 12/24/22 08:00 36.8 C 67 18 120/69 97 12/24/22 07:28 62 12/24/22 03:21 36.7 C 52 L 18 104/48 L 93 12/24/22 01:48 59 L O2 Del Method 12/24/22 08:00 Room Air 12/24/22 07:28 12/24/22 03:21 Room Air 12/24/22 01:48 (4) CRF (chronic renal failure) Chronic kidney disease stage: unspecified stage Qualified Code(s): N18.9 - Chronic kidney disease, unspecified
[2022-12-24] MEDS: PANTOprazole 40 MG in SYRINGE 0 ML IV SCH (11:54)
--- NOTE | 2022-12-24 13:23 | Hospitalist Progress Note ---
Date of Service December 24, 2022 Assessment & Plan (1) Umbilical hernia, incarcerated: Plan: INCARCERATED UMBILICAL HERNIA Status post Laparoscopy converted to open partial small bowel resection, repair of ventral hernia on 12/17 Patient was transferred to ICU for closer monitoring after the surgery on the same day Initially on NG tube; removed on 12/19. first bowel movement on 12/21. Had bowel movement on 12/24 Discussed with surgery; tolerating diet. Continue current diet. Monitor for ileus. Continue PT OT Successful trial of void on 12/22 ACUTE ON CHRONIC DIASTOLIC CHF Mechanical valve on warfarin status post vitamin K Bilateral pleural effusion Chest x-ray done on 12/21 reviewed; improvement in pulmonary edema. Bilateral pleural effusion persistent Currently on heparin drip. Amiodarone resumed. Coumadin resumed; PT/INR1. 9 Will discontinue heparin once warfarin is therapeutic. Will increase his Coumadin to 5 mg once a day. Cardiology on board Continue diuresis as per nephrology. Currently on IV Lasix 30 mg twice daily. Repeat chest x-ray shows persistent right-sided pleural effusion. Pulmonology consulted. Septic shock Secondary to incarcerated hernia Off vasopressor support since 11/18 Status post 5 days of ertapenem. Status post hydrocortisone ACUTE KIDNEY INJURY on CKD Creatinine downtrending; at baseline Urine output reassuring Continue hemodynamic support Nephrology on board; started on IV Lasix 30 mg twice daily. INCIDENTAL FINDING OF CIRRHOSIS ON CT, NEW DIAGNOSIS Will need outpatient GI follow-up Other chronic medical problems: hypertension hyperlipidemia, on statin Rx thoracic aortic dissection status post surgery chronic anemia prostate cancer status post surgery Disposition PT OT evaluation completed; recommend rehab. Case management on board. Time spent evaluating patient, direct bedside care, chart review, placing orders, interpretation of diagnostic studies, discussion with consultants, patient, and family members, as well as other required patient management activities is 60 minutes Please note the above document was generated using voice recognition software. It may contain grammatical, syntax or spelling errors. Any formal questions or concerns about the content, text or information contained within the body of this dictation should be directly addressed to the provider for clarification Admission and Anticipated Discharge Date Admission Date: December 17, 2022 Subjective Patient seen and examined at bedside. He is sitting up on a chair. Comfortable. Reports bowel movement yesterday and today. Review of Systems Review of Systems: All systems reviewed & are unremarkable except as noted in Subjective Physical Exam Physical Exam: Constitutional: Alert, oriented x3. Respiratory: Bilateral basal decreased breath sound. Cardiovascular: RRR, mechanical valve sound present Chest: normal inspection of chest Abdomen: Dressing clean dry and intact. Musculoskeletal: no cyanosis or clubbing, extremities motor strength 5/5 Skin: no rashes, warm and dry normal turgor Neurologic: PERRL, EOMI, accommodation nl, no face palsy, no dysarthria CN's II- XI intact bilaterally and moves all extremities Psychiatric: A+Ox3, euthymic affect Results & Data Results & Data Vital Signs (Past 12 Hours) Vital Signs Temp Pulse Pulse Pulse Resp BP Pulse Ox 12/24/22 11:50 36.8 C 74 18 114/66 97 12/24/22 08:00 36.8 C 67 18 120/69 97 12/24/22 07:28 62 12/24/22 03:21 36.7 C 52 L 18 104/48 L 93 12/24/22 01:48 59 L O2 Del Method 12/24/22 11:50 Room Air 12/24/22 08:00 Room Air 12/24/22 07:28 12/24/22 03:21 Room Air 12/24/22 01:48 Laboratory Results Laboratory Results WBC 7.46 K/ul (4.8-10.8) 12/24/22 05:34 RBC 3.17 M/uL (4.70-6.10) L 12/24/22 05:34 Hgb 9.3 g/dl (14.0-18.0) L 12/24/22 05:34 POC Hgb 12.2 g/dl (14.0-18.0) L 12/16/22 20:37 Hct 28.4 % (42.0-52.0) L 12/24/22 05:34 POC Hct 36 % (42-52) L 12/16/22 20:37 MCV 89.6 fL (80.0-100.0) 12/24/22 05:34 MCH 29.3 pg (25.0-34.0) 12/24/22 05:34 MCHC 32.7 g/dL (32.0-36.0) 12/24/22 05:34 RDW Std Deviation 62.4 fL (36.4-46.3) H 12/24/22 05:34 RDW Coeff of Penelope 19.0 % (11.5-14.5) H 12/24/22 05:34 Plt Count 123 K/uL (130-400) L 12/24/22 05:34 MPV 13.0 fL (9.4-12.4) H 12/24/22 05:34 Immature Gran % (Auto) 5.2 % 12/24/22 05:34 Neut % (Auto) 65.3 % 12/24/22 05:34 Lymph % (Auto) 16.5 % 12/24/22 05:34 Mcdowell % (Auto) 10.5 % 12/24/22 05:34 Eos % (Auto) 2.4 % 12/24/22 05:34 Baso % (Auto) 0.1 % 12/24/22 05:34 Neut # (Auto) 4.87 K/uL (1.40-6.50) 12/24/22 05:34 Lymph # (Auto) 1.23 K/uL (1.2-3.4) 12/24/22 05:34 Mcdowell # (Auto) 0.78 K/uL (0.11-0.59) H 12/24/22 05:34 Eos # (Auto) 0.18 K/uL (0-0.50) 12/24/22 05:34 Baso # (Auto) 0.01 K/uL (0-0.2) 12/24/22 05:34 Immature Gran # (Auto) 0.39 K/uL (0.01-0.20) H 12/24/22 05:34 Polychromasia 1+ 12/20/22 04:22 Poikilocytosis Present 12/20/22 04:22 Anisocytosis Present 12/20/22 04:22 Tear Drop Cells 1+ 12/24/22 05:34 Ovalocytes 1+ 12/24/22 05:34 Echinocytes 1+ 12/18/22 06:49 PT 19.5 Seconds (9.0-12.0) H 12/24/22 05:34 INR 1.9 (0.9-1.1) H 12/24/22 05:34 APTT 56.7 Seconds (21.0-31.0) H* 12/24/22 05:34 PTT Ratio 2.0 12/24/22 05:34 POC Sodium 141 mmol/L (135-144) 12/16/22 20:37 Sodium 138 mmol/L (136-145) 12/24/22 05:34 POC Potassium 4.0 mmol/L (3.3-5.0) 12/16/22 20:37 Potassium 3.6 mmol/L (3.5-5.1) 12/24/22 05:34 POC Chloride 106 mmol/L (101-112) 12/16/22 20:37 Chloride 105 mmol/L (98-107) 12/24/22 05:34 Carbon Dioxide 27 mmol/L (21-32) 12/24/22 05:34 POC Total CO2 22 mmol/L (24-31) L 12/16/22 20:37 Anion Gap 6 (3-11) 12/24/22 05:34 POC Anion Gap 18.0 mmol/L (16-25) 12/16/22 20:37 POC BUN 71 mg/dl (7-18) H 12/16/22 20:37 BUN 67 mg/dl (6-23) H 12/24/22 05:34 Creatinine 1.75 mg/dl (0.6-1.4) H 12/24/22 05:34 POC Creatinine 2.6 mg/dl (0.6-1.3) H 12/16/22 20:37 Est Cr Clr Drug Dosing 43.8 ml/min 12/24/22 05:34 Est GFR ( Amer) 44.1 ml/min 12/24/22 05:34 Est GFR (Non-Af Amer) 38.1 ml/min 12/24/22 05:34 BUN/Creatinine Ratio 38.3 (10-20) H 12/24/22 05:34 Glucose 105 mg/dl (70-99(Fasting)) H 12/24/22 05:34 POC Glucose (other) 88 mg/dl (70-99) 12/16/22 20:37 Lactate 1.5 mmol/L (0.4-2.0) 12/17/22 16:33 Calcium 7.6 mg/dl (8.6-10.3) L 12/24/22 05:34 POC Ioniz Calcium Codey 1.09 mmol/l (1.12-1.32) L 12/16/22 20:37 Phosphorus 3.8 mg/dl (2.5-4.9) 12/21/22 04:47 Magnesium 2.1 mg/dl (1.7-2.4) 12/22/22 06:41 Total Bilirubin 1.2 mg/dl (0.2-1.0) H 12/22/22 06:41 AST 26 U/L (13-39) 12/22/22 06:41 ALT 37 U/L (7-52) 12/22/22 06:41 Alkaline Phosphatase 94 U/L (34-104) 12/22/22 06:41 Troponin I High Sens 96.3 pg/ml (0-20) H* D 12/17/22 19:56 B-Natriuretic Peptide 704 pg/ml (0-100) H 12/16/22 23:22 Total Protein 5.1 gm/dl (6.0-8.3) L 12/22/22 06:41 Albumin 2.8 gm/dl (3.4-5.0) L 12/22/22 06:41 Globulin 2.3 gm/dl (2.5-4.0) L 12/22/22 06:41 Albumin/Globulin Ratio 1.2 (0.9-2) 12/22/22 06:41 Lipase 14 U/L (11-82) 12/16/22 20:12 Procalcitonin 0.42 ng/ml (0-0.5) 12/16/22 20:13 TSH 4.479 uIu/ml (0.300-4.500) 12/16/22 20:13 Random Cortisol 23.34 mcg/dl 12/17/22 16:33 Urine Color Yellow 12/16/22 20:12 Urine Appearance Clear (Clear) 12/16/22 20:12 Urine pH 5.5 (4.5-7.5) 12/16/22 20:12 Ur Specific [place] 1.012 (1.000-1.030) 12/16/22 20:12 Urine Protein Negative (Negative) 12/16/22 20:12 Urine Glucose (UA) Negative (Negative) 12/16/22 20:12 Urine Ketones Negative (Negative) 12/16/22 20:12 Urine Blood Negative (Negative) 12/16/22 20:12 Urine Nitrite Negative (Negative) 12/16/22 20:12 Urine Bilirubin Negative (Negative) 12/16/22 20:12 Urine Urobilinogen Negative (Negative) 12/16/22 20:12 Ur Leukocyte Esterase Negative (Negative) 12/16/22 20:12 Nasal Screen MRSA (PCR) Negative (Negative) 12/17/22 16:40 SARS-CoV-2, RNA, NAAT NEGATIVE (NEGATIVE) 12/16/22 20:12 Blood Type O Positive 12/17/22 10:50 Antibody Screen NEGATIVE 12/17/22 10:50 Impressions Abdomen/Pelvis CT 12/16/22 20:44 Exam(s): CT ABDOMEN + PELVIS Without Contrast EXAM: CT Abdomen and Pelvis Without Intravenous Contrast CLINICAL HISTORY: Reason for exam: Abd pain. TECHNIQUE: Axial computed tomography images of the abdomen and pelvis without intravenous contrast. CTDI is 27.34 mGy and DLP is 1388.62 mGy-cm. Automated exposure control was utilized for the study. A dose lowering technique was utilized adhering to the principles of ALARA. COMPARISON: No relevant prior studies available. FINDINGS: Lung bases: Unremarkable. No mass. No consolidation. Pleural space: Small RIGHT pleural effusion. Heart: Cardiomegaly. Prosthetic aortic valve. ABDOMEN: Liver: Mild hepatic cirrhotic morphology. Mild perihepatic and perisplenic ascites. Gallbladder and bile ducts: Unremarkable. No calcified stones. No ductal dilation. Pancreas: Unremarkable. No ductal dilation. Spleen: Unremarkable. No splenomegaly. Adrenals: Unremarkable. No mass. Kidneys and ureters: Unremarkable. No hydronephrosis or nephrolithiasis. Stomach and bowel: Ventral abdominal wall hernia, which contains a loop of small bowel. Mildly prominent small bowel entering this hernia measuring up to 2.6 cm, concerning for partial bowel obstruction. Diverticulosis, without acute diverticulitis. No free air. PELVIS: Appendix: No findings to suggest acute appendicitis. Bladder: Unremarkable. No stones. Reproductive: Unremarkable as visualized. ABDOMEN and PELVIS: Intraperitoneal space: See above. Bones/joints: Sternotomy wires. Degenerative changes of the spine. LEFT hip arthroplasty. No acute fracture. No dislocation. Soft tissues: See above. Vasculature: Atherosclerotic changes of the aorta. No abdominal aortic aneurysm. Lymph nodes: Unremarkable. No enlarged lymph nodes. IMPRESSION: 1. Ventral abdominal wall hernia, which contains a loop of small bowel. Mildly prominent small bowel entering this hernia measuring up to 2.6 cm, concerning for partial bowel obstruction. 2. No hydronephrosis or nephrolithiasis. 3. Small RIGHT pleural effusion. 4. Mild hepatic cirrhotic morphology. Mild perihepatic and perisplenic ascites. 5. Diverticulosis, without acute diverticulitis. No free air. Electronically signed by: Gerhard Forman MD 12/16/22 22:10 PM KUB X-Ray 12/17/22 05:49 KUB HISTORY: ng tube placement COMPARISON: KUB 12/17/2022. FINDINGS: Nasogastric tube terminates in the stomach. Small bilateral pleural effusions and right basilar densities persist. The heart remains enlarged. There are poststernotomy changes and a cardiac valve prosthesis again noted. Mildly dilated gas-filled loops of small bowel are again seen within the upper abdomen. This is concerning for a small bowel obstruction. No renal calculi. No ureteral calculi. No pneumoperitoneum or pneumatosis. IMPRESSION: 1. Nasogastric tube terminates in the stomach. 2. Mildly dilated gas-filled loops of small bowel are seen within the upper abdomen concerning for a small bowel obstruction. ACT 112: Negative or not required by law. Electronically signed by: Neftaly Urrutia M.D. 12/17/2022 6:43 AM Chest X-Ray 12/23/22 12:38 XR chest 1V portable CLINICAL HISTORY: Follow up on pleural effusion COMPARISON STUDY: Chest radiograph December 21, 2022. FINDINGS: There is no pneumothorax. Small to moderate right pleural effusion with right basilar opacity has slightly increased. Cardiomegaly is again noted. There are median sternotomy wires and prosthetic cardiac valve. There is no evidence for overt edema. There is a trace left pleural effusion. IMPRESSION: 1. Slight increase in a small to moderate right pleural effusion. Persistent right basilar opacity. 2. Cardiomegaly without evidence for pulmonary edema. ACT 112: Negative or not required by law. Electronically signed by: Patel Daniel M.D. 12/23/2022 1:26 PM
[2022-12-24] MEDS ORDERED: WARFARIN SOD 5 MG TAB PO ONE (16:00)
--- NOTE | 2022-12-24 17:56 | Pulmonary Consultation ---
Date of Consultation December 24, 2022 Assessment & Plan (1) Volume overload: (2) Acute on chronic renal failure: (3) Umbilical hernia, incarcerated: (4) Partial obstruction of small intestine: Plan I reviewed the patient's imaging. For the bases of an abdominal pelvic CT scan from September 2021 he did not have any significant pleural effusions. Then in December 16, 2002 upon presentation he had a large unilateral right pleural effusion. But he also presented with an incarcerated hernia. I am only speculating that perhaps he was in decompensated congestive heart failure. He had just been discharged from another facility where he had almost 2 L removed from his right chest and it appeared to have recurred very dramatically. They had tested for malignancy and the patient reported that it was negative for malignancy. But on presentation he clearly had vascular congestion bilaterally though the right pleural effusion was much worse than on the left. It is a speculation that his decompensated congestive heart failure was the cause of his pleural effusion and that that also contributed to some gut edema which then was the tipping point for an incarcerated previous umbilical hernia. But again that is just a speculation. On top of that he has been malnourished with this acute illness and his albumin is down to 2.8. He likely also received volume resuscitation for his acute abdominal event. After extubation and with recovery there has been a recent sincere attempt at diuresing him and it seems that he has been negative at least a liter most days. His last chest x-ray still shows some right pleural effusion but it is much better than before and he has overall much better aeration bilaterally. It would be my recommendation to not try to tap this pleural effusion again. Given his cardiac history and his lower extremity edema and his low albumin it is highly likely that it will recur. Would I would continue my focus on diuresis. Increasing the dose of diuretic especially with his renal insufficiency is appropriate. 1 could also add Zaroxolyn or Diuril for added diuresis but make sure that his potassium is being repleted. Replating his calcium would also be helpful. I think the risks outweigh the benefits for tapping this effusion now. We would have to stop his Coumadin and also hold his IV heparin in the face of his mechanical valve. We would be risking a pneumothorax and hemorrhage as well. He is now sitting in a chair at room air and appears quite comfortable ball He. Some of his exercise limitation may be due to his deconditioning deconditioning and poor nutrition and very heavy legs which make it harder to ambulate. If this were malignant effusion it would recur very dramatically and not respond to diuresis. That there can be false negatives with the initial thoracentesis the clinical course is not acting like a malignant effusion. Also, we are not privy to the fluid analysis from the outside hospital. I assume it is a transudate and if that is the case and a Pleurx catheter would not be indicated. It would then revert to requiring diuresis as is the current course. Optimizing nutrition with nutritional supplements is also important. If his renal function worsens then a course of dialysis may also be a potential treatment option. Obviously that is also less desirable. However, if his clinical status changes or the effusion worsens with escalation of diuresis I happy to reassess. History of Present Illness Reason for Consultation: Assess ongoing right pleural effusion. Attending Physician: Franco Ward MD History of Present Illness The patient is a 72-year-old gentleman with a complex past cardiac history with 4 previous cardiac surgeries. Early in November he developed a very large pleural effusion and presented to an outside hospital where 1.7 L was removed from his right pleural space with a thoracentesis. Right before that he was quite short of breath and gasping for air and was not able to ambulate well. After the thoracentesis he felt well but only for a short period of time and it seemed to of quickly recurred. His cardiopulmonary course was interrupted by an incarcerated hernia that required surgical correction in this hospital. There was a need for small bowel resection and end-to-end anastomosis. I am sure that with that process he required significant volume resuscitation and was also n.p.o. for some period of time during that perioperative period. In review of his chest images initially there was significant bilateral pleural effusions and they have improved dramatically with some residual right pleural effusion remaining. Allergies Allergy/AdvReac Type Severity Reaction Status Date / Time nut - unspecified Allergy Intermediate SORES IN Verified 12/16/22 21:33 MOUTH beet Allergy Verified 12/24/22 10:50 Home Medications Medication Instructions Recorded Confirmed Type allopurinol 300 mg tablet 300 mg PO DAILY 12/16/22 12/16/22 History amiodarone 200 mg tablet 200 mg PO QAM 12/16/22 12/16/22 History amoxicillin 500 mg capsule 2,000 mg PO DIRECTED PRN 1 HR 12/16/22 12/16/22 History PRIOR TO DENTAL APPT. aspirin 81 mg tablet,delayed 81 mg PO DAILY 12/16/22 12/16/22 History release atorvastatin 40 mg tablet 40 mg PO DAILY 12/16/22 12/16/22 History cholecalciferol (vitamin D3) 50 50 mcg PO DAILY 12/16/22 12/16/22 History mcg (2,000 unit) capsule (Vitamin D3) furosemide 20 mg tablet 60 mg PO DAILY 12/16/22 12/18/22 History lisinopril 2.5 mg tablet 2.5 mg PO QAM 12/16/22 12/16/22 History loratadine 10 mg tablet (Claritin) 10 mg PO DAILY 12/16/22 12/16/22 History metoprolol tartrate 25 mg tablet 12.5 mg PO BID 12/16/22 12/16/22 History terazosin 1 mg capsule 2 mg PO HS 12/16/22 12/16/22 History warfarin 5 mg tablet See Rx Instructions .Route .COMPLEX 12/16/22 12/16/22 History Patient History Medical History Abdominal aortic aneurysm Repaired Actinic keratosis Aortic dissection Arthritis right hip, right wrist CHF (congestive heart failure) CRF (chronic renal failure) stage 3 Dyslipidemia Gout History of atrial fibrillation HTN (hypertension) Osteoarthritis right hip Pleural effusion s/p 1.8 L 11/27/2022 thoracentesis RBBB Restless leg syndrome Surgical History Heart valve replaced History of appendectomy History of colon resection (12/17/22) Laparoscopy converted to open partial small bowel resection, repair of ventral hernia(Not Applicable) - Juan Solis, History of hip replacement left hip History of prostatectomy History of wisdom tooth extraction Social History Smoking Status: Never smoker Smoking End Date: 2 yrs ago; Do You Dip or Chew Tobacco: No; Tobacco Cessation Education Requested by Patient: No Hx Alcohol Use: No Hx Substance Use: No Preferred Language: Maori Communication Ability: Effective Plater Apprentice Required: No Beliefs That Will Affect Care: None Current Living Situation: Spouse Other Information That Helps Us Care for You: No Feels Safe at Home: Yes Safety Concerns: Feels Safe At This Time Assistive Devices: Cane and Walker Review of Systems Review of Systems: Right now the patient feels quite well. He is only ambulating within the room. He has some shortness of breath but also some leg weakness and heaviness. He has no cough or phlegm production or hemoptysis or hematemesis. No nausea or vomiting. He is able to take a big breath whereas he was not able to before. No chest pain or substernal pain arm or jaw pain. Physical Exam Physical Exam: He is a [place] gentleman sitting in a chair in no apparent distress on room air. He is able to speak in full sentences and is not in any extremis. Neck is supple with adenopathy or thyromegaly. Right lung is diminished breath sound at the right base about a third of the way up without any egophony or sign of consolidation. Much clearer on the left base. Heart is regular rate and rhythm but with an obvious loud mechanical sound. His pulse is regular. Abdomen is soft nontender without dependent splenomegaly. Extremities though are significant 3-4+ edema up to the upper dale bilaterally. There are some chronic venous stasis changes. Results & Data Results & Data Vital Signs (Past 12 Hours) Vital Signs Temp Pulse Pulse Resp BP Pulse Ox O2 Del Method 12/24/22 15:00 36.6 C 63 18 124/77 97 Room Air 12/24/22 15:29 58 L 12/24/22 11:50 36.8 C 74 18 114/66 97 Room Air 12/24/22 08:00 36.8 C 67 18 120/69 97 Room Air 12/24/22 07:28 62 Laboratory Results Laboratory Results WBC 7.46 K/ul (4.8-10.8) 12/24/22 05:34 RBC 3.17 M/uL (4.70-6.10) L 12/24/22 05:34 Hgb 9.3 g/dl (14.0-18.0) L 12/24/22 05:34 POC Hgb 12.2 g/dl (14.0-18.0) L 12/16/22 20:37 Hct 28.4 % (42.0-52.0) L 12/24/22 05:34 POC Hct 36 % (42-52) L 12/16/22 20:37 MCV 89.6 fL (80.0-100.0) 12/24/22 05:34 MCH 29.3 pg (25.0-34.0) 12/24/22 05:34 MCHC 32.7 g/dL (32.0-36.0) 12/24/22 05:34 RDW Std Deviation 62.4 fL (36.4-46.3) H 12/24/22 05:34 RDW Coeff of Penelope 19.0 % (11.5-14.5) H 12/24/22 05:34 Plt Count 123 K/uL (130-400) L 12/24/22 05:34 MPV 13.0 fL (9.4-12.4) H 12/24/22 05:34 Immature Gran % (Auto) 5.2 % 12/24/22 05:34 Neut % (Auto) 65.3 % 12/24/22 05:34 Lymph % (Auto) 16.5 % 12/24/22 05:34 Brule % (Auto) 10.5 % 12/24/22 05:34 Eos % (Auto) 2.4 % 12/24/22 05:34 Baso % (Auto) 0.1 % 12/24/22 05:34 Neut # (Auto) 4.87 K/uL (1.40-6.50) 12/24/22 05:34 Lymph # (Auto) 1.23 K/uL (1.2-3.4) 12/24/22 05:34 Brule # (Auto) 0.78 K/uL (0.11-0.59) H 12/24/22 05:34 Eos # (Auto) 0.18 K/uL (0-0.50) 12/24/22 05:34 Baso # (Auto) 0.01 K/uL (0-0.2) 12/24/22 05:34 Immature Gran # (Auto) 0.39 K/uL (0.01-0.20) H 12/24/22 05:34 Polychromasia 1+ 12/20/22 04:22 Poikilocytosis Present 12/20/22 04:22 Anisocytosis Present 12/20/22 04:22 Tear Drop Cells 1+ 07/25/23 05:34 Ovalocytes 1+ 12/24/22 05:34 Echinocytes 1+ 12/18/22 06:49 PT 19.5 Seconds (9.0-12.0) H 12/24/22 05:34 INR 1.9 (0.9-1.1) H 12/24/22 05:34 APTT 56.7 Seconds (21.0-31.0) H* 12/24/22 05:34 PTT Ratio 2.0 12/24/22 05:34 POC Sodium 141 mmol/L (135-144) 12/16/22 20:37 Sodium 138 mmol/L (136-145) 12/24/22 05:34 POC Potassium 4.0 mmol/L (3.3-5.0) 12/16/22 20:37 Potassium 3.6 mmol/L (3.5-5.1) 12/24/22 05:34 POC Chloride 106 mmol/L (101-112) 12/16/22 20:37 Chloride 105 mmol/L (98-107) 12/24/22 05:34 Carbon Dioxide 27 mmol/L (21-32) 12/24/22 05:34 POC Total CO2 22 mmol/L (24-31) L 12/16/22 20:37 Anion Gap 6 (3-11) 12/24/22 05:34 POC Anion Gap 18.0 mmol/L (16-25) 12/16/22 20:37 POC BUN 71 mg/dl (7-18) H 12/16/22 20:37 BUN 67 mg/dl (6-23) H 12/24/22 05:34 Creatinine 1.75 mg/dl (0.6-1.4) H 12/24/22 05:34 POC Creatinine 2.6 mg/dl (0.6-1.3) H 12/16/22 20:37 Est Cr Clr Drug Dosing 43.8 ml/min 12/24/22 05:34 Est GFR ( Amer) 44.1 ml/min 12/24/22 05:34 Est GFR (Non-Af Amer) 38.1 ml/min 12/24/22 05:34 BUN/Creatinine Ratio 38.3 (10-20) H 12/24/22 05:34 Glucose 105 mg/dl (70-99(Fasting)) H 12/24/22 05:34 POC Glucose (other) 88 mg/dl (70-99) 12/16/22 20:37 Lactate 1.5 mmol/L (0.4-2.0) 12/17/22 16:33 Calcium 7.6 mg/dl (8.6-10.3) L 12/24/22 05:34 POC Ioniz Calcium Codey 1.09 mmol/l (1.12-1.32) L 12/16/22 20:37 Phosphorus 3.8 mg/dl (2.5-4.9) 12/21/22 04:47 Magnesium 2.1 mg/dl (1.7-2.4) 12/22/22 06:41 Total Bilirubin 1.2 mg/dl (0.2-1.0) H 12/22/22 06:41 AST 26 U/L (13-39) 12/22/22 06:41 ALT 37 U/L (7-52) 12/22/22 06:41 Alkaline Phosphatase 94 U/L (34-104) 12/22/22 06:41 Troponin I High Sens 96.3 pg/ml (0-20) H* D 12/17/22 19:56 B-Natriuretic Peptide 704 pg/ml (0-100) H 12/16/22 23:22 Total Protein 5.1 gm/dl (6.0-8.3) L 12/22/22 06:41 Albumin 2.8 gm/dl (3.4-5.0) L 12/22/22 06:41 Globulin 2.3 gm/dl (2.5-4.0) L 12/22/22 06:41 Albumin/Globulin Ratio 1.2 (0.9-2) 12/22/22 06:41 Lipase 14 U/L (11-82) 12/16/22 20:12 Procalcitonin 0.42 ng/ml (0-0.5) 12/16/22 20:13 TSH 4.479 uIu/ml (0.300-4.500) 12/16/22 20:13 Random Cortisol 23.34 mcg/dl 12/17/22 16:33 Urine Color Yellow 12/16/22 20:12 Urine Appearance Clear (Clear) 12/16/22 20:12 Urine pH 5.5 (4.5-7.5) 12/16/22 20:12 Ur Specific [place] 1.012 (1.000-1.030) 12/16/22 20:12 Urine Protein Negative (Negative) 12/16/22 20:12 Urine Glucose (UA) Negative (Negative) 12/16/22 20:12 Urine Ketones Negative (Negative) 12/16/22 20:12 Urine Blood Negative (Negative) 12/16/22 20:12 Urine Nitrite Negative (Negative) 12/16/22 20:12 Urine Bilirubin Negative (Negative) 12/16/22 20:12 Urine Urobilinogen Negative (Negative) 12/16/22 20:12 Ur Leukocyte Esterase Negative (Negative) 12/16/22 20:12 Nasal Screen MRSA (PCR) Negative (Negative) 12/17/22 16:40 SARS-CoV-2, RNA, NAAT NEGATIVE (NEGATIVE) 12/16/22 20:12 Blood Type O Positive 12/17/22 10:50 Antibody Screen NEGATIVE 12/17/22 10:50 Impressions Abdomen/Pelvis CT 12/16/22 20:44 Exam(s): CT ABDOMEN + PELVIS Without Contrast EXAM: CT Abdomen and Pelvis Without Intravenous Contrast CLINICAL HISTORY: Reason for exam: Abd pain. TECHNIQUE: Axial computed tomography images of the abdomen and pelvis without intravenous contrast. CTDI is 27.34 mGy and DLP is 1388.62 mGy-cm. Automated exposure control was utilized for the study. A dose lowering technique was utilized adhering to the principles of ALARA. COMPARISON: No relevant prior studies available. FINDINGS: Lung bases: Unremarkable. No mass. No consolidation. Pleural space: Small RIGHT pleural effusion. Heart: Cardiomegaly. Prosthetic aortic valve. ABDOMEN: Liver: Mild hepatic cirrhotic morphology. Mild perihepatic and perisplenic ascites. Gallbladder and bile ducts: Unremarkable. No calcified stones. No ductal dilation. Pancreas: Unremarkable. No ductal dilation. Spleen: Unremarkable. No splenomegaly. Adrenals: Unremarkable. No mass. Kidneys and ureters: Unremarkable. No hydronephrosis or nephrolithiasis. Stomach and bowel: Ventral abdominal wall hernia, which contains a loop of small bowel. Mildly prominent small bowel entering this hernia measuring up to 2.6 cm, concerning for partial bowel obstruction. Diverticulosis, without acute diverticulitis. No free air. PELVIS: Appendix: No findings to suggest acute appendicitis. Bladder: Unremarkable. No stones. Reproductive: Unremarkable as visualized. ABDOMEN and PELVIS: Intraperitoneal space: See above. Bones/joints: Sternotomy wires. Degenerative changes of the spine. LEFT hip arthroplasty. No acute fracture. No dislocation. Soft tissues: See above. Vasculature: Atherosclerotic changes of the aorta. No abdominal aortic aneurysm. Lymph nodes: Unremarkable. No enlarged lymph nodes. IMPRESSION: 1. Ventral abdominal wall hernia, which contains a loop of small bowel. Mildly prominent small bowel entering this hernia measuring up to 2.6 cm, concerning for partial bowel obstruction. 2. No hydronephrosis or nephrolithiasis. 3. Small RIGHT pleural effusion. 4. Mild hepatic cirrhotic morphology. Mild perihepatic and perisplenic ascites. 5. Diverticulosis, without acute diverticulitis. No free air. Electronically signed by: Gerhard Forman MD 12/16/22 22:10 PM KUB X-Ray 12/17/22 05:49 KUB HISTORY: ng tube placement COMPARISON: KUB 12/17/2022. FINDINGS: Nasogastric tube terminates in the stomach. Small bilateral pleural effusions and right basilar densities persist. The heart remains enlarged. There are poststernotomy changes and a cardiac valve prosthesis again noted. Mildly dilated gas-filled loops of small bowel are again seen within the upper abdomen. This is concerning for a small bowel obstruction. No renal calculi. No ureteral calculi. No pneumoperitoneum or pneumatosis. IMPRESSION: 1. Nasogastric tube terminates in the stomach. 2. Mildly dilated gas-filled loops of small bowel are seen within the upper abdomen concerning for a small bowel obstruction. ACT 112: Negative or not required by law. Electronically signed by: Neftaly Urrutia M.D. 12/17/2022 6:43 AM Chest X-Ray 12/23/22 12:38 XR chest 1V portable CLINICAL HISTORY: Follow up on pleural effusion COMPARISON STUDY: Chest radiograph December 21, 2022. FINDINGS: There is no pneumothorax. Small to moderate right pleural effusion with right basilar opacity has slightly increased. Cardiomegaly is again noted. There are median sternotomy wires and prosthetic cardiac valve. There is no evidence for overt edema. There is a trace left pleural effusion. IMPRESSION: 1. Slight increase in a small to moderate right pleural effusion. Persistent right basilar opacity. 2. Cardiomegaly without evidence for pulmonary edema. ACT 112: Negative or not required by law. Electronically signed by: Patel Daniel M.D. 12/23/2022 1:26 PM Medications Administered Current Inpatient Medications Acetaminophen (Acetaminophen 325 Mg Tab) 650 mg PO Q4H PRN PRN Reason: pain Stop: 01/22/23 08:36 Last Admin: 12/23/22 08:55 Dose: 650 mg Allopurinol (Allopurinol 300 Mg Tab) 300 mg PO DAILY [facility] Stop: 01/16/23 08:59 Last Admin: 12/24/22 09:21 Dose: 300 mg Amiodarone HCl (Amiodarone 200 Mg Tab) 200 mg PO QAM [facility] Stop: 01/16/23 08:59 Last Admin: 12/24/22 09:21 Dose: 200 mg Aspirin (Aspirin 81 Mg Ectab) 81 mg PO DAILY [facility] Stop: 01/16/23 08:59 Last Admin: 12/17/22 13:49 Dose: Not Given Atorvastatin Calcium (Atorvastatin 40 Mg Tab) 40 mg PO QAM [facility] Stop: 01/19/23 12:44 Last Admin: 12/24/22 09:21 Dose: 40 mg Furosemide (Furosemide Inj 20 Mg/2 Ml Vial) 30 mg IV BID@0900,1400 [facility] Stop: 01/21/23 13:59 Last Admin: 12/24/22 14:18 Dose: 30 mg Heparin Sodium (Beef Lung) (Heparin 10 Unit/Ml 5 Ml Flush) 5 ml FLUSH PRN PRN PRN Reason: Flush Stop: 01/17/23 13:58 Last Admin: 12/21/22 12:11 Dose: 5 ml Promethazine HCl 12.5 mg/ (Sodium Chloride) 50.5 mls @ 202 mls/hr IV Q6H PRN PRN Reason: Nausea And Vomiting Stop: 01/16/23 04:39 Heparin Sodium/Dextrose (Heparin Sodium/Dextrose) 25,000 units in 500 mls @ 22 mls/hr IV .[id number] [facility]; Protocol Stop: 01/17/23 08:44 Last Titration: 12/24/22 07:05 Dose: 1,100 units/hr, 22 mls/hr Metoprolol Tartrate (Metoprolol Tartrate 25 Mg Tab) 12.5 mg PO BID [facility] Stop: 01/22/23 08:59 Last Admin: 12/24/22 09:21 Dose: 12.5 mg Pantoprazole Sodium (Pantoprazole 40 Mg Tab) 40 mg PO QAM [facility] Stop: 12/29/22 08:59 Terazosin HCl (Terazosin Hcl 1 Mg Cap) 2 mg PO HS [facility] Stop: 01/16/23 20:59 Last Admin: 12/23/22 21:05 Dose: 2 mg Warfarin Sodium (Warfarin Sod 5 Mg Tab) 5 mg PO [email or web address] [facility] Stop: 01/19/23 15:59 Last Admin: 12/23/22 16:13 Dose: 5 mg Warfarin Sodium (Warfarin Sod 2.5 Mg Tab) 2.5 mg PO [email or web address] [facility] Stop: 01/20/23 15:59 Last Admin: 12/21/22 16:04 Dose: 2.5 mg PG Care Time/CCT Total # of Minutes Spent Total Time Spent with Patient: Total time spent is greater than 50% in coordination of care (as documented) at patient's floor/unit and/or counseling patient: Coding Level of Care Code 87556 OFFICE CONSULT LVL 30M History Problem Focused Exam Problem Focused Medical Decision Making Moderate Complexity Diagnoses Volume overload E87.70 Acute on chronic renal failure N17.9; N18.9 Umbilical hernia, incarcerated K42.0 Partial obstruction of small intestine K56.600 Time Spent (min) 40
[2022-12-24] MEDS: TERAZOSIN HCL 1 MG CAP PO SCH (19:59)
[2022-12-25] MEDS: HEPARIN SODIUM/DEXTROSE 25,000 UNITS/500 ML BAG IV SCH ×2 (03:21→13:48)
[2022-12-25 06:18] LABS: Hematocrit (blood only) 26.3 % (42.0-52.0); Hemoglobin 9.1 g/dl (14.0-18.0); Mean Corpuscular Hgb Conc 34.6 g/dL (32.0-36.0); Mean Corpuscular Volume 86.8 fL (80.0-100.0); Platelet Count 162 K/uL (130-400); RDW Coefficient of Variation 19.2 % (11.5-14.5); RDW Standard Deviation 60.2 fL (36.4-46.3); Red Blood Count 3.03 M/uL (4.70-6.10); White Blood Count 7.26 K/ul (4.8-10.8)
[2022-12-25 06:42] LABS: BUN Creatinine Ratio 41.5 (10-20); Calcium 7.7 mg/dl (8.6-10.3); Creatinine Clr Calc Pharmacy 46.7 ml/min; Est GFR (African American) 47.7 ml/min; Est GFR (Non-African American) 41.2 ml/min; Potassium 3.4 mmol/L (3.5-5.1)
[2022-12-25 06:43] LABS: Basophils # (auto) 0.02 K/uL (0-0.2); Basophils % (auto) 0.3 %; Eosinophils # (auto) 0.19 K/uL (0-0.50); Eosinophils % (auto) 2.6 %; Immature Granulocytes % (auto) 4.1 %; Lymphocytes # (auto) 1.32 K/uL (1.2-3.4); Lymphocytes % (auto) 18.2 %; Neutrophils # (auto) 4.63 K/uL (1.40-6.50); Neutrophils % (auto) 63.8 %; Polychromasia 1+; Tear Drop Cells 1+
[2022-12-25 07:02] LABS: INR 2.2 (0.9-1.1); Partial Thromboplastin Ratio 2.1; Prothrombin Time 22.6 Seconds (9.0-12.0)
[2022-12-25 07:11] LABS: Partial Thromboplastin Time 59.4 Seconds (21.0-31.0)
--- NOTE | 2022-12-25 08:32 | Surgery Progress Note ---
Date of Service December 25, 2022 Assessment & Plan (1) History of colon resection: Plan: Patient continues to do well from surgical standpoint He is tolerating a diet, having + bowel function, pain controlled Abdomen soft, non tender, incisions c/d/i He is okay for stable from our standpoint when okay with medicine, likely going to rehab F/u in clinic within 1-2 weeks for staple removal and check up Admission and Anticipated Discharge Date Admission Date: December 17, 2022 Supervising Physician Co-Signing Physician Notes Patient seen and examined for Dr. Solis, agree with above. Status post incarcerated hernia repair with bowel resection, doing well, tolerating diet, good return of bowel function. Incision without infection. Awaiting placement. Surgery will follow peripherally, call with questions or concerns. Subjective Patient says he slept well last night. He is tolerating a diet, no nausea/vomiting. Pain controlled. He is passing flatus and BMs. Physical Exam Physical Exam: awake/alert, sitting up in chair Respiratory: normal respiratory effort Gastrointestinal (Abdomen): Inspection/Auscultation: + abdominal surgical incision (c/d/i, with surgical ingrid, no signs of infection ); abdomen not distended Percussion/Palpation: abdomen soft; abdomen nontender Results & Data Vital Signs (Past 12 Hours) Vital Signs Temp Pulse Pulse Resp BP Pulse Ox O2 Del Method 12/25/22 07:41 36.3 C L 60 17 105/49 L 95 Room Air 12/25/22 02:36 36.7 C 55 L 18 99/50 L 94 Room Air 12/24/22 23:11 57 L 12/24/22 22:49 36.8 C 52 L 18 102/50 L 93 Room Air PG Care Time/CCT Total # of Minutes Spent Total Time Spent with Patient: Total time spent is greater than 50% in coordination of care (as documented) at patient's floor/unit and/or counseling patient: Coding Level of Care Code 20255 Post Operative Follow-Up Diagnoses History of colon resection Z90.49
[2022-12-25] MEDS: PANTOprazole 40 MG TAB PO SCH (08:49)
[2022-12-25] MEDS: ATORVASTATIN 40 MG TAB PO SCH (08:49)
[2022-12-25] MEDS: allopurinoL 300 MG TAB PO SCH (08:49)
[2022-12-25] MEDS: AMIODARONE 200 MG TAB PO SCH (08:49)
[2022-12-25] MEDS: FUROSEMIDE 40 MG/4 ML VIAL IV SCH ×3 (09:05→20:24)
[2022-12-25] MEDS: METOPROLOL TARTRATE 25 MG TAB PO SCH ×2 (10:11→20:10)
--- NOTE | 2022-12-25 11:47 | Hospitalist Progress Note ---
Date of Service December 25, 2022 Assessment & Plan (1) Umbilical hernia, incarcerated: Plan: INCARCERATED UMBILICAL HERNIA Status post Laparoscopy converted to open partial small bowel resection, repair of ventral hernia on 12/17 Patient was transferred to ICU for closer monitoring after the surgery on the same day Initially on NG tube; removed on 12/19. first bowel movement on 12/21. Having regular bowel movement. Discussed with surgery; tolerating diet. Continue current diet. Monitor for ileus. Continue PT OT Successful trial of void on 12/22 ACUTE ON CHRONIC DIASTOLIC CHF Mechanical valve on warfarin status post vitamin K Bilateral pleural effusion Chest x-ray done on 12/21 reviewed; improvement in pulmonary edema. Bilateral pleural effusion persistent Currently on heparin drip. Amiodarone resumed. Coumadin resumed; PT/INR2.2. Will discontinue heparin once warfarin is therapeutic. Resume home dose of Coumadin. Cardiology on board Continue diuresis as per nephrology. Pulmonology consulted for persistent right-sided pleural effusion. Outpatient chart reviewed; patient had 1750 ML of thoracentesis done on 11/27 at [facility]. Cytology was negative for malignancy. Discussed with Dr. Aguilera from pulmonology; recommended aggressive diuresis. Will increase the diuretics to 30 mg 3 times daily. Septic shock Secondary to incarcerated hernia Off vasopressor support since 11/18 Status post 5 days of ertapenem. Status post hydrocortisone ACUTE KIDNEY INJURY on CKD Creatinine downtrending; at baseline Urine output reassuring Continue hemodynamic support INCIDENTAL FINDING OF CIRRHOSIS ON CT, NEW DIAGNOSIS Will need outpatient GI follow-up Other chronic medical problems: hypertension hyperlipidemia, on statin Rx thoracic aortic dissection status post surgery chronic anemia prostate cancer status post surgery Disposition PT OT evaluation completed; recommend rehab. Case management on board. Time spent evaluating patient, direct bedside care, chart review, placing orders, interpretation of diagnostic studies, discussion with consultants, patient, and family members, as well as other required patient management activities is 60 minutes Please note the above document was generated using voice recognition software. It may contain grammatical, syntax or spelling errors. Any formal questions or concerns about the content, text or information contained within the body of this dictation should be directly addressed to the provider for clarification Admission and Anticipated Discharge Date Admission Date: December 17, 2022 Subjective Patient seen and examined at bedside. Sitting up on the chair comfortably; not in distress. Saturating well on room air. Review of Systems Review of Systems: All systems reviewed & are unremarkable except as noted in Subjective Physical Exam Physical Exam: Constitutional: Alert, oriented x3. Respiratory: Bilateral basal decreased breath sound. Cardiovascular: RRR, mechanical valve sound present Chest: normal inspection of chest Abdomen: Dressing clean dry and intact. Musculoskeletal: no cyanosis or clubbing, extremities motor strength 5/5 Skin: no rashes, warm and dry normal turgor Neurologic: PERRL, EOMI, accommodation nl, no face palsy, no dysarthria CN's II- XI intact bilaterally and moves all extremities Psychiatric: A+Ox3, euthymic affect Results & Data Results & Data Vital Signs (Past 12 Hours) Vital Signs Temp Pulse Pulse Resp BP Pulse Ox O2 Del Method 12/25/22 11:11 36.7 C 56 L 19 99/40 L 97 Room Air 12/25/22 08:30 Room Air 12/25/22 10:00 56 L 99/50 L 12/25/22 08:52 58 L 96/48 L 12/25/22 07:41 36.3 C L 60 17 105/49 L 95 Room Air 12/25/22 02:36 36.7 C 55 L 18 99/50 L 94 Room Air Laboratory Results Laboratory Results WBC 7.26 K/ul (4.8-10.8) 12/25/22 05:47 RBC 3.03 M/uL (4.70-6.10) L 12/25/22 05:47 Hgb 9.1 g/dl (14.0-18.0) L 12/25/22 05:47 POC Hgb 12.2 g/dl (14.0-18.0) L 12/16/22 20:37 Hct 26.3 % (42.0-52.0) L 12/25/22 05:47 POC Hct 36 % (42-52) L 12/16/22 20:37 MCV 86.8 fL (80.0-100.0) 12/25/22 05:47 MCH 30.0 pg (25.0-34.0) 12/25/22 05:47 MCHC 34.6 g/dL (32.0-36.0) 12/25/22 05:47 RDW Std Deviation 60.2 fL (36.4-46.3) H 12/25/22 05:47 RDW Coeff of [place] 19.2 % (11.5-14.5) H 12/25/22 05:47 Plt Count 162 K/uL (130-400) 12/25/22 05:47 MPV 13.0 fL (9.4-12.4) H 12/25/22 05:47 Immature Gran % (Auto) 4.1 % 12/25/22 05:47 Neut % (Auto) 63.8 % 12/25/22 05:47 Lymph % (Auto) 18.2 % 12/25/22 05:47 [place] % (Auto) 11.0 % 12/25/22 05:47 Eos % (Auto) 2.6 % 12/25/22 05:47 Baso % (Auto) 0.3 % 12/25/22 05:47 Neut # (Auto) 4.63 K/uL (1.40-6.50) 12/25/22 05:47 Lymph # (Auto) 1.32 K/uL (1.2-3.4) 12/25/22 05:47 [place] # (Auto) 0.80 K/uL (0.11-0.59) H 12/25/22 05:47 Eos # (Auto) 0.19 K/uL (0-0.50) 12/25/22 05:47 Baso # (Auto) 0.02 K/uL (0-0.2) 12/25/22 05:47 Immature Gran # (Auto) 0.30 K/uL (0.01-0.20) H 12/25/22 05:47 Polychromasia 1+ 12/25/22 05:47 Poikilocytosis Present 12/20/22 04:22 Anisocytosis Present 12/20/22 04:22 Tear Drop Cells 1+ 12/25/22 05:47 Ovalocytes 1+ 12/24/22 05:34 Echinocytes 1+ 12/18/22 06:49 PT 22.6 Seconds (9.0-12.0) H 12/25/22 05:47 INR 2.2 (0.9-1.1) H 12/25/22 05:47 APTT 59.4 Seconds (21.0-31.0) H* 12/25/22 05:47 PTT Ratio 2.1 07/26/23 05:47 POC Sodium 141 mmol/L (135-144) 12/16/22 20:37 Sodium 138 mmol/L (136-145) 12/25/22 05:47 POC Potassium 4.0 mmol/L (3.3-5.0) 12/16/22 20:37 Potassium 3.4 mmol/L (3.5-5.1) L 12/25/22 05:47 POC Chloride 106 mmol/L (101-112) 12/16/22 20:37 Chloride 104 mmol/L (98-107) 12/25/22 05:47 Carbon Dioxide 28 mmol/L (21-32) 12/25/22 05:47 POC Total CO2 22 mmol/L (24-31) L 12/16/22 20:37 Anion Gap 6 (3-11) 12/25/22 05:47 POC Anion Gap 18.0 mmol/L (16-25) 12/16/22 20:37 POC BUN 71 mg/dl (7-18) H 12/16/22 20:37 BUN 68 mg/dl (6-23) H 12/25/22 05:47 Creatinine 1.64 mg/dl (0.6-1.4) H 12/25/22 05:47 POC Creatinine 2.6 mg/dl (0.6-1.3) H 12/16/22 20:37 Est Cr Clr Drug Dosing 46.7 ml/min 12/25/22 05:47 Est GFR ( Amer) 47.7 ml/min 12/25/22 05:47 Est GFR (Non-Af Amer) 41.2 ml/min 12/25/22 05:47 BUN/Creatinine Ratio 41.5 (10-20) H 12/25/22 05:47 Glucose 93 mg/dl (70-99(Fasting)) 12/25/22 05:47 POC Glucose (other) 88 mg/dl (70-99) 12/16/22 20:37 Lactate 1.5 mmol/L (0.4-2.0) 12/17/22 16:33 Calcium 7.7 mg/dl (8.6-10.3) L 12/25/22 05:47 POC Ioniz Calcium [place] 1.09 mmol/l (1.12-1.32) L 12/16/22 20:37 Phosphorus 3.8 mg/dl (2.5-4.9) 12/21/22 04:47 Magnesium 2.1 mg/dl (1.7-2.4) 12/22/22 06:41 Total Bilirubin 1.2 mg/dl (0.2-1.0) H 12/22/22 06:41 AST 26 U/L (13-39) 12/22/22 06:41 ALT 37 U/L (7-52) 12/22/22 06:41 Alkaline Phosphatase 94 U/L (34-104) 12/22/22 06:41 Troponin I High Sens 96.3 pg/ml (0-20) H* D 12/17/22 19:56 B-Natriuretic Peptide 704 pg/ml (0-100) H 12/16/22 23:22 Total Protein 5.1 gm/dl (6.0-8.3) L 12/22/22 06:41 Albumin 2.8 gm/dl (3.4-5.0) L 12/22/22 06:41 Globulin 2.3 gm/dl (2.5-4.0) L 12/22/22 06:41 Albumin/Globulin Ratio 1.2 (0.9-2) 12/22/22 06:41 Lipase 14 U/L (11-82) 12/16/22 20:12 Procalcitonin 0.42 ng/ml (0-0.5) 12/16/22 20:13 TSH 4.479 uIu/ml (0.300-4.500) 12/16/22 20:13 Random Cortisol 23.34 mcg/dl 12/17/22 16:33 Urine Color Yellow 12/16/22 20:12 Urine Appearance Clear (Clear) 12/16/22 20:12 Urine pH 5.5 (4.5-7.5) 12/16/22 20:12 Ur Specific [place] 1.012 (1.000-1.030) 12/16/22 20:12 Urine Protein Negative (Negative) 12/16/22 20:12 Urine Glucose (UA) Negative (Negative) 12/16/22 20:12 Urine Ketones Negative (Negative) 12/16/22 20:12 Urine Blood Negative (Negative) 12/16/22 20:12 Urine Nitrite Negative (Negative) 12/16/22 20:12 Urine Bilirubin Negative (Negative) 12/16/22 20:12 Urine Urobilinogen Negative (Negative) 12/16/22 20:12 Ur Leukocyte Esterase Negative (Negative) 12/16/22 20:12 Nasal Screen MRSA (PCR) Negative (Negative) 12/17/22 16:40 SARS-CoV-2, RNA, NAAT NEGATIVE (NEGATIVE) 12/16/22 20:12 Blood Type O Positive 12/17/22 10:50 Antibody Screen NEGATIVE 12/17/22 10:50 Impressions Abdomen/Pelvis CT 12/16/22 20:44 Exam(s): CT ABDOMEN + PELVIS Without Contrast EXAM: CT Abdomen and Pelvis Without Intravenous Contrast CLINICAL HISTORY: Reason for exam: Abd pain. TECHNIQUE: Axial computed tomography images of the abdomen and pelvis without intravenous contrast. CTDI is 27.34 mGy and DLP is 1388.62 mGy-cm. Automated exposure control was utilized for the study. A dose lowering technique was utilized adhering to the principles of ALARA. COMPARISON: No relevant prior studies available. FINDINGS: Lung bases: Unremarkable. No mass. No consolidation. Pleural space: Small RIGHT pleural effusion. Heart: Cardiomegaly. Prosthetic aortic valve. ABDOMEN: Liver: Mild hepatic cirrhotic morphology. Mild perihepatic and perisplenic ascites. Gallbladder and bile ducts: Unremarkable. No calcified stones. No ductal dilation. Pancreas: Unremarkable. No ductal dilation. Spleen: Unremarkable. No splenomegaly. Adrenals: Unremarkable. No mass. Kidneys and ureters: Unremarkable. No hydronephrosis or nephrolithiasis. Stomach and bowel: Ventral abdominal wall hernia, which contains a loop of small bowel. Mildly prominent small bowel entering this hernia measuring up to 2.6 cm, concerning for partial bowel obstruction. Diverticulosis, without acute diverticulitis. No free air. PELVIS: Appendix: No findings to suggest acute appendicitis. Bladder: Unremarkable. No stones. Reproductive: Unremarkable as visualized. ABDOMEN and PELVIS: Intraperitoneal space: See above. Bones/joints: Sternotomy wires. Degenerative changes of the spine. LEFT hip arthroplasty. No acute fracture. No dislocation. Soft tissues: See above. Vasculature: Atherosclerotic changes of the aorta. No abdominal aortic aneurysm. Lymph nodes: Unremarkable. No enlarged lymph nodes. IMPRESSION: 1. Ventral abdominal wall hernia, which contains a loop of small bowel. Mildly prominent small bowel entering this hernia measuring up to 2.6 cm, concerning for partial bowel obstruction. 2. No hydronephrosis or nephrolithiasis. 3. Small RIGHT pleural effusion. 4. Mild hepatic cirrhotic morphology. Mild perihepatic and perisplenic ascites. 5. Diverticulosis, without acute diverticulitis. No free air. Electronically signed by: Gerhard Forman MD 12/16/22 22:10 PM KUB X-Ray 12/17/22 05:49 KUB HISTORY: ng tube placement COMPARISON: KUB 12/17/2022. FINDINGS: Nasogastric tube terminates in the stomach. Small bilateral pleural effusions and right basilar densities persist. The heart remains enlarged. There are poststernotomy changes and a cardiac valve prosthesis again noted. Mildly dilated gas-filled loops of small bowel are again seen within the upper abdomen. This is concerning for a small bowel obstruction. No renal calculi. No ureteral calculi. No pneumoperitoneum or pneumatosis. IMPRESSION: 1. Nasogastric tube terminates in the stomach. 2. Mildly dilated gas-filled loops of small bowel are seen within the upper abdomen concerning for a small bowel obstruction. ACT 112: Negative or not required by law. Electronically signed by: Neftaly Urrutia M.D. 12/17/2022 6:43 AM Chest X-Ray 12/23/22 12:38 XR chest 1V portable CLINICAL HISTORY: Follow up on pleural effusion COMPARISON STUDY: Chest radiograph December 21, 2022. FINDINGS: There is no pneumothorax. Small to moderate right pleural effusion with right basilar opacity has slightly increased. Cardiomegaly is again noted. There are median sternotomy wires and prosthetic cardiac valve. There is no evidence for overt edema. There is a trace left pleural effusion. IMPRESSION: 1. Slight increase in a small to moderate right pleural effusion. Persistent right basilar opacity. 2. Cardiomegaly without evidence for pulmonary edema. ACT 112: Negative or not required by law. Electronically signed by: Patel Daniel M.D. 12/23/2022 1:26 PM
[2022-12-25] MEDS ORDERED: POTASSIUM CHLORIDE CRTAB 20 MEQ TABCR PO STA (14:31)
--- NOTE | 2022-12-25 14:34 | Cardiology Progress Note ---
Date of Service December 25, 2022 Assessment & Plan (1) Umbilical hernia, incarcerated: (2) S/P AVR (aortic valve replacement): (3) Congenital heart disease: (4) CRF (chronic renal failure): Plan IMPRESSION: Medically complex 72 year old male with hx of congenital heart disease s/p pulmonic valve and ASD repair as well as severe s/p mechanical AVR and ascending aortic repair. Found to have an incarcerated umbilical hernia status post open partial small bowel resection and repair of ventral hernia, 12/17/[address] Solis Echo this admission stable with findings associated with prior heart/valvular disease. Hypotensive on presentation, chronic finding. No longer requiring pressor support. NG tube removed 12/19. PLAN: Hgb 9.1, INR 2.2 He is back on his oral medications including amiodarone, warfarin, atorvastatin. He is tolerating a regular diet. Small to moderate right pleural effusion noted. Continue Diuretics. Agree with increase in furosemide to 30 mg TID , as BP allows. Continue heparin bridge, Agree with plan of coumadin 5 mg today, goal INR 2.5 - 3.5 BP stable. Metoprolol resumed. ASA still on hold. Admission and Anticipated Discharge Date Admission Date: December 17, 2022 Subjective Pt seen in cardiology follow up . Sitting in bedside chair. No cardiac complaints. Physical Exam Constitutional: + ill appearing; no acute distress Neck: normal visual inspection and trachea midline Respiratory: no respiratory distress, no labored breathing and no cough Auscultation: + diminished lung sounds; no rales, no rhonchi and no wheezes Cardiovascular: Rate/Rhythm: regular rate and regular rhythm Heart Sounds: normal S1 and normal S2 ([place] mechanical valve closure ) Extremities: + edema (Trace to 1+ bilateral lower extremity edema) Gastrointestinal (Abdomen): Inspection/Auscultation: + hypoactive bowel sounds; abdomen not distended Percussion/Palpation: abdomen soft; abdomen nontender Skin: no rashes, warm and dry Neurologic: PERRL, EOMI, accommodation nl, no face palsy, no dysarthria Psychiatric: A+Ox3, euthymic affect Results & Data Vital Signs (Past 12 Hours) Vital Signs Temp Pulse Pulse Resp BP Pulse Ox O2 Del Method 12/25/22 11:11 36.7 C 56 L 19 99/40 L 97 Room Air 12/25/22 08:30 Room Air 12/25/22 10:00 56 L 99/50 L 12/25/22 08:52 58 L 96/48 L 12/25/22 07:41 36.3 C L 60 17 105/49 L 95 Room Air 12/25/22 02:36 36.7 C 55 L 18 99/50 L 94 Room Air Laboratory Results Coagulation 12/25/22 Range/Units 05:47 PT 22.6 H (9.0-12.0) Seconds APTT 59.4 H* (21.0-31.0) Seconds CBC 12/25/22 Range/Units 05:47 WBC 7.26 (4.8-10.8) K/ul RBC 3.03 L (4.70-6.10) M/uL Hgb 9.1 L (14.0-18.0) g/dl Hct 26.3 L (42.0-52.0) % Plt Count 162 (130-400) K/uL Neut # (Auto) 4.63 (1.40-6.50) K/uL Lymph # (Auto) 1.32 (1.2-3.4) K/uL [place] # (Auto) 0.80 H (0.11-0.59) K/uL Eos # (Auto) 0.19 (0-0.50) K/uL Baso # (Auto) 0.02 (0-0.2) K/uL Comprehensive Metabolic Panel 12/25/22 Range/Units 05:47 Sodium 138 (136-145) mmol/L Potassium 3.4 L (3.5-5.1) mmol/L Chloride 104 (98-107) mmol/L Carbon Dioxide 28 (21-32) mmol/L BUN 68 H (6-23) mg/dl Creatinine 1.64 H (0.6-1.4) mg/dl Glucose 93 (70-99(Fasting)) mg/dl Calcium 7.7 L (8.6-10.3) mg/dl Intake and Output 12/24/22 12/25/22 12/25/22 22:59 06:59 14:59 Intake Total 100 / 750.000 576.667 / 750.000 229.900 / 229.900 Output Total 826 / 2176 350 / 2176 600 / 600 Balance -726 / -1426.000 226.667 / -1426.000 -370.100 / -370.100 Intake: IV 426.667 / 500.000 229.900 / 229.900 Heparin Sodium/Dextrose 25,000 426.667 / 500.000 229.900 / 229.900 units In 500 ml @ 1,100 UNITS/ HR 22 mls/hr IV .[id number] [facility] Rx #:[id number] Oral 100 / 250 150 / 250 Output: Urine Amount (Catheter) 825 / 2175 350 / 2175 600 / 600 External 825 / 2175 350 / 2175 600 / 600 # Bowel Movements Other: Weight 100.2 kg (4) CRF (chronic renal failure) Chronic kidney disease stage: unspecified stage Qualified Code(s): N18.9 - Chronic kidney disease, unspecified
[2022-12-25] MEDS: WARFARIN SOD 5 MG TAB PO SCH (15:15)
[2022-12-25] MEDS ORDERED: COVID19 BIVALENT Vaccine (Pfizer) 30mcg/0.3mL SDV IM ONE ×2 (16:10→19:00)
[2022-12-25] MEDS: TERAZOSIN HCL 1 MG CAP PO SCH (20:10)
[2022-12-26 07:28] LABS: Basophils # (auto) 0.02 K/uL (0-0.2); Basophils % (auto) 0.3 %; Eosinophils # (auto) 0.19 K/uL (0-0.50); Eosinophils % (auto) 2.5 %; Hematocrit (blood only) 27.6 % (42.0-52.0); Hemoglobin 9.2 g/dl (14.0-18.0); Immature Granulocytes # (auto) 0.19 K/uL (0.01-0.20); Immature Granulocytes % (auto) 2.5 %; Lymphocytes # (auto) 1.19 K/uL (1.2-3.4); Lymphocytes % (auto) 15.7 %; Mean Corpuscular Hemoglobin 29.7 pg (25.0-34.0); Mean Corpuscular Hgb Conc 33.3 g/dL (32.0-36.0); Monocytes # (auto) 0.79 K/uL (0.11-0.59); Monocytes % (auto) 10.4 %; Neutrophils % (auto) 68.6 %; Platelet Count 188 K/uL (130-400); RDW Coefficient of Variation 19.7 % (11.5-14.5); RDW Standard Deviation 62.3 fL (36.4-46.3); White Blood Count 7.58 K/ul (4.8-10.8)
[2022-12-26 07:51] LABS: BUN Creatinine Ratio 37.7 (10-20); Calcium 7.9 mg/dl (8.6-10.3); Creatinine Clr Calc Pharmacy 47.3 ml/min; Est GFR (African American) 48.4 ml/min; Est GFR (Non-African American) 41.8 ml/min; Potassium 3.6 mmol/L (3.5-5.1)
[2022-12-26 07:52] LABS: INR 2.4 (0.9-1.1); Prothrombin Time 25.1 Seconds (9.0-12.0)
[2022-12-26] MEDS: allopurinoL 300 MG TAB PO SCH (09:35)
[2022-12-26] MEDS: AMIODARONE 200 MG TAB PO SCH (09:37)
[2022-12-26] MEDS: PANTOprazole 40 MG TAB PO SCH (09:38)
[2022-12-26] MEDS: ASPIRIN 81 MG ECTAB PO SCH (09:38)
[2022-12-26] MEDS: ATORVASTATIN 40 MG TAB PO SCH (09:38)
[2022-12-26 09:39] LABS: Partial Thromboplastin Ratio 2.2
[2022-12-26] MEDS: FUROSEMIDE 40 MG/4 ML VIAL IV SCH (09:39)
[2022-12-26 09:45] LABS: Partial Thromboplastin Time 60.9 Seconds (21.0-31.0)
[2022-12-26] MEDS: METOPROLOL TARTRATE 25 MG TAB PO SCH (10:27)
--- NOTE | 2022-12-26 12:49 | Discharge Summary ---
Date of Service December 26, 2022 Admission HPI Per Admitting Provider History obtained from patient and records. Medical history significant for chronic diastolic heart failure (EF 50 to 55%, TTE 2021), PAF/mechanical AVR on Coumadin, valvular heart disease mild MR/moderate TR), congenital heart disease (pulmonic stenosis/ASD status post surgery), hypertension, hyperlipidemia, thoracic aortic dissection status post surgery, CRI (baseline creatinine 2s), chronic anemia (baseline hemoglobin 12), prostate cancer status post surgery, mood disorder, past alcohol abuse. Patient with worsening shortness of breath symptoms especially on exertion over the last few months. Chronic cough symptoms productive of clear sputum. Outpatient chest x-ray 6 weeks ago showed moderate right pleural effusion. Minimal improvement despite IR guided right thoracentesis at [facility] with drainage of 1 750 mL of clear venessa fluid 3 weeks ago. Patient noted periumbilical pain after bowel movement yesterday morning. Dark stools which he attributed to blueberry consumption. No chest pain. Usual shortness of breath. Patient brought to ER by for evaluation. 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 Admission Exam Per Admitting Provider GENERAL: uncomfortable, obese, tremulous, no respiratory distress SKIN: Pallor, warm HEENT: Pale palpebral conjunctivae, no ptosis, dry buccal mucosa NECK : Supple, short neck, no tenderness CHEST : Decreased breath sounds, no tenderness HEART :RRR, mechanical murmur ABDOMEN: distention, central abdominal tenderness RECTAL : Intact sphincter, dark brown stool (FOBT negative) EXTREMITIES : Bilateral LE swelling, no LE tenderness, no other conspicuous deformities noted NEUROLOGIC : Coherent, no facial asymmetry, tremulous, gait and stance not assessed Principal Diagnosis INCARCERATED UMBILICAL HERNIA ACUTE ON CHRONIC DIASTOLIC CHF Mechanical valve on warfarin status post vitamin K Bilateral pleural effusion Discharge Exam Constitutional: Alert, oriented x3. Respiratory: Bilateral basal decreased breath sound. Cardiovascular: RRR, mechanical valve sound present Chest: normal inspection of chest Abdomen: Dressing clean dry and intact. Musculoskeletal: no cyanosis or clubbing, extremities motor strength 5/5. 4+ pitting edema bilaterally Skin: no rashes, warm and dry normal turgor Neurologic: PERRL, EOMI, accommodation nl, no face palsy, no dysarthria CN's II- XI intact bilaterally and moves all extremities Psychiatric: A+Ox3, euthymic affect Discharge Data Allergies Allergy/AdvReac Type Severity Reaction Status Date / Time nut - unspecified Allergy Intermediate SORES IN Verified 12/16/22 21:33 MOUTH beet Allergy Verified 12/24/22 10:50 Consultations 12/16/22 22:30 ED Decision to Admit Stat 12/17/22 03:03 Consult Cardiology Routine 12/17/22 05:17 Consult General Surgery Routine 12/17/22 15:45 Consult Fabrication Engineer Routine 12/18/22 08:16 Consult Nephrology Routine 12/23/22 14:57 Consult Pulmonology Routine Procedures Performed Operation Date: 12/17/22 07:50 Actual Procedures s Laparoscopy converted to open (Not Applicable) - Juan Solis DO s repair of ventral hernia(Not Applicable) - Juan Solis DO p partial small bowel resection,(Not Applicable) - Juan Solis DO Ordered Studies 12/16/22 20:44 CT Abd and Pelvis [CT abd pelvis wo con] Stat Hospital Course (1) Umbilical hernia, incarcerated: Patient presented to the hospital with abdominal pain and shortness of breath. INCARCERATED UMBILICAL HERNIA Status post Laparoscopy converted to open partial small bowel resection, repair of ventral hernia on 12/17 Patient was transferred to ICU for closer monitoring after the surgery on the same day Initially on NG tube; removed on 12/19. first bowel movement on 12/21. Having regular bowel movement at discharge. Patient to follow-up with Dr. Solis( Surgeon) in 1 to 2 weeks after discharge. ACUTE ON CHRONIC DIASTOLIC CHF Mechanical valve on warfarin status post vitamin K Bilateral pleural effusion During the hospitalization, patient was found to have pleural effusion and pulm edema. Was given diuretics as per nephrology. Was placed on heparin bridge with PT/INR of 2.4 at discharge Pulmonology consulted for persistent right-sided pleural effusion. Outpatient chart reviewed; patient had 1750 ML of thoracentesis done on 11/27 at [facility]. Cytology was negative for malignancy. Discussed with Dr. Aguilera from pulmonology; recommended aggressive diuresis. Diuretics dose was increased. The likely cause for the pleural effusion is due to acute on chronic diastolic heart failure along with liver cirrhosis. Patient was discharged on 60 mg of Lasix twice a day. Repeat CMP on Friday and repeat chest x-ray in 2 weeks time. Septic shock Secondary to incarcerated hernia Off vasopressor support since 11/18 Status post 5 days of ertapenem. Status post hydrocortisone ACUTE KIDNEY INJURY on CKD- resolved at discharge. INCIDENTAL FINDING OF CIRRHOSIS ON CT, NEW DIAGNOSIS-history of alcohol use disorder in the past Will need outpatient GI follow-up Discussed with patient and patient's at discharge. Agreeable with plan. Discharged to [facility] Please note the above document was generated using voice recognition software. It may contain grammatical, syntax or spelling errors. Any formal questions or concerns about the content, text or information contained within the body of this dictation should be directly addressed to the provider for clarification Total Time Total Time Spent Total Time Spent (In Minutes): 45 Total Time Includes: Examination of the Patient, Discharge Planning, Medication Reconciliation, Communication With Other Providers and Other Discharge Plan Discharge Items Patient Disposition: Transfer [facility] Reason For Visit: CHF Discharge Diagnosis: open ventral hernia repair and small bowel resection Activity: Per Instructions section Lifting: No more than 10 pounds Bathing Comment: may shower; no soaking in tubs/pools x 2 weeks Exercise/Sports: Wait until after follow-up appointment Driving/Machine Use: no driving while taking narcotics for pain Non-emergency contact: Primary Care Provider and Surgeon Call non-emergency contact if: you have any medication questions, your pain is worsening, you have a fever, your temperature is above 101.5, your wound has increased redness, your wound has increased drainage and your wound pain has increased Follow-up/Referrals: Juan Solis, [Surgeon] - (Please call to schedule follow up in clinic within 1-2 weeks ) Veroinca Coe MD [Primary Care Provider] - Diet: Low Fiber Addtl Attending Provider Instructions: Surgical instructions: you have surgical ingrid in place that will be removed at one of your follow up appointments You were admitted to the hospital due to incarcerated hernia for which you were operated by Dr. Solis on December 17. You were evaluated by pulmonology (Dr. Aguilera) for the pleural effusion. The likely cause for the pleural effusion is CHF and cirrhosis. The diuretic dose was increased to Lasix 60 mg twice daily. Please obtain comprehensive metabolic panel on December 31 to follow-up on the kidney function test, electrolytes as your diuretics dose have been increased. Please obtain chest x-ray in 2 weeks time to follow-up on the pleural effusion. Please follow-up with your primary care doctor after discharge from rehab. You will need GI referral for cirrhosis seen in the CT abdomen/pelvis done during the hospitalization. Pending Studies at Discharge: Yes Studies:: surgical pathology Stand-Alone Forms: My [facility] Skilled Items Patient informed of condition?: Yes DNR: Yes Discharge Level of Care: Skilled Communicable Disease: No Discharge Prognosis: Stable Lines: None Urinary Catheter: No Medications and DC Order Prescriptions: New potassium chloride 20 mEq tablet extended release 20 meq PO BID Qty: 30 0RF Continued amoxicillin 500 mg Capsule 2,000 mg PO DIRECTED PRN (Reason: 1 HR PRIOR TO DENTAL APPT.) atorvastatin 40 mg tablet 40 mg PO DAILY Qty: 30 0RF amiodarone 200 mg tablet 200 mg PO QAM Qty: 30 0RF terazosin 1 mg Capsule 2 mg PO HS Qty: 30 0RF aspirin 81 mg Tablet,Delayed Release (Dr/Ec) 81 mg PO DAILY Qty: 30 0RF allopurinol 300 mg Tablet 300 mg PO DAILY Qty: 30 0RF lisinopril 2.5 mg tablet 2.5 mg PO QAM Qty: 30 0RF loratadine [Claritin] 10 mg Tablet 10 mg PO DAILY Qty: 30 0RF metoprolol tartrate 25 mg tablet 12.5 mg PO BID Qty: 30 0RF cholecalciferol (vitamin D3) [Vitamin D3] 50 mcg (2,000 unit) Capsule 50 mcg PO DAILY Qty: 30 0RF warfarin 5 mg Tablet See Rx Instructions .ROUTE .COMPLEX Qty: 30 0RF Rx Instructions: TAKES 2.5 MG ON TUES, THURS, & SAT., THEN 5 MG ON SUN, MON, WED, & FRI. Changed furosemide 20 mg tablet 60 mg PO BID Qty: 120 0RF Discharge Orders: Discharge Order (Routine); Ordered 12/26/22 Ordered By: Franco Ward Admission Data Admit Date/Time: 07/18/23 02:15 Attending Provider: Franco Ward Admit Provider: Ronald Armstrong Primary Care Provider: Veronica Coe Other Providers: Zenon Brand ; Ronald Armstrong ; Abbi Oquendo ; Ramy Ortiz ; Rey Terry ; Jason Romeo ; Medhat Means ; Sloan Freed ; Jade Torre ; Brianda Padilla ; Abbi Griggs ; Deepak Thakkar ; Keaton Lockett ; Juan Solis ; Gabriel Little ; Alice Muñoz ; Lloyd Wilson ; [facility] ; [facility], ; Kymberly Aguilera H
--- NOTE | 2022-12-26 13:53 | Cardiology Progress Note ---
Date of Service December 26, 2022 Assessment & Plan (1) Umbilical hernia, incarcerated: (2) S/P AVR (aortic valve replacement): (3) Congenital heart disease: Plan IMPRESSION: Medically complex 72 year old male with hx of congenital heart disease s/p pulmonic valve and ASD repair as well as severe s/p mechanical AVR and ascending aortic repair. Found to have an incarcerated umbilical hernia status post open partial small bowel resection and repair of ventral hernia, 12/17/[address] Solis Echo this admission stable with findings associated with prior heart/valvular disease. Hypotensive on presentation, chronic finding. No longer requiring pressor support. NG tube removed 12/19. PLAN: INR 2.4 is felt to be close enough to his goal of 2.5-3.5 to transition from heparin to Coumadin monotherapy. 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 Admission and Anticipated Discharge Date Admission Date: December 17, 2022 Subjective Patient seen in cardiology follow-up. Sitting in bedside chair. No acute complaints. Heparin discontinued earlier this a.m. Physical Exam Constitutional: + ill appearing; no acute distress Neck: normal visual inspection and trachea midline Respiratory: no respiratory distress, no labored breathing and no cough Auscultation: + diminished lung sounds (Decreased breath sounds at right base); no rales, no rhonchi and no wheezes Cardiovascular: Rate/Rhythm: regular rate and regular rhythm Heart Sounds: normal S1 and normal S2 (Rincon mechanical valve closure ) Extremities: + edema (Trace to 1+ bilateral lower extremity edema) Gastrointestinal (Abdomen): Inspection/Auscultation: + hypoactive bowel sounds; abdomen not distended Percussion/Palpation: abdomen soft; abdomen nontender Skin: no rashes, warm and dry Neurologic: PERRL, EOMI, accommodation nl, no face palsy, no dysarthria Psychiatric: A+Ox3, euthymic affect Results & Data Vital Signs (Past 12 Hours) Vital Signs Temp Pulse Pulse Pulse Resp BP BP 12/26/22 12:52 36.3 C L 58 L 18 110/53 L 12/26/22 11:08 36.3 C L 58 L 18 110/53 L 12/26/22 06:00 52 L 12/26/22 07:30 36.8 C 55 L 16 114/50 L 12/26/22 07:29 88/41 L 12/26/22 03:32 36.8 C 53 L 18 91/45 L Pulse Ox O2 Del Method 12/26/22 12:52 98 12/26/22 11:08 98 Room Air 12/26/22 06:00 12/26/22 07:30 95 Room Air 12/26/22 07:29 12/26/22 03:32 93 Room Air Laboratory Results Hemoglobin 9.2, platelet count 188, INR 2.4, PTT 60.9 seconds this morning. Creatinine 1.62
== END 2022-12-26 14:25 | DRG 329 ==
LOC: ED 19:25 → 2E 12-17 02:15 → SUATTDRO 12-17 02:15 → 2E 12-17 02:42 → 1E 12-17 15:43 → 2E 12-21 06:42